=== PATIENT | male | born 1955 | race Hispanic/Latino ===

== ENCOUNTER 2017-06-06 16:49 | Emergency (ER) | payer MEDICARE, MEDICAID ==
[2017-06-06 16:50] VITALS: BMI 33.0
[2017-06-06 17:02] VITALS: BP 131/99; PULSE 78; RESP 16; TEMP 97.8; O2SAT 97
--- NOTE | 2017-06-06 17:23 | ED PDOC ---
HPI: Trauma/Fall - HPI Time Seen by Provider: 06/06/17 16:51 Chief Complaint (Nursing): Trauma Chief Complaint (Provider): fall type injury History Per: Patient History/Exam Limitations: no limitations Onset/Duration Of Symptoms: Days (x2) Additional Complaint(s): Arnoldo Serna is a 62 year old male with previous medical history of hypertension , diabetes, hypercholesterolemia and coronary artery disease, who presents to the emergency department for an evaluation of right knee pain associated with left-sided shoulder pain and neck pain status post falling and tripping last night. Denied further medical complaints. Patient stated he took 2 tablets of oxycodone today but regularly takes the pain medication daily for 7 years to treat his chronic pain. Of note, patient has a cardiac stent procedure scheduled for 06/09/17. PMD: Eber Sow MD Past Medical History Reviewed: Historical Data, Nursing Documentation, Vital Signs Vital Signs: Last Vital Signs Temp 97.8 F 06/06/17 17:00 Pulse 78 06/06/17 17:00 Resp 16 06/06/17 17:00 BP 131/99 H 06/06/17 17:00 Pulse Ox 97 06/06/17 18:37 - Medical History PMH: Benign Prostatic Hyperplasia, CAD, Depression, Diabetes, Fractures, HTN, Hypercholesterolemia Denies: Chronic Kidney Disease - Family History Family History: States: Unknown Family Hx - Home Medications Home Medications: Ambulatory Orders Medication Instructions Recorded Naproxen 1 tab PO Q8 PRN #21 tablet 02/14/16 diaZEpam [Valium] 5 mg PO Q6 PRN #6 tab 02/14/16 ALPRAZolam [Xanax] 1 mg PO Q4 06/11/16 Albuterol HFA [Ventolin HFA 90 0.09 mg IH PRN PRN 06/11/16 mcg/actuation (8 g)] Cetirizine HCl [Zyrtec] 10 mg PO DAILY 06/11/16 Cyclobenzaprine [Flexeril] 10 mg PO TID 06/11/16 Ergocalciferol (Vitamin D2) 50,000 unit PO QWK 06/11/16 [Vitamin D] Fenofibrate Nanocrystallized 160 mg PO DAILY 06/11/16 [Triglide] Fluticasone Nasal [Flonase] 0.05 mg NS PRN PRN 06/11/16 Gabapentin [Neurontin] 300 mg PO TID 06/11/16 Levothyroxine [Synthroid] 0.088 mg PO DAILY 06/11/16 Lidocaine 5% [Lidoderm] 1 patch TOP PRN PRN 06/11/16 Montelukast [Singulair] 10 mg PO DAILY 06/11/16 Omeprazole Magnesium [Prilosec Otc] 20 mg PO DAILY 06/11/16 Oxycodone HCl [Oxycontin] 30 mg PO Q8H PRN 06/11/16 PARoxetine [Paxil] 60 mg PO DAILY 06/11/16 SITagliptin [Januvia] 100 mg PO DAILY 06/11/16 Sildenafil Citrate [Revatio] 20 mg PO BID 06/11/16 amLODIPine [Norvasc] 5 mg PO BID 06/11/16 busPIRone [Buspar] 10 mg PO HS 06/11/16 busPIRone [Buspar] 15 mg PO TID 06/11/16 hydrALAZINE Hydrochloride 50 mg PO TID 06/11/16 [Apresoline] oxyCODONE [oxyCODONE Immediate 30 mg PO Q4 PRN 06/11/16 Release Tab] Methylprednisolone [Medrol Dose 4 mg PO DAILY #21 mg 06/12/16 Pack (21 tabs)] - Allergies Allergies/Adverse Reactions: Allergies Allergy/AdvReac Type Severity Reaction Status Date / Time Sulfa (Sulfonamide Allergy RASH Verified 02/14/16 09:33 Antibiotics) Review of Systems ROS Statement: Except As Marked, All Systems Reviewed And Found Negative Musculoskeletal: Positive for: Neck Pain (left-sided), Shoulder Pain (left), Leg Pain (right knee) Physical Exam - Reviewed Nursing Documentation Reviewed: Yes Vital Signs Reviewed: Yes - Physical Exam Appears: Positive for: Non-toxic, Uncomfortable Head Exam: Positive for: ATRAUMATIC, NORMAL INSPECTION, NORMOCEPHALIC Respiratory: Positive for: Normal Breath Sounds, Accessory Muscle Use. Negative for: Decreased Breath Sounds, Respiratory Distress Extremity: Positive for: Normal ROM, Tenderness (right knee; left shoulder). Negative for: Pedal Edema, Calf Tenderness, Deformity, Swelling (or ecchymosis) Neurologic/Psych: Positive for: Alert, Oriented - ECG O2 Sat by Pulse Oximetry: 97 (RA) Pulse Ox Interpretation: Normal Medical Decision Making Medical Decision Making: Initial Impression: Initial Plan: * Xray cervical spine * Xray knee (right) * Morphine 4mg IM * Xray shoulder (left) * * All Imaging studies, NAD, as read by SHANNAN * * Pt educated on all results and demonstrated full understanding * Pt reports feeling improved on re-eval, cleared for dc at this time. Pt able to ambulate with steady gait out of ED Scribe Attestation: Documented by Lucero Wadsworth, acting as a scribe for Kim Estrada. Provider Scribe Attestation: All medical record entries made by the Scribe were at my direction and personally dictated by me. I have reviewed the chart and agree that the record accurately reflects my personal performance of the history, physical exam, medical decision making, and the department course for this patient. I have also personally directed, reviewed, and agree with the discharge instructions and disposition. Disposition - Clinical Impression Clinical Impression: Contusion, Fall - Patient ED Disposition Is Patient to be Admitted: No - Disposition Disposition: Routine/Home Disposition Time: 18:53 Condition: STABLE Instructions: Contusion in Adults (ED) Forms: [employer] (Hebrew) - POA Present On Arrival: None
--- NOTE | 2017-06-07 13:42 | RAD ---
PROCEDURE: Radiographs of the Left Shoulder HISTORY: Posttraumatic left shoulder pain COMPARISON: None FINDINGS: BONES: Normal. No fracture. JOINTS: Preserved glenohumeral relationship, acromioclavicular degenerative change: Mild. SOFT TISSUES: Normal. OTHER FINDINGS: None. IMPRESSION: No acute findings related to/accounting for the clinical presentation. Please note: No preliminary report/ innterpretation of this examination provided by emergency department personnel.
--- NOTE | 2017-06-07 13:55 | RAD ---
PROCEDURE: Cervical Spine Radiographs. HISTORY: PainOpen Pain. No history of recent/ related trauma provided. COMPARISON: None. FINDINGS: BONES: Alignment maintained. No fracture. Dens Intact. DISC SPACES: Disc degenerative changes C4-5 and C5-6. Non marginal osteophytes identified anteriorly. SOFT TISSUES: Normal. No prevertebral soft tissue swelling. OTHER FINDINGS: None. IMPRESSION: No acute findings related to/accounting for the clinical presentation. Please note: No preliminary report/ innterpretation of this examination provided by emergency department personnel.
--- NOTE | 2017-06-07 13:57 | RAD ---
PROCEDURE: Right Knee Radiographs. HISTORY: fall COMPARISON: 09/13/2011 FINDINGS: BONES: Normal. No fracture. JOINTS: Normal. No osteoarthritis. JOINT EFFUSION: None. OTHER FINDINGS: None. IMPRESSION: No acute findings related to/accounting for the clinical presentation. No significant interval change compared to the prior examination(s). Please note: No preliminary report/ innterpretation of this examination provided by emergency department personnel.
== END 2017-06-06 18:15 | disposition home or self-care (01) ==
LOC: H.ER 16:49
DX: M25.561 Pain in right knee (principal); M25.512 Pain in left shoulder; M54.2 Cervicalgia; W19.XXXA Unspecified fall, initial encounter; Y92.89 Other specified places as the place of occurrence of the external cause; E11.9 Type 2 diabetes mellitus without complications; I10 Essential (primary) hypertension
CPT/HCPCS: 72050; 73030; 73562; 96372; 99284; J2270

== ENCOUNTER 2018-01-04 03:24 | Observation (INO) | payer MEDICARE, MEDICAID ==
[2018-01-04 03:25] VITALS: BMI 33.0
--- NOTE | 2018-01-04 04:04 | ED PDOC ---
HPI: Psych/Substance Abuse Chief Complaint (Provider): altered mental status History Per: Patient (62 y/o male h/o cardiac stent/CAD/psych illness brought to ED by police for evaluation. Patient called police due to concern that he was being attacked. At house, police note patient must be hallucinating as no other individuals there. Pateint was using cocaine at the time and had oxycodone in apartment. Patient staes he started to have chest en route to hospital. Describes symptoms as chest pressure.) <Todd Patel - Last Filed: 01/04/18 04:00> <Messi Cruz - Last Filed: 01/04/18 06:56> Time Seen by Provider: 01/04/18 04:00 Chief Complaint (Nursing): Psychiatric Evaluation Past Medical History Reviewed: Historical Data, Nursing Documentation, Vital Signs Vital Signs: Last Vital Signs Temp 98.2 F 01/04/18 03:32 Pulse 81 01/04/18 03:32 Resp 17 01/04/18 03:32 BP 151/105 H 01/04/18 03:32 Pulse Ox 94 L 01/04/18 03:32 - Medical History PMH: Benign Prostatic Hyperplasia, CAD, Depression, Diabetes, Fractures, HTN, Hypercholesterolemia Denies: Chronic Kidney Disease - Family History Family History: States: Unknown Family Hx <Todd Patel - Last Filed: 01/04/18 04:00> Vital Signs: Last Vital Signs Temp 98.2 F 01/04/18 06:45 Pulse 73 01/04/18 06:45 Resp 18 01/04/18 06:45 BP 131/64 01/04/18 06:45 Pulse Ox 97 01/04/18 06:45 <Messi Cruz - Last Filed: 01/04/18 06:56> - Home Medications Home Medications: Ambulatory Orders Medication Instructions Recorded Naproxen 1 tab PO Q8 PRN #21 tablet 02/14/16 diaZEpam [Valium] 5 mg PO Q6 PRN #6 tab 02/14/16 ALPRAZolam [Xanax] 1 mg PO Q4 06/11/16 Albuterol HFA [Ventolin HFA 90 0.09 mg IH PRN PRN 06/11/16 mcg/actuation (8 g)] Cetirizine HCl [Zyrtec] 10 mg PO DAILY 06/11/16 Cyclobenzaprine [Flexeril] 10 mg PO TID 06/11/16 Ergocalciferol (Vitamin D2) 50,000 unit PO QWK 06/11/16 [Vitamin D] Fenofibrate Nanocrystallized 160 mg PO DAILY 06/11/16 [Triglide] Fluticasone Nasal [Flonase] 0.05 mg NS PRN PRN 06/11/16 Gabapentin [Neurontin] 300 mg PO TID 06/11/16 Levothyroxine [Synthroid] 0.088 mg PO DAILY 06/11/16 Lidocaine 5% [Lidoderm] 1 patch TOP PRN PRN 06/11/16 Montelukast [Singulair] 10 mg PO DAILY 06/11/16 Omeprazole Magnesium [Prilosec Otc] 20 mg PO DAILY 06/11/16 Oxycodone HCl [Oxycontin] 30 mg PO Q8H PRN 06/11/16 PARoxetine [Paxil] 60 mg PO DAILY 06/11/16 SITagliptin [Januvia] 100 mg PO DAILY 06/11/16 Sildenafil Citrate [Revatio] 20 mg PO BID 06/11/16 amLODIPine [Norvasc] 5 mg PO BID 06/11/16 busPIRone [Buspar] 10 mg PO HS 06/11/16 busPIRone [Buspar] 15 mg PO TID 06/11/16 hydrALAZINE Hydrochloride 50 mg PO TID 06/11/16 [Apresoline] oxyCODONE [oxyCODONE Immediate 30 mg PO Q4 PRN 06/11/16 Release Tab] Methylprednisolone [Medrol Dose 4 mg PO DAILY #21 mg 06/12/16 Pack (21 tabs)] - Allergies Allergies/Adverse Reactions: Allergies Allergy/AdvReac Type Severity Reaction Status Date / Time Sulfa (Sulfonamide Allergy RASH Verified 02/14/16 09:33 Antibiotics) Review of Systems ROS Statement: Except As Marked, All Systems Reviewed And Found Negative <Todd Patel - Last Filed: 01/04/18 04:00> Physical Exam - Reviewed Nursing Documentation Reviewed: Yes Vital Signs Reviewed: Yes - Physical Exam Appears: Positive for: Well, Non-toxic, No Acute Distress Head Exam: Positive for: ATRAUMATIC, NORMAL INSPECTION, NORMOCEPHALIC Skin: Positive for: Normal Color, Warm, DRY Eye Exam: Positive for: EOMI, Normal appearance, PERRL ENT: Positive for: Normal ENT Inspection Neck: Positive for: Normal, Painless ROM Cardiovascular/Chest: Positive for: Regular Rate, Rhythm Respiratory: Positive for: CNT, Normal Breath Sounds Gastrointestinal/Abdominal: Positive for: Normal Exam, Soft Back: Positive for: Normal Inspection Extremity: Positive for: Normal ROM Neurologic/Psych: Positive for: Alert, Oriented <Todd Patel - Last Filed: 01/04/18 04:00> - ECG O2 Sat by Pulse Oximetry: 94 <Todd Patel - Last Filed: 01/04/18 04:00> - Laboratory Results Result Diagrams: 01/04/18 05:05 01/04/18 05:05 <Messi Cruz - Last Filed: 01/04/18 06:56> Medical Decision Making Medical Decision MakinAM BP improved, patient admits to cocaine abuse. Given signifcant risk factors will admit for continuous cardiac monitoring, serial ekgs and troponins. Ciaran Rodriguez aware, Dr. Maldonado of cardiology also aware. <Messi Cruz - Last Filed: 01/04/18 06:56> Disposition <Todd Patel - Last Filed: 01/04/18 04:00> - Disposition Disposition Time: 06:55 <Messi Cruz - Last Filed: 01/04/18 06:56> - Clinical Impression Clinical Impression: Chest pain, Cocaine abuse - Disposition Condition: FAIR Forms: [facility] (Tuvaluan)
[2018-01-04 06:02] LABS: BASO # 0.1 K/uL (0.0-0.2); BASO % 0.5 % (0.0-2.0); EOS # 0.1 K/uL (0.0-0.7); HEMOGLOBIN 13.3 g/dL (12.0-18.0); LYMPH # 1.8 K/uL (1.0-4.3); LYMPH % 14.4 % (20.0-40.0); MEAN CELL VOLUME 71.6 fl (80.0-94.0); MEAN CORPUSCULAR HEMOGLOBIN 22.4 pg (27.0-31.0); MEAN CORPUSCULAR HGB CONC 31.3 g/dL (33.0-37.0); MEAN PLATELET VOLUME 7.3 fl (7.2-11.7); MONO # 1.4 K/uL (0.0-0.8); NEUT # 9.2 K/uL (1.8-7.0); NEUT % 73.1 % (50.0-75.0); RBC 5.91 Mil/uL (4.40-5.90); RED CELL DISTRIBUTION WIDTH 18.7 % (11.5-14.5); WHITE BLOOD COUNT 12.6 K/uL (4.8-10.8)
[2018-01-04 06:11] LABS: CALCIUM 9.2 mg/dL (8.4-10.2); GFR AFRICAN-AMERICAN > 60; GFR NON-AFRICAN AMERICAN > 60
[2018-01-04 06:17] LABS: BLOOD UREA NITROGEN 24 mg/dl (9-20)
[2018-01-04] MEDS ORDERED: DICLOFENAC SODIUM 100 GM TP PRN (08:16)
[2018-01-04] MEDS ORDERED: Lidocaine 5% Patch TD PRN (08:16)
[2018-01-04] MEDS ORDERED: oxyCODONE 10 mg Immediate Release Tab PO PRN (08:16)
--- NOTE | 2018-01-04 08:27 | CP.PCM.HP ---
History of Present Illness - History of Present Illness History of Present Illness: pt admitted for cp obs after using cocaine then having pain. no f/c n/v/d. no complaints at present. nsr on monitor w/ pvc. pt has h/o stents. Present on Admission - Present on Admission Any Indicators Present on Admission: No Review of Systems - Cardiovascular Cardiovascular: As Per HPI, Chest Pain Past Patient History - Past Social History Smoking Status: Former Smoker - CARDIAC Hx Hypercholesterolemia: Yes Hx Hypertension: Yes - PULMONARY Hx Chronic Obstructive Pulmonary Disease (COPD): Yes - NEUROLOGICAL Hx Neurological Disorder: Yes Hx Seizures: Yes Other/Comment: Hx neuropathy - HEENT Hx HEENT Problems: No (WEARS RX GLASSES) - RENAL Hx Chronic Kidney Disease: No - ENDOCRINE/METABOLIC Hx Endocrine Disorders: Yes Hx Diabetes Mellitus Type 2: Yes Hx Hypothyroidism: Yes - HEMATOLOGICAL/ONCOLOGICAL Hx Blood Disorders: No - INTEGUMENTARY Hx Dermatological Problems: No - MUSCULOSKELETAL/RHEUMATOLOGICAL Hx Fractures: Yes - GASTROINTESTINAL Hx Gastrointestinal Disorders: Yes Hx Gastroesophageal Reflux: Yes - GENITOURINARY/GYNECOLOGICAL Hx Genitourinary Disorders: Yes - PSYCHIATRIC Hx Depression: Yes - SURGICAL HISTORY Hx Surgeries: Yes Hx Cardiac Catheterization: Yes (with stent placement) Hx Orthopedic Surgery: Yes (meniscus and ACL repairs) - ANESTHESIA Hx Anesthesia: Yes Hx Anesthesia Reactions: No Meds Allergies/Adverse Reactions: Allergies Allergy/AdvReac Type Severity Reaction Status Date / Time Sulfa (Sulfonamide Allergy RASH Verified 02/14/16 09:33 Antibiotics) Physical Exam - Constitutional Appears: Well, Non-toxic, No Acute Distress - Head Exam Head Exam: ATRAUMATIC, NORMAL INSPECTION, NORMOCEPHALIC - Eye Exam Eye Exam: EOMI, Normal appearance, PERRL Pupil Exam: NORMAL ACCOMODATION, PERRL - ENT Exam ENT Exam: Mucous Membranes Moist, Normal Exam - Neck Exam Neck exam: Positive for: Normal Inspection - Respiratory Exam Respiratory Exam: Clear to Auscultation Bilateral, NORMAL BREATHING PATTERN - Cardiovascular Exam Cardiovascular Exam: REGULAR RHYTHM, RRR, +S1, +S2 - GI/Abdominal Exam GI & Abdominal Exam: Normal Bowel Sounds, Soft. absent: Tenderness - Extremities Exam Extremities exam: Positive for: full ROM, normal capillary refill, normal inspection, pedal pulses present - Back Exam Back exam: NORMAL INSPECTION - Neurological Exam Neurological exam: Alert, CN II-XII Intact, Normal Gait, Oriented x3, Reflexes Normal - Psychiatric Exam Psychiatric exam: Normal Affect, Normal Mood - Skin Skin Exam: Dry, Intact, Normal Color, Warm Results - Vital Signs Recent Vital Signs: Last Vital Signs Temp 98.2 F 01/04/18 06:45 Pulse 73 01/04/18 06:45 Resp 18 01/04/18 06:45 BP 131/64 01/04/18 06:45 Pulse Ox 97 01/04/18 06:45 - Labs Result Diagrams: 01/04/18 05:05 01/04/18 05:05 Labs: Laboratory Results - last 24 hr 01/04/18 01/04/18 01/04/18 04:49 05:05 05:05 WBC 12.6 H RBC 5.91 H Hgb 13.3 Hct 42.3 MCV 71.6 L MCH 22.4 L MCHC 31.3 L RDW 18.7 H Plt Count 259 MPV 7.3 Neut % (Auto) 73.1 Lymph % (Auto) 14.4 L [place] % (Auto) 11.0 H Eos % (Auto) 1.0 Baso % (Auto) 0.5 Neut # (Auto) 9.2 H Lymph # (Auto) 1.8 [place] # (Auto) 1.4 H Eos # (Auto) 0.1 Baso # (Auto) 0.1 Sodium 138 Potassium 4.4 Chloride 100 Carbon Dioxide 22 Anion Gap 20 BUN 24 H Creatinine 1.0 Est GFR ( Amer) > 60 Est GFR (Non-Af Amer) > 60 POC Glucose (mg/dL) 87 Random Glucose 91 Calcium 9.2 Magnesium 2.1 Troponin I 0.0160 Alcohol, Quantitative < 10 Assessment & Plan (1) Chronic pain Assessment and Plan: cont meds, nj chip frier assessed Status: Acute (2) DVT prophylaxis Assessment and Plan: scd and ae hose ambulation asa Status: Acute (3) Chest pain Assessment and Plan: asa cardio trop echo Status: Acute (4) Cocaine abuse Assessment and Plan: monitor for withdrawal s/s will follow outpt Status: Acute Decision To Admit - Pt Status Changed To: Hospital Disposition Of: Observation - . Bed Request Type: Telemetry Admitting Physician: Eber Sow
[2018-01-04] MEDS ORDERED: Ergocalciferol 50,000 Intl Units Cap PO SCH (08:30)
[2018-01-04] MEDS ORDERED: Levothyroxine 88 MCG TAB PO SCH (08:30)
[2018-01-04] MEDS ORDERED: TESTOSTERONE 200 MG TD SCH (08:30)
--- NOTE | 2018-01-04 09:45 | RAD ---
HISTORY: cp COMPARISON: Chest radiograph dated 02/14/2016. FINDINGS: LUNGS: No active pulmonary disease. PLEURA: No significant pleural effusion identified, no pneumothorax apparent. CARDIOVASCULAR: Atherosclerotic aortic calcifications. Cardiomediastinal silhouette stably enlarged. OSSEOUS STRUCTURES: Unchanged. VISUALIZED UPPER ABDOMEN: Nonspecific curvilinear lucency at the right lung base. OTHER FINDINGS: None. IMPRESSION: Nonspecific curvilinear lucency at the right lung base. Repeat PA/lateral chest radiograph with optimal technique is recommended for further evaluation. No focal consolidation or pleural effusion.
--- NOTE | 2018-01-04 12:09 | CARD ---
APPROVED REPORT EKG Measurement Heart [id number] <Conclusion> Normal sinus rhythm Possible Left atrial enlargement Left axis deviation Left ventricular hypertrophy Abnormal ECG
[2018-01-04 12:52] LABS: BARBITURATES, UR NEGATIVE (NEGATIVE)
[2018-01-04 12:56] LABS: BENZODIAZEPINES, UR POSITIVE (NEGATIVE); OPIATES, UR NEGATIVE (NEGATIVE); PHENCYCLIDINE, UR NEGATIVE (NEGATIVE)
[2018-01-04 13:05] LABS: BASO # 0.1 K/uL (0.0-0.2); BASO % 0.6 % (0.0-2.0); EOS # 0.2 K/uL (0.0-0.7); EOS % 2.2 % (0.0-4.0); HEMOGLOBIN 12.8 g/dL (12.0-18.0); LYMPH # 2.1 K/uL (1.0-4.3); LYMPH % 24.7 % (20.0-40.0); MEAN CELL VOLUME 71.7 fl (80.0-94.0); MEAN CORPUSCULAR HEMOGLOBIN 22.7 pg (27.0-31.0); MEAN CORPUSCULAR HGB CONC 31.7 g/dL (33.0-37.0); MEAN PLATELET VOLUME 7.1 fl (7.2-11.7); MONO # 1.1 K/uL (0.0-0.8); MONO % 13.2 % (0.0-10.0); NEUT % 59.3 % (50.0-75.0); RBC 5.64 Mil/uL (4.40-5.90); WHITE BLOOD COUNT 8.4 K/uL (4.8-10.8)
[2018-01-04 13:45] LABS: BLOOD UREA NITROGEN 22 mg/dl (9-20); CALCIUM 8.9 mg/dL (8.4-10.2); GFR AFRICAN-AMERICAN > 60; GFR NON-AFRICAN AMERICAN > 60
[2018-01-04] MEDS ORDERED: Potassium Chloride 20 mEq ER Tab PO ONE (13:54)
[2018-01-04 16:22] VITALS: O2SAT 96
[2018-01-04 19:50] VITALS: BP 130/79; PULSE 61; RESP 17; TEMP 97.4
--- NOTE | 2018-01-05 08:21 | CP.PCM.CON ---
Past Patient History - Past Social History Smoking Status: Never Smoked - CARDIAC Hx Cardiac Disorders: Yes (HTN) - PULMONARY Hx Respiratory Disorders: Yes (ASTHMA) - NEUROLOGICAL Hx Neurological Disorder: Yes - HEENT Hx HEENT Problems: No (WEARS RX GLASSES) - RENAL Hx Chronic Kidney Disease: No - ENDOCRINE/METABOLIC Hx Endocrine Disorders: Yes - HEMATOLOGICAL/ONCOLOGICAL Hx AIDS: No Hx Human Immunodeficiency Virus (HIV): No - INTEGUMENTARY Hx Dermatological Problems: No - MUSCULOSKELETAL/RHEUMATOLOGICAL Hx Falls: No - GASTROINTESTINAL Hx Gastrointestinal Disorders: Yes Hx Gastroesophageal Reflux: Yes - GENITOURINARY/GYNECOLOGICAL Hx Genitourinary Disorders: Yes - PSYCHIATRIC Hx Substance Use: Yes - SURGICAL HISTORY Hx Surgeries: Yes Hx Cardiac Catheterization: Yes (with stent placement) Hx Orthopedic Surgery: Yes (meniscus and ACL repairs) - ANESTHESIA Hx Anesthesia: Yes Hx Anesthesia Reactions: No Meds Allergies/Adverse Reactions: Allergies Allergy/AdvReac Type Severity Reaction Status Date / Time Sulfa (Sulfonamide Allergy RASH Verified 02/14/16 09:33 Antibiotics) Results - Vital Signs Recent Vital Signs: Last Vital Signs Temp 97.4 F L 01/04/18 19:49 Pulse 61 01/04/18 20:17 Resp 17 01/04/18 19:49 BP 130/79 01/04/18 19:49 Pulse Ox 96 01/04/18 19:49 - Labs Result Diagrams: 01/04/18 12:19 01/04/18 12:19 Labs: Laboratory Results - last 24 hr 01/04/18 01/04/18 01/04/18 09:47 12:19 12:19 WBC 8.4 RBC 5.64 Hgb 12.8 Hct 40.4 MCV 71.7 L MCH 22.7 L MCHC 31.7 L RDW 18.0 H Plt Count 241 MPV 7.1 L Neut % (Auto) 59.3 Lymph % (Auto) 24.7 [place] % (Auto) 13.2 H Eos % (Auto) 2.2 Baso % (Auto) 0.6 Neut # (Auto) 5.0 Lymph # (Auto) 2.1 [place] # (Auto) 1.1 H Eos # (Auto) 0.2 Baso # (Auto) 0.1 Sodium 140 Potassium 3.4 L Chloride 98 Carbon Dioxide 30 Anion Gap 15 BUN 22 H Creatinine 1.1 Est GFR ( Amer) > 60 Est GFR (Non-Af Amer) > 60 POC Glucose (mg/dL) 102 Random Glucose 90 Calcium 8.9 Troponin I < 0.0120 TSH 3rd Generation 1.44 Urine Opiates Screen Urine Methadone Screen Ur Barbiturates Screen Ur Phencyclidine Scrn Ur Amphetamines Screen U Benzodiazepines Scrn U Oth Cocaine Metabols U Cannabinoids Screen 01/04/18 01/04/18 12:20 20:01 WBC RBC Hgb Hct MCV MCH MCHC RDW Plt Count MPV Neut % (Auto) Lymph % (Auto) [place] % (Auto) Eos % (Auto) Baso % (Auto) Neut # (Auto) Lymph # (Auto) [place] # (Auto) Eos # (Auto) Baso # (Auto) Sodium Potassium Chloride Carbon Dioxide Anion Gap BUN Creatinine Est GFR ( Amer) Est GFR (Non-Af Amer) POC Glucose (mg/dL) Random Glucose Calcium Troponin I < 0.0120 TSH 3rd Generation Urine Opiates Screen Negative Urine Methadone Screen Negative Ur Barbiturates Screen Negative Ur Phencyclidine Scrn Negative Ur Amphetamines Screen Negative U Benzodiazepines Scrn Positive U Oth Cocaine Metabols Positive H U Cannabinoids Screen Negative
[2018-01-05] MEDS ORDERED: PRASUGREL 10 MG PO SCH (09:00)
[2018-01-05] MEDS ORDERED: Enoxaparin 40 mg Syringe SC SCH (09:00)
--- NOTE | 2018-01-05 12:06 | CARD ---
APPROVED REPORT EXAM: Two-dimensional and M-mode echocardiogram with Doppler and color Doppler. Other Information Quality : AverageRhythm : NSR INDICATION Chest Pain Surgery/Intervention Status/Post Intervention: Stent 2D DIMENSIONS IVSd1.28 (0.7-1.1cm)LVDd5.38 (3.9-5.9cm) LVOT Diameter2.38 (1.8-2.4cm)PWd0.70 (0.7-1.1cm) IVSs1.44 (0.8-1.2cm)LVDs4.00 (2.5-4.0cm) FS (%) 25.7 %PWs1.26 (0.8-1.2cm) M-Mode DIMENSIONS Left Atrium (MM)5.03 (2.5-4.0cm)IVSd1.19 (0.7-1.1cm) Aortic Root3.50 (2.2-3.7cm)LVDd6.91 (4.0-5.6cm) Aortic Cusp Exc.2.22 (1.5-2.0cm)PWd1.06 (0.7-1.1cm) IVSs1.84 cmFS (%) 42 % LVDs4.00 (2.0-3.8cm)PWs1.94 cm Mitral Valve MV E Yvklrixd52.3cm/sMV DECEL [id number] A Drejkppk61.9cm/s MV LYJ20okJ/A ratio1.0MVA (PHT)2.56cm2 TDI Lateral E' Peak V6.44cm/sMedial E' Peak V6.27cm/sE/Lateral E'11.2 E/Medial E'11.5 LEFT VENTRICLE The left ventricle is normal size. There is normal left ventricular wall thickness. The left ventricular function is normal. The left ventricular ejection fraction is 50-55% There is normal LV segmental wall motion. The left ventricular diastolic function is normal. No left ventricle thrombus noted on this study. There is no ventricular septal defect visualized. There is no left ventricular aneurysm. There is no mass noted in the left ventricle. RIGHT VENTRICLE The right ventricle is normal size. There is normal right ventricular wall thickness. The right ventricular systolic function is normal. ATRIA The left atrium size is normal. The right atrium size is normal. The interatrial septum is intact with no evidence for an atrial septal defect. AORTIC VALVE The aortic valve is normal in structure. No aortic regurgitation is present. There is no aortic valvular stenosis. There is no aortic valvular vegetation. MITRAL VALVE The mitral valve is normal in structure. There is no evidence of mitral valve prolapse. There is no mitral valve stenosis. There is no mitral valve regurgitation noted. TRICUSPID VALVE The tricuspid valve is normal in structure. There is no tricuspid valve regurgitation noted. There is no tricuspid valve prolapse or vegetation. There is no tricuspid valve stenosis. PULMONIC VALVE The pulmonary valve is normal in structure. There is no pulmonic valvular regurgitation. There is no pulmonic valvular stenosis. GREAT VESSELS The aortic root is normal in size. The ascending aorta is normal in size. The IVC is normal in size and collapses >50% with inspiration. PERICARDIAL EFFUSION The pericardium appears normal. There is no pleural effusion. <Conclusion> Normal Echocardiogram
--- NOTE | 2018-01-06 08:36 | CP.PCM.DIS ---
Provider - Provider Date of Admission: 01/04/18 06:37 Attending physician: Eber Sow MD Primary care physician: Eber Sow MD Time Spent in preparation of Discharge (in minutes): 15 Diagnosis - Discharge Diagnosis (1) Chronic pain Status: Acute (2) DVT prophylaxis Status: Acute (3) Chest pain Status: Acute (4) Cocaine abuse Status: Acute Hospital Course - Lab Results Lab Results: Most Recent Lab Values WBC 8.4 K/uL (4.8-10.8) 01/04/18 12:19 RBC 5.64 Mil/uL (4.40-5.90) 01/04/18 12:19 Hgb 12.8 g/dL (12.0-18.0) 01/04/18 12:19 Hct 40.4 % (35.0-51.0) 01/04/18 12:19 MCV 71.7 fl (80.0-94.0) L 01/04/18 12:19 MCH 22.7 pg (27.0-31.0) L 01/04/18 12:19 MCHC 31.7 g/dL (33.0-37.0) L 01/04/18 12:19 RDW 18.0 % (11.5-14.5) H 01/04/18 12:19 Plt Count 241 K/uL (130-400) 01/04/18 12:19 MPV 7.1 fl (7.2-11.7) L 01/04/18 12:19 Neut % (Auto) 59.3 % (50.0-75.0) 01/04/18 12:19 Lymph % (Auto) 24.7 % (20.0-40.0) 01/04/18 12:19 [place] % (Auto) 13.2 % (0.0-10.0) H 01/04/18 12:19 Eos % (Auto) 2.2 % (0.0-4.0) 01/04/18 12:19 Baso % (Auto) 0.6 % (0.0-2.0) 01/04/18 12:19 Neut # (Auto) 5.0 K/uL (1.8-7.0) 01/04/18 12:19 Lymph # (Auto) 2.1 K/uL (1.0-4.3) 01/04/18 12:19 [place] # (Auto) 1.1 K/uL (0.0-0.8) H 01/04/18 12:19 Eos # (Auto) 0.2 K/uL (0.0-0.7) 01/04/18 12:19 Baso # (Auto) 0.1 K/uL (0.0-0.2) 01/04/18 12:19 Sodium 140 mmol/l (132-148) 01/04/18 12:19 Potassium 3.4 MMOL/L (3.6-5.0) L 01/04/18 12:19 Chloride 98 mmol/L (98-107) 01/04/18 12:19 Carbon Dioxide 30 mmol/L (22-30) 01/04/18 12:19 Anion Gap 15 (10-20) 01/04/18 12:19 BUN 22 mg/dl (9-20) H 01/04/18 12:19 Creatinine 1.1 mg/dl (0.8-1.5) 01/04/18 12:19 Est GFR ( Amer) > 60 01/04/18 12:19 Est GFR (Non-Af Amer) > 60 01/04/18 12:19 POC Glucose (mg/dL) 102 mg/dL (65-110) 01/04/18 09:47 Random Glucose 90 mg/dL (75-110) 01/04/18 12:19 Calcium 8.9 mg/dL (8.4-10.2) 01/04/18 12:19 Magnesium 2.1 MG/DL (1.6-2.3) 01/04/18 05:05 Troponin I < 0.0120 ng/mL (0.00-0.120) 01/04/18 20:01 TSH 3rd Generation 1.44 mIU/ML (0.46-4.68) 01/04/18 12:19 Urine Opiates Screen Negative (NEGATIVE) 01/04/18 12:20 Urine Methadone Screen Negative (NEGATIVE) 01/04/18 12:20 Ur Barbiturates Screen Negative (NEGATIVE) 01/04/18 12:20 Ur Phencyclidine Scrn Negative (NEGATIVE) 01/04/18 12:20 Ur Amphetamines Screen Negative (NEGATIVE) 01/04/18 12:20 U Benzodiazepines Scrn Positive (NEGATIVE) 01/04/18 12:20 U Oth Cocaine Metabols Positive (NEGATIVE) H 01/04/18 12:20 U Cannabinoids Screen Negative (NEGATIVE) 01/04/18 12:20 Alcohol, Quantitative < 10 mg/dl (0-10) 01/04/18 05:05 Discharge Exam - Head Exam Head Exam: ATRAUMATIC, NORMAL INSPECTION, NORMOCEPHALIC Discharge Plan - Follow Up Plan Condition: FAIR Disposition: HOME/ ROUTINE Additional Instructions: final dx-cp, cocaine abuse cleared by cardio f/u rmg, rted prn, meds per med rec Referrals: Eber Sow MD [Primary Care Provider] -
== END 2018-01-04 22:00 | disposition home or self-care (01) ==
LOC: H.ER 03:24 → H.ERHOLD 06:37 → H.TEL 10:34
PROVIDERS: ADMIT Family Medicine; ATTEND Family Medicine
DX: T40.5X1A Poisoning by cocaine, accidental (unintentional), initial encounter (principal); R07.9 Chest pain, unspecified; Y92.009 Unspecified place in unspecified non-institutional (private) residence as the place of occurrence of the external cause; I25.10 Atherosclerotic heart disease of native coronary artery without angina pectoris; Z95.5 Presence of coronary angioplasty implant and graft; G89.29 Other chronic pain; Z88.2 Allergy status to sulfonamides; N40.0 Benign prostatic hyperplasia without lower urinary tract symptoms; I10 Essential (primary) hypertension; E78.00 Pure hypercholesterolemia, unspecified; Z87.891 Personal history of nicotine dependence; J44.9 Chronic obstructive pulmonary disease, unspecified; E11.42 Type 2 diabetes mellitus with diabetic polyneuropathy; E03.9 Hypothyroidism, unspecified; K21.9 Gastro-esophageal reflux disease without esophagitis
CPT/HCPCS: 71045; 80048; 82948; 83735; 84443; 84484; 85025; 93005; 93306; 99283; G0378; G0480

== ENCOUNTER 2018-01-07 13:21 | Emergency (ER) | payer MEDICARE, MEDICAID ==
[2018-01-07 13:28] VITALS: BMI 33.7
[2018-01-07] MEDS ORDERED: Oxycodone/Acetaminophen 5/325 mg Tab PO STA (13:40)
--- NOTE | 2018-01-07 13:49 | ED PDOC ---
Lower Extremity Pain/Injury Time Seen by Provider: 01/07/18 13:32 Chief Complaint (Nursing): Lower Extremity Problem/Injury Chief Complaint (Provider): Lower Extremity Problem/Injury History Per: Patient History/Exam Limitations: no limitations Onset/Duration Of Symptoms: Days (x2) Current Symptoms Are (Timing): Still Present Additional History Per: EMS Additional Complaint(s): 62 year old male presents to the emergency department via EMS for right ankle pain, onset yesterday. He states that yesterday he injured his right ankle, possibly twisting it, while carrying a heavy box. The pain, he notes, has become progressively worse, reporting new redness around his ankle. Denies taking any pain medication at home today. The patient also reports that in 2006 , he sustained a fracture to his ankle which required fusion of bones by cellophaner Dr. Gan. PMD: Eber Sow Past Medical History Reviewed: Historical Data, Nursing Documentation, Vital Signs Vital Signs: Last Vital Signs Temp 99.1 F 01/07/18 13:26 Pulse 79 01/07/18 13:26 Resp 20 01/07/18 13:26 BP 138/76 01/07/18 13:26 Pulse Ox 96 01/07/18 13:26 - Medical History PMH: Anxiety, Asthma, Back Problems, Benign Prostatic Hyperplasia, CAD, COPD, Depression, Diabetes, Fractures, HTN, Hypercholesterolemia, Hypothyroidism, Seizures Denies: HIV, Chronic Kidney Disease - Surgical History Surgical History: Back Surgery (with fusion) Other surgeries: stent placement, meniscus and ACL repairs - Family History Family History: States: Unknown Family Hx - Social History Current smoker - smoking cessation education provided: No Alcohol: None Drugs: Cocaine - Home Medications Home Medications: Ambulatory Orders Medication Instructions Recorded ALPRAZolam [Xanax] 1 mg PO QID 01/04/18 Aspirin [Ecotrin] 81 mg PO DAILY 01/04/18 Diclofenac Sodium [Voltaren] 100 gm TP DAILY PRN 01/04/18 Ergocalciferol (Vitamin D2) 50,000 units PO QWK 01/04/18 [Vitamin D2] Fenofibrate [Triglide] 160 mg PO DAILY 01/04/18 Gabapentin [Neurontin] 300 mg PO BID 01/04/18 Ibuprofen [Motrin Tab] 600 mg PO BID 01/04/18 Levothyroxine [Synthroid] 88 mcg PO DAILY 01/04/18 Lidocaine 5% [Lidoderm] 1 patch TOP DAILY PRN 01/04/18 Lisinopril [Zestril] 20 mg PO DAILY 01/04/18 Metoprolol Tartrate [Lopressor] 25 mg PO BID 01/04/18 Montelukast [Singulair] 10 mg PO DAILY 01/04/18 PARoxetine [Paxil] 60 mg PO DAILY 01/04/18 Prasugrel [Effient] 10 mg PO DAILY 01/04/18 SITagliptin [Januvia] 100 mg PO DAILY 01/04/18 Testosterone 200 mg TD Q2W 01/04/18 busPIRone [Buspar] 60 mg PO DAILY 01/04/18 lamoTRIgine [Lamictal] 50 mg PO BID 01/04/18 oxyCODONE [oxyCODONE Immediate 30 mg PO QID PRN 01/04/18 Release Tab] Amoxicillin/Clavulanate [Augmentin 1 tab PO BID #20 tab 01/07/18 875 MG-125 MG] - Allergies Allergies/Adverse Reactions: Allergies Allergy/AdvReac Type Severity Reaction Status Date / Time Sulfa (Sulfonamide Allergy RASH Verified 02/14/16 09:33 Antibiotics) Review of Systems ROS Statement: Except As Marked, All Systems Reviewed And Found Negative Musculoskeletal: Positive for: Foot Pain (right ankle swelling, pain, redness) Physical Exam - Reviewed Nursing Documentation Reviewed: Yes Vital Signs Reviewed: Yes - Physical Exam Appears: Positive for: In Acute Distress (moderate painful) Pulses-Dorsalis Pedis (L): 2+ Pulses-Dorsalis Pedis (R): 2+ Extremity: Positive for: Tenderness (moderate to entire right ankle), Capillary Refill (less than 2 seconds bilaterally), Swelling (bilateral malleolar swelling to right ankle which is chronic), Other (Old surgical scar on medial malleolus with warmth and surrounding erythema). Negative for: Calf Tenderness (bilateral) Neurologic/Psych: Positive for: Alert, Oriented - Laboratory Results Result Diagrams: 01/07/18 14:00 01/07/18 14:00 - ECG O2 Sat by Pulse Oximetry: 96 (RA) Pulse Ox Interpretation: Normal Medical Decision Making Medical Decision Making: Initial Impression: ankle injury Time: 13:39 Initial Plan: --CMP --CBC with differential --Percocet 5/325 mg 2 tab PO --Blood Culture --XR Right ankle Re-evaluation 14:47 WBC is 18.6. Zosyn IV and Vancomycin IV ordered. 18:10 CT Right Ankle FINDINGS: Bones/joints: No acute fracture. No dislocation. Chronic, extensive postsurgical and/or posttraumatic deformity of the ankle, hindfoot, and midfoot. There is near-complete osseous fusion throughout the midfoot and hindfoot. There are multiple orthopedic screws and mxawell transfixing the ankle , hindfoot, and midfoot. There is lucency around the heads and proximal shafts of the two most proximal surgical screws, suggestive of hardware loosening. One of the orthopedic maxwell in the mid foot is broken, of indeterminate chronicity , but the fragments of the staple are essentially nondisplaced. No evident osseous erosion suggestive of acute osteomyelitis. Soft tissues: Mild soft tissue swelling along the medial aspect of the ankle. Aside from the surgical hardware, there is no radiopaque foreign body. No gas in the soft tissues. IMPRESSION: 1. No acute fracture or dislocation. 2. Chronic, extensive postsurgical and/or posttraumatic deformity of the ankle, hindfoot, and midfoot as described above. Lucency around two of the surgical screws is suggestive of hardware loosening. One of the orthopedic maxwell in the mid foot is broken, of indeterminate chronicity. Recommend direct comparison to prior imaging studies should they become available to assess for interval change. 3. Mild soft tissue swelling along the medial aspect of the ankle. 1820 Case d/w Dr. Art, pt.'s cellophaner, who knows pt. very well and states pt. can be dc'd with Rx for Augmentin and preformed ankle splint is sufficient. Also states pt. can f/u in his office tomorrow in his [place] office. Pt. informed of plan and agrees with care. States he is currently taking Amoxicillin for tooth infection. Advised to stop Amoxicillin and take Augmentin instead. Ankle immobilized in aircast splint by [employer]. Offered crutches but pt. refused. Scribe Attestation: Documented by Mary Beth Young, acting as a scribe for Alexys Guy PA-C Provider Scribe Attestation: All medical entries made by the Scribe were at my direction and personally dictated by me. I have reviewed the chart and agree that the record accurately reflects my personal performance of the history, physical exam, medical decision making, and the department course for this patient. I have also personally directed, reviewed, and agree with the discharge instructions and disposition. Disposition - Clinical Impression Clinical Impression: Ankle pain, Cellulitis - Patient ED Disposition Is Patient to be Admitted: No - Disposition Referrals: Gavin Wilkinson [Outside] Disposition: Routine/Home Disposition Time: 18:20 Condition: STABLE Additional Instructions: FOLLOW UP WITH DR. ART IN THE [place] [facility]ICE TOMORROW WITHOUT FAIL RETURN TO ED IMMEDIATELY IF SYMPTOMS WORSEN Prescriptions: Amoxicillin/Clavulanate [Augmentin 875 MG-125 MG] 1 tab PO BID #20 tab Instructions: Cellulitis (Skin Infection), Adult (DC), Joint Pain Forms: [employer] (Sammarinese) Print Language: [place]
[2018-01-07] MEDS ORDERED: Oxycodone/Acetaminophen 5/325 mg Tab ONE (13:57)
[2018-01-07 14:20] LABS: BASO # 0.1 K/uL (0.0-0.2); BASO % 0.4 % (0.0-2.0); HEMOGLOBIN 12.7 g/dL (12.0-18.0); LYMPH # 1.1 K/uL (1.0-4.3); LYMPH % 5.7 % (20.0-40.0); MEAN CELL VOLUME 70.1 fl (80.0-94.0); MEAN CORPUSCULAR HEMOGLOBIN 22.5 pg (27.0-31.0); MEAN CORPUSCULAR HGB CONC 32.2 g/dL (33.0-37.0); MEAN PLATELET VOLUME 7.3 fl (7.2-11.7); MONO # 2.3 K/uL (0.0-0.8); MONO % 12.1 % (0.0-10.0); NEUT # 15.2 K/uL (1.8-7.0); NEUT % 81.8 % (50.0-75.0); PLATELET COUNT 214 K/uL (130-400); RBC 5.65 Mil/uL (4.40-5.90); WHITE BLOOD COUNT 18.6 K/uL (4.8-10.8)
[2018-01-07 14:20] LABS: VENOUS BLOOD GAS PCO2 45 mmHg (40-60); VENOUS BLOOD GAS PO2 24 mm/Hg (30-55); VENOUS BLOOD PH 7.42 (7.32-7.43)
[2018-01-07] MEDS ORDERED: Piperacillin/Tazobact 3.375 GM in Sodium Chloride 0.9% 100 ML IVPB STA (14:40)
[2018-01-07 14:41] LABS: ALB/GLOB RATIO 1.2 (1.0-2.1); ALT/SGPT 42 U/L (21-72); AST/SGOT 35 U/L (17-59); BLOOD UREA NITROGEN 20 mg/dl (9-20); CALCIUM 9.4 mg/dL (8.4-10.2); GFR AFRICAN-AMERICAN > 60; GFR NON-AFRICAN AMERICAN > 60
[2018-01-07] MEDS ORDERED: Piperacillin/Tazobact 3.375 gm Inj IVPB ONE (14:46)
[2018-01-07 14:55] LABS: ANISOCYTOSIS SLIGHT; BANDS 1 % (0-2); LYMPHOCYTE 5 % (20-50); MICROCYTOSIS SLIGHT; MONOCYTE 9 % (0-10); NEUTROPHIL 85 % (42-75); PLATELET ESTIMATE NORMAL (NORMAL); TOTAL CELLS COUNTED 100
[2018-01-07 14:56] LABS: OVALOCYTES SLIGHT
[2018-01-07 16:36] VITALS: TEMP 99.8
[2018-01-07 19:14] VITALS: BP 139/67; PULSE 82; RESP 18
--- NOTE | 2018-01-07 19:23 | CT ---
PROCEDURE: HISTORY: ATTENTION RIGHT ANKLE AND RIGHT FOOT COMPARISON: Right ankle x-rays dated same day TECHNIQUE: FINDINGS: No acute fracture. No dislocation. Chronic extensive postsurgical and/or posttraumatic deformity of the ankle, hindfoot and midfoot. Complete osseous fusion throughout the midfoot and hindfoot. Multiple orthopedic screws and maxwell transfixing the ankle, hindfoot and midfoot. Lucency around the heads and proximal shafts of the 2 most proximal surgical screws suggestive of hardware loosening. One with orthopedic maxwell is in the midfoot is broken and of indeterminate chronicity. The fragments of the staple are essentially nondisplaced. No evidence of osseous erosion to suggest osteomyelitis. Mild soft tissue swelling along the medial aspect of the ankle. IMPRESSION: Please see discussion above.
--- NOTE | 2018-01-07 19:29 | RAD ---
PROCEDURE: Right Wrist Radiographs. HISTORY: trauma COMPARISON: None. FINDINGS: BONES: Postsurgical changes of the midfoot hindfoot and ankle with multiple fixation screws with surrounding lucencies suggesting myomata orthopedic hardware loosening. Total fusion of the midfoot, hindfoot and ankle. See CT scan report. JOINTS: Normal. No dislocation. SOFT TISSUES: Degenerative changes of the ankle mortise. OTHER FINDINGS: None. IMPRESSION: Postsurgical changes of the midfoot hindfoot and ankle with multiple fixation screws with surrounding lucencies suggesting myomata orthopedic hardware loosening. Total fusion of the midfoot, hindfoot and ankle. See CT scan report.
[2018-01-07 20:21] VITALS: O2SAT 96
== END 2018-01-07 19:15 | disposition home or self-care (01) ==
LOC: H.ER 13:21
DX: A41.02 Sepsis due to Methicillin resistant Staphylococcus aureus (principal); L03.115 Cellulitis of right lower limb; M00.9 Pyogenic arthritis, unspecified

== ENCOUNTER 2018-01-08 19:16 | Inpatient (IN) | payer MEDICARE, MEDICAID ==
[2018-01-08 19:17] VITALS: BMI 33.7
[2018-01-08] MEDS ORDERED: Sodium Chloride 0.9% 1,000 ML IV STA (20:58)
[2018-01-08] MEDS ORDERED: Piperacillin/Tazobact 3.375 GM in Sodium Chloride 0.9% 100 ML IVPB STA (20:58)
[2018-01-08] MEDS ORDERED: Piperacillin/Tazobact 3.375 gm Inj IVPB ONE (21:19)
--- NOTE | 2018-01-08 21:22 | ED PDOC ---
HPI: General Adult Time Seen by Provider: 01/08/18 20:52 Chief Complaint (Nursing): Abnormal Labs Chief Complaint (Provider): Abnormal Labs History Per: Patient History/Exam Limitations: no limitations Current Symptoms Are (Timing): Still Present Additional Complaint(s): 62 y/o male was seen yesterday with cellulitis on right ankle and sent home with PO antibiotics. Blood culture that was drawn yesterday revealed gram positive cocci and thus patient was called to return to the ED. Denies fever, chills or any further medical complaints. PMD: Eber Sow MD Past Medical History Reviewed: Historical Data, Nursing Documentation, Vital Signs Vital Signs: Last Vital Signs Temp 99.2 F 01/08/18 19:42 Pulse 79 01/08/18 19:42 Resp 16 01/08/18 19:42 BP 143/73 01/08/18 19:42 Pulse Ox 96 01/08/18 21:36 - Medical History PMH: Anxiety, Asthma, Back Problems, Benign Prostatic Hyperplasia, CAD, COPD, Depression, Diabetes, Fractures, HTN, Hypercholesterolemia, Hypothyroidism, Seizures Denies: HIV, Chronic Kidney Disease - Surgical History Surgical History: Back Surgery (with fusion), Coronary Stent Other surgeries: Meniscus and ACL repairs - Family History Family History: States: Unknown Family Hx - Social History Current smoker - smoking cessation education provided: No (Never smoked) Alcohol: None Drugs: Cocaine - Home Medications Home Medications: Ambulatory Orders Medication Instructions Recorded ALPRAZolam [Xanax] 1 mg PO QID 01/04/18 Aspirin [Ecotrin] 81 mg PO DAILY 01/04/18 Diclofenac Sodium [Voltaren] 100 gm TP DAILY PRN 01/04/18 Ergocalciferol (Vitamin D2) 50,000 units PO QWK 01/04/18 [Vitamin D2] Fenofibrate [Triglide] 160 mg PO DAILY 01/04/18 Gabapentin [Neurontin] 300 mg PO BID 01/04/18 Ibuprofen [Motrin Tab] 600 mg PO BID 01/04/18 Levothyroxine [Synthroid] 88 mcg PO DAILY 01/04/18 Lidocaine 5% [Lidoderm] 1 patch TOP DAILY PRN 01/04/18 Lisinopril [Zestril] 20 mg PO DAILY 01/04/18 Metoprolol Tartrate [Lopressor] 25 mg PO BID 01/04/18 Montelukast [Singulair] 10 mg PO DAILY 01/04/18 PARoxetine [Paxil] 60 mg PO DAILY 01/04/18 Prasugrel [Effient] 10 mg PO DAILY 01/04/18 SITagliptin [Januvia] 100 mg PO DAILY 01/04/18 Testosterone 200 mg TD Q2W 01/04/18 busPIRone [Buspar] 60 mg PO DAILY 01/04/18 lamoTRIgine [Lamictal] 50 mg PO BID 01/04/18 oxyCODONE [oxyCODONE Immediate 30 mg PO QID PRN 01/04/18 Release Tab] Amoxicillin/Clavulanate [Augmentin 1 tab PO BID #20 tab 01/07/18 875 MG-125 MG] - Allergies Allergies/Adverse Reactions: Allergies Allergy/AdvReac Type Severity Reaction Status Date / Time Sulfa (Sulfonamide Allergy RASH Verified 02/14/16 09:33 Antibiotics) Review of Systems ROS Statement: Except As Marked, All Systems Reviewed And Found Negative (As per HPI, otherwise negative) Constitutional: Negative for: Fever, Chills Skin: Positive for: Other (Cellulitis on right ankle) Physical Exam - Reviewed Nursing Documentation Reviewed: Yes Vital Signs Reviewed: Yes - Physical Exam Appears: Positive for: Non-toxic, No Acute Distress Head Exam: Positive for: ATRAUMATIC, NORMAL INSPECTION, NORMOCEPHALIC Skin: Positive for: Normal Color, Warm, Dry Eye Exam: Positive for: EOMI, Normal appearance, PERRL ENT: Positive for: Normal ENT Inspection Neck: Positive for: Normal, Painless ROM, Supple Cardiovascular/Chest: Positive for: Regular Rate, Rhythm. Negative for: Murmur Respiratory: Positive for: Decreased Breath Sounds. Negative for: Wheezing, Respiratory Distress Gastrointestinal/Abdominal: Positive for: Normal Exam, Soft. Negative for: Tenderness Back: Positive for: Normal Inspection Extremity: Positive for: Tenderness (Right medial malleolus tender to palpation) , Other (Right medial malleolus erythematous and swollen, hot to touch, no streaking, and no abscess palpated). Negative for: Deformity Neurologic/Psych: Positive for: Alert, Oriented (x3) - ECG O2 Sat by Pulse Oximetry: 96 (RA) Pulse Ox Interpretation: Normal Medical Decision Making Medical Decision Making: Time: 20:58 Initial Impression: Cellulitis Plan: VBG Shock Panel CMP Chest x-ray Morphine 2mg IVP Sodium chloride 1L IV Vancomycin 1gm IVPB Zosyn 3.375gm IVPB Blood culture Admit to hospital Reevaluation Scribe Attestation: Documented by Mauricio Patel acting as a scribe for Ahmet Kaur MD. Scribe Attestation: All medical record entries made by the Scribe were at my direction and personally dictated by me. I have reviewed the chart and agree that the record accurately reflects my personal performance of the history, physical exam, medical decision making, and the department course for this patient. I have also personally directed, reviewed, and agree with the discharge instructions and disposition. Disposition - Clinical Impression Clinical Impression: Cellulitis - Patient ED Disposition Is Patient to be Admitted: Yes - Disposition Disposition Time: 21:47 Condition: FAIR Forms: [employer] (Libyan) - Pt Status Changed To: Hospital Disposition Of: Inpatient - Admit Certification Admit to Inpatient:: After my assessment, the patient will require hospitalization for at least two midnights. This is because of the severity of symptoms shown, intensity of services needed, and/or the medical risk in this patient being treated as an outpatient. - POA Present On Arrival: None
[2018-01-08] MEDS ORDERED: DICLOFENAC SODIUM 100 GM TP PRN (21:34)
[2018-01-08] MEDS ORDERED: Lidocaine 5% Patch TD PRN (21:34)
[2018-01-08] MEDS ORDERED: Ergocalciferol 50,000 Intl Units Cap PO SCH (21:45)
[2018-01-08] MEDS ORDERED: TESTOSTERONE 200 MG TD SCH (21:45)
[2018-01-08 21:53] LABS: BASO % 0.1 % (0.0-2.0); HEMOGLOBIN 12.9 g/dL (12.0-18.0); LYMPH # 0.9 K/uL (1.0-4.3); LYMPH % 3.9 % (20.0-40.0); MEAN CELL VOLUME 71.3 fl (80.0-94.0); MEAN CORPUSCULAR HEMOGLOBIN 22.4 pg (27.0-31.0); MEAN CORPUSCULAR HGB CONC 31.4 g/dL (33.0-37.0); MEAN PLATELET VOLUME 7.6 fl (7.2-11.7); MONO # 1.9 K/uL (0.0-0.8); MONO % 8.6 % (0.0-10.0); NEUT # 19.4 K/uL (1.8-7.0); NEUT % 87.4 % (50.0-75.0); RBC 5.77 Mil/uL (4.40-5.90); WHITE BLOOD COUNT 22.2 K/uL (4.8-10.8)
[2018-01-08 22:01] LABS: ALB/GLOB RATIO 1.2 (1.0-2.1); ALBUMIN 3.8 g/dL (3.5-5.0); ALT/SGPT 40 U/L (21-72); AST/SGOT 33 U/L (17-59); BLOOD UREA NITROGEN 28 mg/dl (9-20); GFR AFRICAN-AMERICAN > 60; GFR NON-AFRICAN AMERICAN > 60
[2018-01-09 01:25] LABS: VENOUS BLOOD GAS BASE EXCESS 6.6 mmol/L (0.0-2.0); VENOUS BLOOD GAS PCO2 44 mmHg (40-60); VENOUS BLOOD GAS PO2 21 mm/Hg (30-55); VENOUS BLOOD PH 7.46 (7.32-7.43)
[2018-01-09] MEDS: oxyCODONE 10 mg Immediate Release Tab PO PRN ×2 (02:15→18:56)
[2018-01-09] MEDS: Piperacillin/Tazobact 3.375 GM in Sodium Chloride 0.9% 100 ML IVPB SCH ×4 (03:10→21:03)
[2018-01-09 06:46] LABS: BASO % 0.1 % (0.0-2.0); HEMOGLOBIN 12.5 g/dL (12.0-18.0); LYMPH # 0.9 K/uL (1.0-4.3); LYMPH % 4.7 % (20.0-40.0); MEAN CELL VOLUME 71.2 fl (80.0-94.0); MEAN CORPUSCULAR HEMOGLOBIN 22.6 pg (27.0-31.0); MEAN CORPUSCULAR HGB CONC 31.7 g/dL (33.0-37.0); MEAN PLATELET VOLUME 7.7 fl (7.2-11.7); MONO # 1.8 K/uL (0.0-0.8); MONO % 9.4 % (0.0-10.0); NEUT # 16.3 K/uL (1.8-7.0); NEUT % 85.8 % (50.0-75.0); RBC 5.54 Mil/uL (4.40-5.90); RED CELL DISTRIBUTION WIDTH 18.1 % (11.5-14.5)
[2018-01-09 07:00] LABS: ALB/GLOB RATIO 1.1 (1.0-2.1); ALBUMIN 3.5 g/dL (3.5-5.0); ALT/SGPT 41 U/L (21-72); AST/SGOT 32 U/L (17-59); BLOOD UREA NITROGEN 28 mg/dl (9-20); CALCIUM 8.7 mg/dL (8.4-10.2); GFR AFRICAN-AMERICAN > 60; GFR NON-AFRICAN AMERICAN > 60
--- NOTE | 2018-01-09 08:12 | CP.PCM.HP ---
History of Present Illness - History of Present Illness History of Present Illness: pt admitted for gram pos bacteria in bc after having cellulitis in r ankle. pt found to have broken hardware in that ankle from paralegal supervisor dr hamilton. pt staets cardio will not allow surgery until 02/2018 r/t new stent. pt denies ocmplaints at this time. nof/c, n/v/d. bw noted. repeat bc sent from er Present on Admission - Present on Admission Any Indicators Present on Admission: No Review of Systems - Musculoskeletal Musculoskeletal: As Per HPI, Arthralgias - Integumentary Integumentary: As Per HPI, Erythema Past Patient History - Past Social History Smoking Status: Former Smoker - CARDIAC Hx Hypercholesterolemia: Yes Hx Hypertension: Yes - PULMONARY Hx Asthma: No Hx Chronic Obstructive Pulmonary Disease (COPD): No Hx Emphysema: Yes - NEUROLOGICAL Hx Seizures: Yes - HEENT Hx HEENT Problems: No (WEARS RX GLASSES) - RENAL Hx Chronic Kidney Disease: No - ENDOCRINE/METABOLIC Hx Diabetes Mellitus Type 2: Yes Hx Hypothyroidism: Yes - HEMATOLOGICAL/ONCOLOGICAL Hx Human Immunodeficiency Virus (HIV): No - INTEGUMENTARY Hx Dermatological Problems: No - MUSCULOSKELETAL/RHEUMATOLOGICAL Hx Falls: Yes Hx Fractures: Yes - GASTROINTESTINAL Hx Gastrointestinal Disorders: Yes Hx Gastroesophageal Reflux: Yes - GENITOURINARY/GYNECOLOGICAL Hx Genitourinary Disorders: No - PSYCHIATRIC Hx Anxiety: No Hx Depression: Yes Hx Substance Use: No - SURGICAL HISTORY Hx Coronary Stent: Yes - ANESTHESIA Hx Anesthesia: Yes Hx Anesthesia Reactions: No Hx Malignant Hyperthermia: No Has any member of the family had a problem w/ anesthesia?: No Meds Allergies/Adverse Reactions: Allergies Allergy/AdvReac Type Severity Reaction Status Date / Time Sulfa (Sulfonamide Allergy RASH Verified 02/14/16 09:33 Antibiotics) Physical Exam - Constitutional Appears: Well, Non-toxic, No Acute Distress - Head Exam Head Exam: ATRAUMATIC, NORMAL INSPECTION, NORMOCEPHALIC - Eye Exam Eye Exam: EOMI, Normal appearance, PERRL Pupil Exam: NORMAL ACCOMODATION, PERRL - ENT Exam ENT Exam: Mucous Membranes Moist, Normal Exam - Neck Exam Neck exam: Positive for: Normal Inspection - Respiratory Exam Respiratory Exam: Clear to Auscultation Bilateral, NORMAL BREATHING PATTERN - Cardiovascular Exam Cardiovascular Exam: REGULAR RHYTHM, RRR, +S1, +S2 - GI/Abdominal Exam GI & Abdominal Exam: Normal Bowel Sounds, Soft. absent: Tenderness - Extremities Exam Extremities exam: Positive for: full ROM, normal capillary refill, normal inspection, pedal pulses present - Back Exam Back exam: NORMAL INSPECTION - Neurological Exam Neurological exam: Alert, CN II-XII Intact, Normal Gait, Oriented x3, Reflexes Normal - Psychiatric Exam Psychiatric exam: Normal Affect, Normal Mood - Skin Skin Exam: Dry, Intact, Normal Color, Warm Results - Vital Signs Recent Vital Signs: Last Vital Signs Temp 97.7 F 01/09/18 01:59 Pulse 76 01/09/18 01:59 Resp 19 01/09/18 01:59 BP 120/73 01/09/18 01:59 Pulse Ox 96 01/09/18 01:59 - Labs Result Diagrams: 01/09/18 06:20 01/09/18 06:20 Labs: Laboratory Results - last 24 hr 01/08/18 01/08/18 01/09/18 21:45 21:45 01:23 WBC 22.2 H RBC 5.77 Hgb 12.9 Hct 41.2 MCV 71.3 L MCH 22.4 L MCHC 31.4 L RDW 18.0 H Plt Count 208 MPV 7.6 Neut % (Auto) 87.4 H Lymph % (Auto) 3.9 L [place] % (Auto) 8.6 Eos % (Auto) 0.0 Baso % (Auto) 0.1 Neut # (Auto) 19.4 H Lymph # (Auto) 0.9 L [place] # (Auto) 1.9 H Eos # (Auto) 0.0 Baso # (Auto) 0.0 pO2 21 L VBG pH 7.46 H VBG pCO2 44 VBG HCO3 28.4 VBG Total CO2 32.7 H VBG O2 Sat (Calc) 35.2 L VBG Base Excess 6.6 H VBG Potassium 3.8 Glucose 123 H Lactate 1.5 FiO2 21.0 Sodium 133 131.0 L Potassium 3.9 Chloride 94 L 97.0 L Carbon Dioxide 26 Anion Gap 17 BUN 28 H Creatinine 0.9 Est GFR ( Amer) > 60 Est GFR (Non-Af Amer) > 60 POC Glucose (mg/dL) Random Glucose 125 H Calcium 9.0 Total Bilirubin 2.9 H AST 33 ALT 40 Alkaline Phosphatase 63 Total Protein 7.0 Albumin 3.8 Globulin 3.2 Albumin/Globulin Ratio 1.2 Venous Blood Potassium 3.8 01/09/18 01/09/18 01/09/18 06:20 06:20 06:24 WBC 19.0 H RBC 5.54 Hgb 12.5 Hct 39.5 MCV 71.2 L MCH 22.6 L MCHC 31.7 L RDW 18.1 H Plt Count 216 MPV 7.7 Neut % (Auto) 85.8 H Lymph % (Auto) 4.7 L [place] % (Auto) 9.4 Eos % (Auto) 0.0 Baso % (Auto) 0.1 Neut # (Auto) 16.3 H Lymph # (Auto) 0.9 L [place] # (Auto) 1.8 H Eos # (Auto) 0.0 Baso # (Auto) 0.0 pO2 VBG pH VBG pCO2 VBG HCO3 VBG Total CO2 VBG O2 Sat (Calc) VBG Base Excess VBG Potassium Glucose Lactate FiO2 Sodium 135 Potassium 3.7 Chloride 95 L Carbon Dioxide 26 Anion Gap 18 BUN 28 H Creatinine 0.9 Est GFR ( Amer) > 60 Est GFR (Non-Af Amer) > 60 POC Glucose (mg/dL) 121 H Random Glucose 126 H Calcium 8.7 Total Bilirubin 2.9 H AST 32 ALT 41 Alkaline Phosphatase 60 Total Protein 6.7 Albumin 3.5 Globulin 3.3 Albumin/Globulin Ratio 1.1 Venous Blood Potassium Assessment & Plan (1) Positive blood culture Assessment and Plan: vanco/zosyn ID consult Status: Acute (2) Cellulitis Assessment and Plan: vanco/zosyn ID per pt ankle less red/swollen Status: Acute (3) Chronic pain Assessment and Plan: cont home meds, 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 This is because of the severity of symptoms shown, intensity of services needed, and/or the medical risk in this patient being treated as an outpatient. - . Bed Request Type: Med/Surg Admitting Physician: Eber Sow
--- NOTE | 2018-01-09 09:13 | RAD ---
HISTORY: cough COMPARISON: Chest radiograph dated 01/04/2018 FINDINGS: LUNGS: Prominence of the pulmonary vasculature may be secondary to AP technique and/or pulmonary vascular congestion. No focal consolidation. PLEURA: No significant pleural effusion identified, no pneumothorax apparent. CARDIOVASCULAR: Atherosclerotic aortic calcifications. Cardiomediastinal silhouette stably enlarged. OSSEOUS STRUCTURES: Unchanged. VISUALIZED UPPER ABDOMEN: Normal. OTHER FINDINGS: None. IMPRESSION: Prominence of the pulmonary vasculature may be secondary to AP technique and/or pulmonary vascular congestion. No focal consolidation or pleural effusion.
[2018-01-09] MEDS: Levothyroxine 88 MCG TAB PO SCH (09:45)
--- NOTE | 2018-01-09 11:06 | CP.PCM.CON ---
History of Present Illness - History of Present Illness History of Present Illness: 62 y/o male was seen yesterday with cellulitis on right ankle and sent home with PO antibiotics. Blood culture that was drawn yesterday revealed gram positive cocci and thus patient was called to return to the ED. Denies fever, chills or any further medical complaints. Hx ORIF ankle 2012 Dr Mohinder Myles Now with broken hardware and sepsis Likely OM will need OR and intermediate IV rx - Medical History PMH: Anxiety, Asthma, Back Problems, Benign Prostatic Hyperplasia, CAD, COPD, Depression, Diabetes, Fractures, HTN, Hypercholesterolemia, Hypothyroidism, Seizures Denies: HIV, Chronic Kidney Disease Review of Systems - Review of Systems All systems: reviewed and no additional remarkable complaints except - Constitutional Constitutional: As Per HPI - EENT Eyes: absent: As Per HPI, Blind Spots, Blurred Vision, Change in Vision, Decreased Night Vision, Diplopia, Discharge, Dry Eye, Exophthalmos, Floaters, Irritation, Itchy Eyes, Loss of Peripheral Vision, Pain, Photophobia, Requires Corrective Lenses, Sees Flashes, Spots in Vision, Tunnel Vision, Other Visual Disturbances, Loss of Vision, Other Ears: absent: As Per HPI, Decreased Hearing, Ear Discharge, Ear Pain, Tinnitus, Abnormal Hearing, Disequilibrium, Dizziness, Other Nose/Mouth/Throat: absent: As Per HPI, Epistaxis, Nasal Congestion, Nasal Discharge, Nasal Obstruction, Nasal Trauma, Nose Pain, Post Nasal Drip, Sinus Pain, Sinus Pressure, Bleeding Gums, Change in Voice, Dental Pain, Dry Mouth, Dysphagia, Halitosis, Hoarsness, Lip Swelling, Mouth Lesions, Mouth Pain, Odynophagia, Sore Throat, Throat Swelling, Tongue Swelling, Facial Pain, Neck Pain, Neck Mass, Other - Cardiovascular Cardiovascular: absent: As Per HPI, Acrocyanosis, Chest Pain, Chest Pain at Rest , Chest Pain with Activity, Claudication, Diaphoresis, Dyspnea, Dyspnea on Exertion, Edema, Irregular Heart Rhythm, Pain Radiating to Arm/Neck/Jaw, Leg Edema, Leg Ulcers, Lightheadedness, Orthopnea, Palpitations, Paroxysmal Nocturnal Dyspnea, Pedal Edema, Radiating Pain, Rapid Heart Rate, Slow Heart Rate, Syncope, Other - Respiratory Respiratory: absent: As Per HPI, Cough, Dyspnea, Hemoptysis, Dyspnea on Exertion , Wheezing, Snoring, Stridor, Pain on Inspiration, Chest Congestion, Excessive Mucous Production, Change in Mucous Color, Pain with Coughing, Other - Gastrointestinal Gastrointestinal: absent: As Per HPI, Abdominal Pain, Belching, Bloating, Change in Bowel Habits, Change in Stool Character, Coffee Ground Emesis, Constipation, Cramping, Diarrhea, Dyspepsia, Dysphagia, Early Satiety, Excessive Flatus, Fecal Incontinence, Heartburn, Hematemesis, Hematochezia, Loose Stools, Melena, Nausea, Odynophagia, Temesmus, Vomiting, Other - Genitourinary Genitourinary: absent: As Per HPI, Change in Urinary Stream, Difficulty Urinating, Dysuria, Flank Pain, Hematuria, Pyuria, Nocturia, Urinary Incontinence, Urinary Frequency, Urinary Hesitance, Urinary Urgency, Voiding Freq/Small Amts, Freq UTI, Hx Renal/Bladder Calculi, Hx /Renal Surgery, Bladder Distension, Other - Musculoskeletal Musculoskeletal: As Per HPI - Integumentary Integumentary: As Per HPI - Neurological Neurological: absent: As Per HPI, Abnormal Gait, Abnormal Hearing, Abnormal Movements, Abnormal Speech, Behavioral Changes, Burning Sensations, Confusion, Convulsions, Disequilibrium, Dizziness, Numbness, Focal Weakness, Frequent Falls , Headaches, Lack of Coordination, Loss of Vision, Memory Loss, Paresthesias, Radicular Pain, Restless Legs, Sensory Deficit, Syncope, Tingling, Tremor, Vertigo, Weakness, Other Visual Disturbances, Other - Psychiatric Psychiatric: absent: As Per HPI, Abnormal Sleep Pattern, Anhedonia, Anxiety, Auditory Hallucinations, Behavioral Changes, Change in Appetite, Change in Libido, Confusion, Depression, Difficulty Concentrating, Hallucinations, Homicidal Ideation, Hopelessness, Irritability, Memory Loss, Mood Swings, Panic Attacks, Paranoia, Suicidal Ideation, Visual Hallucinations, Tactile Hallucinations, Other - Endocrine Endocrine: absent: As Per HPI, Change in Body Appearance, Change in Libido, Cold Intolorance, Deepening of Voice, Excessive Sweating, Fatigue, Flushing, Heat Intolorance, Increase in Ring/Shoe/Hat Size, Palpitations, Polydipsia, Polyphagia, Polyuria, Other - Hematologic/Lymphatic Hematologic: absent: As Per HPI, Easy Bleeding, Easy Bruising, Lymphadenopathy, Other Past Patient History - Past Social History Smoking Status: Former Smoker - CARDIAC Hx Hypercholesterolemia: Yes Hx Hypertension: Yes - PULMONARY Hx Asthma: No Hx Chronic Obstructive Pulmonary Disease (COPD): No Hx Emphysema: Yes - NEUROLOGICAL Hx Seizures: Yes - HEENT Hx HEENT Problems: No (WEARS RX GLASSES) - RENAL Hx Chronic Kidney Disease: No - ENDOCRINE/METABOLIC Hx Diabetes Mellitus Type 2: Yes Hx Hypothyroidism: Yes - HEMATOLOGICAL/ONCOLOGICAL Hx Human Immunodeficiency Virus (HIV): No - INTEGUMENTARY Hx Dermatological Problems: No - MUSCULOSKELETAL/RHEUMATOLOGICAL Hx Falls: Yes Hx Fractures: Yes - GASTROINTESTINAL Hx Gastrointestinal Disorders: Yes Hx Gastroesophageal Reflux: Yes - GENITOURINARY/GYNECOLOGICAL Hx Genitourinary Disorders: No - PSYCHIATRIC Hx Anxiety: No Hx Depression: Yes Hx Substance Use: No - SURGICAL HISTORY Hx Coronary Stent: Yes - ANESTHESIA Hx Anesthesia: Yes Hx Anesthesia Reactions: No Hx Malignant Hyperthermia: No Has any member of the family had a problem w/ anesthesia?: No Meds Allergies/Adverse Reactions: Allergies Allergy/AdvReac Type Severity Reaction Status Date / Time Sulfa (Sulfonamide Allergy RASH Verified 02/14/16 09:33 Antibiotics) - Medications Medications: Current Medications Acetaminophen (Tylenol 325mg Tab) 650 mg PO Q4 PRN PRN Reason: Fever >100.4 F Alprazolam (Xanax) 1 mg PO QID [facility] Last Admin: 01/09/18 09:53 Dose: 1 mg Aspirin (Ecotrin) 81 mg PO DAILY [facility] Last Admin: 01/09/18 09:42 Dose: 81 mg Buspirone HCl (Buspar) 60 mg PO DAILY [facility] Ergocalciferol (Drisdol 50,000 Intl Units Cap) 1 cap PO QWK [facility] Fenofibrate (Tricor) 145 mg PO DAILY [facility] Last Admin: 01/09/18 09:52 Dose: 145 mg Gabapentin (Neurontin) 300 mg PO BID [facility] Last Admin: 01/09/18 09:44 Dose: 300 mg Home Med (Diclofenac Sodium [Voltaren]) 100 gm TP DAILY PRN PRN Reason: Muscle spasm Home Med (Prasugrel [Effient]) 10 mg PO DAILY [facility] Home Med (Testosterone [Testosterone]) 200 mg TD Q2W [facility] Vancomycin HCl 1 gm/ Sodium (Chloride) 250 mls @ 166.667 mls/hr IVPB Q12 [facility] PRN Reason: Protocol Last Admin: 01/09/18 09:51 Dose: 166.667 mls/hr Piperacillin Sod/Tazobactam (Sod 3.375 gm/ Sodium Chloride) 100 mls @ 100 mls/ hr IVPB Q6 [facility] PRN Reason: Protocol Last Admin: 01/09/18 09:50 Dose: 100 mls/hr Ibuprofen (Motrin Tab) 600 mg PO BID [facility] Last Admin: 01/09/18 09:44 Dose: 600 mg Lamotrigine (Lamictal) 50 mg PO BID [facility] Last Admin: 01/09/18 09:42 Dose: 50 mg Levothyroxine Sodium (Synthroid) 88 mcg PO DAILY@0630 [facility] Last Admin: 01/09/18 09:45 Dose: 88 mcg Lidocaine (Lidoderm) 1 ea TD DAILY PRN PRN Reason: Muscle spasm Lisinopril (Zestril) 20 mg PO DAILY [facility] Last Admin: 01/09/18 09:52 Dose: 20 mg Metoprolol Tartrate (Lopressor) 25 mg PO BID [facility] Last Admin: 01/09/18 09:43 Dose: 25 mg Montelukast Sodium (Singulair) 10 mg PO DAILY [facility] Last Admin: 01/09/18 09:45 Dose: 10 mg Oxycodone HCl (Oxycodone Immediate Release Tab) 30 mg PO QID PRN PRN Reason: Pain, moderate (4-7) Last Admin: 01/09/18 02:15 Dose: 30 mg Paroxetine HCl (Paxil) 60 mg PO DAILY [facility] Last Admin: 01/09/18 09:44 Dose: 60 mg Sitagliptin Phosphate (Januvia) 100 mg PO DAILY [facility] Last Admin: 01/09/18 09:42 Dose: 100 mg Physical Exam - Constitutional Appears: Non-toxic, Chronically Ill - Head Exam Head Exam: NORMOCEPHALIC - Eye Exam Eye Exam: PERRL - ENT Exam ENT Exam: Mucous Membranes Dry, Normal External Ear Exam - Neck Exam Neck exam: Negative for: Lymphadenopathy - Respiratory Exam Respiratory Exam: Decreased Breath Sounds - Cardiovascular Exam Cardiovascular Exam: REGULAR RHYTHM, +S1, +S2. absent: Systolic Murmur - GI/Abdominal Exam GI & Abdominal Exam: Diminished Bowel Sounds. absent: Guarding - Rectal Exam Rectal Exam: Deferred - Exam Exam: NORMAL INSPECTION - Extremities Exam Extremities exam: Positive for: pedal edema, tenderness, pedal pulses present. Negative for: calf tenderness Additional comments: deformity right ankle redness swelling - Back Exam Back exam: absent: CVA tenderness (L), CVA tenderness (R), paraspinal tenderness - Neurological Exam Neurological exam: Alert, CN II-XII Intact, Oriented x3, Reflexes Normal - Psychiatric Exam Psychiatric exam: Normal Mood - Skin Skin Exam: Dry Results - Vital Signs Recent Vital Signs: Last Vital Signs Temp 98.3 F 01/09/18 08:32 Pulse 77 01/09/18 09:52 Resp 20 01/09/18 08:32 BP 148/72 01/09/18 09:52 Pulse Ox 94 L 01/09/18 08:32 - Labs Result Diagrams: 01/09/18 06:20 01/09/18 06:20 Labs: Laboratory Results - last 24 hr 01/08/18 01/08/18 01/09/18 21:45 21:45 01:23 WBC 22.2 H RBC 5.77 Hgb 12.9 Hct 41.2 MCV 71.3 L MCH 22.4 L MCHC 31.4 L RDW 18.0 H Plt Count 208 MPV 7.6 Neut % (Auto) 87.4 H Lymph % (Auto) 3.9 L [place] % (Auto) 8.6 Eos % (Auto) 0.0 Baso % (Auto) 0.1 Neut # (Auto) 19.4 H Lymph # (Auto) 0.9 L [place] # (Auto) 1.9 H Eos # (Auto) 0.0 Baso # (Auto) 0.0 pO2 21 L VBG pH 7.46 H VBG pCO2 44 VBG HCO3 28.4 VBG Total CO2 32.7 H VBG O2 Sat (Calc) 35.2 L VBG Base Excess 6.6 H VBG Potassium 3.8 Glucose 123 H Lactate 1.5 FiO2 21.0 Sodium 133 131.0 L Potassium 3.9 Chloride 94 L 97.0 L Carbon Dioxide 26 Anion Gap 17 BUN 28 H Creatinine 0.9 Est GFR ( Amer) > 60 Est GFR (Non-Af Amer) > 60 POC Glucose (mg/dL) Random Glucose 125 H Calcium 9.0 Total Bilirubin 2.9 H AST 33 ALT 40 Alkaline Phosphatase 63 Total Protein 7.0 Albumin 3.8 Globulin 3.2 Albumin/Globulin Ratio 1.2 Venous Blood Potassium 3.8 05/01/09/18 01/09/18 06:20 06:20 06:24 WBC 19.0 H RBC 5.54 Hgb 12.5 Hct 39.5 MCV 71.2 L MCH 22.6 L MCHC 31.7 L RDW 18.1 H Plt Count 216 MPV 7.7 Neut % (Auto) 85.8 H Lymph % (Auto) 4.7 L [place] % (Auto) 9.4 Eos % (Auto) 0.0 Baso % (Auto) 0.1 Neut # (Auto) 16.3 H Lymph # (Auto) 0.9 L [place] # (Auto) 1.8 H Eos # (Auto) 0.0 Baso # (Auto) 0.0 pO2 VBG pH VBG pCO2 VBG HCO3 VBG Total CO2 VBG O2 Sat (Calc) VBG Base Excess VBG Potassium Glucose Lactate FiO2 Sodium 135 Potassium 3.7 Chloride 95 L Carbon Dioxide 26 Anion Gap 18 BUN 28 H Creatinine 0.9 Est GFR ( Amer) > 60 Est GFR (Non-Af Amer) > 60 POC Glucose (mg/dL) 121 H Random Glucose 126 H Calcium 8.7 Total Bilirubin 2.9 H AST 32 ALT 41 Alkaline Phosphatase 60 Total Protein 6.7 Albumin 3.5 Globulin 3.3 Albumin/Globulin Ratio 1.1 Venous Blood Potassium Assessment & Plan (1) Cellulitis Status: Acute (2) Positive blood culture Status: Acute (3) Ankle pain Status: Acute - Assessment and Plan (Free Text) Assessment: likely OM right ankle failed hardware needs revision may need intermediate rx and off loading / antibiotic beads and IV rx after hardware removal prognosis guarded
[2018-01-09] MEDS ORDERED: Lidocaine 1% Inj (20ml) ONE (13:19)
--- NOTE | 2018-01-09 13:42 | PCM.SURG1 ---
Surgeon's Initial Post Op Note - Surgeon's Notes Surgeon: Fredrick Oscar MD Community Engagement Representative: NONE Type of Anesthesia: Local Pre-Operative Diagnosis: Infection Operative Findings: Patent right basilic vein Post-Operative Diagnosis: Infection Operation Performed: single lumen picc placed right basilic vein, 40 cm. Tip is in the SVC. Specimen/Specimens Removed: NONE Estimated Blood Loss: EBL {In ML}: 2 Blood Products Given: N/A Drains Used: No Drains Post-Op Condition: Fair Date of Surgery/Procedure: 01/09/18 Time of Surgery/Procedure: 13:40
--- NOTE | 2018-01-09 14:29 | PQF GENQUE ---
Sean Rodriguez DNP, APN 3 queries: 1. The attending physician is required to clarify conflicting documentation in the medical record. The following documentation is noted in the medical record: Diagnosis 1: Gram positive bacteria in BC Documented by: JOELLE MCPHERSON Location: H and P Diagnosis 2: Sepsis Documented by: ID Location: 01/09/18 Consult 2. If Sepsis is ruled in etiology if known: i.e. due to an infectious process or due to hardware or stent etc. 3. Sepsis ruled out OR: Other explanation of clinical finding Temp.:99.2->98.9----->96.9 Pulse:79->72->72->76-.77 WBC:22.2->19.0 left shift ABG: lactate:1.5 ER Physician Documentation: Surgical hx.: Back Surgery (with fusion), Coronary Stent Clinical Impression: Cellulitis H and P: Surgical HX.: Hx Coronary Stent: Yes pt admitted for gram pos bacteria in bc after having cellulitis in r ankle. pt found to have broken hardware in that ankle from repair mechanic dr hamilton. pt states cardio will not allow surgery until r/t new stent---repeat bc sent from er (1) Positive blood culture: vanco/zosyn ID consult Status: Acute (2) Cellulitis : vanco/zosyn ID per pt ankle less red/swollen Status: Acute (3) Chronic pain: cont home meds, [place] foreign language interpreter assessed w/in 1 wk Status: Acute ID: seen yesterday with cellulitis on right ankle and sent home with PO antibiotics;Blood culture that was drawn yesterday revealed gram positive cocci and thus patient was called to return to the ED. Hx ORIF ankle 2011 Dr Mohinder Myles Now with broken hardware and sepsis Likely OM will need OR and long term care pharmacist IV rx (1) Cellulitis Status: Acute (2) Positive blood culture Status: Acute (3) Ankle pain : Acute Assessment: likely OM right ankle failed hardware needs revision may need long term care pharmacist rx and off loading / antibiotic beads and IV rx after hardware removal IV: Vancomycin and Piperacillin ceretic whole body and echo pending, 01/09 blood culture pending This form is a permanent part of the medical record Clarification of your documentation is requested to better reflect the severity of illness and intensity of treatment of your patient. Indicators present [] Specify: [] [] Specify: [] [] Specify: [] [] Specify: [] Location in the medical record that reflects the above clinical findings: [] Treatment Provided: [] PHYSICIAN'S RESPONSE Based on your medical judgment of the clinical indicators outlined above please clarify the following: [] Practitioner response bacteremia likely sepsis from cellulitits/hardware to ankle, will add to progress note in am [] If unable to determine, please check the box, sign and date. Present On Admission (POA) Indicator: [x] Present at the time of admission [] Not present at the time of admission [] Clinically Undetermined In responding to this query, please exercise your independent professional judgment. The fact that a question is asked does not imply that any particular answer is desired or expected. Thank you for your clarification on this documentation. If you have any questions please call:[ ] * Thank you, [ ] it help desk manager JOHNNA
--- NOTE | 2018-01-09 15:18 | VASCULAR ---
PROCEDURE: Date of procedure: 01/09/2018 Procedure: 1. Placement of a right arm PICC with ultrasound and fluoroscopic guidance, CPT 21672 2. PICC tip confirmation with spot radiograph and is in the superior vena cava Medications: 1 percent lidocaine Total Fluoro time: 7.1 seconds Radiation: 1.44 MGy EBL: 2 cc HISTORY: Infection requiring long-term IV antibiotics TECHNIQUE: Following informed consent and procedure time-out, the patient was placed supine on the interventional table and the right arm prepped and draped in the usual sterile fashion. Ultrasound showed a patent and compressible right basilic vein. After the skin was anesthetized with lidocaine, the basilic vein was accessed with micro micropuncture technique using ultrasound guidance. A guidewire was then advanced under fluoroscopic guidance into the superior vena cava. An image documenting ultrasound guidance for vascular access was permanently saved. The length of the single-lumen 4 Stateless PICC was trimmed to 37 centimeters and advanced through a peel-away sheath. The PICC was position with tip of PICC confirm a spot radiograph the superior vena cava. The PICC was secured to the patient's skin. The PICC was flushed. A biopatch and sterile dressing was applied. IMPRESSION: Placement of a single-lumen 4 Stateless PICC trimmed to 37 centimeters via right basilic vein. The tip of the PICC is confirmed with spot radiograph and is in the superior vena cava.
[2018-01-09] MEDS: Oxycodone/Acetaminophen 5/325 mg Tab PO PRN (20:57)
[2018-01-10] MEDS: Piperacillin/Tazobact 3.375 GM in Sodium Chloride 0.9% 100 ML IVPB SCH ×4 (03:13→22:31)
[2018-01-10] MEDS: Oxycodone/Acetaminophen 5/325 mg Tab PO PRN ×3 (03:25→18:39)
[2018-01-10] MEDS: Levothyroxine 88 MCG TAB PO SCH (06:08)
[2018-01-10 06:52] LABS: ALT/SGPT 40 U/L (21-72); AST/SGOT 35 U/L (17-59); BLOOD UREA NITROGEN 26 mg/dl (9-20); GFR AFRICAN-AMERICAN > 60; GFR NON-AFRICAN AMERICAN > 60
[2018-01-10 06:56] LABS: BASO % 0.2 % (0.0-2.0); EOS # 0.1 K/uL (0.0-0.7); EOS % 0.4 % (0.0-4.0); LYMPH # 0.9 K/uL (1.0-4.3); LYMPH % 6.4 % (20.0-40.0); MEAN CELL VOLUME 70.4 fl (80.0-94.0); MEAN CORPUSCULAR HEMOGLOBIN 22.6 pg (27.0-31.0); MEAN CORPUSCULAR HGB CONC 32.1 g/dL (33.0-37.0); MEAN PLATELET VOLUME 8.4 fl (7.2-11.7); MONO # 1.2 K/uL (0.0-0.8); MONO % 9.1 % (0.0-10.0); NEUT # 11.5 K/uL (1.8-7.0); NEUT % 83.9 % (50.0-75.0); RBC 5.3 Mil/uL (4.40-5.90); RED CELL DISTRIBUTION WIDTH 18.3 % (11.5-14.5); WHITE BLOOD COUNT 13.7 K/uL (4.8-10.8)
--- NOTE | 2018-01-10 08:56 | CP.PCM.PN ---
Subjective - Date & Time of Evaluation Date of Evaluation: 01/10/18 Time of Evaluation: 08:55 - Subjective Subjective: doing well. no f/c, n/v/d. bw noted. picc placed all consults appriciated pending ceretec and echo Objective - Vital Signs/Intake and Output Vital Signs (last 24 hours): Temp Pulse Resp BP Pulse Ox 98.1 F 84 20 156/83 H 95 01/10/18 08:48 01/10/18 08:48 01/10/18 08:48 01/10/18 08:48 01/10/18 08:48 - Medications Medications: Current Medications Acetaminophen (Tylenol 325mg Tab) 650 mg PO Q4 PRN PRN Reason: Fever >100.4 F Alprazolam (Xanax) 1 mg PO QID [facility] Last Admin: 01/09/18 21:39 Dose: 1 mg Aspirin (Ecotrin) 81 mg PO DAILY [facility] Last Admin: 01/09/18 09:42 Dose: 81 mg Buspirone HCl (Buspar) 30 mg PO BID [facility] Last Admin: 01/09/18 16:45 Dose: 30 mg Ergocalciferol (Drisdol 50,000 Intl Units Cap) 1 cap PO QWK [facility] Fenofibrate (Tricor) 145 mg PO DAILY [facility] Last Admin: 01/09/18 09:52 Dose: 145 mg Gabapentin (Neurontin) 300 mg PO BID [facility] Last Admin: 01/09/18 16:46 Dose: 300 mg Home Med (Diclofenac Sodium [Voltaren]) 100 gm TP DAILY PRN PRN Reason: Muscle spasm Home Med (Prasugrel [Effient]) 10 mg PO DAILY [facility] Home Med (Testosterone [Testosterone]) 200 mg TD Q2W [facility] Vancomycin HCl 1 gm/ Sodium (Chloride) 250 mls @ 166.667 mls/hr IVPB Q12 [facility] PRN Reason: Protocol Last Admin: 01/09/18 22:07 Dose: 166.667 mls/hr Piperacillin Sod/Tazobactam (Sod 3.375 gm/ Sodium Chloride) 100 mls @ 100 mls/ hr IVPB Q6 [facility] PRN Reason: Protocol Last Admin: 01/10/18 03:13 Dose: 100 mls/hr Ibuprofen (Motrin Tab) 600 mg PO BID [facility] Last Admin: 01/09/18 16:46 Dose: 600 mg Lamotrigine (Lamictal) 50 mg PO BID [facility] Last Admin: 01/09/18 16:45 Dose: 50 mg Levothyroxine Sodium (Synthroid) 88 mcg PO DAILY@0630 [facility] Last Admin: 01/10/18 06:08 Dose: 88 mcg Lidocaine (Lidoderm) 1 ea TD DAILY PRN PRN Reason: Muscle spasm Lisinopril (Zestril) 20 mg PO DAILY [facility] Last Admin: 01/09/18 09:52 Dose: 20 mg Metoprolol Tartrate (Lopressor) 25 mg PO BID [facility] Last Admin: 01/09/18 16:45 Dose: 25 mg Montelukast Sodium (Singulair) 10 mg PO DAILY [facility] Last Admin: 01/09/18 09:45 Dose: 10 mg Oxycodone HCl (Oxycodone Immediate Release Tab) 30 mg PO QID PRN PRN Reason: Pain, moderate (4-7) Last Admin: 01/09/18 18:56 Dose: 30 mg Oxycodone/Acetaminophen (Percocet 5/325 Mg Tab) 1 tab PO Q6 PRN PRN Reason: Pain, moderate (4-7) Stop: 01/12/18 20:38 Last Admin: 01/10/18 03:25 Dose: 1 tab Paroxetine HCl (Paxil) 60 mg PO DAILY [facility] Last Admin: 01/09/18 09:44 Dose: 60 mg Sitagliptin Phosphate (Januvia) 100 mg PO DAILY [facility] Last Admin: 01/09/18 09:42 Dose: 100 mg - Labs Labs: 01/10/18 06:20 01/10/18 06:20 - Constitutional Appears: Well, Non-toxic, No Acute Distress - Head Exam Head Exam: ATRAUMATIC, NORMAL INSPECTION, NORMOCEPHALIC - Eye Exam Eye Exam: EOMI, Normal appearance, PERRL Pupil Exam: NORMAL ACCOMODATION, PERRL - ENT Exam ENT Exam: Mucous Membranes Moist, Normal Exam - Neck Exam Neck Exam: Full ROM, Normal Inspection. absent: Lymphadenopathy - Respiratory Exam Respiratory Exam: Clear to Ausculation Bilateral, NORMAL BREATHING PATTERN - Cardiovascular Exam Cardiovascular Exam: REGULAR RHYTHM, RRR, +S1, +S2. absent: Murmur - GI/Abdominal Exam GI & Abdominal Exam: Soft, Normal Bowel Sounds. absent: Tenderness - Extremities Exam Extremities Exam: Full ROM, Normal Capillary Refill, Normal Inspection. absent : Joint Swelling, Pedal Edema Additional comments: minimal swelling/erythema noted to r ankle - Back Exam Back Exam: NORMAL INSPECTION - Neurological Exam Neurological Exam: Alert, Awake, CN II-XII Intact, Normal Gait, Oriented x3 - Psychiatric Exam Psychiatric exam: Normal Affect, Normal Mood - Skin Skin Exam: Dry, Intact, Normal Color, Warm Assessment and Plan (1) Positive blood culture Status: Acute (2) Cellulitis Status: Acute (3) Chronic pain Status: Acute (4) DVT prophylaxis Status: Acute - Assessment and Plan (Free Text) Assessment: (1) Positive blood culture/sepsis Assessment and Plan: vanco/zosyn ID consult pending ceretec/echo Status: Acute (2) Cellulitis Assessment and Plan: vanco/zosyn ID per pt ankle less red/swollen wbc improving Status: Acute (3) Chronic pain Assessment and Plan: cont home meds, [place] professional healthcare representative assessed w/in 1 wk Status: Acute (4) DVT prophylaxis Assessment and Plan: scd and ae hose ambulation monitor Status: Acute
--- NOTE | 2018-01-10 15:35 | NM ---
PROCEDURE: Ceretec white blood cell study HISTORY: R ankle cellulitiis, broken hardware, r/o OM COMPARISON: 01/07/2018 CT right ankle 01/07/2018 plain film radiographs right ankle TECHNIQUE: 22.8 mCi technetium 99 M Ceretec labeled white blood cells administered intravenously. FINDINGS: Accumulation of radionuclide at the operative site identified. The findings are nonspecific but likely related to postoperative change. No focal accumulation/uptake of radionuclide assigned to a specific osseous structures identified. IMPRESSION: Diffuse accumulation of radionuclide at the operative site without focal osseous abnormality
--- NOTE | 2018-01-10 17:50 | CARD ---
APPROVED REPORT EKG Measurement Heart [id number] CO [id number] <Conclusion> Normal sinus rhythm Possible Left atrial enlargement Left axis deviation Abnormal ECG
--- NOTE | 2018-01-10 19:50 | CP.PCM.PCO ---
Physician Communication Note - Physician Communication Note Physician Communication Note: once blood c/s neg consider switch of PICC to contralateral side
[2018-01-11] MEDS: Oxycodone/Acetaminophen 5/325 mg Tab PO PRN ×2 (02:17→14:43)
[2018-01-11] MEDS: Piperacillin/Tazobact 3.375 GM in Sodium Chloride 0.9% 100 ML IVPB SCH ×4 (03:27→21:51)
[2018-01-11] MEDS: Levothyroxine 88 MCG TAB PO SCH (06:34)
[2018-01-11] MEDS: oxyCODONE 10 mg Immediate Release Tab PO PRN (06:36)
[2018-01-11 07:41] LABS: HEMOGLOBIN 11.3 g/dL (12.0-18.0); MEAN CELL VOLUME 70.3 fl (80.0-94.0); MEAN CORPUSCULAR HEMOGLOBIN 22.4 pg (27.0-31.0); MEAN CORPUSCULAR HGB CONC 31.8 g/dL (33.0-37.0); RBC 5.03 Mil/uL (4.40-5.90); RED CELL DISTRIBUTION WIDTH 18.5 % (11.5-14.5); WHITE BLOOD COUNT 15.3 K/uL (4.8-10.8)
--- NOTE | 2018-01-11 08:07 | CP.PCM.PN ---
Subjective - Date & Time of Evaluation Date of Evaluation: 01/11/18 Time of Evaluation: 08:06 - Subjective Subjective: pt doing well. c/o body aches. no f/c, n/v/d. per pt has been depressed. pt not verbalizing depression s/s. bw noted. peripheral iv est and picc dc yedsterday. will replace picc to left arm when bc negative Objective - Vital Signs/Intake and Output Vital Signs (last 24 hours): Temp Pulse Resp BP Pulse Ox 98.5 F 83 19 135/78 95 01/11/18 08:00 01/11/18 08:00 01/11/18 08:00 01/11/18 08:00 01/11/18 08:00 - Medications Medications: Current Medications Acetaminophen (Tylenol 325mg Tab) 650 mg PO Q4 PRN PRN Reason: Fever >100.4 F Alprazolam (Xanax) 1 mg PO QID [facility] Last Admin: 01/10/18 22:31 Dose: 1 mg Aspirin (Ecotrin) 81 mg PO DAILY [facility] Last Admin: 01/10/18 08:55 Dose: 81 mg Buspirone HCl (Buspar) 30 mg PO BID [facility] Last Admin: 01/10/18 18:40 Dose: 30 mg Ergocalciferol (Drisdol 50,000 Intl Units Cap) 1 cap PO QWK [facility] Fenofibrate (Tricor) 145 mg PO DAILY [facility] Last Admin: 01/10/18 08:59 Dose: 145 mg Gabapentin (Neurontin) 300 mg PO BID [facility] Last Admin: 01/10/18 18:41 Dose: 300 mg Home Med (Diclofenac Sodium [Voltaren]) 100 gm TP DAILY PRN PRN Reason: Muscle spasm Home Med (Prasugrel [Effient]) 10 mg PO DAILY [facility] Home Med (Testosterone [Testosterone]) 200 mg TD Q2W [facility] Vancomycin HCl 1 gm/ Sodium (Chloride) 250 mls @ 166.667 mls/hr IVPB Q12 [facility] PRN Reason: Protocol Last Admin: 01/10/18 20:23 Dose: 166.667 mls/hr Piperacillin Sod/Tazobactam (Sod 3.375 gm/ Sodium Chloride) 100 mls @ 100 mls/ hr IVPB Q6 [facility] PRN Reason: Protocol Last Admin: 01/11/18 03:27 Dose: 100 mls/hr Ibuprofen (Motrin Tab) 600 mg PO BID [facility] Last Admin: 01/10/18 18:41 Dose: 600 mg Lamotrigine (Lamictal) 50 mg PO BID [facility] Last Admin: 01/10/18 18:40 Dose: 50 mg Levothyroxine Sodium (Synthroid) 88 mcg PO DAILY@0630 [facility] Last Admin: 01/11/18 06:34 Dose: 88 mcg Lidocaine (Lidoderm) 1 ea TD DAILY PRN PRN Reason: Muscle spasm Lisinopril (Zestril) 20 mg PO DAILY [facility] Last Admin: 01/10/18 09:11 Dose: 20 mg Metoprolol Tartrate (Lopressor) 25 mg PO BID [facility] Last Admin: 01/10/18 18:40 Dose: 25 mg Montelukast Sodium (Singulair) 10 mg PO DAILY [facility] Last Admin: 01/10/18 08:59 Dose: 10 mg Oxycodone HCl (Oxycodone Immediate Release Tab) 30 mg PO QID PRN PRN Reason: Pain, moderate (4-7) Last Admin: 01/11/18 06:36 Dose: 30 mg Oxycodone/Acetaminophen (Percocet 5/325 Mg Tab) 1 tab PO Q6 PRN PRN Reason: Pain, moderate (4-7) Stop: 01/12/18 20:38 Last Admin: 01/11/18 02:17 Dose: 1 tab Paroxetine HCl (Paxil) 60 mg PO DAILY [facility] Last Admin: 01/10/18 08:51 Dose: 60 mg Sitagliptin Phosphate (Januvia) 100 mg PO DAILY [facility] Last Admin: 01/10/18 08:54 Dose: 100 mg - Labs Labs: 01/11/18 07:25 01/10/18 06:20 - Constitutional Appears: Well, Non-toxic, No Acute Distress - Head Exam Head Exam: ATRAUMATIC, NORMAL INSPECTION, NORMOCEPHALIC - Eye Exam Eye Exam: EOMI, Normal appearance, PERRL Pupil Exam: NORMAL ACCOMODATION, PERRL - ENT Exam ENT Exam: Mucous Membranes Moist, Normal Exam - Neck Exam Neck Exam: Full ROM, Normal Inspection. absent: Lymphadenopathy - Respiratory Exam Respiratory Exam: Clear to Ausculation Bilateral, NORMAL BREATHING PATTERN - Cardiovascular Exam Cardiovascular Exam: REGULAR RHYTHM, RRR, +S1, +S2. absent: Murmur - GI/Abdominal Exam GI & Abdominal Exam: Soft, Normal Bowel Sounds. absent: Tenderness - Extremities Exam Extremities Exam: Full ROM, Normal Capillary Refill, Normal Inspection. absent : Joint Swelling, Pedal Edema - Back Exam Back Exam: NORMAL INSPECTION - Neurological Exam Neurological Exam: Alert, Awake, CN II-XII Intact, Normal Gait, Oriented x3 - Psychiatric Exam Psychiatric exam: Normal Affect, Normal Mood - Skin Skin Exam: Dry, Intact, Normal Color, Warm Additional comments: cont to improve swelling/erythema Assessment and Plan (1) Positive blood culture Status: Acute (2) Cellulitis Status: Acute (3) Chronic pain Status: Acute (4) DVT prophylaxis Status: Acute - Assessment and Plan (Free Text) Assessment: (1) Positive blood culture/sepsis Assessment and Plan: vanco/zosyn ID consult pending ceretec/echo Status: Acute (2) Cellulitis Assessment and Plan: vanco/zosyn ID per pt ankle less red/swollen wbc improving Status: Acute (3) Chronic pain Assessment and Plan: cont home meds, 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
[2018-01-11 08:13] LABS: ALB/GLOB RATIO 1.1 (1.0-2.1); ALBUMIN 2.9 g/dL (3.5-5.0); ALT/SGPT 34 U/L (21-72); AST/SGOT 20 U/L (17-59); BLOOD UREA NITROGEN 18 mg/dl (9-20); CALCIUM 8.2 mg/dL (8.4-10.2); GFR AFRICAN-AMERICAN > 60; GFR NON-AFRICAN AMERICAN > 60
[2018-01-11] MEDS ORDERED: LIDOCAINE 2% 10ML 20 MG/ML VIAL IJ ONE (14:37)
--- NOTE | 2018-01-11 14:46 | PQF GENQUE ---
Sean Rodriguez DATA COMMUNICATIONS ANALYST, Patient has sepsis: Please document suspected or confirmed causative organism: if known after work up is completed: i.e. MRSA Sepsis etc. OR Clinically unable to determine OR Unknown 01/08:blood culture X one: organism: MRSA 01/10: blood culture: preliminary: no growth after 24 hrs. H and P: Surgical HX.: Hx Coronary Stent: Yes pt admitted for gram pos bacteria in bc after having cellulitis in r ankle. pt found to have broken hardware in that ankle from admeasurer dr hamilton. 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 Hx ORIF ankle 2011 Dr Mohinder Myles Now with broken hardware and sepsis Likely OM will need OR and longterm IV rx 01/09 Query form: DATA COMMUNICATIONS ANALYST response: bacteremia likely sepsis from cellulitits/ hardware to ankle 01/11 DATA COMMUNICATIONS ANALYST progress note: dxs. include: Assessment: (1) Positive blood culture/ sepsis Assessment and Plan: vanco/zosyn ID consult pending ceretec/echo Status: Acute This form is a permanent part of the medical record Clarification of your documentation is requested to better reflect the severity of illness and intensity of treatment of your patient. Indicators present [] Specify: [] [] Specify: [] [] Specify: [] [] Specify: [] Location in the medical record that reflects the above clinical findings: [] Treatment Provided: [] PHYSICIAN'S RESPONSE Based on your medical judgment of the clinical indicators outlined above please clarify the following: [] Practitioner response MRSA bacteremia likely r/t r ankle cellulitis vs unkn etiology, echo pending, ceretec scan negative. ID and podiatry follow [] If unable to determine, please check the box, sign and date. Present On Admission (POA) Indicator: [x] Present at the time of admission [] Not present at the time of admission [] Clinically Undetermined In responding to this query, please exercise your independent professional judgment. The fact that a question is asked does not imply that any particular answer is desired or expected. Thank you for your clarification on this documentation. If you have any questions please call. * Thank you, Xiomara Cortés RN ext. #[phone] MTDD
--- NOTE | 2018-01-11 15:51 | CP.PCM.CON ---
History of Present Illness - History of Present Illness History of Present Illness: Podiatry Consult Note - Dr. Guy 62 year old male patient seen and evaluated at bedside regarding right lower extremity cellulitis. Patient resting comfortably NAD. Patient states the pain and swelling in his right ankle started on Monday, unknown how it began. Denies any trauma or previous wounds to area. Of note, patient was seen in ED on Monday01/07/18 for right ankle pain due to possible trauma while carrying a heavy box; ED spoke with patient's spanner operator Dr. Vines for ok to DC home on PO abx and ankle splint. Blood culture was drawn which revealed growth of gram positive cocci so patient was called to return to ED for further evaluation. At present, patient states pain and redness to right ankle has worsened since admission. Patient admits to feeling chills and general malaise. Patient admits to increased sensitivity to touch and pain with right ankle movement. Offers no other complaints. Whale Fisherman: Dr. Vines PMD: Dr. Sow Review of Systems - Review of Systems All systems: reviewed and no additional remarkable complaints except (as per HPI ) Past Patient History - Past Social History Smoking Status: Former Smoker - CARDIAC Hx Hypercholesterolemia: Yes Hx Hypertension: Yes - PULMONARY Hx Asthma: No Hx Chronic Obstructive Pulmonary Disease (COPD): No Hx Emphysema: Yes - NEUROLOGICAL Hx Seizures: Yes - HEENT Hx HEENT Problems: No (WEARS RX GLASSES) - RENAL Hx Chronic Kidney Disease: No - ENDOCRINE/METABOLIC Hx Diabetes Mellitus Type 2: Yes Hx Hypothyroidism: Yes - HEMATOLOGICAL/ONCOLOGICAL Hx Human Immunodeficiency Virus (HIV): No - INTEGUMENTARY Hx Dermatological Problems: No - MUSCULOSKELETAL/RHEUMATOLOGICAL Hx Falls: Yes Hx Fractures: Yes - GASTROINTESTINAL Hx Gastrointestinal Disorders: Yes Hx Gastroesophageal Reflux: Yes - GENITOURINARY/GYNECOLOGICAL Hx Genitourinary Disorders: No - PSYCHIATRIC Hx Anxiety: No Hx Depression: Yes Hx Substance Use: No - SURGICAL HISTORY Hx Coronary Stent: Yes - ANESTHESIA Hx Anesthesia: Yes Hx Anesthesia Reactions: No Hx Malignant Hyperthermia: No Has any member of the family had a problem w/ anesthesia?: No Meds Allergies/Adverse Reactions: Allergies Allergy/AdvReac Type Severity Reaction Status Date / Time Sulfa (Sulfonamide Allergy RASH Verified 02/14/16 09:33 Antibiotics) - Medications Medications: Current Medications Acetaminophen (Tylenol 325mg Tab) 650 mg PO Q4 PRN PRN Reason: Fever >100.4 F Alprazolam (Xanax) 1 mg PO QID [facility] Last Admin: 01/11/18 13:16 Dose: 1 mg Aspirin (Ecotrin) 81 mg PO DAILY [facility] Last Admin: 01/11/18 09:27 Dose: 81 mg Buspirone HCl (Buspar) 30 mg PO BID [facility] Last Admin: 01/11/18 09:25 Dose: 30 mg Clopidogrel Bisulfate (Plavix) 75 mg PO DAILY [facility] Last Admin: 01/11/18 13:16 Dose: 75 mg Ergocalciferol (Drisdol 50,000 Intl Units Cap) 1 cap PO QWK [facility] Fenofibrate (Tricor) 145 mg PO DAILY [facility] Last Admin: 01/11/18 09:28 Dose: 145 mg Gabapentin (Neurontin) 300 mg PO BID [facility] Last Admin: 01/11/18 09:27 Dose: 300 mg Vancomycin HCl 1 gm/ Sodium (Chloride) 250 mls @ 166.667 mls/hr IVPB Q12 [facility] PRN Reason: Protocol Last Admin: 01/11/18 09:43 Dose: 166.667 mls/hr Piperacillin Sod/Tazobactam (Sod 3.375 gm/ Sodium Chloride) 100 mls @ 100 mls/ hr IVPB Q6 [facility] PRN Reason: Protocol Last Admin: 01/11/18 09:43 Dose: 100 mls/hr Ibuprofen (Motrin Tab) 600 mg PO BID [facility] Last Admin: 01/11/18 09:29 Dose: 600 mg Lamotrigine (Lamictal) 50 mg PO BID [facility] Last Admin: 01/11/18 09:27 Dose: 50 mg Levothyroxine Sodium (Synthroid) 88 mcg PO DAILY@0630 [facility] Last Admin: 01/11/18 06:34 Dose: 88 mcg Lidocaine (Lidoderm) 1 ea TD DAILY PRN PRN Reason: Muscle spasm Lisinopril (Zestril) 20 mg PO DAILY [facility] Last Admin: 01/11/18 09:28 Dose: 20 mg Metoprolol Tartrate (Lopressor) 25 mg PO BID [facility] Last Admin: 01/11/18 09:28 Dose: 25 mg Montelukast Sodium (Singulair) 10 mg PO DAILY [facility] Last Admin: 01/11/18 09:27 Dose: 10 mg Oxycodone HCl (Oxycodone Immediate Release Tab) 30 mg PO QID PRN PRN Reason: Pain, moderate (4-7) Last Admin: 01/11/18 06:36 Dose: 30 mg Oxycodone/Acetaminophen (Percocet 5/325 Mg Tab) 1 tab PO Q6 PRN PRN Reason: Pain, moderate (4-7) Stop: 01/12/18 20:38 Last Admin: 01/11/18 14:43 Dose: 1 tab Paroxetine HCl (Paxil) 60 mg PO DAILY [facility] Last Admin: 01/11/18 09:29 Dose: 60 mg Sitagliptin Phosphate (Januvia) 100 mg PO DAILY [facility] Last Admin: 01/11/18 13:16 Dose: 100 mg Physical Exam - Constitutional Appears: Well, Non-toxic, No Acute Distress - Extremities Exam Additional comments: RLE focused physical exam: VASC: DP/PT pulses nonpalpable secondary to edema. Temperature warm to hot, with increase in warmth noted to areas of erythema/fluctuance. Nonpitting edema noted to right ankle extending distally into digits. NEURO: Gross sensation diminished. DERM: Erythema noted to medial ankle joint extending into forefoot, with deepened red discoloration noted along medial malleolus surrounding blister. Fluctuance present at areas of deep rubor. Well-healed cicatrices noted around ankle joint. ORTHO: Pain on palpation noted to right medial ankle joint extending distally into forefoot, at areas of erythema. Ankle joint ROM limited due to guarding. Muscle strength 5/5 for all pedal muscle groups. - Neurological Exam Neurological exam: Alert, Oriented x3 - Psychiatric Exam Psychiatric exam: Normal Affect, Normal Mood Results - Vital Signs Recent Vital Signs: Last Vital Signs Temp 98.5 F 01/11/18 08:00 Pulse 83 01/11/18 09:28 Resp 19 01/11/18 08:00 BP 135/78 01/11/18 09:28 Pulse Ox 95 01/11/18 08:00 - Labs Result Diagrams: 01/11/18 07:25 01/11/18 07:25 Labs: Laboratory Results - last 24 hr 01/10/18 01/10/18 01/11/18 16:12 21:26 05:50 WBC RBC Hgb Hct MCV MCH MCHC RDW Plt Count Sodium Potassium Chloride Carbon Dioxide Anion Gap BUN Creatinine Est GFR ( Amer) Est GFR (Non-Af Amer) POC Glucose (mg/dL) 141 H 112 H 108 Random Glucose Calcium Total Bilirubin AST ALT Alkaline Phosphatase Total Protein Albumin Globulin Albumin/Globulin Ratio Vancomycin Trough 01/11/18 01/11/18 01/11/18 07:25 07:25 07:25 WBC 15.3 H RBC 5.03 Hgb 11.3 L Hct 35.4 MCV 70.3 L MCH 22.4 L MCHC 31.8 L RDW 18.5 H Plt Count 241 Sodium 134 Potassium 3.7 Chloride 100 Carbon Dioxide 26 Anion Gap 12 BUN 18 Creatinine 0.7 L Est GFR ( Amer) > 60 Est GFR (Non-Af Amer) > 60 POC Glucose (mg/dL) Random Glucose 100 Calcium 8.2 L Total Bilirubin 1.9 H AST 20 ALT 34 Alkaline Phosphatase 64 Total Protein 5.6 L Albumin 2.9 L Globulin 2.7 Albumin/Globulin Ratio 1.1 Vancomycin Trough < 5.0 L 01/11/18 11:07 WBC RBC Hgb Hct MCV MCH MCHC RDW Plt Count Sodium Potassium Chloride Carbon Dioxide Anion Gap BUN Creatinine Est GFR ( Amer) Est GFR (Non-Af Amer) POC Glucose (mg/dL) 129 H Random Glucose Calcium Total Bilirubin AST ALT Alkaline Phosphatase Total Protein Albumin Globulin Albumin/Globulin Ratio Vancomycin Trough Assessment & Plan - Assessment and Plan (Free Text) Assessment: 62M with right lower extremity abscess + cellulitis Plan: Patient seen and evaluated Discussed with attending, Dr. Guy Afebrile, increased WBC @ 15.3 (22.2 on admission), ESR 19 R ankle XR (01/11): Postsurg changes of midfoot/hindfoot/ankle with multiple fixation screws with surrounding lucencies suggesting orthopedic hw loosening RLE CT (01/07): Broken staple of indeterminate chronicity, nondisplaced. Negative for OM LE bone scan (01/09): Findings nonspecific, likely related to postop change Discussed with patient fluctuance in right ankle is area of abscess formation - bedside I&D is warranted to relieve area of purulence; patient signed consent after careful explanation of risks, benefits, alternatives, and complications to procedure; nurse present as witness Local block of 20cc of 2% lidocaine plain administered in a proximal V-type fashion to right ankle; stab incision made in area of bullae, approximately 40cc of purulence able to be expressed from right ankle -Right wound culture taken, f/u -Right ankle dressed with DSD Discussed with patient highly likely purulence remains in right ankle, will need surgical washout -Informed patient of procedure and post-operative course -To OR tomorrow after 2PM for right ankle I&D under IV sedation -Ok to proceed per medicine -Anesthesia consult ordered for pre-op, f/u -NPO @ mn, aspirin held Podiatry will continue to follow
--- NOTE | 2018-01-11 17:34 | CP.PCM.PN ---
Subjective - Date & Time of Evaluation Date of Evaluation: 01/11/18 Time of Evaluation: 08:00 - Subjective Subjective: despite IV antibiotics leukocytosis ersists repeat blood c/s neg thus far had arthrocentesis of infected right ankle c/o pain but no fever for PICC exchange if culures negative needs removal of hardware with joint washout Objective - Vital Signs/Intake and Output Vital Signs (last 24 hours): Temp Pulse Resp BP Pulse Ox 98.8 F 68 20 107/66 98 01/11/18 16:08 01/11/18 16:23 01/11/18 16:08 01/11/18 16:23 01/11/18 16:08 - Medications Medications: Current Medications Acetaminophen (Tylenol 325mg Tab) 650 mg PO Q4 PRN PRN Reason: Fever >100.4 F Alprazolam (Xanax) 1 mg PO QID [facility] Last Admin: 01/11/18 16:28 Dose: 1 mg Aspirin (Ecotrin) 81 mg PO DAILY [facility] Last Admin: 01/11/18 09:27 Dose: 81 mg Buspirone HCl (Buspar) 30 mg PO BID [facility] Last Admin: 01/11/18 16:23 Dose: 30 mg Clopidogrel Bisulfate (Plavix) 75 mg PO DAILY [facility] Last Admin: 01/11/18 13:16 Dose: 75 mg Ergocalciferol (Drisdol 50,000 Intl Units Cap) 1 cap PO QWK [facility] Fenofibrate (Tricor) 145 mg PO DAILY [facility] Last Admin: 01/11/18 09:28 Dose: 145 mg Gabapentin (Neurontin) 300 mg PO BID [facility] Last Admin: 01/11/18 16:25 Dose: 300 mg Vancomycin HCl 1 gm/ Sodium (Chloride) 250 mls @ 166.667 mls/hr IVPB Q12 [facility] PRN Reason: Protocol Last Admin: 01/11/18 09:43 Dose: 166.667 mls/hr Piperacillin Sod/Tazobactam (Sod 3.375 gm/ Sodium Chloride) 100 mls @ 100 mls/ hr IVPB Q6 [facility] PRN Reason: Protocol Last Admin: 01/11/18 16:19 Dose: 100 mls/hr Ibuprofen (Motrin Tab) 600 mg PO BID [facility] Last Admin: 01/11/18 16:24 Dose: 600 mg Lamotrigine (Lamictal) 50 mg PO BID [facility] Last Admin: 01/11/18 16:23 Dose: 50 mg Levothyroxine Sodium (Synthroid) 88 mcg PO DAILY@0630 [facility] Last Admin: 01/11/18 06:34 Dose: 88 mcg Lidocaine (Lidoderm) 1 ea TD DAILY PRN PRN Reason: Muscle spasm Lisinopril (Zestril) 20 mg PO DAILY [facility] Last Admin: 01/11/18 09:28 Dose: 20 mg Metoprolol Tartrate (Lopressor) 25 mg PO BID [facility] Last Admin: 01/11/18 16:23 Dose: 25 mg Montelukast Sodium (Singulair) 10 mg PO DAILY [facility] Last Admin: 01/11/18 09:27 Dose: 10 mg Oxycodone HCl (Oxycodone Immediate Release Tab) 30 mg PO QID PRN PRN Reason: Pain, moderate (4-7) Last Admin: 01/11/18 06:36 Dose: 30 mg Oxycodone/Acetaminophen (Percocet 5/325 Mg Tab) 1 tab PO Q6 PRN PRN Reason: Pain, moderate (4-7) Stop: 01/12/18 20:38 Last Admin: 01/11/18 14:43 Dose: 1 tab Paroxetine HCl (Paxil) 60 mg PO DAILY [facility] Last Admin: 01/11/18 09:29 Dose: 60 mg Sitagliptin Phosphate (Januvia) 100 mg PO DAILY [facility] Last Admin: 01/11/18 13:16 Dose: 100 mg - Labs Labs: 01/11/18 07:25 01/11/18 07:25 - Constitutional Appears: Chronically Ill - Head Exam Head Exam: NORMOCEPHALIC - Eye Exam Eye Exam: PERRL - ENT Exam ENT Exam: Mucous Membranes Dry - Neck Exam Neck Exam: absent: Lymphadenopathy - Respiratory Exam Respiratory Exam: Decreased Breath Sounds, Clear to Ausculation Bilateral - Cardiovascular Exam Cardiovascular Exam: REGULAR RHYTHM - GI/Abdominal Exam GI & Abdominal Exam: Distended, Soft - Rectal Exam Rectal Exam: Deferred - Exam Exam: NORMAL INSPECTION - Extremities Exam Extremities Exam: Pedal Edema, Tenderness - Back Exam Back Exam: absent: CVA tenderness (L), CVA tenderness (R) - Neurological Exam Neurological Exam: Alert, Awake, Oriented x3 - Psychiatric Exam Psychiatric exam: Normal Mood - Skin Skin Exam: Dry Assessment and Plan (1) Cellulitis Status: Acute (2) Positive blood culture Status: Acute (3) Ankle pain Status: Acute (4) Septic arthritis Status: Acute (5) Septic arthritis Status: Acute (6) MRSA bacteremia Status: Acute (7) MRSA bacteremia Status: Acute (8) Bacteremia due to methicillin resistant Staphylococcus aureus Status: Acute - Assessment and Plan (Free Text) Assessment: cont iv rx for MRSA will need washout and hardware removal change PICC if blood c/s neg at 72 h
[2018-01-12] MEDS: Sodium Chloride 0.9% 1,000 ML IV SCH ×3 (00:13→21:00)
[2018-01-12] MEDS: Piperacillin/Tazobact 3.375 GM in Sodium Chloride 0.9% 100 ML IVPB SCH ×4 (04:26→21:12)
[2018-01-12] MEDS: Levothyroxine 88 MCG TAB PO SCH (05:56)
[2018-01-12] MEDS: Oxycodone/Acetaminophen 5/325 mg Tab PO PRN (06:56)
[2018-01-12 07:21] LABS: BASO % 0.2 % (0.0-2.0); EOS # 0.1 K/uL (0.0-0.7); EOS % 0.9 % (0.0-4.0); HEMOGLOBIN 11.5 g/dL (12.0-18.0); LYMPH # 1.1 K/uL (1.0-4.3); LYMPH % 6.9 % (20.0-40.0); MEAN CELL VOLUME 71.3 fl (80.0-94.0); MEAN CORPUSCULAR HEMOGLOBIN 22.5 pg (27.0-31.0); MEAN CORPUSCULAR HGB CONC 31.6 g/dL (33.0-37.0); MEAN PLATELET VOLUME 7.7 fl (7.2-11.7); MONO # 1.1 K/uL (0.0-0.8); NEUT # 13.2 K/uL (1.8-7.0); PLATELET COUNT 242 K/uL (130-400); RBC 5.13 Mil/uL (4.40-5.90); RED CELL DISTRIBUTION WIDTH 18.4 % (11.5-14.5); WHITE BLOOD COUNT 15.6 K/uL (4.8-10.8)
[2018-01-12 07:23] LABS: INR 1.8 (0.9-1.2); PARTIAL THROMBOPLASTIN TIME 27.8 Seconds (25.6-37.1); PROTHROMBIN TIME 20.6 Seconds (9.8-13.1)
[2018-01-12 07:25] LABS: ALB/GLOB RATIO 0.9 (1.0-2.1); ALBUMIN 2.8 g/dL (3.5-5.0); ALT/SGPT 40 U/L (21-72); AST/SGOT 19 U/L (17-59); BLOOD UREA NITROGEN 18 mg/dl (9-20); CALCIUM 8.3 mg/dL (8.4-10.2); GFR AFRICAN-AMERICAN > 60; GFR NON-AFRICAN AMERICAN > 60
--- NOTE | 2018-01-12 07:31 | CP.PCM.PN ---
Subjective - Date & Time of Evaluation Date of Evaluation: 01/12/18 Time of Evaluation: 07:31 - Subjective Subjective: Podiatry Progress Note - Dr. Guy 62 year old male patient seen and evaluated at bedside regarding right lower extremity abscess + cellulitis. Patient complaining of severe pain to left ankle. Dressing to right ankle in place though saturated. Patient is aware he is scheduled for right ankle I&D this afternoon, NPO confirmed. Objective - Vital Signs/Intake and Output Vital Signs (last 24 hours): Temp Pulse Resp BP Pulse Ox 98.8 F 68 20 107/66 98 01/11/18 16:08 01/11/18 16:23 01/11/18 16:08 01/11/18 16:23 01/11/18 16:08 - Medications Medications: Current Medications Acetaminophen (Tylenol 325mg Tab) 650 mg PO Q4 PRN PRN Reason: Fever >100.4 F Alprazolam (Xanax) 1 mg PO QID [facility] Last Admin: 01/11/18 21:51 Dose: 1 mg Aspirin (Ecotrin) 81 mg PO DAILY [facility] Last Admin: 01/11/18 09:27 Dose: 81 mg Buspirone HCl (Buspar) 30 mg PO BID [facility] Last Admin: 01/11/18 16:23 Dose: 30 mg Clopidogrel Bisulfate (Plavix) 75 mg PO DAILY [facility] Last Admin: 01/11/18 13:16 Dose: 75 mg Ergocalciferol (Drisdol 50,000 Intl Units Cap) 1 cap PO QWK [facility] Fenofibrate (Tricor) 145 mg PO DAILY [facility] Last Admin: 01/11/18 09:28 Dose: 145 mg Gabapentin (Neurontin) 300 mg PO BID [facility] Last Admin: 01/11/18 16:25 Dose: 300 mg Piperacillin Sod/Tazobactam (Sod 3.375 gm/ Sodium Chloride) 100 mls @ 100 mls/ hr IVPB Q6 [facility] PRN Reason: Protocol Last Admin: 01/12/18 04:26 Dose: 100 mls/hr Vancomycin HCl 1,000 mg/ (Sodium Chloride) 250 mls @ 166.667 mls/hr IVPB Q8H [facility] PRN Reason: Protocol Last Admin: 01/12/18 00:59 Dose: 166.667 mls/hr Sodium Chloride (Sodium Chloride 0.9%) 1,000 mls @ 100 mls/hr IV .Q10H [facility] Stop: 01/12/18 20:03 Last Admin: 01/12/18 00:13 Dose: 100 mls/hr Ibuprofen (Motrin Tab) 600 mg PO BID [facility] Last Admin: 01/11/18 16:24 Dose: 600 mg Lamotrigine (Lamictal) 50 mg PO BID [facility] Last Admin: 01/11/18 16:23 Dose: 50 mg Levothyroxine Sodium (Synthroid) 88 mcg PO DAILY@0630 [facility] Last Admin: 01/12/18 05:56 Dose: 88 mcg Lidocaine (Lidoderm) 1 ea TD DAILY PRN PRN Reason: Muscle spasm Lisinopril (Zestril) 20 mg PO DAILY [facility] Last Admin: 01/11/18 09:28 Dose: 20 mg Metoprolol Tartrate (Lopressor) 25 mg PO BID [facility] Last Admin: 01/11/18 16:23 Dose: 25 mg Montelukast Sodium (Singulair) 10 mg PO DAILY [facility] Last Admin: 01/11/18 09:27 Dose: 10 mg Oxycodone HCl (Oxycodone Immediate Release Tab) 30 mg PO QID PRN PRN Reason: Pain, moderate (4-7) Last Admin: 01/11/18 06:36 Dose: 30 mg Oxycodone/Acetaminophen (Percocet 5/325 Mg Tab) 1 tab PO Q6 PRN PRN Reason: Pain, moderate (4-7) Stop: 01/12/18 20:38 Last Admin: 01/12/18 06:56 Dose: 1 tab Paroxetine HCl (Paxil) 60 mg PO DAILY [facility] Last Admin: 01/11/18 09:29 Dose: 60 mg Sitagliptin Phosphate (Januvia) 100 mg PO DAILY [facility] Last Admin: 01/11/18 13:16 Dose: 100 mg - Labs Labs: 01/11/18 07:25 01/12/18 06:50 PT 20.6 Seconds (9.8-13.1) H 01/12/18 06:50 INR 1.8 (0.9-1.2) H 01/12/18 06:50 APTT 27.8 Seconds (25.6-37.1) 01/12/18 06:50 - Constitutional Appears: Well, Non-toxic, No Acute Distress - Extremities Exam Additional comments: Dressing to right ankle intact but saturated - Neurological Exam Neurological Exam: Alert, Awake, Oriented x3 - Psychiatric Exam Psychiatric exam: Anxious Assessment and Plan - Assessment and Plan (Free Text) Assessment: 62M with right lower extremity abscess + cellulitis Plan: Patient seen and evaluated Discussed with attending, Dr. Guy Afebrile, increased WBC @ 15.6, ESR 19 R ankle XR (01/11): Postsurgical changes of midfoot/hindfoot/ankle with multiple fixation screws with surrounding lucencies suggesting orthopedic hw loosening RLE CT (01/07): Broken staple of indeterminate chronicity, nondisplaced. Negative for OM LE bone scan (01/09): Findings nonspecific, likely related to postop change R ankle wound culture pending Right ankle dressing reinforced with DSD Pt has exhausted all conservative treatment at this time and is opting for surgical intervention Pt was explained procedure and post-operative course All pt's questions were answered to satisfaction No guarantees were made Pt understands all risks, benefits and complications of procedure -To OR 2PM for right ankle I&D under IV sedation -Ok to proceed per medicine -All pre-op testing and clearance in chart -Anesthesia consult ordered for pre-op, f/u -NPO confirmed, aspirin held Podiatry will continue to follow
--- NOTE | 2018-01-12 07:57 | CP.PCM.PN ---
Subjective - Date & Time of Evaluation Date of Evaluation: 01/12/18 Time of Evaluation: 07:57 - Subjective Subjective: pt doing well. large amt of drainage on dsg. otherwise intact. i/d at bedside yesterday for surgcial washing tonight. no f/,c n/v/s. labs noted. pts primary card dr landon williamson w/ rmg cleared for or washing w/ iv sedation Objective - Vital Signs/Intake and Output Vital Signs (last 24 hours): Temp Pulse Resp BP Pulse Ox 98.8 F 68 20 107/66 98 01/11/18 16:08 01/11/18 16:23 01/11/18 16:08 01/11/18 16:23 01/11/18 16:08 - Medications Medications: Current Medications Acetaminophen (Tylenol 325mg Tab) 650 mg PO Q4 PRN PRN Reason: Fever >100.4 F Alprazolam (Xanax) 1 mg PO QID [facility] Last Admin: 01/11/18 21:51 Dose: 1 mg Aspirin (Ecotrin) 81 mg PO DAILY [facility] Last Admin: 01/11/18 09:27 Dose: 81 mg Buspirone HCl (Buspar) 30 mg PO BID [facility] Last Admin: 01/11/18 16:23 Dose: 30 mg Clopidogrel Bisulfate (Plavix) 75 mg PO DAILY [facility] Last Admin: 01/11/18 13:16 Dose: 75 mg Ergocalciferol (Drisdol 50,000 Intl Units Cap) 1 cap PO QWK [facility] Fenofibrate (Tricor) 145 mg PO DAILY [facility] Last Admin: 01/11/18 09:28 Dose: 145 mg Gabapentin (Neurontin) 300 mg PO BID [facility] Last Admin: 01/11/18 16:25 Dose: 300 mg Piperacillin Sod/Tazobactam (Sod 3.375 gm/ Sodium Chloride) 100 mls @ 100 mls/ hr IVPB Q6 [facility] PRN Reason: Protocol Last Admin: 01/12/18 04:26 Dose: 100 mls/hr Vancomycin HCl 1,000 mg/ (Sodium Chloride) 250 mls @ 166.667 mls/hr IVPB Q8H [facility] PRN Reason: Protocol Last Admin: 01/12/18 00:59 Dose: 166.667 mls/hr Sodium Chloride (Sodium Chloride 0.9%) 1,000 mls @ 100 mls/hr IV .Q10H [facility] Stop: 01/12/18 20:03 Last Admin: 01/12/18 00:13 Dose: 100 mls/hr Ibuprofen (Motrin Tab) 600 mg PO BID [facility] Last Admin: 01/11/18 16:24 Dose: 600 mg Lamotrigine (Lamictal) 50 mg PO BID [facility] Last Admin: 01/11/18 16:23 Dose: 50 mg Levothyroxine Sodium (Synthroid) 88 mcg PO DAILY@0630 [facility] Last Admin: 01/12/18 05:56 Dose: 88 mcg Lidocaine (Lidoderm) 1 ea TD DAILY PRN PRN Reason: Muscle spasm Lisinopril (Zestril) 20 mg PO DAILY [facility] Last Admin: 01/11/18 09:28 Dose: 20 mg Metoprolol Tartrate (Lopressor) 25 mg PO BID [facility] Last Admin: 01/11/18 16:23 Dose: 25 mg Montelukast Sodium (Singulair) 10 mg PO DAILY [facility] Last Admin: 01/11/18 09:27 Dose: 10 mg Morphine Sulfate (Morphine) 1 mg IVP Q6 PRN PRN Reason: Pain, severe (8-10) Oxycodone HCl (Oxycodone Immediate Release Tab) 30 mg PO QID PRN PRN Reason: Pain, moderate (4-7) Last Admin: 01/11/18 06:36 Dose: 30 mg Oxycodone/Acetaminophen (Percocet 5/325 Mg Tab) 1 tab PO Q6 PRN PRN Reason: Pain, moderate (4-7) Stop: 01/12/18 20:38 Last Admin: 01/12/18 06:56 Dose: 1 tab Paroxetine HCl (Paxil) 60 mg PO DAILY [facility] Last Admin: 01/11/18 09:29 Dose: 60 mg Sitagliptin Phosphate (Januvia) 100 mg PO DAILY [facility] Last Admin: 01/11/18 13:16 Dose: 100 mg - Labs Labs: 01/12/18 06:50 01/12/18 06:50 PT 20.6 Seconds (9.8-13.1) H 01/12/18 06:50 INR 1.8 (0.9-1.2) H 01/12/18 06:50 APTT 27.8 Seconds (25.6-37.1) 01/12/18 06:50 - Constitutional Appears: Well, Non-toxic, No Acute Distress - Head Exam Head Exam: ATRAUMATIC, NORMAL INSPECTION, NORMOCEPHALIC - Eye Exam Eye Exam: EOMI, Normal appearance, PERRL Pupil Exam: NORMAL ACCOMODATION, PERRL - ENT Exam ENT Exam: Mucous Membranes Moist, Normal Exam - Neck Exam Neck Exam: Full ROM, Normal Inspection. absent: Lymphadenopathy - Respiratory Exam Respiratory Exam: Clear to Ausculation Bilateral, NORMAL BREATHING PATTERN - Cardiovascular Exam Cardiovascular Exam: REGULAR RHYTHM, RRR, +S1, +S2. absent: Murmur - GI/Abdominal Exam GI & Abdominal Exam: Soft, Normal Bowel Sounds. absent: Tenderness - Extremities Exam Extremities Exam: Full ROM, Normal Capillary Refill, Normal Inspection. absent : Joint Swelling, Pedal Edema - Back Exam Back Exam: NORMAL INSPECTION - Neurological Exam Neurological Exam: Alert, Awake, CN II-XII Intact, Normal Gait, Oriented x3 - Psychiatric Exam Psychiatric exam: Normal Affect, Normal Mood - Skin Skin Exam: Dry, Intact, Normal Color, Warm Assessment and Plan (1) Positive blood culture Assessment & Plan: bacteremia/sepsis r/t mrsa wound infection anbx, pod, id, picc when cleared Status: Acute (2) Cellulitis Assessment & Plan: mrsa-podiatry and id had bedside id for washing today cont anbx c/s noted Status: Acute (3) Chronic pain Assessment & Plan: cont home meds Status: Acute (4) DVT prophylaxis Assessment & Plan: scd and aehose hold anticoag as pt going to or asa/plavix Status: Acute
[2018-01-12 10:02] LABS: LYMPHOCYTE 8 % (20-50); MONOCYTE 6 % (0-10); NEUTROPHIL 86 % (42-75); PLATELET ESTIMATE NORMAL (NORMAL); TOTAL CELLS COUNTED 100
[2018-01-12 10:03] LABS: ANISOCYTOSIS SLIGHT; HYPOCHROMIC SLIGHT; LARGE PLATELETS PRESENT; MICROCYTOSIS SLIGHT; OVALOCYTES SLIGHT
--- NOTE | 2018-01-12 10:33 | PQF GENQUE ---
C Jennifer OFFICE TECHNOLOGY INSTRUCTOR, MRSA Bacteremia likely r/t r ankle cellulitis vs unkn etiology versus MRSA Sepsis likely r/t r ankle cellulitis vs unkn etiology? ( Bacteremia is defined as the presence of bacteria in the blood [[employer]] and denotes only an abnormal laboratory finding.) The attending physician is required to clarify conflicting documentation in the medical record. The following documentation is noted in the medical record : Diagnosis 1: first query: bacteremia likely sepsis from cellulitits/hardware to ankle Documented by: OFFICE TECHNOLOGY INSTRUCTOR Location: first query form Diagnosis 2 second query: MRSA bacteremia likely r/t r ankle cellulitis vs unkn etiology, echo pending, ceretec scan negative. Documented by: OFFICE TECHNOLOGY INSTRUCTOR Location : second query form This form is a permanent part of the medical record Clarification of your documentation is requested to better reflect the severity of illness and intensity of treatment of your patient. Indicators present [] Specify: [] [] Specify: [] [] Specify: [] [] Specify: [] Location in the medical record that reflects the above clinical findings: [] Treatment Provided: [] PHYSICIAN'S RESPONSE Based on your medical judgment of the clinical indicators outlined above please clarify the following: [] Practitioner response MRSA sepsis r/t cellulitis ankle [] If unable to determine, please check the box, sign and date. Present On Admission (POA) Indicator: []x Present at the time of admission [] Not present at the time of admission [] Clinically Undetermined In responding to this query, please exercise your independent professional judgment. The fact that a question is asked does not imply that any particular answer is desired or expected. Thank you for your clarification on this documentation. If you have any questions please call. * Thank you, Xiomara Cortés RN ext. #[phone] [facility]
--- NOTE | 2018-01-12 11:24 | CARD ---
APPROVED REPORT EXAM: Two-dimensional and M-mode echocardiogram with Doppler and color Doppler. Other Information Quality : GoodRhythm : NSR INDICATION Infection:Subacute bacterial endocarditis 2D DIMENSIONS IVSd0.87 (0.7-1.1cm)LVDd6.33 (3.9-5.9cm) LVOT Diameter2.20 (1.8-2.4cm)PWd1.32 (0.7-1.1cm) IVSs1.09 (0.8-1.2cm)LVDs5.00 (2.5-4.0cm) FS (%) 21.0 %PWs1.28 (0.8-1.2cm) M-Mode DIMENSIONS Left Atrium (MM)6.35 (2.5-4.0cm)IVSd0.93 (0.7-1.1cm) Aortic Root3.04 (2.2-3.7cm)LVDd7.31 (4.0-5.6cm) Aortic Cusp Exc.2.05 (1.5-2.0cm)PWd0.93 (0.7-1.1cm) IVSs1.32 cmFS (%) 30 % LVDs5.10 (2.0-3.8cm)PWs1.32 cm Mitral Valve MV E Scejxdtj06.4cm/sMV DECEL [id number] A Noqnzcwc22.2cm/s MV PUX42kkI/A ratio1.8MVA (PHT)4.02cm2 TDI Lateral E' Peak V12.55cm/sMedial E' Peak V6.19cm/sE/Lateral E'7.8 E/Medial E'15.9 Tricuspid Valve TR Peak Xpuxjaph006yb/sRAP HDCUOSFQ72llWnUF Peak Gr.31mmHg [id number] LEFT VENTRICLE The Left Ventricle is moderately dilated. There is normal left ventricular wall thickness. The left ventricular function is normal. The left ventricular ejection fraction is within the normal range. The Ejection Fraction is 45-50%. There is normal LV segmental wall motion. The left ventricular diastolic function is normal. RIGHT VENTRICLE The right ventricle is normal size. The right ventricular systolic function is normal. ATRIA The left atrium is moderately dilated. The right atrium size is normal. AORTIC VALVE The aortic valve is normal in structure. No aortic regurgitation is present. There is no aortic valvular stenosis. MITRAL VALVE The mitral valve is normal in structure. There is no mitral valve stenosis. Mitral regurgitation is moderate to severe. TRICUSPID VALVE The tricuspid valve is normal in structure. There is trace to mild tricuspid regurgitation. Right ventricular systolic pressure is estimated at 41 mmHg. There is mild pulmonary hypertension. PULMONIC VALVE The pulmonary valve is normal in structure. There is no pulmonic valvular regurgitation. GREAT VESSELS The aortic root is normal in size. The IVC is normal in size and collapses >50% with inspiration. PERICARDIAL EFFUSION The pericardium appears normal. <Conclusion> The Left Ventricle is moderately dilated. The left ventricular function is normal. The left ventricular ejection fraction is within the normal range. The Ejection Fraction is 45-50%. The left atrium is moderately dilated. The left atrium is moderately dilated. Mitral regurgitation is moderate to severe. There is trace to mild tricuspid regurgitation. Right ventricular systolic pressure is estimated at 41 mmHg. There is mild pulmonary hypertension.
[2018-01-12] MEDS ORDERED: Lidocaine 1% Inj (20ml) IJ ONE (12:51)
[2018-01-12] MEDS ORDERED: Bupivacaine 0.5% Inj(30mL) IJ ONE (12:51)
[2018-01-12] MEDS ORDERED: Dextrose 5%/0.9% NS 1,000 ML IV SCH (13:00)
[2018-01-12] MEDS ORDERED: Midazolam 2 MG/2 ML VIAL ONE (13:09)
[2018-01-12] MEDS ORDERED: Propofol 10 mg/ml Inj (20 ML) ONE (13:09)
[2018-01-12] MEDS ORDERED: Bupivacaine HCl 0.5% PF (30 ml) Inj ONE (13:12)
[2018-01-12] MEDS ORDERED: Lidocaine 2% Inj (20ml) ONE (13:13)
[2018-01-12] MEDS ORDERED: Sodium Chloride 0.9% 300 ML IV ONE (13:25)
[2018-01-12] MEDS ORDERED: Sodium Chloride 0.9% 250 ML IV ONE (13:25)
[2018-01-12] MEDS ORDERED: HYDROmorphone 0.5 mg/0.5 ml ISec IVP PRN (14:28)
--- NOTE | 2018-01-12 14:29 | PCM.SURG1 ---
Surgeon's Initial Post Op Note - Surgeon's Notes Surgeon: Dr. Guy Press Officer: Dr. Valencia Walker PGY-1 Type of Anesthesia: General LMA, Local Anesthesia Administered By: Dr. Mata Pre-Operative Diagnosis: right ankle abscess with cellulitis Operative Findings: see operative report. I: 17cc 1:1 mix 2% Lidocaine plain and 0.5% Marcaine plain. M: 2-0 Prolene, 1/2" iodoform packing Post-Operative Diagnosis: same Operation Performed: right ankle abscess incision and drainage Specimen/Specimens Removed: right ankle soft tissue Estimated Blood Loss: EBL {In ML}: 25 Blood Products Given: N/A Drains Used: No Drains Post-Op Condition: Good Date of Surgery/Procedure: 01/12/18 Time of Surgery/Procedure: 14:29
[2018-01-12] MEDS ORDERED: Sodium Chloride 0.9% 500 ML IV ONE (15:20)
[2018-01-13] MEDS: Sodium Chloride 0.9% 1,000 ML IV SCH ×2 (00:49→20:30)
[2018-01-13] MEDS: oxyCODONE 10 mg Immediate Release Tab PO PRN ×4 (01:23→21:39)
[2018-01-13] MEDS: Piperacillin/Tazobact 3.375 GM in Sodium Chloride 0.9% 100 ML IVPB SCH ×5 (05:00→21:42)
[2018-01-13] MEDS: Levothyroxine 88 MCG TAB PO SCH (06:41)
[2018-01-13 09:06] LABS: BASO # 0.1 K/uL (0.0-0.2); BASO % 0.5 % (0.0-2.0); EOS # 0.2 K/uL (0.0-0.7); EOS % 1.7 % (0.0-4.0); HEMOGLOBIN 11.2 g/dL (12.0-18.0); LYMPH # 1.4 K/uL (1.0-4.3); LYMPH % 10.7 % (20.0-40.0); MEAN CELL VOLUME 70.4 fl (80.0-94.0); MEAN CORPUSCULAR HEMOGLOBIN 22.6 pg (27.0-31.0); MEAN CORPUSCULAR HGB CONC 32.1 g/dL (33.0-37.0); MEAN PLATELET VOLUME 7.5 fl (7.2-11.7); MONO # 1.1 K/uL (0.0-0.8); MONO % 8.2 % (0.0-10.0); NEUT # 10.3 K/uL (1.8-7.0); NEUT % 78.9 % (50.0-75.0); NRBC % 0.1 % (0.0-0.0); RBC 4.95 Mil/uL (4.40-5.90); RED CELL DISTRIBUTION WIDTH 18.1 % (11.5-14.5)
[2018-01-13 09:18] LABS: ALB/GLOB RATIO 0.9 (1.0-2.1); ALBUMIN 2.8 g/dL (3.5-5.0); ALT/SGPT 37 U/L (21-72); AST/SGOT 23 U/L (17-59); BLOOD UREA NITROGEN 17 mg/dl (9-20); CALCIUM 8.1 mg/dL (8.4-10.2); GFR AFRICAN-AMERICAN > 60; GFR NON-AFRICAN AMERICAN > 60
--- NOTE | 2018-01-13 09:41 | CP.PCM.PN ---
Subjective - Date & Time of Evaluation Date of Evaluation: 01/13/18 Time of Evaluation: 09:39 - Subjective Subjective: Podiatry Progress Note - Dr. Guy 62 year old male patient seen and evaluated at bedside 1 day s/p I&D of the right ankle abscess. Patient is AAOx3. Reports of moderate pain to right ankle. Reports that the pain gets worst when he tries moving the ankle. Dressing to right ankle in place though saturated with sero-sanguineous fluid. Denies of overnight F/N/V/C/SOB/CP/headache. No new pedal complains. Objective - Vital Signs/Intake and Output Vital Signs (last 24 hours): Temp Pulse Resp BP Pulse Ox 98.3 F 71 18 117/74 96 01/13/18 00:00 01/13/18 00:00 01/13/18 00:00 01/13/18 00:00 01/13/18 00:00 - Medications Medications: Current Medications Acetaminophen (Tylenol 325mg Tab) 650 mg PO Q4 PRN PRN Reason: Fever >100.4 F Alprazolam (Xanax) 1 mg PO QID [facility] Last Admin: 01/12/18 22:18 Dose: 1 mg Aspirin (Ecotrin) 81 mg PO DAILY [facility] Last Admin: 01/11/18 09:27 Dose: 81 mg Buspirone HCl (Buspar) 30 mg PO BID [facility] Last Admin: 01/12/18 17:15 Dose: 30 mg Clopidogrel Bisulfate (Plavix) 75 mg PO DAILY [facility] Last Admin: 01/11/18 13:16 Dose: 75 mg Ergocalciferol (Drisdol 50,000 Intl Units Cap) 1 cap PO QWK [facility] Fenofibrate (Tricor) 145 mg PO DAILY [facility] Last Admin: 01/12/18 08:16 Dose: 145 mg Gabapentin (Neurontin) 300 mg PO BID [facility] Last Admin: 01/12/18 17:15 Dose: 300 mg Piperacillin Sod/Tazobactam (Sod 3.375 gm/ Sodium Chloride) 100 mls @ 100 mls/ hr IVPB Q6 [facility] PRN Reason: Protocol Last Admin: 01/13/18 05:00 Dose: 100 mls/hr Vancomycin HCl 1,000 mg/ (Sodium Chloride) 250 mls @ 166.667 mls/hr IVPB Q8H [facility] PRN Reason: Protocol Last Admin: 01/13/18 00:45 Dose: 166.667 mls/hr Dextrose/Sodium Chloride (Dextrose 5%/0.9% Ns 1000 Ml) 1,000 mls @ 0 mls/hr IV .Q0M [facility] PRN Reason: Per Protocol Stop: 01/13/18 12:51 Sodium Chloride (Sodium Chloride 0.9%) 1,000 mls @ 100 mls/hr IV .Q10H [facility] Last Admin: 01/13/18 00:49 Dose: 100 mls/hr Ibuprofen (Motrin Tab) 600 mg PO BID [facility] Last Admin: 01/12/18 17:16 Dose: 600 mg Lamotrigine (Lamictal) 50 mg PO BID [facility] Last Admin: 01/12/18 17:15 Dose: 50 mg Levothyroxine Sodium (Synthroid) 88 mcg PO DAILY@0630 [facility] Last Admin: 01/13/18 06:41 Dose: 88 mcg Lidocaine (Lidoderm) 1 ea TD DAILY PRN PRN Reason: Muscle spasm Lisinopril (Zestril) 20 mg PO DAILY [facility] Last Admin: 01/12/18 08:15 Dose: 20 mg Metoprolol Tartrate (Lopressor) 25 mg PO BID [facility] Last Admin: 01/12/18 17:16 Dose: 25 mg Montelukast Sodium (Singulair) 10 mg PO DAILY [facility] Last Admin: 01/12/18 08:19 Dose: 10 mg Morphine Sulfate (Morphine) 1 mg IVP Q6 PRN PRN Reason: Pain, severe (8-10) Last Admin: 01/13/18 05:13 Dose: 1 mg Morphine Sulfate (Morphine) 2 mg IVP STAT STA Stop: 01/13/18 09:38 Oxycodone HCl (Oxycodone Immediate Release Tab) 30 mg PO QID PRN PRN Reason: Pain, moderate (4-7) Last Admin: 01/13/18 06:44 Dose: 30 mg Paroxetine HCl (Paxil) 60 mg PO DAILY [facility] Last Admin: 01/12/18 08:16 Dose: 60 mg Sitagliptin Phosphate (Januvia) 100 mg PO DAILY [facility] Last Admin: 01/12/18 09:31 Dose: Not Given - Labs Labs: 01/13/18 04:00 01/13/18 06:30 PT 20.6 Seconds (9.8-13.1) H 01/12/18 06:50 INR 1.8 (0.9-1.2) H 01/12/18 06:50 APTT 27.8 Seconds (25.6-37.1) 01/12/18 06:50 - Constitutional Appears: Well, Non-toxic, No Acute Distress - Extremities Exam Additional comments: RLE focused physical exam: VASC: DP/PT pulses nonpalpable secondary to edema. Temperature warm to warm from proximal to distal, Nonpitting edema noted to right ankle extending distally. DERM: Surgical sutures intact with open site which probes directly to the preeti -medial tibia at the level of the ankle joint, periwound erythema with non- pitting edema, surgical wound probes to bone with no putulence, sero-synovial fluid noted from the surgical site up on palpation surrounding the wound bed, no malodor, no active discharge, no bleeding NEURO: Gross sensation diminished. ORTHO: Pain on palpation noted to right medial ankle joint extending distally into forefoot, at areas of erythema. - Neurological Exam Neurological Exam: Alert, Awake, Oriented x3 - Psychiatric Exam Psychiatric exam: Normal Affect, Normal Mood Assessment and Plan - Assessment and Plan (Free Text) Assessment: 62 year old male patient evaluated at bedside 1). 1 day s/p I&D of the right ankle abscess 2). Cellulitis Plan: Patient seen and evaluated Discussed with attending, Dr. Guy Afebrile, increased WBC @ 13.0 trending down; ESR 19 R ankle XR (01/11): Postsurgical changes of midfoot/hindfoot/ankle with multiple fixation screws with surrounding lucencies suggesting orthopedic hw loosening RLE CT (01/07): Broken staple of indeterminate chronicity, nondisplaced. Negative for OM LE bone scan (01/09): Findings nonspecific, likely related to postop change R ankle wound culture: Staph. aureus R ankle intra-op cultures: Pending Dressing changes: saline flush, 1/2 inch iodoform packing, 4x4, ABD, DSD Continue IV abx as per ID - vanco, zosyn Pain management as per primary - stat dose of 2mg morphine given after dressing change Podiatry will continue to monitor patient closely
--- NOTE | 2018-01-13 13:38 | CP.PCM.PN ---
Subjective - Date & Time of Evaluation Date of Evaluation: 01/13/18 Time of Evaluation: 13:38 - Subjective Subjective: pt doign well. pain controlled w/ meds. no f/c, n/v/d. podiatry note appriciated and pt neal procedure well. bw noted Objective - Vital Signs/Intake and Output Vital Signs (last 24 hours): Temp Pulse Resp BP Pulse Ox 98.3 F 71 18 117/74 96 01/13/18 00:00 01/13/18 10:24 01/13/18 00:00 01/13/18 10:24 01/13/18 00:00 - Medications Medications: Current Medications Acetaminophen (Tylenol 325mg Tab) 650 mg PO Q4 PRN PRN Reason: Fever >100.4 F Alprazolam (Xanax) 1 mg PO QID [facility] Last Admin: 01/13/18 12:19 Dose: 1 mg Aspirin (Ecotrin) 81 mg PO DAILY [facility] Last Admin: 01/13/18 10:14 Dose: 81 mg Buspirone HCl (Buspar) 30 mg PO BID [facility] Last Admin: 01/13/18 10:13 Dose: 30 mg Clopidogrel Bisulfate (Plavix) 75 mg PO DAILY [facility] Last Admin: 01/13/18 10:18 Dose: 75 mg Ergocalciferol (Drisdol 50,000 Intl Units Cap) 1 cap PO QWK [facility] Fenofibrate (Tricor) 145 mg PO DAILY [facility] Last Admin: 01/13/18 10:19 Dose: 145 mg Gabapentin (Neurontin) 300 mg PO BID [facility] Last Admin: 01/13/18 10:16 Dose: 300 mg Piperacillin Sod/Tazobactam (Sod 3.375 gm/ Sodium Chloride) 100 mls @ 100 mls/ hr IVPB Q6 [facility] PRN Reason: Protocol Last Admin: 01/13/18 10:38 Dose: 100 mls/hr Sodium Chloride (Sodium Chloride 0.9%) 1,000 mls @ 100 mls/hr IV .Q10H [facility] Last Admin: 01/13/18 00:49 Dose: 100 mls/hr Vancomycin HCl 1 gm/ Sodium (Chloride) 250 mls @ 166.667 mls/hr IVPB Q8H [facility] PRN Reason: Protocol Last Admin: 01/13/18 10:28 Dose: 166.667 mls/hr Ibuprofen (Motrin Tab) 600 mg PO BID [facility] Last Admin: 01/13/18 10:33 Dose: 600 mg Lamotrigine (Lamictal) 50 mg PO BID [facility] Last Admin: 01/13/18 10:14 Dose: 50 mg Levothyroxine Sodium (Synthroid) 88 mcg PO DAILY@0630 [facility] Last Admin: 01/13/18 06:41 Dose: 88 mcg Lidocaine (Lidoderm) 1 ea TD DAILY PRN PRN Reason: Muscle spasm Lisinopril (Zestril) 20 mg PO DAILY [facility] Last Admin: 01/13/18 10:24 Dose: 20 mg Metoprolol Tartrate (Lopressor) 25 mg PO BID [facility] Last Admin: 01/13/18 10:14 Dose: 25 mg Montelukast Sodium (Singulair) 10 mg PO DAILY [facility] Last Admin: 01/13/18 10:10 Dose: 10 mg Morphine Sulfate (Morphine) 1 mg IVP Q6 PRN PRN Reason: Pain, severe (8-10) Last Admin: 01/13/18 05:13 Dose: 1 mg Oxycodone HCl (Oxycodone Immediate Release Tab) 30 mg PO QID PRN PRN Reason: Pain, moderate (4-7) Last Admin: 01/13/18 12:20 Dose: 30 mg Paroxetine HCl (Paxil) 60 mg PO DAILY [facility] Last Admin: 01/13/18 10:11 Dose: 60 mg Sitagliptin Phosphate (Januvia) 100 mg PO DAILY [facility] Last Admin: 01/13/18 10:10 Dose: 100 mg - Labs Labs: 01/13/18 04:00 01/13/18 06:30 PT 20.6 Seconds (9.8-13.1) H 01/12/18 06:50 INR 1.8 (0.9-1.2) H 01/12/18 06:50 APTT 27.8 Seconds (25.6-37.1) 01/12/18 06:50 - Constitutional Appears: Well, Non-toxic, No Acute Distress - Head Exam Head Exam: ATRAUMATIC, NORMAL INSPECTION, NORMOCEPHALIC - Eye Exam Eye Exam: EOMI, Normal appearance, PERRL Pupil Exam: NORMAL ACCOMODATION, PERRL - ENT Exam ENT Exam: Mucous Membranes Moist, Normal Exam - Neck Exam Neck Exam: Full ROM, Normal Inspection. absent: Lymphadenopathy - Respiratory Exam Respiratory Exam: Clear to Ausculation Bilateral, NORMAL BREATHING PATTERN - Cardiovascular Exam Cardiovascular Exam: REGULAR RHYTHM, RRR, +S1, +S2. absent: Murmur - GI/Abdominal Exam GI & Abdominal Exam: Soft, Normal Bowel Sounds. absent: Tenderness - Extremities Exam Extremities Exam: Full ROM, Normal Capillary Refill, Normal Inspection. absent : Joint Swelling, Pedal Edema - Back Exam Back Exam: NORMAL INSPECTION - Neurological Exam Neurological Exam: Alert, Awake, CN II-XII Intact, Normal Gait, Oriented x3 - Psychiatric Exam Psychiatric exam: Normal Affect, Normal Mood - Skin Skin Exam: Dry, Intact, Normal Color, Warm - Additional Findings Additional findings: r ankle dsg w/ mod discharge Assessment and Plan (1) Positive blood culture Status: Acute (2) Cellulitis Status: Acute (3) Chronic pain Status: Acute (4) DVT prophylaxis Status: Acute - Assessment and Plan (Free Text) Assessment: (1) Positive blood culture Assessment & Plan: bacteremia/sepsis r/t mrsa wound infection anbx, pod, id, picc when cleared pod 1 surgical washing bc thus far negative cont all anbx Status: Acute (2) Cellulitis Assessment & Plan: mrsa-podiatry and id cont anbx c/s noted pod 1 p surgical washing picc monday Status: Acute (3) Chronic pain Assessment & Plan: cont home meds Status: Acute (4) DVT prophylaxis Assessment & Plan: scd and aehose ambulation w/ assistance asa/plavix Status: Acute
[2018-01-14] MEDS: Piperacillin/Tazobact 3.375 GM in Sodium Chloride 0.9% 100 ML IVPB SCH ×4 (04:18→21:42)
[2018-01-14] MEDS: oxyCODONE 10 mg Immediate Release Tab PO PRN (05:34)
[2018-01-14] MEDS: Levothyroxine 88 MCG TAB PO SCH (05:36)
[2018-01-14] MEDS: Albuterol-Ipratrop 3 mg / 0.5 (3 ml) UD INH PRN ×2 (06:21→10:46)
[2018-01-14 07:34] LABS: BASO # 0.1 K/uL (0.0-0.2); BASO % 0.8 % (0.0-2.0); EOS # 0.2 K/uL (0.0-0.7); EOS % 2.4 % (0.0-4.0); HEMOGLOBIN 11.4 g/dL (12.0-18.0); LYMPH # 1.6 K/uL (1.0-4.3); LYMPH % 18.3 % (20.0-40.0); MEAN CELL VOLUME 70.6 fl (80.0-94.0); MEAN CORPUSCULAR HEMOGLOBIN 22.6 pg (27.0-31.0); MEAN PLATELET VOLUME 7.4 fl (7.2-11.7); MONO % 10.9 % (0.0-10.0); NEUT % 67.6 % (50.0-75.0); NRBC % 0.1 % (0.0-0.0); RBC 5.06 Mil/uL (4.40-5.90); RED CELL DISTRIBUTION WIDTH 18.5 % (11.5-14.5); WHITE BLOOD COUNT 8.8 K/uL (4.8-10.8)
[2018-01-14 08:02] LABS: ALBUMIN 2.8 g/dL (3.5-5.0); ALT/SGPT 34 U/L (21-72); AST/SGOT 27 U/L (17-59); BLOOD UREA NITROGEN 13 mg/dl (9-20); CALCIUM 8.2 mg/dL (8.4-10.2); GFR AFRICAN-AMERICAN > 60; GFR NON-AFRICAN AMERICAN > 60
--- NOTE | 2018-01-14 10:21 | CP.PCM.PN ---
Subjective - Date & Time of Evaluation Date of Evaluation: 01/14/18 Time of Evaluation: 10:20 - Subjective Subjective: pt doing well. had sob resolved w/ resp tx. feeling anxious-given xanax as he is on at home. still requiring meds for breakthrough pain. no f/c, n/v/d 3 day repeat bc negative, wound c/s w/ MRSA Objective - Vital Signs/Intake and Output Vital Signs (last 24 hours): Temp Pulse Resp BP Pulse Ox 97.8 F 74 20 123/78 97 01/14/18 08:23 01/14/18 08:58 01/14/18 08:23 01/14/18 08:58 01/14/18 08:23 - Medications Medications: Current Medications Acetaminophen (Tylenol 325mg Tab) 650 mg PO Q4 PRN PRN Reason: Fever >100.4 F Albuterol/Ipratropium (Duoneb 3 Mg/0.5 Mg (3 Ml) Ud) 3 ml INH RQ4 PRN PRN Reason: Shortness of Breath Last Admin: 01/14/18 06:21 Dose: 3 ml Alprazolam (Xanax) 1 mg PO QID [facility] Last Admin: 01/14/18 09:04 Dose: 1 mg Aspirin (Ecotrin) 81 mg PO DAILY [facility] Last Admin: 01/14/18 08:53 Dose: 81 mg Buspirone HCl (Buspar) 30 mg PO BID [facility] Last Admin: 01/14/18 08:54 Dose: 30 mg Clopidogrel Bisulfate (Plavix) 75 mg PO DAILY [facility] Last Admin: 01/14/18 08:53 Dose: 75 mg Ergocalciferol (Drisdol 50,000 Intl Units Cap) 1 cap PO QWK [facility] Fenofibrate (Tricor) 145 mg PO DAILY [facility] Last Admin: 01/14/18 08:53 Dose: 145 mg Gabapentin (Neurontin) 300 mg PO BID [facility] Last Admin: 01/14/18 08:53 Dose: 300 mg Piperacillin Sod/Tazobactam (Sod 3.375 gm/ Sodium Chloride) 100 mls @ 100 mls/ hr IVPB Q6 [facility] PRN Reason: Protocol Last Admin: 01/14/18 09:15 Dose: 100 mls/hr Sodium Chloride (Sodium Chloride 0.9%) 1,000 mls @ 100 mls/hr IV .Q10H [facility] Last Admin: 01/13/18 20:30 Dose: Not Given Vancomycin HCl 1 gm/ Sodium (Chloride) 250 mls @ 166.667 mls/hr IVPB Q8H [facility] PRN Reason: Protocol Last Admin: 01/14/18 03:22 Dose: 166.667 mls/hr Ibuprofen (Motrin Tab) 600 mg PO BID [facility] Last Admin: 01/14/18 09:05 Dose: 600 mg Lamotrigine (Lamictal) 50 mg PO BID [facility] Last Admin: 01/14/18 08:59 Dose: 50 mg Levothyroxine Sodium (Synthroid) 88 mcg PO DAILY@0630 [facility] Last Admin: 01/14/18 05:36 Dose: 88 mcg Lidocaine (Lidoderm) 1 ea TD DAILY PRN PRN Reason: Muscle spasm Lisinopril (Zestril) 20 mg PO DAILY [facility] Last Admin: 01/14/18 08:58 Dose: 20 mg Metoprolol Tartrate (Lopressor) 25 mg PO BID [facility] Last Admin: 01/14/18 08:57 Dose: 25 mg Montelukast Sodium (Singulair) 10 mg PO DAILY [facility] Last Admin: 01/14/18 08:54 Dose: 10 mg Morphine Sulfate (Morphine) 1 mg IVP Q6 PRN PRN Reason: Pain, severe (8-10) Last Admin: 01/13/18 05:13 Dose: 1 mg Oxycodone HCl (Oxycodone Immediate Release Tab) 30 mg PO QID PRN PRN Reason: Pain, moderate (4-7) Last Admin: 01/14/18 05:34 Dose: 30 mg Paroxetine HCl (Paxil) 60 mg PO DAILY [facility] Last Admin: 01/14/18 08:58 Dose: 60 mg Sitagliptin Phosphate (Januvia) 100 mg PO DAILY [facility] Last Admin: 01/14/18 08:53 Dose: 100 mg - Labs Labs: 01/14/18 06:00 01/14/18 06:00 PT 20.6 Seconds (9.8-13.1) H 01/12/18 06:50 INR 1.8 (0.9-1.2) H 01/12/18 06:50 APTT 27.8 Seconds (25.6-37.1) 05/18/18 06:50 - Constitutional Appears: Well, Non-toxic, No Acute Distress - Head Exam Head Exam: ATRAUMATIC, NORMAL INSPECTION, NORMOCEPHALIC - Eye Exam Eye Exam: EOMI, Normal appearance, PERRL Pupil Exam: NORMAL ACCOMODATION, PERRL - ENT Exam ENT Exam: Mucous Membranes Moist, Normal Exam - Neck Exam Neck Exam: Full ROM, Normal Inspection. absent: Lymphadenopathy - Respiratory Exam Respiratory Exam: Clear to Ausculation Bilateral, NORMAL BREATHING PATTERN - Cardiovascular Exam Cardiovascular Exam: REGULAR RHYTHM, RRR, +S1, +S2. absent: Murmur - GI/Abdominal Exam GI & Abdominal Exam: Soft, Normal Bowel Sounds. absent: Tenderness - Extremities Exam Extremities Exam: Full ROM, Normal Capillary Refill, Normal Inspection. absent : Joint Swelling, Pedal Edema - Back Exam Back Exam: NORMAL INSPECTION - Neurological Exam Neurological Exam: Abnormal Gait, Alert, Awake, CN II-XII Intact, Oriented x3 - Psychiatric Exam Psychiatric exam: Normal Affect, Normal Mood - Skin Skin Exam: Dry, Intact, Normal Color, Warm Assessment and Plan (1) Positive blood culture Status: Acute (2) Cellulitis Status: Acute (3) Chronic pain Status: Acute (4) DVT prophylaxis Status: Acute - Assessment and Plan (Free Text) Assessment: (1) Positive blood culture Assessment & Plan: bacteremia/sepsis r/t mrsa wound infection anbx, pod, id, picc when cleared pod 1 surgical washing bc thus far negative cont all anbx Status: Acute (2) Cellulitis Assessment & Plan: mrsa-podiatry and id cont anbx c/s noted pod 1 p surgical washing picc monday Status: Acute (3) Chronic pain Assessment & Plan: cont home meds Status: Acute (4) DVT prophylaxis Assessment & Plan: scd and aehose ambulation w/ assistance asa/plavix Status: Acute anxiety/breakthrough pain-cont meds as ordered, psych/pain consult prn likely picc tomorrow if cleared by ID
--- NOTE | 2018-01-14 12:30 | CP.PCM.PN ---
Subjective - Date & Time of Evaluation Date of Evaluation: 01/14/18 Time of Evaluation: 08:00 - Subjective Subjective: c/o pain + drainage right ankle for PICC in am will need removal hardware Objective - Vital Signs/Intake and Output Vital Signs (last 24 hours): Temp Pulse Resp BP Pulse Ox 97.8 F 74 20 123/78 97 01/14/18 08:23 01/14/18 08:58 01/14/18 08:23 01/14/18 08:58 01/14/18 08:23 - Medications Medications: Current Medications Acetaminophen (Tylenol 325mg Tab) 650 mg PO Q4 PRN PRN Reason: Fever >100.4 F Albuterol/Ipratropium (Duoneb 3 Mg/0.5 Mg (3 Ml) Ud) 3 ml INH RQ4 PRN PRN Reason: Shortness of Breath Last Admin: 01/14/18 10:46 Dose: 3 ml Alprazolam (Xanax) 1 mg PO QID [facility] Last Admin: 01/14/18 09:04 Dose: 1 mg Aspirin (Ecotrin) 81 mg PO DAILY [facility] Last Admin: 01/14/18 08:53 Dose: 81 mg Buspirone HCl (Buspar) 30 mg PO BID [facility] Last Admin: 01/14/18 08:54 Dose: 30 mg Clopidogrel Bisulfate (Plavix) 75 mg PO DAILY [facility] Last Admin: 01/14/18 08:53 Dose: 75 mg Ergocalciferol (Drisdol 50,000 Intl Units Cap) 1 cap PO QWK [facility] Fenofibrate (Tricor) 145 mg PO DAILY [facility] Last Admin: 01/14/18 08:53 Dose: 145 mg Gabapentin (Neurontin) 300 mg PO BID [facility] Last Admin: 01/14/18 08:53 Dose: 300 mg Piperacillin Sod/Tazobactam (Sod 3.375 gm/ Sodium Chloride) 100 mls @ 100 mls/ hr IVPB Q6 [facility] PRN Reason: Protocol Last Admin: 01/14/18 09:15 Dose: 100 mls/hr Sodium Chloride (Sodium Chloride 0.9%) 1,000 mls @ 100 mls/hr IV .Q10H [facility] Last Admin: 01/13/18 20:30 Dose: Not Given Vancomycin HCl 1 gm/ Sodium (Chloride) 250 mls @ 166.667 mls/hr IVPB Q8H [facility] PRN Reason: Protocol Last Admin: 01/14/18 11:26 Dose: 166.667 mls/hr Ibuprofen (Motrin Tab) 600 mg PO BID [facility] Last Admin: 01/14/18 09:05 Dose: 600 mg Lamotrigine (Lamictal) 50 mg PO BID [facility] Last Admin: 01/14/18 08:59 Dose: 50 mg Levothyroxine Sodium (Synthroid) 88 mcg PO DAILY@0630 [facility] Last Admin: 01/14/18 05:36 Dose: 88 mcg Lidocaine (Lidoderm) 1 ea TD DAILY PRN PRN Reason: Muscle spasm Lisinopril (Zestril) 20 mg PO DAILY [facility] Last Admin: 01/14/18 08:58 Dose: 20 mg Metoprolol Tartrate (Lopressor) 25 mg PO BID [facility] Last Admin: 01/14/18 08:57 Dose: 25 mg Montelukast Sodium (Singulair) 10 mg PO DAILY [facility] Last Admin: 01/14/18 08:54 Dose: 10 mg Morphine Sulfate (Morphine) 1 mg IVP Q6 PRN PRN Reason: Pain, severe (8-10) Last Admin: 01/13/18 05:13 Dose: 1 mg Oxycodone HCl (Oxycodone Immediate Release Tab) 30 mg PO QID PRN PRN Reason: Pain, moderate (4-7) Last Admin: 01/14/18 05:34 Dose: 30 mg Paroxetine HCl (Paxil) 60 mg PO DAILY [facility] Last Admin: 01/14/18 08:58 Dose: 60 mg Sitagliptin Phosphate (Januvia) 100 mg PO DAILY [facility] Last Admin: 01/14/18 08:53 Dose: 100 mg - Labs Labs: 01/14/18 06:00 01/14/18 06:00 PT 20.6 Seconds (9.8-13.1) H 01/12/18 06:50 INR 1.8 (0.9-1.2) H 01/12/18 06:50 APTT 27.8 Seconds (25.6-37.1) 01/12/18 06:50 - Constitutional Appears: Non-toxic, Chronically Ill - Head Exam Head Exam: NORMOCEPHALIC - Eye Exam Eye Exam: PERRL - ENT Exam ENT Exam: Mucous Membranes Dry - Neck Exam Neck Exam: absent: Lymphadenopathy - Respiratory Exam Respiratory Exam: Decreased Breath Sounds - Cardiovascular Exam Cardiovascular Exam: REGULAR RHYTHM - GI/Abdominal Exam GI & Abdominal Exam: Distended, Soft - Rectal Exam Rectal Exam: Deferred - Extremities Exam Extremities Exam: Pedal Edema Additional comments: RLE focused physical exam: VASC: DP/PT pulses nonpalpable secondary to edema. DERM: Surgical sutures intact with open site which probes directly to the preeti -medial tibia at the level of the ankle joint, periwound erythema with non- pitting edema, surgical wound probes to bone with no putulence, sero-synovial fluid noted from the surgical site up on palpation surrounding the wound bed, no malodor, no active discharge, no bleeding NEURO: Gross sensation diminished. ORTHO: Pain on palpation noted to right medial ankle joint extending distally into forefoot, at areas of erythema. - Back Exam Back Exam: absent: CVA tenderness (L), CVA tenderness (R) - Neurological Exam Neurological Exam: Alert, Awake, Oriented x3 - Psychiatric Exam Psychiatric exam: Normal Mood - Skin Skin Exam: Dry Assessment and Plan (1) Cellulitis Status: Acute (2) Positive blood culture Status: Acute (3) Ankle pain Status: Acute (4) Septic arthritis Status: Acute (5) Septic arthritis Status: Acute (6) MRSA bacteremia Status: Acute (7) MRSA bacteremia Status: Acute (8) Bacteremia due to methicillin resistant Staphylococcus aureus Status: Acute - Assessment and Plan (Free Text) Assessment: resolving sepsis infected right ankle s/p ORIF several years ago/ wound probes to bone / blood c /s + MRSA Had I and D repeat cultures neg thus far for PICC insertion in am cont IV Rx as out pt with ID follow up at [place] prognosis for limb salvage guarded
--- NOTE | 2018-01-14 12:33 | CP.PCM.PCO ---
Physician Communication Note - Physician Communication Note Physician Communication Note: podiatry note appreciated prognosis for limb salvage guarded
--- NOTE | 2018-01-14 14:38 | CP.PCM.PN ---
Subjective - Date & Time of Evaluation Date of Evaluation: 01/14/18 Time of Evaluation: 14:36 - Subjective Subjective: Podiatry Progress Note - Dr. Guy 62 year old male patient seen and evaluated at bedside 2 day s/p I&D of the right ankle abscess. Patient is AAOx3. Reports of moderate pain to right ankle. Reports that the pain gets worst when he tries moving the ankle. Dressing to right ankle in place though saturated with sero-sanguineous fluid. Denies of overnight F/N/V/C/SOB/CP/headache. No new pedal complains. Objective - Vital Signs/Intake and Output Vital Signs (last 24 hours): Temp Pulse Resp BP Pulse Ox 97.8 F 74 20 123/78 97 01/14/18 08:23 01/14/18 08:58 01/14/18 08:23 01/14/18 08:58 01/14/18 08:23 - Medications Medications: Current Medications Acetaminophen (Tylenol 325mg Tab) 650 mg PO Q4 PRN PRN Reason: Fever >100.4 F Albuterol/Ipratropium (Duoneb 3 Mg/0.5 Mg (3 Ml) Ud) 3 ml INH RQ4 PRN PRN Reason: Shortness of Breath Last Admin: 01/14/18 10:46 Dose: 3 ml Alprazolam (Xanax) 1 mg PO QID [facility] Last Admin: 01/14/18 12:43 Dose: 1 mg Aspirin (Ecotrin) 81 mg PO DAILY [facility] Last Admin: 01/14/18 08:53 Dose: 81 mg Buspirone HCl (Buspar) 30 mg PO BID [facility] Last Admin: 01/14/18 08:54 Dose: 30 mg Clopidogrel Bisulfate (Plavix) 75 mg PO DAILY [facility] Last Admin: 01/14/18 08:53 Dose: 75 mg Ergocalciferol (Drisdol 50,000 Intl Units Cap) 1 cap PO QWK [facility] Fenofibrate (Tricor) 145 mg PO DAILY [facility] Last Admin: 01/14/18 08:53 Dose: 145 mg Gabapentin (Neurontin) 300 mg PO BID [facility] Last Admin: 01/14/18 08:53 Dose: 300 mg Piperacillin Sod/Tazobactam (Sod 3.375 gm/ Sodium Chloride) 100 mls @ 100 mls/ hr IVPB Q6 [facility] PRN Reason: Protocol Last Admin: 01/14/18 09:15 Dose: 100 mls/hr Sodium Chloride (Sodium Chloride 0.9%) 1,000 mls @ 100 mls/hr IV .Q10H [facility] Last Admin: 01/13/18 20:30 Dose: Not Given Vancomycin HCl 1 gm/ Sodium (Chloride) 250 mls @ 166.667 mls/hr IVPB Q8H [facility] PRN Reason: Protocol Last Admin: 01/14/18 11:26 Dose: 166.667 mls/hr Ibuprofen (Motrin Tab) 600 mg PO BID [facility] Last Admin: 01/14/18 09:05 Dose: 600 mg Lamotrigine (Lamictal) 50 mg PO BID [facility] Last Admin: 01/14/18 08:59 Dose: 50 mg Levothyroxine Sodium (Synthroid) 88 mcg PO DAILY@0630 [facility] Last Admin: 01/14/18 05:36 Dose: 88 mcg Lidocaine (Lidoderm) 1 ea TD DAILY PRN PRN Reason: Muscle spasm Lisinopril (Zestril) 20 mg PO DAILY [facility] Last Admin: 01/14/18 08:58 Dose: 20 mg Metoprolol Tartrate (Lopressor) 25 mg PO BID [facility] Last Admin: 01/14/18 08:57 Dose: 25 mg Montelukast Sodium (Singulair) 10 mg PO DAILY [facility] Last Admin: 01/14/18 08:54 Dose: 10 mg Morphine Sulfate (Morphine) 1 mg IVP Q6 PRN PRN Reason: Pain, severe (8-10) Last Admin: 01/13/18 05:13 Dose: 1 mg Oxycodone HCl (Oxycodone Immediate Release Tab) 30 mg PO QID PRN PRN Reason: Pain, moderate (4-7) Last Admin: 01/14/18 05:34 Dose: 30 mg Paroxetine HCl (Paxil) 60 mg PO DAILY [facility] Last Admin: 01/14/18 08:58 Dose: 60 mg Sitagliptin Phosphate (Januvia) 100 mg PO DAILY [facility] Last Admin: 01/14/18 08:53 Dose: 100 mg - Labs Labs: 01/14/18 06:00 01/14/18 06:00 PT 20.6 Seconds (9.8-13.1) H 01/12/18 06:50 INR 1.8 (0.9-1.2) H 01/12/18 06:50 APTT 27.8 Seconds (25.6-37.1) 01/12/18 06:50 - Constitutional Appears: Well, Non-toxic, No Acute Distress - Extremities Exam Additional comments: RLE focused physical exam: VASC: DP/PT pulses nonpalpable secondary to edema. Temperature warm to warm from proximal to distal, Nonpitting edema noted to right ankle extending distally. DERM: Surgical sutures intact with open site which probes directly to the preeti -medial tibia at the level of the ankle joint, periwound erythema with non- pitting edema, surgical wound probes to bone with no purulence, sero-synovial fluid noted from the surgical site up on palpation surrounding the wound bed, no malodor, no active discharge, no bleeding NEURO: Gross sensation diminished. ORTHO: Pain on palpation noted to right medial ankle joint extending distally into forefoot, at areas of erythema. - Neurological Exam Neurological Exam: Alert, Awake, Oriented x3 - Psychiatric Exam Psychiatric exam: Normal Affect, Normal Mood Assessment and Plan - Assessment and Plan (Free Text) Assessment: 62 year old male patient evaluated at bedside 1). 2 days s/p I&D of the right ankle abscess 2). Cellulitis Plan: Patient seen and evaluated Discussed with attending, Dr. Guy Afebrile, increased WBC @ 8.8 trending down; ESR 19 R ankle XR (01/11): Postsurgical changes of midfoot/hindfoot/ankle with multiple fixation screws with surrounding lucencies suggesting orthopedic hw loosening RLE CT (01/07): Broken staple of indeterminate chronicity, nondisplaced. Negative for OM LE bone scan (01/09): Findings nonspecific, likely related to postop change R ankle wound culture: Staph. aureus R ankle intra-op cultures: MRSA Dressing changes: saline flush, 1/2 inch iodoform packing, 4x4, ABD, DSD Continue IV abx as per ynes Brown Pain management as per primary Podiatry will continue to monitor patient closely
--- NOTE | 2018-01-14 15:53 | RAD ---
PROCEDURE: Bilateral ankles HISTORY: hx ORIF right ankle s/p I and D OM MRSA COMPARISON: 01/07/2018 TECHNIQUE: Three views each of right and left ankle FINDINGS: Right ankle: Extensive arthrodesis right mid and hindfoot and ankle. Lucency about the more medial distal tibial screw suggestive of loosening. There is fracture of 1 of the 2 medial midfoot maxwell. There is no acute fracture. Extensive irregularity of the tibiotalar articular surfaces, nonspecific. There is subcutaneous lucency noted adjacent to the medial distal tibia, consistent with recent I and D. Overlying bandage material noted. Left ankle: No fracture/dislocation. Joint spaces and articular surfaces are preserved. No soft tissue swelling. IMPRESSION: Status post I and D medial right ankle. Possible hardware loosening status post extensive arthrodesis. Fracture noted through the 2 medial midfoot maxwell. Unremarkable left ankle.
[2018-01-15] MEDS: oxyCODONE 10 mg Immediate Release Tab PO PRN ×3 (01:38→13:41)
[2018-01-15] MEDS: Albuterol-Ipratrop 3 mg / 0.5 (3 ml) UD INH PRN (01:59)
--- NOTE | 2018-01-15 02:43 | OP ---
PROCEDURE DATE: 01/12/2018 PREOPERATIVE DIAGNOSIS: Right ankle abscess with cellulitis. POSTOPERATIVE DIAGNOSIS: Right ankle abscess with cellulitis. NAME OF PROCEDURE: Right ankle abscess, incision and drainage. SURGEON: Debbie Guy DPM GEOLOGICAL SAMPLE TESTER: Valencia Walker DPM, PGY1. TYPE OF ANESTHESIA: General LMA with local common peroneal and saphenous nerve block. ANESTHESIA ADMINISTERED BY: Kenyon Mata DO INDICATIONS: The patient is a 52-year-old male with the above diagnosis. The patient has exhausted all conservative treatment at this time and now requires surgical intervention. The patient has signed a consent after careful explanation of all risks, benefits, complications, and alternatives for surgical procedure. No guarantees were given nor implied. N.p.o. status was confirmed prior to taking the patient to the operating room. PREPARATION: The patient was brought into the operating room and placed on the operating room table in a supine position. A time-out was performed for identification of the correct patient and procedure. After induction of general LMA anesthesia, the patient received a total of 17 mL of a 1:1 mixture of 2% lidocaine plain and 0.5% Marcaine plain in a common peroneal and saphenous block fashion to the right lower extremity. At this time prior to performing sterile preparation of the surgical site, a deep wound culture was taken from the operative site. The right lower extremity was then prepped and draped in normal sterile manner. No tourniquet was utilized during the procedure. DESCRIPTION OF PROCEDURE: Attention was then directed to the anteromedial aspect of the right ankle where a circular open wound measuring approximately 2 cm in diameter was noted with periwound cellulitis and blistering skin. Significant fluctuance was noted to this area confirming that there was an abscess in this location. At this time using a sterile #15 blade, a linear incision was made along the anteromedial aspect of the right ankle measuring approximately 9 cm in length. The incision was deepened to subcutaneous tissue using a hemostat. At this time approximately 25 mL of purulent drainage extravagated from the incision site. It was also noted that little soft tissue was present at the abscess site and the anterior aspect of the distal tibia was exposed within the surgical incision site. With application of pressure and additional 50 mL of purulent drainage were able to be expressed from both the proximal ankle as well as the dorsal right rearfoot and midfoot. Necrotic and devitalized tissue was excisionally debrided with a sterile 15 blade and sterile forceps. Next, bacitracin infused pulse lavage was used to copiously irrigate the abscess site. A second wound culture was obtained from the deep aspect of the abscess and sent for pathology. Once again, the site was copiously irrigated. The proximal and distal aspect of the incision sites were able to be reapproximated without tension using 2-0 Prolene sutures. A central 4 cm of the incisions were left open at this time. The abscess site was packed with 1/2-inch iodoform packing and dressed with dry sterile dressing, several abdominal pads, and a Kerlix. POSTOPERATIVE CONDITION: The patient tolerated the anesthesia and procedure well and was escorted to the recovery room with vital signs stable and neurovascular status intact to the right lower extremity. This patient will remain in the hospital and Podiatry will continue to follow. Upon discharge, the patient will follow up with Dr. Guy within one week. Valencia Walker DPM Debbie Guy DPM
[2018-01-15] MEDS: Sodium Chloride 0.9% 1,000 ML IV SCH ×2 (02:48→13:55)
[2018-01-15] MEDS: Piperacillin/Tazobact 3.375 GM in Sodium Chloride 0.9% 100 ML IVPB SCH ×3 (03:30→17:47)
[2018-01-15] MEDS: Levothyroxine 88 MCG TAB PO SCH (06:10)
--- NOTE | 2018-01-15 06:44 | CP.PCM.PN ---
Subjective - Date & Time of Evaluation Date of Evaluation: 01/15/18 Time of Evaluation: 06:44 - Subjective Subjective: Podiatry Progress Note - Dr. Guy 62 year old male patient seen and evaluated at bedside 3 day s/p I&D of the right ankle abscess. NAD. No acute events overnight. Reports continued, moderate pain to right ankle. States he has only been OOB to chair. Dressing to right ankle in place though saturated with serosanguinous fluid. Denies F/N/V/C/ SOB/CP/headache. No new pedal complains. Objective - Vital Signs/Intake and Output Vital Signs (last 24 hours): Temp Pulse Resp BP Pulse Ox 97.7 F 65 20 162/98 H 98 01/14/18 23:40 01/14/18 23:40 01/14/18 23:40 01/14/18 23:40 01/14/18 23:40 - Medications Medications: Current Medications Acetaminophen (Tylenol 325mg Tab) 650 mg PO Q4 PRN PRN Reason: Fever >100.4 F Albuterol/Ipratropium (Duoneb 3 Mg/0.5 Mg (3 Ml) Ud) 3 ml INH RQ4 PRN PRN Reason: Shortness of Breath Last Admin: 01/15/18 01:59 Dose: 3 ml Alprazolam (Xanax) 1 mg PO QID [facility] Last Admin: 01/14/18 21:41 Dose: 1 mg Aspirin (Ecotrin) 81 mg PO DAILY [facility] Last Admin: 01/14/18 08:53 Dose: 81 mg Buspirone HCl (Buspar) 30 mg PO BID [facility] Last Admin: 01/14/18 16:27 Dose: 30 mg Clopidogrel Bisulfate (Plavix) 75 mg PO DAILY [facility] Last Admin: 01/14/18 08:53 Dose: 75 mg Ergocalciferol (Drisdol 50,000 Intl Units Cap) 1 cap PO QWK [facility] Fenofibrate (Tricor) 145 mg PO DAILY [facility] Last Admin: 01/14/18 08:53 Dose: 145 mg Gabapentin (Neurontin) 300 mg PO BID [facility] Last Admin: 01/14/18 16:26 Dose: 300 mg Piperacillin Sod/Tazobactam (Sod 3.375 gm/ Sodium Chloride) 100 mls @ 100 mls/ hr IVPB Q6 [facility] PRN Reason: Protocol Last Admin: 01/15/18 03:30 Dose: 100 mls/hr Sodium Chloride (Sodium Chloride 0.9%) 1,000 mls @ 100 mls/hr IV .Q10H [facility] Last Admin: 01/15/18 02:48 Dose: Not Given Vancomycin HCl 1 gm/ Sodium (Chloride) 250 mls @ 166.667 mls/hr IVPB Q8H [facility] PRN Reason: Protocol Last Admin: 01/15/18 01:39 Dose: 166.667 mls/hr Ibuprofen (Motrin Tab) 600 mg PO BID [facility] Last Admin: 01/14/18 17:38 Dose: 600 mg Lamotrigine (Lamictal) 50 mg PO BID [facility] Last Admin: 01/14/18 16:26 Dose: 50 mg Levothyroxine Sodium (Synthroid) 88 mcg PO DAILY@0630 [facility] Last Admin: 01/15/18 06:10 Dose: 88 mcg Lidocaine (Lidoderm) 1 ea TD DAILY PRN PRN Reason: Muscle spasm Last Admin: 01/15/18 01:02 Dose: 1 ea Lisinopril (Zestril) 20 mg PO DAILY [facility] Last Admin: 01/14/18 08:58 Dose: 20 mg Metoprolol Tartrate (Lopressor) 25 mg PO BID [facility] Last Admin: 01/14/18 17:37 Dose: 25 mg Montelukast Sodium (Singulair) 10 mg PO DAILY [facility] Last Admin: 01/14/18 08:54 Dose: 10 mg Morphine Sulfate (Morphine) 1 mg IVP Q6 PRN PRN Reason: Pain, severe (8-10) Last Admin: 01/15/18 00:48 Dose: 1 mg Oxycodone HCl (Oxycodone Immediate Release Tab) 30 mg PO QID PRN PRN Reason: Pain, moderate (4-7) Last Admin: 01/15/18 04:53 Dose: 30 mg Paroxetine HCl (Paxil) 60 mg PO DAILY [facility] Last Admin: 01/14/18 08:58 Dose: 60 mg Sitagliptin Phosphate (Januvia) 100 mg PO DAILY [facility] Last Admin: 01/14/18 08:53 Dose: 100 mg - Labs Labs: 01/14/18 06:00 01/14/18 06:00 PT 20.6 Seconds (9.8-13.1) H 01/12/18 06:50 INR 1.8 (0.9-1.2) H 01/12/18 06:50 APTT 27.8 Seconds (25.6-37.1) 01/12/18 06:50 - Constitutional Appears: Well, Non-toxic, No Acute Distress - Extremities Exam Additional comments: RLE focused physical exam: VASC: DP/PT pulses nonpalpable secondary to edema. Temperature warm to warm from proximal to distal, Nonpitting edema noted to right ankle extending distally. DERM: Surgical sutures intact with open site which probes directly to the preeti -medial tibia at the level of the ankle joint, periwound erythema with non- pitting edema, surgical wound probes to bone with no purulence, serosanguinous drainage/synovial fluid noted from the surgical site up on palpation surrounding the wound bed, no malodor, no active discharge, no bleeding NEURO: Gross sensation diminished. ORTHO: Pain on palpation noted to right medial ankle joint extending distally into forefoot, at areas of erythema. - Neurological Exam Neurological Exam: Alert, Awake, Oriented x3 - Psychiatric Exam Psychiatric exam: Normal Affect, Normal Mood Assessment and Plan - Assessment and Plan (Free Text) Assessment: 62 year old male patient evaluated at bedside 1) 3 days s/p I&D of the right ankle abscess 2) Cellulitis Plan: Patient seen and evaluated alongside attending, Dr. Brooks Griffin, WBC 8.2 WNL R ankle XR (01/11): Postsurgical changes of midfoot/hindfoot/ankle with multiple fixation screws with surrounding lucencies suggesting orthopedic hw loosening RLE CT (01/07): Broken staple of indeterminate chronicity, nondisplaced. Negative for OM LE bone scan (01/09): Findings nonspecific, likely related to postop change R ankle wound culture: MRSA R ankle intra-op cultures: MRSA Dressing changes: saline flush, betadine DSD Limb prognosis guarded Continue IV abx as per ynes Brown Pain management per primary Podiatry will continue to follow
[2018-01-15 06:53] LABS: BASO % 0.5 % (0.0-2.0); EOS # 0.2 K/uL (0.0-0.7); HEMOGLOBIN 10.7 g/dL (12.0-18.0); LYMPH # 1.5 K/uL (1.0-4.3); LYMPH % 18.2 % (20.0-40.0); MEAN CELL VOLUME 71.2 fl (80.0-94.0); MEAN CORPUSCULAR HEMOGLOBIN 22.5 pg (27.0-31.0); MEAN CORPUSCULAR HGB CONC 31.5 g/dL (33.0-37.0); MEAN PLATELET VOLUME 7.5 fl (7.2-11.7); MONO # 0.9 K/uL (0.0-0.8); MONO % 10.5 % (0.0-10.0); NEUT # 5.7 K/uL (1.8-7.0); NEUT % 68.8 % (50.0-75.0); NRBC % 0.1 % (0.0-0.0); RBC 4.78 Mil/uL (4.40-5.90); RED CELL DISTRIBUTION WIDTH 18.7 % (11.5-14.5); WHITE BLOOD COUNT 8.2 K/uL (4.8-10.8)
[2018-01-15 08:14] LABS: ALB/GLOB RATIO 0.9 (1.0-2.1); ALBUMIN 2.9 g/dL (3.5-5.0); ALT/SGPT 35 U/L (21-72); AST/SGOT 24 U/L (17-59); BLOOD UREA NITROGEN 11 mg/dl (9-20); CALCIUM 8.4 mg/dL (8.4-10.2); GFR AFRICAN-AMERICAN > 60; GFR NON-AFRICAN AMERICAN > 60
--- NOTE | 2018-01-15 08:29 | CP.PCM.PN ---
Subjective - Date & Time of Evaluation Date of Evaluation: 01/15/18 Time of Evaluation: 08:28 - Subjective Subjective: pt doing well. no f/c, n/v/d. bw noted. spoke w/ ID who cleared for picc. will need 6 wks of iv vanco and close f/u w/ podiatry/primary. pt agreeable to plan. no new complaints still w/ anxiety/chornic pain-controlled w/ meds Objective - Vital Signs/Intake and Output Vital Signs (last 24 hours): Temp Pulse Resp BP Pulse Ox 98.0 F 74 20 158/94 H 98 01/15/18 07:47 01/15/18 07:47 01/15/18 07:47 01/15/18 07:47 01/15/18 07:47 - Medications Medications: Current Medications Acetaminophen (Tylenol 325mg Tab) 650 mg PO Q4 PRN PRN Reason: Fever >100.4 F Albuterol/Ipratropium (Duoneb 3 Mg/0.5 Mg (3 Ml) Ud) 3 ml INH RQ4 PRN PRN Reason: Shortness of Breath Last Admin: 01/15/18 01:59 Dose: 3 ml Alprazolam (Xanax) 1 mg PO QID [facility] Last Admin: 01/14/18 21:41 Dose: 1 mg Aspirin (Ecotrin) 81 mg PO DAILY [facility] Last Admin: 01/14/18 08:53 Dose: 81 mg Buspirone HCl (Buspar) 30 mg PO BID [facility] Last Admin: 01/14/18 16:27 Dose: 30 mg Clopidogrel Bisulfate (Plavix) 75 mg PO DAILY [facility] Last Admin: 01/14/18 08:53 Dose: 75 mg Ergocalciferol (Drisdol 50,000 Intl Units Cap) 1 cap PO QWK [facility] Fenofibrate (Tricor) 145 mg PO DAILY [facility] Last Admin: 01/14/18 08:53 Dose: 145 mg Gabapentin (Neurontin) 300 mg PO BID [facility] Last Admin: 01/14/18 16:26 Dose: 300 mg Piperacillin Sod/Tazobactam (Sod 3.375 gm/ Sodium Chloride) 100 mls @ 100 mls/ hr IVPB Q6 [facility] PRN Reason: Protocol Last Admin: 01/15/18 03:30 Dose: 100 mls/hr Sodium Chloride (Sodium Chloride 0.9%) 1,000 mls @ 100 mls/hr IV .Q10H [facility] Last Admin: 01/15/18 02:48 Dose: Not Given Vancomycin HCl 1 gm/ Sodium (Chloride) 250 mls @ 166.667 mls/hr IVPB Q8H [facility] PRN Reason: Protocol Last Admin: 01/15/18 01:39 Dose: 166.667 mls/hr Ibuprofen (Motrin Tab) 600 mg PO BID [facility] Last Admin: 01/14/18 17:38 Dose: 600 mg Lamotrigine (Lamictal) 50 mg PO BID [facility] Last Admin: 01/14/18 16:26 Dose: 50 mg Levothyroxine Sodium (Synthroid) 88 mcg PO DAILY@0630 [facility] Last Admin: 01/15/18 06:10 Dose: 88 mcg Lidocaine (Lidoderm) 1 ea TD DAILY PRN PRN Reason: Muscle spasm Last Admin: 01/15/18 01:02 Dose: 1 ea Lisinopril (Zestril) 20 mg PO DAILY [facility] Last Admin: 01/14/18 08:58 Dose: 20 mg Metoprolol Tartrate (Lopressor) 25 mg PO BID [facility] Last Admin: 01/14/18 17:37 Dose: 25 mg Montelukast Sodium (Singulair) 10 mg PO DAILY [facility] Last Admin: 01/14/18 08:54 Dose: 10 mg Morphine Sulfate (Morphine) 1 mg IVP Q6 PRN PRN Reason: Pain, severe (8-10) Last Admin: 01/15/18 00:48 Dose: 1 mg Oxycodone HCl (Oxycodone Immediate Release Tab) 30 mg PO QID PRN PRN Reason: Pain, moderate (4-7) Last Admin: 01/15/18 04:53 Dose: 30 mg Paroxetine HCl (Paxil) 60 mg PO DAILY [facility] Last Admin: 01/14/18 08:58 Dose: 60 mg Sitagliptin Phosphate (Januvia) 100 mg PO DAILY [facility] Last Admin: 01/14/18 08:53 Dose: 100 mg - Labs Labs: 01/15/18 06:20 01/15/18 06:20 PT 20.6 Seconds (9.8-13.1) H 01/12/18 06:50 INR 1.8 (0.9-1.2) H 01/12/18 06:50 APTT 27.8 Seconds (25.6-37.1) 01/12/18 06:50 - Constitutional Appears: Well, Non-toxic, No Acute Distress - Head Exam Head Exam: ATRAUMATIC, NORMAL INSPECTION, NORMOCEPHALIC - Eye Exam Eye Exam: EOMI, Normal appearance, PERRL Pupil Exam: NORMAL ACCOMODATION, PERRL - ENT Exam ENT Exam: Mucous Membranes Moist, Normal Exam - Neck Exam Neck Exam: Full ROM, Normal Inspection. absent: Lymphadenopathy - Respiratory Exam Respiratory Exam: Clear to Ausculation Bilateral, NORMAL BREATHING PATTERN - Cardiovascular Exam Cardiovascular Exam: REGULAR RHYTHM, RRR, +S1, +S2. absent: Murmur - GI/Abdominal Exam GI & Abdominal Exam: Soft, Normal Bowel Sounds. absent: Tenderness - Extremities Exam Extremities Exam: Full ROM, Normal Capillary Refill, Normal Inspection. absent : Joint Swelling, Pedal Edema Additional comments: dsg w/ dc noted. - Back Exam Back Exam: NORMAL INSPECTION - Neurological Exam Neurological Exam: Alert, Awake, CN II-XII Intact, Normal Gait, Oriented x3 - Psychiatric Exam Psychiatric exam: Normal Affect, Normal Mood - Skin Skin Exam: Dry, Intact, Normal Color, Warm Assessment and Plan (1) Positive blood culture Status: Acute (2) Cellulitis Status: Acute (3) Chronic pain Status: Acute (4) DVT prophylaxis Status: Acute - Assessment and Plan (Free Text) Assessment: (1) Positive blood culture Assessment & Plan: bacteremia/sepsis r/t mrsa wound infection anbx, pod, id, picc when cleared pod 1 surgical washing bc thus far negative cont all anbx Status: Acute (2) Cellulitis Assessment & Plan: mrsa-podiatry and id cont anbx c/s noted pod 1 p surgical washing picc monday Status: Acute (3) Chronic pain Assessment & Plan: cont home meds Status: Acute (4) DVT prophylaxis Assessment & Plan: scd and aehose ambulation w/ assistance asa/plavix Status: Acute anxiety/breakthrough pain-cont meds as ordered, psych/pain consult prn picc today anxiety/pain controlled at present dc to [facility]/home w/ services
--- NOTE | 2018-01-15 11:22 | CP.PCM.PN ---
Subjective - Date & Time of Evaluation Date of Evaluation: 01/15/18 Time of Evaluation: 07:00 - Subjective Subjective: c/o pain awake alert drainage less has OM hardware loosening- will need removal Objective - Vital Signs/Intake and Output Vital Signs (last 24 hours): Temp Pulse Resp BP Pulse Ox 98.0 F 74 20 158/94 H 98 01/15/18 07:47 01/15/18 08:34 01/15/18 07:47 01/15/18 08:34 01/15/18 07:47 - Medications Medications: Current Medications Acetaminophen (Tylenol 325mg Tab) 650 mg PO Q4 PRN PRN Reason: Fever >100.4 F Albuterol/Ipratropium (Duoneb 3 Mg/0.5 Mg (3 Ml) Ud) 3 ml INH RQ4 PRN PRN Reason: Shortness of Breath Last Admin: 01/15/18 01:59 Dose: 3 ml Alprazolam (Xanax) 1 mg PO QID [facility] Last Admin: 01/15/18 08:51 Dose: 1 mg Aspirin (Ecotrin) 81 mg PO DAILY [facility] Last Admin: 01/15/18 08:28 Dose: 81 mg Buspirone HCl (Buspar) 30 mg PO BID [facility] Last Admin: 01/15/18 08:27 Dose: 30 mg Clopidogrel Bisulfate (Plavix) 75 mg PO DAILY [facility] Last Admin: 01/15/18 08:33 Dose: 75 mg Ergocalciferol (Drisdol 50,000 Intl Units Cap) 1 cap PO QWK [facility] Fenofibrate (Tricor) 145 mg PO DAILY [facility] Last Admin: 01/15/18 08:33 Dose: 145 mg Gabapentin (Neurontin) 300 mg PO BID [facility] Last Admin: 01/15/18 08:31 Dose: 300 mg Piperacillin Sod/Tazobactam (Sod 3.375 gm/ Sodium Chloride) 100 mls @ 100 mls/ hr IVPB Q6 [facility] PRN Reason: Protocol Last Admin: 01/15/18 09:00 Dose: 100 mls/hr Sodium Chloride (Sodium Chloride 0.9%) 1,000 mls @ 100 mls/hr IV .Q10H [facility] Last Admin: 01/15/18 02:48 Dose: Not Given Vancomycin HCl 1 gm/ Sodium (Chloride) 250 mls @ 166.667 mls/hr IVPB Q8H [facility] PRN Reason: Protocol Last Admin: 01/15/18 01:39 Dose: 166.667 mls/hr Ibuprofen (Motrin Tab) 600 mg PO BID [facility] Last Admin: 01/15/18 08:51 Dose: 600 mg Lamotrigine (Lamictal) 50 mg PO BID [facility] Last Admin: 01/15/18 08:29 Dose: 50 mg Levothyroxine Sodium (Synthroid) 88 mcg PO DAILY@0630 [facility] Last Admin: 01/15/18 06:10 Dose: 88 mcg Lidocaine (Lidoderm) 1 ea TD DAILY PRN PRN Reason: Muscle spasm Last Admin: 01/15/18 01:02 Dose: 1 ea Lisinopril (Zestril) 20 mg PO DAILY [facility] Last Admin: 01/15/18 08:34 Dose: 20 mg Metoprolol Tartrate (Lopressor) 25 mg PO BID [facility] Last Admin: 01/15/18 08:29 Dose: 25 mg Montelukast Sodium (Singulair) 10 mg PO DAILY [facility] Last Admin: 01/15/18 08:33 Dose: 10 mg Morphine Sulfate (Morphine) 1 mg IVP Q6 PRN PRN Reason: Pain, severe (8-10) Last Admin: 01/15/18 10:22 Dose: 1 mg Oxycodone HCl (Oxycodone Immediate Release Tab) 30 mg PO QID PRN PRN Reason: Pain, moderate (4-7) Last Admin: 01/15/18 04:53 Dose: 30 mg Paroxetine HCl (Paxil) 60 mg PO DAILY [facility] Last Admin: 01/15/18 08:32 Dose: 60 mg Sitagliptin Phosphate (Januvia) 100 mg PO DAILY [facility] Last Admin: 01/15/18 08:28 Dose: 100 mg - Labs Labs: 01/15/18 06:20 01/15/18 06:20 PT 20.6 Seconds (9.8-13.1) H 01/12/18 06:50 INR 1.8 (0.9-1.2) H 01/12/18 06:50 APTT 27.8 Seconds (25.6-37.1) 01/12/18 06:50 - Constitutional Appears: Non-toxic, Chronically Ill - Head Exam Head Exam: NORMOCEPHALIC - Eye Exam Eye Exam: PERRL - ENT Exam ENT Exam: Mucous Membranes Dry - Neck Exam Neck Exam: absent: Lymphadenopathy - Respiratory Exam Respiratory Exam: Decreased Breath Sounds - Cardiovascular Exam Cardiovascular Exam: REGULAR RHYTHM - GI/Abdominal Exam GI & Abdominal Exam: Distended - Rectal Exam Rectal Exam: Deferred - Exam Exam: NORMAL INSPECTION - Extremities Exam Extremities Exam: Pedal Edema, Tenderness - Back Exam Back Exam: absent: CVA tenderness (L), CVA tenderness (R) - Neurological Exam Neurological Exam: Alert, Awake, CN II-XII Intact, Oriented x3 Neuro motor strength exam: Left Upper Extremity: 3, Right Upper Extremity: 3, Left Lower Extremity: 3, Right Lower Extremity: 3 - Psychiatric Exam Psychiatric exam: Depressed Assessment and Plan (1) Cellulitis Status: Acute (2) Positive blood culture Status: Acute (3) Ankle pain Status: Acute (4) Septic arthritis Status: Acute (5) Septic arthritis Status: Acute (6) MRSA bacteremia Status: Acute (7) MRSA bacteremia Status: Acute (8) Bacteremia due to methicillin resistant Staphylococcus aureus Status: Acute (9) Osteomyelitis of ankle Status: Acute - Assessment and Plan (Free Text) Assessment: cont iv rx for 6-8 weeks will need hardware removal/ antivbiotic beads/ serial crp prognosis guarded
[2018-01-15 11:36] LABS: INR 1.9 (0.9-1.2); PROTHROMBIN TIME 21.5 Seconds (9.8-13.1)
[2018-01-15] MEDS ORDERED: Lidocaine 1% Inj (20ml) ONE (11:38)
--- NOTE | 2018-01-15 12:03 | PCM.SURG1 ---
Surgeon's Initial Post Op Note - Surgeon's Notes Surgeon: Fredrick Oscar MD Information Systems Director: NONE Pre-Operative Diagnosis: Foot infection Operative Findings: Patent left basilic vein Post-Operative Diagnosis: Foot infection Operation Performed: Single lumen picc placement left basilic vein Specimen/Specimens Removed: NONE Estimated Blood Loss: EBL {In ML}: 2 Blood Products Given: N/A Drains Used: No Drains Post-Op Condition: Fair Date of Surgery/Procedure: 01/15/18 Time of Surgery/Procedure: 12:00
[2018-01-15 15:45] VITALS: RESP 20; TEMP 97.9; O2SAT 93
[2018-01-15 17:21] VITALS: BP 155/78; PULSE 78
--- NOTE | 2018-01-15 18:02 | CP.PCM.DIS ---
Provider - Provider Date of Admission: 01/08/18 21:06 Attending physician: Eber Sow MD Time Spent in preparation of Discharge (in minutes): 30 Diagnosis - Discharge Diagnosis (1) Positive blood culture Status: Acute (2) Cellulitis Status: Acute (3) Chronic pain Status: Acute (4) DVT prophylaxis Status: Acute Hospital Course - Lab Results Lab Results: Micro Results 01/10/18 11:07 Blood Blood Culture - Final NO GROWTH AFTER 5 DAYS 01/12/18 14:09 Ankle - Right Gram Stain - Final 01/12/18 14:09 Ankle - Right Wound Culture - Final Methicillin Resistant S Aureus 01/12/18 14:08 Ankle - Right Gram Stain - Final 01/12/18 14:08 Ankle - Right Wound Culture - Final Methicillin Resistant S Aureus 01/11/18 18:30 Ankle - Right Gram Stain - Final 01/11/18 18:30 Ankle - Right Wound Culture - Final Methicillin Resistant S Aureus 01/08/18 21:25 Blood S.aureus & Coag-Neg Staph PNA FISH - Final 01/08/18 21:25 Blood Blood Culture - Final Methicillin Resistant S Aureus 01/08/18 21:25 Blood Gram Stain - Final Most Recent Lab Values WBC 8.2 K/uL (4.8-10.8) 01/15/18 06:20 RBC 4.78 Mil/uL (4.40-5.90) 01/15/18 06:20 Hgb 10.7 g/dL (12.0-18.0) L 01/15/18 06:20 Hct 34.0 % (35.0-51.0) L 01/15/18 06:20 MCV 71.2 fl (80.0-94.0) L 01/15/18 06:20 MCH 22.5 pg (27.0-31.0) L 01/15/18 06:20 MCHC 31.5 g/dL (33.0-37.0) L 01/15/18 06:20 RDW 18.7 % (11.5-14.5) H 01/15/18 06:20 Plt Count 278 K/uL (130-400) 01/15/18 06:20 MPV 7.5 fl (7.2-11.7) 01/15/18 06:20 Neut % (Auto) 68.8 % (50.0-75.0) 01/15/18 06:20 Lymph % (Auto) 18.2 % (20.0-40.0) L 01/15/18 06:20 [place] % (Auto) 10.5 % (0.0-10.0) H 01/15/18 06:20 Eos % (Auto) 2.0 % (0.0-4.0) 01/15/18 06:20 Baso % (Auto) 0.5 % (0.0-2.0) 01/15/18 06:20 Neut # (Auto) 5.7 K/uL (1.8-7.0) 01/15/18 06:20 Lymph # (Auto) 1.5 K/uL (1.0-4.3) 01/15/18 06:20 [place] # (Auto) 0.9 K/uL (0.0-0.8) H 01/15/18 06:20 Eos # (Auto) 0.2 K/uL (0.0-0.7) 01/15/18 06:20 Baso # (Auto) 0.0 K/uL (0.0-0.2) 01/15/18 06:20 Neutrophils % (Manual) 86 % (42-75) H 01/12/18 06:50 Lymphocytes % (Manual) 8 % (20-50) L 01/12/18 06:50 Monocytes % (Manual) 6 % (0-10) 01/12/18 06:50 Platelet Estimate Normal (NORMAL) 01/12/18 06:50 Large Platelets Present 01/12/18 06:50 Hypochromasia (manual) Slight 01/12/18 06:50 Anisocytosis (manual) Slight 01/12/18 06:50 Microcytosis (manual) Slight 01/12/18 06:50 Ovalocytes Slight 01/12/18 06:50 ESR 19 mm/hr (0-20) 01/10/18 06:20 PT 21.5 Seconds (9.8-13.1) H 01/15/18 10:30 INR 1.9 (0.9-1.2) H 01/15/18 10:30 APTT 27.8 Seconds (25.6-37.1) 01/12/18 06:50 pO2 21 mm/Hg (30-55) L 01/09/18 01:23 VBG pH 7.46 (7.32-7.43) H 01/09/18 01:23 VBG pCO2 44 mmHg (40-60) 01/09/18 01:23 VBG HCO3 28.4 mmol/L 01/09/18 01:23 VBG Total CO2 32.7 mmol/L (22-28) H 01/09/18 01:23 VBG O2 Sat (Calc) 35.2 % (40-65) L 01/09/18 01:23 VBG Base Excess 6.6 mmol/L (0.0-2.0) H 01/09/18 01:23 VBG Potassium 3.8 mmol/L (3.6-5.2) 01/09/18 01:23 Sodium 131.0 mmol/L (132-148) L 01/09/18 01:23 Chloride 97.0 mmol/L (98-107) L 01/09/18 01:23 Glucose 123 mg/dL (75-110) H 01/09/18 01:23 Lactate 1.5 mmol/L (0.7-2.1) 01/09/18 01:23 FiO2 21.0 % 01/09/18 01:23 Sodium 138 mmol/l (132-148) 01/15/18 06:20 Potassium 3.6 MMOL/L (3.6-5.0) 01/15/18 06:20 Chloride 100 mmol/L (98-107) 01/15/18 06:20 Carbon Dioxide 28 mmol/L (22-30) 01/15/18 06:20 Anion Gap 14 (10-20) 01/15/18 06:20 BUN 11 mg/dl (9-20) 01/15/18 06:20 Creatinine 0.8 mg/dl (0.8-1.5) 01/15/18 06:20 Est GFR ( Amer) > 60 01/15/18 06:20 Est GFR (Non-Af Amer) > 60 01/15/18 06:20 POC Glucose (mg/dL) 95 mg/dL (65-110) 01/15/18 15:33 Random Glucose 106 mg/dL (75-110) 01/15/18 06:20 Hemoglobin A1c 5.8 % (4.2-6.5) 01/12/18 06:50 Lactic Acid 1.1 MMOL/L (0.7-2.1) 01/12/18 06:45 Calcium 8.4 mg/dL (8.4-10.2) 01/15/18 06:20 Total Bilirubin 1.4 mg/dl (0.2-1.3) H 01/15/18 06:20 AST 24 U/L (17-59) 01/15/18 06:20 ALT 35 U/L (21-72) 01/15/18 06:20 Alkaline Phosphatase 66 U/L (38-126) 01/15/18 06:20 Troponin I 0.0160 ng/mL (0.00-0.120) 01/10/18 09:14 C-React Prot High Sens > 15.00 mg/L (1.00-3.00) H 01/10/18 06:20 Total Protein 6.3 G/DL (6.3-8.2) 01/15/18 06:20 Albumin 2.9 g/dL (3.5-5.0) L 01/15/18 06:20 Globulin 3.4 gm/dL (2.2-3.9) 01/15/18 06:20 Albumin/Globulin Ratio 0.9 (1.0-2.1) L 01/15/18 06:20 Procalcitonin 0.23 NG/ML (0.19-0.49) 01/12/18 06:50 Venous Blood Potassium 3.8 mmol/L (3.6-5.2) 01/09/18 01:23 Vancomycin Trough 7.8 ug/mL (5.0-10.0) 01/15/18 10:30 - Hospital Course Hospital Course: id, podiatry consult i/d at bedside and surgical washing picc, wound care Discharge Exam - Head Exam Head Exam: NORMOCEPHALIC Discharge Plan - Discharge Medications Prescriptions: Vancomycin/0.9 % Sod Chloride [Vanco 1 Gram/150 ml-0.9% NaCl] 1 gm IV Q12 #42 plast..bag - Follow Up Plan Condition: FAIR Disposition: REHAB FACILITY/REHAB UNIT Instructions: Sepsis in Adults, Cellulitis (Skin Infection), Adult (DC) Additional Instructions: fianl dx-hardware fx r ankle w/ mrsa cellulitis, abscess, bacteremia f/u in [facility] w/ [facility] podiatry, iv anbx x 6-8 wks per id will ?? need anbx seed as well as hardware removal/replacement rte dprn, meds per med rec Referrals: Eber Sow MD [Family Provider] - Adelfo Mcgee MD [Staff Provider] -
--- NOTE | 2018-01-16 12:07 | VASCULAR ---
PROCEDURE: Date of procedure: 01/15/2018 Procedure: 1. Placement of a left arm PICC with ultrasound and fluoroscopic guidance, CPT 68725 2. PICC tip confirmation with spot radiograph and is in the superior vena cava Medications: 3cc 1 percent lidocaine Total Fluoro time: 8.8 seconds Radiation: 1.94 MGy EBL: 3 cc HISTORY: Infection requiring long-term IV antibiotics TECHNIQUE: Following informed consent and procedure time-out, the patient placed supine on the interventional table and the left arm prepped and draped in the usual sterile fashion. Ultrasound showed a patent and compressible left basilic vein. After the skin was anesthetized with lidocaine, the basilic vein was accessed with micro micropuncture technique using ultrasound guidance. A guidewire was then advanced under fluoroscopic guidance into the superior vena cava. An image documenting ultrasound guidance for vascular access was permanently saved. The length of a single-lumen 4 Japanese PICC was trimmed to 45 cm and advanced through a peel-away sheath. The PICC was position with tip of PICC confirm a spot radiograph the superior vena cava. The PICC was secured to the patient's skin. The PICC was flushed. A biopatch and sterile dressing was applied. IMPRESSION: Placement of a single-lumen 4 Japanese PICC left basilic vein trimmed to 45 cm. The tip of the PICC is confirmed with spot radiograph and is in the superior vena cava.
== END 2018-01-15 18:17 | DRG 854 ==
LOC: H.ER 19:16 → H.ERHOLD 21:06 → H.MEDSURG1 01-09 01:43
PROVIDERS: ADMIT Family Medicine; ATTEND Family Medicine
PROC: 02HV33Z Insertion of Infusion Device into Superior Vena Cava, Percutaneous Approach (ICD-10-PCS; principal; 2018-01-09)
PROC: 0H9MXZZ Drainage of Right Foot Skin, External Approach (ICD-10-PCS; 2018-01-11)
PROC: 0J9Q0ZZ Drainage of Right Foot Subcutaneous Tissue and Fascia, Open Approach (ICD-10-PCS; 2018-01-12)
PROC: 02HV33Z Insertion of Infusion Device into Superior Vena Cava, Percutaneous Approach (ICD-10-PCS; 2018-01-15)
DX: A41.02 Sepsis due to Methicillin resistant Staphylococcus aureus (principal); L03.115 Cellulitis of right lower limb; M00.9 Pyogenic arthritis, unspecified; M86.9 Osteomyelitis, unspecified; T84.116A Breakdown (mechanical) of internal fixation device of bone of right lower leg, initial encounter; E03.9 Hypothyroidism, unspecified; G89.29 Other chronic pain; Z88.2 Allergy status to sulfonamides; I25.10 Atherosclerotic heart disease of native coronary artery without angina pectoris; Z95.5 Presence of coronary angioplasty implant and graft; Z87.891 Personal history of nicotine dependence; N40.0 Benign prostatic hyperplasia without lower urinary tract symptoms; I10 Essential (primary) hypertension; E78.00 Pure hypercholesterolemia, unspecified; F32.9 Major depressive disorder, single episode, unspecified; B95.62 Methicillin resistant Staphylococcus aureus infection as the cause of diseases classified elsewhere; E11.69 Type 2 diabetes mellitus with other specified complication; Y79.2 Prosthetic and other implants, materials and accessory orthopedic devices associated with adverse incidents

== ENCOUNTER 2018-01-23 20:57 | Inpatient (IN) | payer MEDICARE, MEDICAID ==
[2018-01-23 20:58] VITALS: BMI 33.7
[2018-01-23 22:30] LABS: BASO # 0.1 K/uL (0.0-0.2); BASO % 0.8 % (0.0-2.0); EOS # 0.1 K/uL (0.0-0.7); EOS % 0.8 % (0.0-4.0); HEMOGLOBIN 11.6 g/dL (12.0-18.0); LYMPH # 1.2 K/uL (1.0-4.3); LYMPH % 9.1 % (20.0-40.0); MEAN CELL VOLUME 72.9 fl (80.0-94.0); MEAN CORPUSCULAR HEMOGLOBIN 22.9 pg (27.0-31.0); MEAN CORPUSCULAR HGB CONC 31.4 g/dL (33.0-37.0); MONO # 1.2 K/uL (0.0-0.8); MONO % 9.7 % (0.0-10.0); NEUT # 10.3 K/uL (1.8-7.0); NEUT % 79.6 % (50.0-75.0); PLATELET COUNT 352 K/uL (130-400); RBC 5.06 Mil/uL (4.40-5.90); WHITE BLOOD COUNT 12.9 K/uL (4.8-10.8)
[2018-01-23 22:51] LABS: ANISOCYTOSIS MODERATE; EOSINOPHIL 1 % (0-7); HYPOCHROMIC SLIGHT; LYMPHOCYTE 11 % (20-50); MONOCYTE 4 % (0-10); NEUTROPHIL 79 % (42-75); POIKILOCYTOSIS MODERATE; REACTIVE LYMPHOCYTES 5 % (0-0); TOTAL CELLS COUNTED 100
[2018-01-23 22:52] LABS: TROPONIN I 0.077 ng/mL (0.00-0.120)
[2018-01-23 22:53] LABS: MICROCYTOSIS SLIGHT; OVALOCYTES SLIGHT
[2018-01-23 22:54] LABS: PLATELET ESTIMATE NORMAL (NORMAL)
[2018-01-23] MEDS ORDERED: Sodium Chloride 0.9% 1,000 ML IV STA (23:21)
[2018-01-23 23:37] LABS: ALB/GLOB RATIO 0.9 (1.0-2.1); ALBUMIN 3.1 g/dL (3.5-5.0); CALCIUM 8.8 mg/dL (8.4-10.2)
[2018-01-23] MEDS ORDERED: Insulin Regular 100 units/ml IV STA (23:50)
[2018-01-23] MEDS ORDERED: Sod Polystyrene Sulf 15 gm/60 ml Susp PO ONE (23:50)
[2018-01-23] MEDS ORDERED: Dextrose 50% SYRINGE Inj (50 ml) IVP ONE (23:50)
[2018-01-24] MEDS ORDERED: Insulin Regular 100 units/ml ONE (00:19)
[2018-01-24] MEDS ORDERED: Dextrose 50% SYRINGE Inj (50 ml) ONE (00:20)
[2018-01-24] MEDS ORDERED: Sod Polystyrene Sulf 15 gm/60 ml Susp ONE (00:20)
[2018-01-24 00:22] LABS: SQUAMOUS EPITHIAL < 1 /hpf (0-5); URINE BACTERIA RARE (<OCC); URINE BILIRUBIN NEGATIVE (NEGATIVE); URINE BLOOD MODERATE (NEGATIVE); URINE CLARITY CLOUDY (Clear); URINE COLOR YELLOW (YELLOW); URINE GLUCOSE (UA) 50 mg/dL (Normal); URINE LEUKOCYTE ESTERASE LARGE Leu/uL (Negative); URINE PROTEIN 100 mg/dL (NEGATIVE); URINE UROBILINOGEN 0.2-1.0 mg/dL (0.2-1.0)
--- NOTE | 2018-01-24 00:25 | ED PDOC ---
HPI: General Adult Time Seen by Provider: 01/23/18 21:23 Chief Complaint (Nursing): Altered Mental Status Chief Complaint (Provider): abnormal labs History Per: EMS, Other (NH) Additional Complaint(s): 62 y/o male sent from [facility] for evaluation of abnormal renal function and vancomycin trough test. Patient more altered than usual as per NH. Patient sleeping; upon awakening oriented to self. HPI slightly limited due to patient's current state. Past Medical History Reviewed: Historical Data, Nursing Documentation, Vital Signs Vital Signs: Last Vital Signs Temp 97.5 F L 01/31/18 00:54 Pulse 60 01/31/18 00:54 Resp 20 01/31/18 00:54 BP 158/84 H 01/31/18 00:54 Pulse Ox 95 01/31/18 00:54 - Medical History PMH: Back Problems, Benign Prostatic Hyperplasia, CAD, Depression, Diabetes, Emphysema, Fractures, HTN, Hypercholesterolemia, Hypothyroidism, Seizures Denies: Anxiety, Asthma, COPD, HIV, Chronic Kidney Disease - Surgical History Surgical History: Back Surgery (with fusion), Coronary Stent - Family History Family History: States: Unknown Family Hx - Home Medications Home Medications: Ambulatory Orders Medication Instructions Recorded ALPRAZolam [Xanax] 1 mg PO QID 01/04/18 Aspirin [Ecotrin] 81 mg PO DAILY 01/04/18 Ergocalciferol (Vitamin D2) 50,000 units PO QWK 01/04/18 [Vitamin D2] Fenofibrate [Triglide] 160 mg PO DAILY 01/04/18 Gabapentin [Neurontin] 600 mg PO BID 01/04/18 Levothyroxine [Synthroid] 88 mcg PO DAILY 01/04/18 Lisinopril [Zestril] 20 mg PO DAILY 01/04/18 Metoprolol Tartrate [Lopressor] 25 mg PO BID 01/04/18 Montelukast [Singulair] 10 mg PO DAILY 01/04/18 PARoxetine [Paxil] 60 mg PO DAILY 01/04/18 SITagliptin [Januvia] 100 mg PO DAILY 01/04/18 busPIRone [Buspar] 60 mg PO TID 01/04/18 lamoTRIgine [Lamictal] 50 mg PO BID 01/04/18 oxyCODONE [oxyCODONE Immediate 30 mg PO 5XD PRN 01/04/18 Release Tab] Acetaminophen [Tylenol 325mg tab] 650 mg PO Q4 PRN tab 01/15/18 Albuterol/Ipratropium [Duoneb 3 3 ml INH RQ4 PRN neb 01/15/18 mg/0.5 mg (3 ml) UD] Clopidogrel [Plavix] 75 mg PO DAILY tab 01/15/18 Ibuprofen [Motrin Tab] 600 mg PO BID tab 01/15/18 Vancomycin/0.9 % Sod Chloride 1 gm IV Q12 #42 plast..bag 01/15/18 [Vanco 1 Gram/150 ml-0.9% NaCl] Aluminum Hydroxide/Magnesium 30 ml PO Q4H 01/24/18 [Maalox Plus 30 ml] Magnesium Hydroxide [Milk of 30 ml PO DAILY 01/24/18 Magnesia] Oxycodone HCl [Oxycontin] 30 mg PO Q8H 01/24/18 Sennosides [Senokot] 17.6 mg PO HS 01/24/18 - Allergies Allergies/Adverse Reactions: Allergies Allergy/AdvReac Type Severity Reaction Status Date / Time Sulfa (Sulfonamide Allergy RASH Verified 02/14/16 09:33 Antibiotics) Review of Systems ROS Statement: Except As Marked, All Systems Reviewed And Found Negative Neurological: Positive for: Altered Mental Status Physical Exam - Reviewed Nursing Documentation Reviewed: Yes Vital Signs Reviewed: Yes - Physical Exam Appears: Positive for: Well, Non-toxic, No Acute Distress Head Exam: Positive for: ATRAUMATIC, NORMAL INSPECTION, NORMOCEPHALIC Skin: Positive for: Normal Color Eye Exam: Positive for: Normal appearance ENT: Positive for: Normal ENT Inspection Cardiovascular/Chest: Positive for: Regular Rate, Rhythm Respiratory: Positive for: Normal Breath Sounds Gastrointestinal/Abdominal: Positive for: Normal Exam Back: Positive for: Normal Inspection Extremity: Positive for: Normal ROM, Other (right foot in dressing; no drainage , odor noted) Neurologic/Psych: Positive for: Alert, Oriented (x1) - Laboratory Results Result Diagrams: 01/30/18 05:15 01/30/18 05:15 - ECG ECG: Positive for: Viewed By Me (reviewed by ED attending) ECG Rhythm: Positive for: Sinus Bradycardia (57bpm) O2 Sat by Pulse Oximetry: 99 - Radiology X-Ray: Viewed By Me X-Ray Interpretation: Cardiomegaly - Progress ED Course And Treament: labs, ekg, cxr, mendez cath Case discussed with ED attending Dr. Garza, will order IV fluids, IV insulin, D50, kayaxelate PO Case discussed with Ciaran Rodriguez SHOVE UP for admission IV rocephin dose ordered in ED for UTI noted on u/a Disposition - Clinical Impression Clinical Impression: Acute renal failure, Hyperkalemia, UTI (urinary tract infection) - Patient ED Disposition Is Patient to be Admitted: Yes - Disposition Disposition Time: 23:30 Condition: FAIR - Pt Status Changed To: Hospital Disposition Of: Inpatient - Admit Certification Admit to Inpatient:: After my assessment, the patient will require hospitalization for at least two midnights. This is because of the severity of symptoms shown, intensity of services needed, and/or the medical risk in this patient being treated as an outpatient. - POA Present On Arrival: None
[2018-01-24] MEDS ORDERED: cefTRIAXone (Rocephin) 1 gm Inj ONE (00:35)
[2018-01-24] MEDS ORDERED: OXYCODONE 30 MG PO PRN (06:14)
[2018-01-24] MEDS ORDERED: OXYCODONE HCL 30 MG PO SCH (06:15)
[2018-01-24] MEDS ORDERED: oxyCODONE 10 mg Immediate Release Tab PO PRN (06:33)
[2018-01-24] MEDS: Levothyroxine 88 MCG TAB PO SCH (07:09)
--- NOTE | 2018-01-24 08:27 | CP.PCM.HP ---
History of Present Illness - History of Present Illness History of Present Illness: pt sent from [facility] for ams, elev bun and lft. r foot appears slightly more swollen than previous. all labs noted. consults ordered. pt was given rocephin for cloudy urine/uti. ua w/ rare bacteria, pending cs Present on Admission - Present on Admission Any Indicators Present on Admission: Yes History of Uncontrolled Diabetes: Yes Review of Systems - Integumentary Integumentary: As Per HPI, Erythema, Swelling - Neurological Neurological: As Per HPI, Confusion Past Patient History - Past Medical History & Family History Past Medical History?: Yes - Past Social History Smoking Status: Never Smoked - CARDIAC Hx Cardiac Disorders: Yes Hx Hypercholesterolemia: Yes Hx Hypertension: Yes - PULMONARY Hx Respiratory Disorders: Yes Hx Asthma: No Hx Chronic Obstructive Pulmonary Disease (COPD): No Hx Emphysema: Yes - NEUROLOGICAL Hx Neurological Disorder: Yes Hx Seizures: Yes - HEENT Hx HEENT Problems: Yes - RENAL Hx Chronic Kidney Disease: Yes Hx Renal Failure: Yes - ENDOCRINE/METABOLIC Hx Endocrine Disorders: Yes Hx Diabetes Mellitus Type 2: Yes Hx Hypothyroidism: Yes - HEMATOLOGICAL/ONCOLOGICAL Hx Blood Disorders: No Hx AIDS: No Hx Human Immunodeficiency Virus (HIV): No - INTEGUMENTARY Hx Dermatological Problems: No - MUSCULOSKELETAL/RHEUMATOLOGICAL Hx Musculoskeletal Disorders: Yes Hx Back Pain: Yes Hx Falls: Yes Hx Fractures: Yes - GASTROINTESTINAL Hx Gastrointestinal Disorders: Yes Hx Gastroesophageal Reflux: Yes - GENITOURINARY/GYNECOLOGICAL Hx Genitourinary Disorders: Yes Hx Prostate Problems: Yes (bph) - PSYCHIATRIC Hx Psychophysiologic Disorder: No Hx Substance Use: No - SURGICAL HISTORY Hx Surgeries: Yes Hx Coronary Stent: Yes Hx Musculoskeletal Surgery: Yes (Back with fusion) - ANESTHESIA Hx Anesthesia: Yes Hx Anesthesia Reactions: No Hx Malignant Hyperthermia: No Meds Allergies/Adverse Reactions: Allergies Allergy/AdvReac Type Severity Reaction Status Date / Time Sulfa (Sulfonamide Allergy RASH Verified 02/14/16 09:33 Antibiotics) Physical Exam - Constitutional Appears: Well, Non-toxic, No Acute Distress - Head Exam Head Exam: ATRAUMATIC, NORMAL INSPECTION, NORMOCEPHALIC - Eye Exam Eye Exam: EOMI, Normal appearance, PERRL Pupil Exam: NORMAL ACCOMODATION, PERRL - ENT Exam ENT Exam: Mucous Membranes Moist, Normal Exam - Neck Exam Neck exam: Positive for: Normal Inspection - Respiratory Exam Respiratory Exam: Clear to Auscultation Bilateral, NORMAL BREATHING PATTERN - Cardiovascular Exam Cardiovascular Exam: REGULAR RHYTHM, RRR, +S1, +S2 - GI/Abdominal Exam GI & Abdominal Exam: Normal Bowel Sounds, Soft. absent: Tenderness - Extremities Exam Extremities exam: Positive for: full ROM, normal capillary refill, normal inspection, pedal pulses present - Back Exam Back exam: NORMAL INSPECTION - Neurological Exam Neurological exam: Alert, CN II-XII Intact, Normal Gait, Oriented x3, Reflexes Normal - Psychiatric Exam Psychiatric exam: Normal Affect, Normal Mood - Skin Skin Exam: Dry, Intact, Normal Color, Warm Results - Vital Signs Recent Vital Signs: Last Vital Signs Temp 97.3 F L 01/24/18 08:00 Pulse 60 01/24/18 08:00 Resp 20 01/24/18 08:00 BP 138/89 01/24/18 08:00 Pulse Ox 95 01/24/18 08:00 - Labs Result Diagrams: 01/23/18 20:14 01/23/18 20:14 Labs: Laboratory Results - last 24 hr 01/23/18 01/23/18 01/23/18 20:14 20:14 23:58 WBC 12.9 H D RBC 5.06 Hgb 11.6 L Hct 36.9 MCV 72.9 L MCH 22.9 L MCHC 31.4 L RDW 20.0 H Plt Count 352 MPV 7.0 L Neut % (Auto) 79.6 H Lymph % (Auto) 9.1 L [place] % (Auto) 9.7 Eos % (Auto) 0.8 Baso % (Auto) 0.8 Neut # (Auto) 10.3 H Lymph # (Auto) 1.2 [place] # (Auto) 1.2 H Eos # (Auto) 0.1 Baso # (Auto) 0.1 Neutrophils % (Manual) 79 H Lymphocytes % (Manual) 11 L Reactive Lymphs % 5 H Monocytes % (Manual) 4 Eosinophils % (Manual) 1 Platelet Estimate Normal Hypochromasia (manual) Slight Poikilocytosis (manual Moderate Anisocytosis (manual) Moderate Microcytosis (manual) Slight Ovalocytes Slight Sodium 133 Potassium 5.6 H Chloride 95 L Carbon Dioxide 23 Anion Gap 21 H BUN 90 H Creatinine 4.9 H Est GFR ( Amer) 15 Est GFR (Non-Af Amer) 12 POC Glucose (mg/dL) Random Glucose 101 Calcium 8.8 Total Bilirubin 0.7 AST 124 H D ALT 224 H D Alkaline Phosphatase 80 Troponin I 0.0770 Total Protein 6.6 Albumin 3.1 L Globulin 3.6 Albumin/Globulin Ratio 0.9 L Urine Color Yellow Urine Clarity Cloudy Urine pH 5.0 Ur Specific [place] 1.015 Urine Protein 100 Urine Glucose (UA) 50 Urine Ketones Negative Urine Blood Moderate Urine Nitrate Negative Urine Bilirubin Negative Urine Urobilinogen 0.2-1.0 Ur Leukocyte Esterase Large Urine RBC (Auto) 12 H Urine Microscopic WBC 48 H Ur Squamous Epith Cells < 1 Urine Bacteria Rare Hyaline Casts 3-5 H Random Vancomycin 01/24/18 01/24/18 00:45 05:14 WBC RBC Hgb Hct MCV MCH MCHC RDW Plt Count MPV Neut % (Auto) Lymph % (Auto) [place] % (Auto) Eos % (Auto) Baso % (Auto) Neut # (Auto) Lymph # (Auto) [place] # (Auto) Eos # (Auto) Baso # (Auto) Neutrophils % (Manual) Lymphocytes % (Manual) Reactive Lymphs % Monocytes % (Manual) Eosinophils % (Manual) Platelet Estimate Hypochromasia (manual) Poikilocytosis (manual Anisocytosis (manual) Microcytosis (manual) Ovalocytes Sodium Potassium Chloride Carbon Dioxide Anion Gap BUN Creatinine Est GFR ( Amer) Est GFR (Non-Af Amer) POC Glucose (mg/dL) 88 Random Glucose Calcium Total Bilirubin AST ALT Alkaline Phosphatase Troponin I Total Protein Albumin Globulin Albumin/Globulin Ratio Urine Color Urine Clarity Urine pH Ur Specific [place] Urine Protein Urine Glucose (UA) Urine Ketones Urine Blood Urine Nitrate Urine Bilirubin Urine Urobilinogen Ur Leukocyte Esterase Urine RBC (Auto) Urine Microscopic WBC Ur Squamous Epith Cells Urine Bacteria Hyaline Casts Random Vancomycin 32.8 Assessment & Plan (1) Acute renal failure Assessment and Plan: nephro ivf monitor bun/cr Status: Acute (2) Elevated LFTs Assessment and Plan: gi ivf monitor lft Status: Acute (3) Bacteremia due to methicillin resistant Staphylococcus aureus Assessment and Plan: cont vanco podiatry consult as original source r foot/ankle Status: Acute (4) Chronic pain Assessment and Plan: cont home meds Status: Acute (5) DVT prophylaxis Assessment and Plan: scd and ae hose asa/plavix Status: Acute - Assessment and Plan (Free Text) Assessment: r ankle swelling/erythema-h/o cellulitis, cont vanco, podiatry consult, ID as indicated, procalcitonin sent off to est sepsis or r/o Decision To Admit - Pt Status Changed To: Hospital Disposition Of: Inpatient - Admit Certification Admit to Inpatient:: After my assessment, the patient will require hospitalization for at least two midnights. This is because of the severity of symptoms shown, intensity of services needed, and/or the medical risk in this patient being treated as an outpatient. - . Bed Request Type: Telemetry Admitting Physician: Eber Sow
[2018-01-24] MEDS ORDERED: PAROXETINE PO SCH (09:00)
[2018-01-24] MEDS ORDERED: Patient's Own Med (Vancomycin/0.9 % Sod Chloride [Vanco 1 Gram/150 Ml-0.9% Nacl] 1 GM) IV SCH (09:00)
[2018-01-24] MEDS ORDERED: Patient's Own Med (Fenofibrate [Triglide] 160 MG) PO SCH (09:00)
[2018-01-24] MEDS ORDERED: oxyCODONE 10 mg ER Tab (oxyCONTIN) PO SCH (09:00)
--- NOTE | 2018-01-24 09:22 | RAD ---
HISTORY: admit COMPARISON: Frontal chest radiograph 01/08/2018. FINDINGS: LUNGS: No active pulmonary disease. PLEURA: No significant pleural effusion identified, no pneumothorax apparent. CARDIOVASCULAR: Cardiomegaly is reiterated with stable mild prominence of the hilar vascular markings. An element of pulmonary vascular congestion remains questioned. OSSEOUS STRUCTURES: No significant abnormalities. VISUALIZED UPPER ABDOMEN: Normal. OTHER FINDINGS: None. IMPRESSION: No acute pulmonary disease appreciable. Cardiomegaly and pulmonary vascular congestion remains in question. CHF not excluded. Clinically correlate further.
[2018-01-24] MEDS: Alum-Mag Hydrox-Simethicone Susp (30 mL) PO SCH ×4 (10:11→21:27)
[2018-01-24] MEDS: Magnesium Hydroxide Susp 30 ml UD PO SCH (10:13)
--- NOTE | 2018-01-24 11:36 | CP.PCM.CON ---
History of Present Illness - History of Present Illness History of Present Illness: This patient whole is 62 years of age male who was admitted from subacute unit. For disorientation and changing in his mental status and he was found to have high B UN and creatinine for which I was called to see this patient. Patient is disoriented I cannot get any history from him. The history was taken from the medical record. And indicated that she is gentleman was discharged from this hospital January 15 and at that time serum creatinine was normal and he was receiving antibiotics including vancomycin for right foot infection. Also the rest of the medication noted including multiple pain medication and narcotics including lisinopril and ibuprofen as well. Past medical history as noted with the right foot infection. History of hypertension and history of previous admissions Review of Systems - Constitutional Constitutional: Anorexia. absent: Chills - EENT Eyes: Blurred Vision Nose/Mouth/Throat: absent: Epistaxis, Nasal Congestion - Cardiovascular Cardiovascular: Leg Edema. absent: Chest Pain, Dyspnea, Syncope - Respiratory Respiratory: absent: Cough, Hemoptysis - Gastrointestinal Gastrointestinal: absent: Abdominal Pain, Coffee Ground Emesis, Vomiting - Genitourinary Genitourinary: Nocturia - Musculoskeletal Musculoskeletal: Abnormal Gait - Integumentary Integumentary: absent: Hirsutism - Neurological Neurological: Confusion. absent: Abnormal Gait, Focal Weakness - Psychiatric Psychiatric: Anxiety - Endocrine Endocrine: Fatigue - Hematologic/Lymphatic Hematologic: absent: Easy Bleeding Past Patient History - Past Medical History & Family History Past Medical History?: Yes - Past Social History Smoking Status: Never Smoked - CARDIAC Hx Cardiac Disorders: Yes Hx Hypercholesterolemia: Yes Hx Hypertension: Yes - PULMONARY Hx Respiratory Disorders: Yes Hx Asthma: No Hx Chronic Obstructive Pulmonary Disease (COPD): No Hx Emphysema: Yes - NEUROLOGICAL Hx Neurological Disorder: Yes Hx Seizures: Yes - HEENT Hx HEENT Problems: Yes - RENAL Hx Chronic Kidney Disease: Yes Hx Renal Failure: Yes - ENDOCRINE/METABOLIC Hx Endocrine Disorders: Yes Hx Diabetes Mellitus Type 2: Yes Hx Hypothyroidism: Yes - HEMATOLOGICAL/ONCOLOGICAL Hx Blood Disorders: No Hx AIDS: No Hx Human Immunodeficiency Virus (HIV): No - INTEGUMENTARY Hx Dermatological Problems: No - MUSCULOSKELETAL/RHEUMATOLOGICAL Hx Musculoskeletal Disorders: Yes Hx Back Pain: Yes Hx Falls: Yes Hx Fractures: Yes - GASTROINTESTINAL Hx Gastrointestinal Disorders: Yes Hx Gastroesophageal Reflux: Yes - GENITOURINARY/GYNECOLOGICAL Hx Genitourinary Disorders: Yes Hx Prostate Problems: Yes (bph) - PSYCHIATRIC Hx Psychophysiologic Disorder: No Hx Substance Use: No - SURGICAL HISTORY Hx Surgeries: Yes Hx Coronary Stent: Yes Hx Musculoskeletal Surgery: Yes (Back with fusion) - ANESTHESIA Hx Anesthesia: Yes Hx Anesthesia Reactions: No Hx Malignant Hyperthermia: No Meds Allergies/Adverse Reactions: Allergies Allergy/AdvReac Type Severity Reaction Status Date / Time Sulfa (Sulfonamide Allergy RASH Verified 02/14/16 09:33 Antibiotics) - Medications Medications: Current Medications Acetaminophen (Tylenol 325mg Tab) 650 mg PO Q4 PRN PRN Reason: Fever >100.4 F Al Hydrox/Mg Hydrox/Simethicone (Maalox Plus 30 Ml) 30 ml PO Q4H [facility] Last Admin: 01/24/18 10:11 Dose: 30 ml Albuterol/Ipratropium (Duoneb 3 Mg/0.5 Mg (3 Ml) Ud) 3 ml INH RQ4 PRN PRN Reason: Shortness of Breath Alprazolam (Xanax) 1 mg PO QID [facility] Last Admin: 01/24/18 10:13 Dose: Not Given Aspirin (Ecotrin) 81 mg PO DAILY [facility] Last Admin: 01/24/18 10:11 Dose: 81 mg Buspirone HCl (Buspar) 30 mg PO BID [facility] Clopidogrel Bisulfate (Plavix) 75 mg PO DAILY [facility] Last Admin: 01/24/18 10:11 Dose: 75 mg Ergocalciferol (Drisdol 50,000 Intl Units Cap) 1 cap PO QWK [facility] Fenofibrate (Tricor) 145 mg PO DAILY [facility] Last Admin: 01/24/18 10:07 Dose: 145 mg Gabapentin (Neurontin) 600 mg PO BID [facility] Last Admin: 01/24/18 10:08 Dose: 600 mg Ceftriaxone Sodium 1 gm/ (Sodium Chloride) 100 mls @ 100 mls/hr IVPB DAILY [facility] PRN Reason: Protocol Last Admin: 01/24/18 10:04 Dose: 100 mls/hr Vancomycin HCl 1 gm/ Sodium (Chloride) 250 mls @ 166.667 mls/hr IVPB DAILY [facility] Lamotrigine (Lamictal) 50 mg PO BID [facility] Last Admin: 01/24/18 10:06 Dose: 50 mg Levothyroxine Sodium (Synthroid) 88 mcg PO DAILY@0630 [facility] Last Admin: 01/24/18 07:09 Dose: 88 mcg Magnesium Hydroxide (Milk Of Magnesia) 30 ml PO DAILY [facility] Last Admin: 01/24/18 10:13 Dose: Not Given Metoprolol Tartrate (Lopressor) 25 mg PO BID [facility] Last Admin: 01/24/18 10:13 Dose: 25 mg Montelukast Sodium (Singulair) 10 mg PO DAILY [facility] Last Admin: 01/24/18 10:09 Dose: 10 mg Oxycodone HCl (Oxycontin Extended Release Tab) 30 mg PO Q8 [facility] Stop: 01/27/18 09:01 Last Admin: 01/24/18 10:05 Dose: 30 mg Oxycodone HCl (Oxycodone Immediate Release Tab) 30 mg PO 5XD PRN PRN Reason: Pain, moderate (4-7) Paroxetine HCl (Paxil) 60 mg PO DAILY [facility] Last Admin: 01/24/18 10:07 Dose: 60 mg Sennosides (Senokot Tab) 17.6 mg PO [facility] Sitagliptin Phosphate (Januvia) 100 mg PO DAILY [facility] Last Admin: 01/24/18 10:07 Dose: 100 mg Physical Exam - Constitutional Appears: No Acute Distress - Eye Exam Eye Exam: Conjunctival injection - ENT Exam ENT Exam: Mucous Membranes Moist - Neck Exam Neck exam: Negative for: Lymphadenopathy - Respiratory Exam Respiratory Exam: NORMAL BREATHING PATTERN. absent: Chest Wall Tenderness, Rales - Cardiovascular Exam Cardiovascular Exam: absent: JVD, Rubs - GI/Abdominal Exam GI & Abdominal Exam: Normal Bowel Sounds - Extremities Exam Extremities exam: Negative for: calf tenderness - Back Exam Back exam: absent: CVA tenderness (L), CVA tenderness (R) - Neurological Exam Neurological exam: Alert - Psychiatric Exam Psychiatric exam: Anxious - Skin Skin Exam: Cyanosis Results - Vital Signs Recent Vital Signs: Last Vital Signs Temp 97.3 F L 01/24/18 08:00 Pulse 65 01/24/18 10:13 Resp 20 01/24/18 08:00 BP 138/89 01/24/18 10:13 Pulse Ox 95 01/24/18 08:00 - Labs Result Diagrams: 01/23/18 20:14 01/23/18 20:14 Labs: Laboratory Results - last 24 hr 01/23/18 01/23/18 01/23/18 20:14 20:14 23:58 WBC 12.9 H D RBC 5.06 Hgb 11.6 L Hct 36.9 MCV 72.9 L MCH 22.9 L MCHC 31.4 L RDW 20.0 H Plt Count 352 MPV 7.0 L Neut % (Auto) 79.6 H Lymph % (Auto) 9.1 L [place] % (Auto) 9.7 Eos % (Auto) 0.8 Baso % (Auto) 0.8 Neut # (Auto) 10.3 H Lymph # (Auto) 1.2 [place] # (Auto) 1.2 H Eos # (Auto) 0.1 Baso # (Auto) 0.1 Neutrophils % (Manual) 79 H Lymphocytes % (Manual) 11 L Reactive Lymphs % 5 H Monocytes % (Manual) 4 Eosinophils % (Manual) 1 Platelet Estimate Normal Hypochromasia (manual) Slight Poikilocytosis (manual Moderate Anisocytosis (manual) Moderate Microcytosis (manual) Slight Ovalocytes Slight Sodium 133 Potassium 5.6 H Chloride 95 L Carbon Dioxide 23 Anion Gap 21 H BUN 90 H Creatinine 4.9 H Est GFR ( Amer) 15 Est GFR (Non-Af Amer) 12 POC Glucose (mg/dL) Random Glucose 101 Calcium 8.8 Total Bilirubin 0.7 AST 124 H D ALT 224 H D Alkaline Phosphatase 80 Troponin I 0.0770 Total Protein 6.6 Albumin 3.1 L Globulin 3.6 Albumin/Globulin Ratio 0.9 L Urine Color Yellow Urine Clarity Cloudy Urine pH 5.0 Ur Specific [place] 1.015 Urine Protein 100 Urine Glucose (UA) 50 Urine Ketones Negative Urine Blood Moderate Urine Nitrate Negative Urine Bilirubin Negative Urine Urobilinogen 0.2-1.0 Ur Leukocyte Esterase Large Urine RBC (Auto) 12 H Urine Microscopic WBC 48 H Ur Squamous Epith Cells < 1 Urine Bacteria Rare Hyaline Casts 3-5 H Random Vancomycin 01/24/18 01/24/18 00:45 05:14 WBC RBC Hgb Hct MCV MCH MCHC RDW Plt Count MPV Neut % (Auto) Lymph % (Auto) [place] % (Auto) Eos % (Auto) Baso % (Auto) Neut # (Auto) Lymph # (Auto) [place] # (Auto) Eos # (Auto) Baso # (Auto) Neutrophils % (Manual) Lymphocytes % (Manual) Reactive Lymphs % Monocytes % (Manual) Eosinophils % (Manual) Platelet Estimate Hypochromasia (manual) Poikilocytosis (manual Anisocytosis (manual) Microcytosis (manual) Ovalocytes Sodium Potassium Chloride Carbon Dioxide Anion Gap BUN Creatinine Est GFR ( Amer) Est GFR (Non-Af Amer) POC Glucose (mg/dL) 88 Random Glucose Calcium Total Bilirubin AST ALT Alkaline Phosphatase Troponin I Total Protein Albumin Globulin Albumin/Globulin Ratio Urine Color Urine Clarity Urine pH Ur Specific [place] Urine Protein Urine Glucose (UA) Urine Ketones Urine Blood Urine Nitrate Urine Bilirubin Urine Urobilinogen Ur Leukocyte Esterase Urine RBC (Auto) Urine Microscopic WBC Ur Squamous Epith Cells Urine Bacteria Hyaline Casts Random Vancomycin 32.8 Assessment & Plan (1) Acute renal failure Assessment and Plan: Patient appears to have acute kidney injury his serum creatinine was normal on January 15 when he left the hospital. This is consistent with acute kidney failure/ acute kidney injury probably related to antibiotics most likely? My recommendation Discontinue lisinopril Discontinue ibuprofen Hold vancomycin until you get serum level is stat I order it. Serum phosphorus Serum PTH Urinalysis stat for eosinophils I discussed with the nurse at the bedside. Status: Acute (2) Elevated LFTs Status: Acute (3) Cellulitis Status: Acute
[2018-01-24 11:40] LABS: BASO # 0.1 K/uL (0.0-0.2); BASO % 0.6 % (0.0-2.0); EOS # 0.1 K/uL (0.0-0.7); EOS % 0.7 % (0.0-4.0); HEMOGLOBIN 11.7 g/dL (12.0-18.0); LYMPH # 1.2 K/uL (1.0-4.3); LYMPH % 8.9 % (20.0-40.0); MEAN CORPUSCULAR HEMOGLOBIN 22.9 pg (27.0-31.0); MEAN CORPUSCULAR HGB CONC 31.3 g/dL (33.0-37.0); MEAN PLATELET VOLUME 7.2 fl (7.2-11.7); MONO # 1.5 K/uL (0.0-0.8); MONO % 10.6 % (0.0-10.0); NEUT % 79.2 % (50.0-75.0); RBC 5.14 Mil/uL (4.40-5.90); RED CELL DISTRIBUTION WIDTH 20.6 % (11.5-14.5); WHITE BLOOD COUNT 13.9 K/uL (4.8-10.8)
[2018-01-24 12:03] LABS: ALB/GLOB RATIO 0.9 (1.0-2.1); ALBUMIN 3.1 g/dL (3.5-5.0); CALCIUM 8.9 mg/dL (8.4-10.2)
--- NOTE | 2018-01-24 12:15 | CP.PCM.CON ---
History of Present Illness - History of Present Illness History of Present Illness: 62 y/o male sent from [facility] for evaluation of abnormal renal function and vancomycin trough test. Patient more altered than usual as per NH. Patient sleeping; upon awakening oriented to self. patient states he just got off a plane Has been in [facility] for rx of right ankle OM MRSA+ On Vanco - Medical History PMH: Back Problems, Benign Prostatic Hyperplasia, CAD, Depression, Diabetes, Emphysema, Fractures, HTN, Hypercholesterolemia, Hypothyroidism, Seizures Denies: Anxiety, Asthma, COPD, HIV, Chronic Kidney Disease Review of Systems - Review of Systems All systems: reviewed and no additional remarkable complaints except Past Patient History - Past Medical History & Family History Past Medical History?: Yes - Past Social History Smoking Status: Never Smoked - CARDIAC Hx Cardiac Disorders: Yes Hx Hypercholesterolemia: Yes Hx Hypertension: Yes - PULMONARY Hx Respiratory Disorders: Yes Hx Asthma: No Hx Chronic Obstructive Pulmonary Disease (COPD): No Hx Emphysema: Yes - NEUROLOGICAL Hx Neurological Disorder: Yes Hx Seizures: Yes - HEENT Hx HEENT Problems: Yes - RENAL Hx Chronic Kidney Disease: Yes Hx Renal Failure: Yes - ENDOCRINE/METABOLIC Hx Endocrine Disorders: Yes Hx Diabetes Mellitus Type 2: Yes Hx Hypothyroidism: Yes - HEMATOLOGICAL/ONCOLOGICAL Hx Blood Disorders: No Hx AIDS: No Hx Human Immunodeficiency Virus (HIV): No - INTEGUMENTARY Hx Dermatological Problems: No - MUSCULOSKELETAL/RHEUMATOLOGICAL Hx Musculoskeletal Disorders: Yes Hx Back Pain: Yes Hx Falls: Yes Hx Fractures: Yes - GASTROINTESTINAL Hx Gastrointestinal Disorders: Yes Hx Gastroesophageal Reflux: Yes - GENITOURINARY/GYNECOLOGICAL Hx Genitourinary Disorders: Yes Hx Prostate Problems: Yes (bph) - PSYCHIATRIC Hx Psychophysiologic Disorder: No Hx Substance Use: No - SURGICAL HISTORY Hx Surgeries: Yes Hx Coronary Stent: Yes Hx Musculoskeletal Surgery: Yes (Back with fusion) - ANESTHESIA Hx Anesthesia: Yes Hx Anesthesia Reactions: No Hx Malignant Hyperthermia: No Meds Allergies/Adverse Reactions: Allergies Allergy/AdvReac Type Severity Reaction Status Date / Time Sulfa (Sulfonamide Allergy RASH Verified 02/14/16 09:33 Antibiotics) - Medications Medications: Current Medications Acetaminophen (Tylenol 325mg Tab) 650 mg PO Q4 PRN PRN Reason: Fever >100.4 F Al Hydrox/Mg Hydrox/Simethicone (Maalox Plus 30 Ml) 30 ml PO Q4H [facility] Last Admin: 05/30/18 10:11 Dose: 30 ml Albuterol/Ipratropium (Duoneb 3 Mg/0.5 Mg (3 Ml) Ud) 3 ml INH RQ4 PRN PRN Reason: Shortness of Breath Alprazolam (Xanax) 1 mg PO QID [facility] Last Admin: 01/24/18 10:13 Dose: Not Given Aspirin (Ecotrin) 81 mg PO DAILY [facility] Last Admin: 01/24/18 10:11 Dose: 81 mg Buspirone HCl (Buspar) 30 mg PO BID [facility] Clopidogrel Bisulfate (Plavix) 75 mg PO DAILY [facility] Last Admin: 01/24/18 10:11 Dose: 75 mg Ergocalciferol (Drisdol 50,000 Intl Units Cap) 1 cap PO QWK [facility] Fenofibrate (Tricor) 145 mg PO DAILY [facility] Last Admin: 01/24/18 10:07 Dose: 145 mg Gabapentin (Neurontin) 600 mg PO BID [facility] Last Admin: 01/24/18 10:08 Dose: 600 mg Ceftriaxone Sodium 1 gm/ (Sodium Chloride) 100 mls @ 100 mls/hr IVPB DAILY [facility] PRN Reason: Protocol Last Admin: 01/24/18 10:04 Dose: 100 mls/hr Vancomycin HCl 1 gm/ Sodium (Chloride) 250 mls @ 166.667 mls/hr IVPB DAILY [facility] Lamotrigine (Lamictal) 50 mg PO BID [facility] Last Admin: 01/24/18 10:06 Dose: 50 mg Levothyroxine Sodium (Synthroid) 88 mcg PO DAILY@0630 [facility] Last Admin: 01/24/18 07:09 Dose: 88 mcg Magnesium Hydroxide (Milk Of Magnesia) 30 ml PO DAILY [facility] Last Admin: 01/24/18 10:13 Dose: Not Given Metoprolol Tartrate (Lopressor) 25 mg PO BID [facility] Last Admin: 01/24/18 10:13 Dose: 25 mg Montelukast Sodium (Singulair) 10 mg PO DAILY [facility] Last Admin: 01/24/18 10:09 Dose: 10 mg Oxycodone HCl (Oxycontin Extended Release Tab) 30 mg PO Q8 [facility] Stop: 01/27/18 09:01 Last Admin: 01/24/18 10:05 Dose: 30 mg Oxycodone HCl (Oxycodone Immediate Release Tab) 30 mg PO 5XD PRN PRN Reason: Pain, moderate (4-7) Paroxetine HCl (Paxil) 60 mg PO DAILY [facility] Last Admin: 01/24/18 10:07 Dose: 60 mg Sennosides (Senokot Tab) 17.6 mg PO HS [facility] Sitagliptin Phosphate (Januvia) 100 mg PO DAILY [facility] Last Admin: 01/24/18 10:07 Dose: 100 mg Physical Exam - Constitutional Appears: No Acute Distress, Chronically Ill - Head Exam Head Exam: ATRAUMATIC - Eye Exam Eye Exam: absent: Scleral icterus - ENT Exam ENT Exam: Mucous Membranes Dry - Neck Exam Neck exam: Negative for: Lymphadenopathy - Respiratory Exam Respiratory Exam: Decreased Breath Sounds, Clear to Auscultation Bilateral - Cardiovascular Exam Cardiovascular Exam: REGULAR RHYTHM - GI/Abdominal Exam GI & Abdominal Exam: Diminished Bowel Sounds, Soft - Rectal Exam Rectal Exam: Deferred - Exam Exam: NORMAL INSPECTION - Extremities Exam Extremities exam: Positive for: pedal edema, tenderness, pedal pulses present. Negative for: calf tenderness - Back Exam Back exam: absent: CVA tenderness (L), CVA tenderness (R) - Neurological Exam Neurological exam: Alert, Altered, CN II-XII Intact - Psychiatric Exam Psychiatric exam: Depressed - Skin Skin Exam: Dry Results - Vital Signs Recent Vital Signs: Last Vital Signs Temp 98.2 F 01/24/18 12:00 Pulse 63 01/24/18 12:00 Resp 20 01/24/18 12:00 BP 168/91 H 01/24/18 12:00 Pulse Ox 96 01/24/18 12:00 - Labs Result Diagrams: 01/24/18 11:29 01/24/18 11:29 Labs: Laboratory Results - last 24 hr 01/23/18 01/23/18 01/23/18 20:14 20:14 23:58 WBC 12.9 H D RBC 5.06 Hgb 11.6 L Hct 36.9 MCV 72.9 L MCH 22.9 L MCHC 31.4 L RDW 20.0 H Plt Count 352 MPV 7.0 L Neut % (Auto) 79.6 H Lymph % (Auto) 9.1 L [place] % (Auto) 9.7 Eos % (Auto) 0.8 Baso % (Auto) 0.8 Neut # (Auto) 10.3 H Lymph # (Auto) 1.2 [place] # (Auto) 1.2 H Eos # (Auto) 0.1 Baso # (Auto) 0.1 Neutrophils % (Manual) 79 H Lymphocytes % (Manual) 11 L Reactive Lymphs % 5 H Monocytes % (Manual) 4 Eosinophils % (Manual) 1 Platelet Estimate Normal Hypochromasia (manual) Slight Poikilocytosis (manual Moderate Anisocytosis (manual) Moderate Microcytosis (manual) Slight Ovalocytes Slight Sodium 133 Potassium 5.6 H Chloride 95 L Carbon Dioxide 23 Anion Gap 21 H BUN 90 H Creatinine 4.9 H Est GFR ( Amer) 15 Est GFR (Non-Af Amer) 12 POC Glucose (mg/dL) Random Glucose 101 Calcium 8.8 Total Bilirubin 0.7 AST 124 H D ALT 224 H D Alkaline Phosphatase 80 Troponin I 0.0770 Total Protein 6.6 Albumin 3.1 L Globulin 3.6 Albumin/Globulin Ratio 0.9 L Urine Color Yellow Urine Clarity Cloudy Urine pH 5.0 Ur Specific [place] 1.015 Urine Protein 100 Urine Glucose (UA) 50 Urine Ketones Negative Urine Blood Moderate Urine Nitrate Negative Urine Bilirubin Negative Urine Urobilinogen 0.2-1.0 Ur Leukocyte Esterase Large Urine RBC (Auto) 12 H Urine Microscopic WBC 48 H Ur Squamous Epith Cells < 1 Urine Bacteria Rare Hyaline Casts 3-5 H Random Vancomycin 01/24/18 01/24/18 01/24/18 00:45 05:14 11:29 WBC 13.9 H RBC 5.14 Hgb 11.7 L Hct 37.5 MCV 73.0 L MCH 22.9 L MCHC 31.3 L RDW 20.6 H Plt Count 315 MPV 7.2 Neut % (Auto) 79.2 H Lymph % (Auto) 8.9 L [place] % (Auto) 10.6 H Eos % (Auto) 0.7 Baso % (Auto) 0.6 Neut # (Auto) 11.0 H Lymph # (Auto) 1.2 [place] # (Auto) 1.5 H Eos # (Auto) 0.1 Baso # (Auto) 0.1 Neutrophils % (Manual) Lymphocytes % (Manual) Reactive Lymphs % Monocytes % (Manual) Eosinophils % (Manual) Platelet Estimate Hypochromasia (manual) Poikilocytosis (manual Anisocytosis (manual) Microcytosis (manual) Ovalocytes Sodium Potassium Chloride Carbon Dioxide Anion Gap BUN Creatinine Est GFR ( Amer) Est GFR (Non-Af Amer) POC Glucose (mg/dL) 88 Random Glucose Calcium Total Bilirubin AST ALT Alkaline Phosphatase Troponin I Total Protein Albumin Globulin Albumin/Globulin Ratio Urine Color Urine Clarity Urine pH Ur Specific [place] Urine Protein Urine Glucose (UA) Urine Ketones Urine Blood Urine Nitrate Urine Bilirubin Urine Urobilinogen Ur Leukocyte Esterase Urine RBC (Auto) Urine Microscopic WBC Ur Squamous Epith Cells Urine Bacteria Hyaline Casts Random Vancomycin 32.8 01/24/18 01/24/18 11:29 11:50 WBC RBC Hgb Hct MCV MCH MCHC RDW Plt Count MPV Neut % (Auto) Lymph % (Auto) [place] % (Auto) Eos % (Auto) Baso % (Auto) Neut # (Auto) Lymph # (Auto) [place] # (Auto) Eos # (Auto) Baso # (Auto) Neutrophils % (Manual) Lymphocytes % (Manual) Reactive Lymphs % Monocytes % (Manual) Eosinophils % (Manual) Platelet Estimate Hypochromasia (manual) Poikilocytosis (manual Anisocytosis (manual) Microcytosis (manual) Ovalocytes Sodium 138 Potassium 5.3 H Chloride 100 Carbon Dioxide 25 Anion Gap 18 BUN 88 H Creatinine 4.7 H Est GFR ( Amer) 15 Est GFR (Non-Af Amer) 13 POC Glucose (mg/dL) Random Glucose 97 Calcium 8.9 Total Bilirubin 0.7 AST 100 H ALT 193 H Alkaline Phosphatase 82 Troponin I Total Protein 6.7 Albumin 3.1 L Globulin 3.6 Albumin/Globulin Ratio 0.9 L Urine Color Urine Clarity Urine pH Ur Specific [place] Urine Protein Urine Glucose (UA) Urine Ketones Urine Blood Urine Nitrate Urine Bilirubin Urine Urobilinogen Ur Leukocyte Esterase Urine RBC (Auto) Urine Microscopic WBC Ur Squamous Epith Cells Urine Bacteria Hyaline Casts Random Vancomycin 27.9 Assessment & Plan (1) Osteomyelitis of ankle Status: Acute (2) Acute renal failure Status: Acute (3) Elevated LFTs Status: Acute (4) Bacteremia due to methicillin resistant Staphylococcus aureus Status: Acute - Assessment and Plan (Free Text) Assessment: d/c vanco start cubicin poor prognosis
[2018-01-24] MEDS ORDERED: Sod Polystyrene Sulf 15 gm/60 ml Susp PO ONE ×2 (12:32→13:16)
--- NOTE | 2018-01-24 17:17 | CARD ---
APPROVED REPORT EKG Measurement Heart [id number] <Conclusion> Sinus bradycardia Otherwise normal ECG
--- NOTE | 2018-01-24 18:08 | CP.PCM.CON ---
History of Present Illness - History of Present Illness History of Present Illness: Podiatry - Dr. Brooks Encinas seen and evaluated at bedside for right ankle wound. Patient states he has not followed up with his mass spec Dr. Vines after discharge, and has kept the same dressing on his R ankle since his hospital admission. Patient reports moderate pain at his wound. Further HPI unable to be obtained due to patient's disorientation and change in mental status. Review of Systems - Review of Systems All systems: reviewed and no additional remarkable complaints except (as per HPI ) Past Patient History - Past Medical History & Family History Past Medical History?: Yes - Past Social History Smoking Status: Never Smoked - CARDIAC Hx Cardiac Disorders: Yes Hx Hypercholesterolemia: Yes Hx Hypertension: Yes - PULMONARY Hx Respiratory Disorders: Yes Hx Asthma: No Hx Chronic Obstructive Pulmonary Disease (COPD): No Hx Emphysema: Yes - NEUROLOGICAL Hx Neurological Disorder: Yes Hx Seizures: Yes - HEENT Hx HEENT Problems: Yes - RENAL Hx Chronic Kidney Disease: Yes Hx Renal Failure: Yes - ENDOCRINE/METABOLIC Hx Endocrine Disorders: Yes Hx Diabetes Mellitus Type 2: Yes Hx Hypothyroidism: Yes - HEMATOLOGICAL/ONCOLOGICAL Hx Blood Disorders: No Hx AIDS: No Hx Human Immunodeficiency Virus (HIV): No - INTEGUMENTARY Hx Dermatological Problems: No - MUSCULOSKELETAL/RHEUMATOLOGICAL Hx Musculoskeletal Disorders: Yes Hx Back Pain: Yes Hx Falls: Yes Hx Fractures: Yes - GASTROINTESTINAL Hx Gastrointestinal Disorders: Yes Hx Gastroesophageal Reflux: Yes - GENITOURINARY/GYNECOLOGICAL Hx Genitourinary Disorders: Yes Hx Prostate Problems: Yes (bph) - PSYCHIATRIC Hx Psychophysiologic Disorder: No Hx Substance Use: No - SURGICAL HISTORY Hx Surgeries: Yes Hx Coronary Stent: Yes Hx Musculoskeletal Surgery: Yes (Back with fusion) - ANESTHESIA Hx Anesthesia: Yes Hx Anesthesia Reactions: No Hx Malignant Hyperthermia: No Meds Allergies/Adverse Reactions: Allergies Allergy/AdvReac Type Severity Reaction Status Date / Time Sulfa (Sulfonamide Allergy RASH Verified 02/14/16 09:33 Antibiotics) - Medications Medications: Current Medications Acetaminophen (Tylenol 325mg Tab) 650 mg PO Q4 PRN PRN Reason: Fever >100.4 F Al Hydrox/Mg Hydrox/Simethicone (Maalox Plus 30 Ml) 30 ml PO Q4H [facility] Last Admin: 01/24/18 14:09 Dose: Not Given Albuterol/Ipratropium (Duoneb 3 Mg/0.5 Mg (3 Ml) Ud) 3 ml INH RQ4 PRN PRN Reason: Shortness of Breath Alprazolam (Xanax) 1 mg PO Q8 PRN PRN Reason: Anxiety Aspirin (Ecotrin) 81 mg PO DAILY [facility] Last Admin: 01/24/18 10:11 Dose: 81 mg Buspirone HCl (Buspar) 30 mg PO BID [facility] Last Admin: 01/24/18 17:12 Dose: 30 mg Clopidogrel Bisulfate (Plavix) 75 mg PO DAILY [facility] Last Admin: 01/24/18 10:11 Dose: 75 mg Ergocalciferol (Drisdol 50,000 Intl Units Cap) 1 cap PO QWK [facility] Fenofibrate (Tricor) 145 mg PO DAILY [facility] Last Admin: 01/24/18 10:07 Dose: 145 mg Gabapentin (Neurontin) 600 mg PO BID [facility] Last Admin: 01/24/18 17:12 Dose: 600 mg Ceftriaxone Sodium 1 gm/ (Sodium Chloride) 100 mls @ 100 mls/hr IVPB DAILY [facility] PRN Reason: Protocol Last Admin: 01/24/18 10:04 Dose: 100 mls/hr Daptomycin 650 mg/ Sodium (Chloride) 100 mls @ 100 mls/hr IV Q48H [facility] PRN Reason: Protocol Stop: 01/29/18 12:31 Last Admin: 01/24/18 15:08 Dose: 100 mls/hr Lamotrigine (Lamictal) 50 mg PO BID [facility] Last Admin: 01/24/18 17:13 Dose: 50 mg Levothyroxine Sodium (Synthroid) 88 mcg PO DAILY@0630 [facility] Last Admin: 01/24/18 07:09 Dose: 88 mcg Magnesium Hydroxide (Milk Of Magnesia) 30 ml PO DAILY [facility] Last Admin: 01/24/18 10:13 Dose: Not Given Metoprolol Tartrate (Lopressor) 25 mg PO BID [facility] Last Admin: 01/24/18 17:14 Dose: 25 mg Montelukast Sodium (Singulair) 10 mg PO DAILY [facility] Last Admin: 01/24/18 10:09 Dose: 10 mg Oxycodone HCl (Oxycontin Extended Release Tab) 30 mg PO Q12 [facility] Stop: 01/27/18 21:01 Paroxetine HCl (Paxil) 60 mg PO DAILY [facility] Last Admin: 01/24/18 10:07 Dose: 60 mg Sennosides (Senokot Tab) 17.6 mg PO HS [facility] Sitagliptin Phosphate (Januvia) 100 mg PO DAILY [facility] Last Admin: 01/24/18 10:07 Dose: 100 mg Physical Exam - Constitutional Appears: Confused - Extremities Exam Additional comments: RLE focused physical exam: VASC: DP/PT pulses non-palpable secondary to edema. Temperature warm to warm from proximal to distal. Non-pitting edema noted to right ankle extending distally. DERM: Linear surgical incision noted to anteromedial ankle joint with sutures intact and midpoint left open with exposed tibia at 3 o'clock, remainder of open site noted to have a mixed fibrogranular base, minimal erythema periwound, serosanguinous drainage/synovial fluid able to be expressed; no malodor; no active bleeding. NEURO: Gross sensation diminished. ORTHO: Pain on palpation noted to right medial ankle joint extending distally into forefoot. Digital ROM present. Results - Vital Signs Recent Vital Signs: Last Vital Signs Temp 97.3 F L 01/24/18 15:35 Pulse 64 01/24/18 17:14 Resp 20 01/24/18 15:35 BP 144/51 L 01/24/18 17:14 Pulse Ox 95 01/24/18 15:35 - Labs Result Diagrams: 01/25/18 06:05 01/25/18 06:05 Labs: Laboratory Results - last 24 hr 01/23/18 01/23/18 01/23/18 20:14 20:14 23:58 WBC 12.9 H D RBC 5.06 Hgb 11.6 L Hct 36.9 MCV 72.9 L MCH 22.9 L MCHC 31.4 L RDW 20.0 H Plt Count 352 MPV 7.0 L Neut % (Auto) 79.6 H Lymph % (Auto) 9.1 L [place] % (Auto) 9.7 Eos % (Auto) 0.8 Baso % (Auto) 0.8 Neut # (Auto) 10.3 H Lymph # (Auto) 1.2 [place] # (Auto) 1.2 H Eos # (Auto) 0.1 Baso # (Auto) 0.1 Neutrophils % (Manual) 79 H Lymphocytes % (Manual) 11 L Reactive Lymphs % 5 H Monocytes % (Manual) 4 Eosinophils % (Manual) 1 Platelet Estimate Normal Hypochromasia (manual) Slight Poikilocytosis (manual Moderate Anisocytosis (manual) Moderate Microcytosis (manual) Slight Ovalocytes Slight Sodium 133 Potassium 5.6 H Chloride 95 L Carbon Dioxide 23 Anion Gap 21 H BUN 90 H Creatinine 4.9 H Est GFR ( Amer) 15 Est GFR (Non-Af Amer) 12 POC Glucose (mg/dL) Random Glucose 101 Calcium 8.8 Phosphorus Total Bilirubin 0.7 AST 124 H D ALT 224 H D Alkaline Phosphatase 80 Troponin I 0.0770 Total Protein 6.6 Albumin 3.1 L Globulin 3.6 Albumin/Globulin Ratio 0.9 L Urine Color Yellow Urine Clarity Cloudy Urine pH 5.0 Ur Specific Asher 1.015 Urine Protein 100 Urine Glucose (UA) 50 Urine Ketones Negative Urine Blood Moderate Urine Nitrate Negative Urine Bilirubin Negative Urine Urobilinogen 0.2-1.0 Ur Leukocyte Esterase Large Urine RBC (Auto) 12 H Urine Microscopic WBC 48 H Ur Squamous Epith Cells < 1 Urine Bacteria Rare Hyaline Casts 3-5 H Random Vancomycin 01/24/18 01/24/18 01/24/18 00:45 05:14 11:29 WBC 13.9 H RBC 5.14 Hgb 11.7 L Hct 37.5 MCV 73.0 L MCH 22.9 L MCHC 31.3 L RDW 20.6 H Plt Count 315 MPV 7.2 Neut % (Auto) 79.2 H Lymph % (Auto) 8.9 L [place] % (Auto) 10.6 H Eos % (Auto) 0.7 Baso % (Auto) 0.6 Neut # (Auto) 11.0 H Lymph # (Auto) 1.2 [place] # (Auto) 1.5 H Eos # (Auto) 0.1 Baso # (Auto) 0.1 Neutrophils % (Manual) Lymphocytes % (Manual) Reactive Lymphs % Monocytes % (Manual) Eosinophils % (Manual) Platelet Estimate Hypochromasia (manual) Poikilocytosis (manual Anisocytosis (manual) Microcytosis (manual) Ovalocytes Sodium Potassium Chloride Carbon Dioxide Anion Gap BUN Creatinine Est GFR ( Amer) Est GFR (Non-Af Amer) POC Glucose (mg/dL) 88 Random Glucose Calcium Phosphorus Total Bilirubin AST ALT Alkaline Phosphatase Troponin I Total Protein Albumin Globulin Albumin/Globulin Ratio Urine Color Urine Clarity Urine pH Ur Specific Asher Urine Protein Urine Glucose (UA) Urine Ketones Urine Blood Urine Nitrate Urine Bilirubin Urine Urobilinogen Ur Leukocyte Esterase Urine RBC (Auto) Urine Microscopic WBC Ur Squamous Epith Cells Urine Bacteria Hyaline Casts Random Vancomycin 32.8 01/24/18 01/24/18 01/24/18 11:29 11:50 11:50 WBC RBC Hgb Hct MCV MCH MCHC RDW Plt Count MPV Neut % (Auto) Lymph % (Auto) [place] % (Auto) Eos % (Auto) Baso % (Auto) Neut # (Auto) Lymph # (Auto) [place] # (Auto) Eos # (Auto) Baso # (Auto) Neutrophils % (Manual) Lymphocytes % (Manual) Reactive Lymphs % Monocytes % (Manual) Eosinophils % (Manual) Platelet Estimate Hypochromasia (manual) Poikilocytosis (manual Anisocytosis (manual) Microcytosis (manual) Ovalocytes Sodium 138 Potassium 5.3 H Chloride 100 Carbon Dioxide 25 Anion Gap 18 BUN 88 H Creatinine 4.7 H Est GFR ( Amer) 15 Est GFR (Non-Af Amer) 13 POC Glucose (mg/dL) Random Glucose 97 Calcium 8.9 Phosphorus 8.4 H Total Bilirubin 0.7 AST 100 H ALT 193 H Alkaline Phosphatase 82 Troponin I Total Protein 6.7 Albumin 3.1 L Globulin 3.6 Albumin/Globulin Ratio 0.9 L Urine Color Urine Clarity Urine pH Ur Specific Asher Urine Protein Urine Glucose (UA) Urine Ketones Urine Blood Urine Nitrate Urine Bilirubin Urine Urobilinogen Ur Leukocyte Esterase Urine RBC (Auto) Urine Microscopic WBC Ur Squamous Epith Cells Urine Bacteria Hyaline Casts Random Vancomycin 27.9 01/24/18 15:57 WBC RBC Hgb Hct MCV MCH MCHC RDW Plt Count MPV Neut % (Auto) Lymph % (Auto) [place] % (Auto) Eos % (Auto) Baso % (Auto) Neut # (Auto) Lymph # (Auto) [place] # (Auto) Eos # (Auto) Baso # (Auto) Neutrophils % (Manual) Lymphocytes % (Manual) Reactive Lymphs % Monocytes % (Manual) Eosinophils % (Manual) Platelet Estimate Hypochromasia (manual) Poikilocytosis (manual Anisocytosis (manual) Microcytosis (manual) Ovalocytes Sodium Potassium Chloride Carbon Dioxide Anion Gap BUN Creatinine Est GFR ( Amer) Est GFR (Non-Af Amer) POC Glucose (mg/dL) 115 H Random Glucose Calcium Phosphorus Total Bilirubin AST ALT Alkaline Phosphatase Troponin I Total Protein Albumin Globulin Albumin/Globulin Ratio Urine Color Urine Clarity Urine pH Ur Specific Asher Urine Protein Urine Glucose (UA) Urine Ketones Urine Blood Urine Nitrate Urine Bilirubin Urine Urobilinogen Ur Leukocyte Esterase Urine RBC (Auto) Urine Microscopic WBC Ur Squamous Epith Cells Urine Bacteria Hyaline Casts Random Vancomycin Assessment & Plan - Assessment and Plan (Free Text) Assessment: 62M with surgical wound right ankle 13 days s/p right ankle I&D Plan: Patient seen and evaluated Discussed with attending, Dr. Guy Afebrile, WBC 13.9 R ankle wound culture obtained Continue abx per ID - d/c vancomycin; continue Ceftriaxone, Daptomycin Wound cleansed with sterile saline and dressed with saline soaked gauze + DSD Pain control per medicine Recommend surgical wound debridement with woundVAC application once medically stabilized Podiatry will continue to follow
[2018-01-24 19:35] LABS: CREATININE, RANDOM URINE 127.1 mg/dL
[2018-01-24] MEDS: oxyCODONE 10 mg ER Tab (oxyCONTIN) PO SCH (21:27)
[2018-01-25] MEDS: Alum-Mag Hydrox-Simethicone Susp (30 mL) PO SCH ×5 (03:15→21:31)
[2018-01-25] MEDS: Levothyroxine 88 MCG TAB PO SCH (05:37)
[2018-01-25 06:40] LABS: BASO # 0.1 K/uL (0.0-0.2); BASO % 0.7 % (0.0-2.0); EOS # 0.1 K/uL (0.0-0.7); EOS % 0.8 % (0.0-4.0); HEMOGLOBIN 10.5 g/dL (12.0-18.0); LYMPH # 1.3 K/uL (1.0-4.3); LYMPH % 13.2 % (20.0-40.0); MEAN CELL VOLUME 73.7 fl (80.0-94.0); MEAN CORPUSCULAR HEMOGLOBIN 23.4 pg (27.0-31.0); MEAN CORPUSCULAR HGB CONC 31.8 g/dL (33.0-37.0); MONO % 10.4 % (0.0-10.0); NEUT # 7.4 K/uL (1.8-7.0); NEUT % 74.9 % (50.0-75.0); RBC 4.49 Mil/uL (4.40-5.90); RED CELL DISTRIBUTION WIDTH 20.3 % (11.5-14.5); WHITE BLOOD COUNT 9.8 K/uL (4.8-10.8)
[2018-01-25 06:49] LABS: ALB/GLOB RATIO 0.8 (1.0-2.1); ALBUMIN 2.7 g/dL (3.5-5.0); CALCIUM 8.4 mg/dL (8.4-10.2)
--- NOTE | 2018-01-25 07:15 | CP.PCM.PN ---
Subjective - Date & Time of Evaluation Date of Evaluation: 01/25/18 Time of Evaluation: 07:15 - Subjective Subjective: pt doing well, had periods of sob last night[place] [id number]. cardio consult ordered. at present no f/c, n/v/d. no cp, dyspnea. lungs clear. Objective - Vital Signs/Intake and Output Vital Signs (last 24 hours): Temp Pulse Resp BP Pulse Ox 97 F L 54 L 20 128/77 98 01/25/18 05:23 01/25/18 05:23 01/25/18 05:23 01/25/18 05:23 01/25/18 05:23 Intake and Output: 01/25/18 01/25/18 06:59 18:59 Intake Total 300 Output Total 750 Balance -450 - Medications Medications: Current Medications Acetaminophen (Tylenol 325mg Tab) 650 mg PO Q4 PRN PRN Reason: Fever >100.4 F Last Admin: 01/24/18 19:03 Dose: 650 mg Al Hydrox/Mg Hydrox/Simethicone (Maalox Plus 30 Ml) 30 ml PO Q4H [facility] Last Admin: 01/25/18 03:15 Dose: Not Given Albuterol/Ipratropium (Duoneb 3 Mg/0.5 Mg (3 Ml) Ud) 3 ml INH RQ4 PRN PRN Reason: Shortness of Breath Alprazolam (Xanax) 1 mg PO Q8 PRN PRN Reason: Anxiety Last Admin: 01/24/18 22:51 Dose: 1 mg Aspirin (Ecotrin) 81 mg PO DAILY [facility] Last Admin: 01/24/18 10:11 Dose: 81 mg Buspirone HCl (Buspar) 30 mg PO BID [facility] Last Admin: 01/24/18 17:12 Dose: 30 mg Clopidogrel Bisulfate (Plavix) 75 mg PO DAILY [facility] Last Admin: 01/24/18 10:11 Dose: 75 mg Ergocalciferol (Drisdol 50,000 Intl Units Cap) 1 cap PO QWK [facility] Fenofibrate (Tricor) 145 mg PO DAILY [facility] Last Admin: 01/24/18 10:07 Dose: 145 mg Gabapentin (Neurontin) 600 mg PO BID [facility] Last Admin: 01/24/18 17:12 Dose: 600 mg Ceftriaxone Sodium 1 gm/ (Sodium Chloride) 100 mls @ 100 mls/hr IVPB DAILY [facility] PRN Reason: Protocol Last Admin: 01/24/18 10:04 Dose: 100 mls/hr Daptomycin 650 mg/ Sodium (Chloride) 100 mls @ 100 mls/hr IV Q48H [facility] PRN Reason: Protocol Stop: 01/29/18 12:31 Last Admin: 01/24/18 15:08 Dose: 100 mls/hr Lamotrigine (Lamictal) 50 mg PO BID [facility] Last Admin: 01/24/18 17:13 Dose: 50 mg Levothyroxine Sodium (Synthroid) 88 mcg PO DAILY@0630 [facility] Last Admin: 01/25/18 05:37 Dose: 88 mcg Magnesium Hydroxide (Milk Of Magnesia) 30 ml PO DAILY [facility] Last Admin: 01/24/18 10:13 Dose: Not Given Metoprolol Tartrate (Lopressor) 25 mg PO BID [facility] Last Admin: 01/24/18 17:14 Dose: 25 mg Montelukast Sodium (Singulair) 10 mg PO DAILY [facility] Last Admin: 01/24/18 10:09 Dose: 10 mg Oxycodone HCl (Oxycontin Extended Release Tab) 30 mg PO Q12 [facility] Stop: 01/27/18 21:01 Last Admin: 01/24/18 21:27 Dose: 30 mg Paroxetine HCl (Paxil) 60 mg PO DAILY [facility] Last Admin: 01/24/18 10:07 Dose: 60 mg Sennosides (Senokot Tab) 17.6 mg PO HS [facility] Last Admin: 01/24/18 21:29 Dose: 17.6 mg Sitagliptin Phosphate (Januvia) 100 mg PO DAILY [facility] Last Admin: 01/24/18 10:07 Dose: 100 mg - Labs Labs: 01/25/18 06:05 01/25/18 06:05 - Constitutional Appears: Well, Non-toxic, No Acute Distress - Head Exam Head Exam: ATRAUMATIC, NORMAL INSPECTION, NORMOCEPHALIC - Eye Exam Eye Exam: EOMI, Normal appearance, PERRL Pupil Exam: NORMAL ACCOMODATION, PERRL - ENT Exam ENT Exam: Mucous Membranes Moist, Normal Exam - Neck Exam Neck Exam: Full ROM, Normal Inspection. absent: Lymphadenopathy - Respiratory Exam Respiratory Exam: Clear to Ausculation Bilateral, NORMAL BREATHING PATTERN - Cardiovascular Exam Cardiovascular Exam: REGULAR RHYTHM, RRR, +S1, +S2. absent: Murmur - GI/Abdominal Exam GI & Abdominal Exam: Soft, Normal Bowel Sounds. absent: Tenderness - Extremities Exam Extremities Exam: Full ROM, Normal Capillary Refill, Normal Inspection. absent : Joint Swelling, Pedal Edema - Back Exam Back Exam: NORMAL INSPECTION - Neurological Exam Neurological Exam: Alert, Awake, CN II-XII Intact, Normal Gait, Oriented x3 - Psychiatric Exam Psychiatric exam: Normal Affect, Normal Mood - Skin Skin Exam: Dry, Intact, Normal Color, Warm Assessment and Plan (1) Acute renal failure Status: Acute (2) Elevated LFTs Status: Acute (3) Bacteremia due to methicillin resistant Staphylococcus aureus Status: Acute (4) Chronic pain Status: Acute (5) DVT prophylaxis Status: Acute - Assessment and Plan (Free Text) Assessment: (1) Acute renal failure Assessment and Plan: nephro ivf monitor bun/cr-stable urine protein noted Status: Acute (2) Elevated LFTs Assessment and Plan: gi ivf monitor lft trending down Status: Acute (3) Bacteremia due to methicillin resistant Staphylococcus aureus Assessment and Plan: vanco dc, started cubin as per ID yesterday podiatry consult as original source r foot/ankle Status: Acute (4) Chronic pain Assessment and Plan: cont home meds Status: Acute (5) DVT prophylaxis Assessment and Plan: scd and ae hose asa/plavix Status: Acute 6-chf w/ h/o cad-cont meds, cardio consult, echo,dc ivf, cont nasal o2, HOB 30 degrees
--- NOTE | 2018-01-25 07:33 | CP.PCM.PN ---
Subjective - Date & Time of Evaluation Date of Evaluation: 01/25/18 Time of Evaluation: 07:33 - Subjective Subjective: Podiatry - Dr. Guy 62M seen and evaluated for right ankle wound. Patient is more awake and alert today; states he was not able to sleep well last night due to brief periods of SOB and abdominal pain. At present, patient reports decreased pain in his right ankle. Dressing remains clean/dry/intact with no strikethrough noted. denies N/V /F/D/C. Objective - Vital Signs/Intake and Output Vital Signs (last 24 hours): Temp Pulse Resp BP Pulse Ox 97 F L 54 L 20 128/77 98 01/25/18 05:23 01/25/18 05:23 01/25/18 05:23 01/25/18 05:23 01/25/18 05:23 Intake and Output: 01/25/18 01/25/18 06:59 18:59 Intake Total 300 Output Total 750 Balance -450 - Medications Medications: Current Medications Acetaminophen (Tylenol 325mg Tab) 650 mg PO Q4 PRN PRN Reason: Fever >100.4 F Last Admin: 01/24/18 19:03 Dose: 650 mg Al Hydrox/Mg Hydrox/Simethicone (Maalox Plus 30 Ml) 30 ml PO Q4H [facility] Last Admin: 01/25/18 03:15 Dose: Not Given Albuterol/Ipratropium (Duoneb 3 Mg/0.5 Mg (3 Ml) Ud) 3 ml INH RQ4 PRN PRN Reason: Shortness of Breath Alprazolam (Xanax) 1 mg PO Q8 PRN PRN Reason: Anxiety Last Admin: 01/24/18 22:51 Dose: 1 mg Aspirin (Ecotrin) 81 mg PO DAILY [facility] Last Admin: 01/24/18 10:11 Dose: 81 mg Buspirone HCl (Buspar) 30 mg PO BID [facility] Last Admin: 01/24/18 17:12 Dose: 30 mg Clopidogrel Bisulfate (Plavix) 75 mg PO DAILY [facility] Last Admin: 01/24/18 10:11 Dose: 75 mg Ergocalciferol (Drisdol 50,000 Intl Units Cap) 1 cap PO QWK [facility] Fenofibrate (Tricor) 145 mg PO DAILY [facility] Last Admin: 01/24/18 10:07 Dose: 145 mg Gabapentin (Neurontin) 600 mg PO BID [facility] Last Admin: 01/24/18 17:12 Dose: 600 mg Ceftriaxone Sodium 1 gm/ (Sodium Chloride) 100 mls @ 100 mls/hr IVPB DAILY [facility] PRN Reason: Protocol Last Admin: 01/24/18 10:04 Dose: 100 mls/hr Daptomycin 650 mg/ Sodium (Chloride) 100 mls @ 100 mls/hr IV Q48H [facility] PRN Reason: Protocol Stop: 01/29/18 12:31 Last Admin: 01/24/18 15:08 Dose: 100 mls/hr Lamotrigine (Lamictal) 50 mg PO BID [facility] Last Admin: 01/24/18 17:13 Dose: 50 mg Levothyroxine Sodium (Synthroid) 88 mcg PO DAILY@0630 [facility] Last Admin: 01/25/18 05:37 Dose: 88 mcg Magnesium Hydroxide (Milk Of Magnesia) 30 ml PO DAILY [facility] Last Admin: 01/24/18 10:13 Dose: Not Given Metoprolol Tartrate (Lopressor) 25 mg PO BID [facility] Last Admin: 01/24/18 17:14 Dose: 25 mg Montelukast Sodium (Singulair) 10 mg PO DAILY [facility] Last Admin: 01/24/18 10:09 Dose: 10 mg Oxycodone HCl (Oxycontin Extended Release Tab) 30 mg PO Q12 [facility] Stop: 01/27/18 21:01 Last Admin: 01/24/18 21:27 Dose: 30 mg Paroxetine HCl (Paxil) 60 mg PO DAILY [facility] Last Admin: 01/24/18 10:07 Dose: 60 mg Sennosides (Senokot Tab) 17.6 mg PO HS [facility] Last Admin: 01/24/18 21:29 Dose: 17.6 mg Sitagliptin Phosphate (Januvia) 100 mg PO DAILY [facility] Last Admin: 01/24/18 10:07 Dose: 100 mg - Labs Labs: 01/25/18 06:05 01/25/18 06:05 - Constitutional Appears: Well, Non-toxic, No Acute Distress, Agitated - Extremities Exam Additional comments: RLE focused physical exam: VASC: DP/PT pulses non-palpable secondary to edema. Temperature warm to warm from proximal to distal. Non-pitting edema noted to right ankle extending distally. DERM: Linear surgical incision noted to anteromedial ankle joint with sutures intact and midpoint left open with exposed tibia at 3 o'clock, remainder of open site noted to have a 80% fibrous and 20% granular base, minimal erythema periwound, serosanguinous drainage/synovial fluid able to be expressed; no malodor; no active bleeding. NEURO: Gross sensation diminished. ORTHO: Pain on palpation noted to right medial ankle joint extending distally into forefoot. Digital ROM present. - Neurological Exam Neurological Exam: Alert, Awake, Oriented x3 - Psychiatric Exam Psychiatric exam: Agitated Assessment and Plan - Assessment and Plan (Free Text) Assessment: 62M with surgical wound right ankle 13 days s/p right ankle I&D (DOS 01/12/18) Plan: Patient seen and evaluated Discussed with attending, Dr. Guy Afebrile, WBC 9.8 R ankle wound culture pending Continue abx per ID - Ceftriaxone, Daptomycin Wound cleansed with sterile saline and dressed with saline soaked gauze + DSD -Santyl ordered for QD dressing changes Multipodus boot to be worn RLE at all times while in bed Pain control per medicine Recommend surgical wound debridement with woundVAC application once medically stabilized Podiatry will continue to follow
[2018-01-25] MEDS: oxyCODONE 10 mg ER Tab (oxyCONTIN) PO SCH ×2 (08:38→21:35)
[2018-01-25] MEDS: Magnesium Hydroxide Susp 30 ml UD PO SCH (08:43)
--- NOTE | 2018-01-25 10:42 | CP.PCM.PN ---
Subjective - Date & Time of Evaluation Date of Evaluation: 01/25/18 Time of Evaluation: 10:37 - Subjective Subjective: Patient M bed history left. He is confused. Patient M bed no nausea or vomiting Urine output not reported Objective - Vital Signs/Intake and Output Vital Signs (last 24 hours): Temp Pulse Resp BP Pulse Ox 97.5 F L 65 18 159/85 H 97 01/25/18 07:47 01/25/18 08:41 01/25/18 07:47 01/25/18 08:41 01/25/18 07:47 Intake and Output: 01/25/18 01/25/18 06:59 18:59 Intake Total 300 Output Total 750 Balance -450 - Medications Medications: Current Medications Acetaminophen (Tylenol 325mg Tab) 650 mg PO Q4 PRN PRN Reason: Fever >100.4 F Last Admin: 01/24/18 19:03 Dose: 650 mg Al Hydrox/Mg Hydrox/Simethicone (Maalox Plus 30 Ml) [address] [facility] Last Admin: 01/25/18 10:17 Dose: 30 ml Albuterol/Ipratropium (Duoneb 3 Mg/0.5 Mg (3 Ml) Ud) 3 ml INH RQ4 PRN PRN Reason: Shortness of Breath Alprazolam (Xanax) 1 mg PO Q8 PRN PRN Reason: Anxiety Last Admin: 01/24/18 22:51 Dose: 1 mg Aspirin (Ecotrin) [address] [facility] Last Admin: 01/25/18 08:41 Dose: 81 mg Buspirone HCl (Buspar) [address] [facility] Last Admin: 01/25/18 08:42 Dose: 30 mg Clopidogrel Bisulfate (Plavix) [address] [facility] Last Admin: 01/25/18 08:41 Dose: 75 mg Collagenase (Santyl) [address] [facility] Ergocalciferol (Drisdol 50,000 Intl Units Cap) [address] [facility] Fenofibrate (Tricor) [address] [facility] Last Admin: 01/25/18 08:41 Dose: 145 mg Gabapentin (Neurontin) [address] [facility] Last Admin: 01/25/18 08:41 Dose: 600 mg Ceftriaxone Sodium 1 gm/ (Sodium Chloride) 100 mls @ 100 mls/hr IVPB DAILY [facility] PRN Reason: Protocol Last Admin: 01/25/18 08:42 Dose: 100 mls/hr Daptomycin 650 mg/ Sodium (Chloride) 100 mls @ 100 mls/hr IV Q48H [facility] PRN Reason: Protocol Stop: 01/29/18 12:31 Last Admin: 01/24/18 15:08 Dose: 100 mls/hr Lamotrigine (Lamictal) [address] [facility] Last Admin: 01/25/18 08:39 Dose: 50 mg Levothyroxine Sodium (Synthroid) 88 mcg PO DAILY@0630 [facility] Last Admin: 01/25/18 05:37 Dose: 88 mcg Magnesium Hydroxide (Milk Of Magnesia) [address] [facility] Last Admin: 01/25/18 08:43 Dose: Not Given Metoprolol Tartrate (Lopressor) [address] [facility] Last Admin: 01/25/18 08:41 Dose: 25 mg Montelukast Sodium (Singulair) [address] [facility] Last Admin: 01/25/18 08:41 Dose: 10 mg Oxycodone HCl (Oxycontin Extended Release Tab) [address] [facility] Stop: 01/27/18 21:01 Last Admin: 01/25/18 08:38 Dose: 30 mg Paroxetine HCl (Paxil) [address] [facility] Last Admin: 01/25/18 08:40 Dose: 60 mg Sennosides (Senokot Tab) 17.[address] [facility] Last Admin: 01/24/18 21:29 Dose: 17.6 mg Sitagliptin Phosphate (Januvia) [address] [facility] Last Admin: 01/25/18 08:41 Dose: 100 mg - Labs Labs: 01/25/18 06:05 01/25/18 06:05 - Constitutional Appears: No Acute Distress - ENT Exam ENT Exam: Mucous Membranes Moist - Neck Exam Neck Exam: absent: Lymphadenopathy - Respiratory Exam Respiratory Exam: Rales, NORMAL BREATHING PATTERN - Cardiovascular Exam Cardiovascular Exam: absent: Gallop, Rubs - GI/Abdominal Exam GI & Abdominal Exam: Soft, Normal Bowel Sounds - Extremities Exam Extremities Exam: absent: Calf Tenderness - Back Exam Back Exam: absent: CVA tenderness (L), CVA tenderness (R) - Neurological Exam Neurological Exam: Altered - Psychiatric Exam Psychiatric exam: Flat Affect - Skin Skin Exam: absent: Cyanosis Assessment and Plan (1) Acute renal failure Assessment & Plan: Assessment and Plan: Patient appears to have acute kidney injury his serum creatinine was normal on January 15 when he left the hospital. This is consistent with acute kidney failure/ acute kidney injury probably related to antibiotics most likely? vancomycin level 31+. Vancomycin discontinued kidney function improving serum creatinine came down 4.0 Lisinopril and ibuprofen discontinued right ankle infection hyperkalemia corrected Abnormal liver function test hyperphosphatemia serum phosphorus 8 add binders Status: Acute (2) Elevated LFTs Status: Acute (3) Cellulitis Status: Acute
--- NOTE | 2018-01-25 12:45 | CP.PCM.CON ---
History of Present Illness - History of Present Illness History of Present Illness: I was asked to evaluate patient by Dr Rodriguez and Dr Swo for volume overload. Patient is a 82 year old male with PMH HTN, CAD, s/p PCI, hypercholesterolemia who presents for [facility] with dyspnea. The patient had a previous ankle fracture and required surgery. He wa in rehab and was noted to become more dyspneic. He had received IV fluids. He was also found to be in acute renal failure. Por BNP was elevated. Consultation was requested. Review of Systems - Constitutional Constitutional: absent: As Per HPI, Anorexia, Chills, Daytime Sleepiness, Excessive Sweating, Fatigue, Fever, Frequent Falls, Headache, Increased Appetite , Lethargy, Malaise, Night Sweats, Snoring, Sleep Apnea, Weight Gain, Weight Loss, Weakness, Other - EENT Eyes: absent: As Per HPI, Blind Spots, Blurred Vision, Change in Vision, Decreased Night Vision, Diplopia, Discharge, Dry Eye, Exophthalmos, Floaters, Irritation, Itchy Eyes, Loss of Peripheral Vision, Pain, Photophobia, Requires Corrective Lenses, Sees Flashes, Spots in Vision, Tunnel Vision, Other Visual Disturbances, Loss of Vision, Other Ears: absent: As Per HPI, Decreased Hearing, Ear Discharge, Ear Pain, Tinnitus, Abnormal Hearing, Disequilibrium, Dizziness, Other Nose/Mouth/Throat: absent: As Per HPI, Epistaxis, Nasal Congestion, Nasal Discharge, Nasal Obstruction, Nasal Trauma, Nose Pain, Post Nasal Drip, Sinus Pain, Sinus Pressure, Bleeding Gums, Change in Voice, Dental Pain, Dry Mouth, Dysphagia, Halitosis, Hoarsness, Lip Swelling, Mouth Lesions, Mouth Pain, Odynophagia, Sore Throat, Throat Swelling, Tongue Swelling, Facial Pain, Neck Pain, Neck Mass, Other - Cardiovascular Cardiovascular: Dyspnea - Respiratory Respiratory: Dyspnea - Gastrointestinal Gastrointestinal: absent: As Per HPI, Abdominal Pain, Belching, Bloating, Change in Bowel Habits, Change in Stool Character, Coffee Ground Emesis, Constipation, Cramping, Diarrhea, Dyspepsia, Dysphagia, Early Satiety, Excessive Flatus, Fecal Incontinence, Heartburn, Hematemesis, Hematochezia, Loose Stools, Melena, Nausea, Odynophagia, Temesmus, Vomiting, Other - Genitourinary Genitourinary: absent: As Per HPI, Change in Urinary Stream, Difficulty Urinating, Dysuria, Flank Pain, Hematuria, Pyuria, Nocturia, Urinary Incontinence, Urinary Frequency, Urinary Hesitance, Urinary Urgency, Voiding Freq/Small Amts, Freq UTI, Hx Renal/Bladder Calculi, Hx /Renal Surgery, Bladder Distension, Other - Musculoskeletal Musculoskeletal: absent: As Per HPI, Abnormal Gait, Arthralgias, Atrophy, Back Pain, Deformity, Joint Swelling, Limited Range of Motion, Loss of Height, Muscle Cramps, Muscle Weakness, Myalgias, Neck Pain, Numbness, Radiating Pain into Limb, Stiffness, Tingling, Other - Integumentary Integumentary: absent: As Per HPI, Acne, Alopecia, Bleeding Lesions, Change in Hair, Change in Nails, Change in Pigmentation, Changing Lesions, Dry Skin, Erythema, Furuncle, Hirsutism, Lesions, New Lesions, Non-Healing Lesions, Photosensitivity, Pruritus, Rash, Skin Pain, Skin Ulcer, Sores, Striae, Swelling , Unusual Bruising, Wounds, Jaundice, Other - Neurological Neurological: absent: As Per HPI, Abnormal Gait, Abnormal Hearing, Abnormal Movements, Abnormal Speech, Behavioral Changes, Burning Sensations, Confusion, Convulsions, Disequilibrium, Dizziness, Numbness, Focal Weakness, Frequent Falls , Headaches, Lack of Coordination, Loss of Vision, Memory Loss, Paresthesias, Radicular Pain, Restless Legs, Sensory Deficit, Syncope, Tingling, Tremor, Vertigo, Weakness, Other Visual Disturbances, Other - Psychiatric Psychiatric: absent: As Per HPI, Abnormal Sleep Pattern, Anhedonia, Anxiety, Auditory Hallucinations, Behavioral Changes, Change in Appetite, Change in Libido, Confusion, Depression, Difficulty Concentrating, Hallucinations, Homicidal Ideation, Hopelessness, Irritability, Memory Loss, Mood Swings, Panic Attacks, Paranoia, Suicidal Ideation, Visual Hallucinations, Tactile Hallucinations, Other - Endocrine Endocrine: absent: As Per HPI, Change in Body Appearance, Change in Libido, Cold Intolorance, Deepening of Voice, Excessive Sweating, Fatigue, Flushing, Heat Intolorance, Increase in Ring/Shoe/Hat Size, Palpitations, Polydipsia, Polyphagia, Polyuria, Other - Hematologic/Lymphatic Hematologic: absent: As Per HPI, Easy Bleeding, Easy Bruising, Lymphadenopathy, Other Past Patient History - Past Medical History & Family History Past Medical History?: Yes - Past Social History Smoking Status: Never Smoked - CARDIAC Hx Cardiac Disorders: Yes Hx Hypercholesterolemia: Yes Hx Hypertension: Yes - PULMONARY Hx Respiratory Disorders: Yes Hx Asthma: No Hx Chronic Obstructive Pulmonary Disease (COPD): No Hx Emphysema: Yes - NEUROLOGICAL Hx Neurological Disorder: Yes Hx Seizures: Yes - HEENT Hx HEENT Problems: Yes - RENAL Hx Chronic Kidney Disease: Yes Hx Renal Failure: Yes - ENDOCRINE/METABOLIC Hx Endocrine Disorders: Yes Hx Diabetes Mellitus Type 2: Yes Hx Hypothyroidism: Yes - HEMATOLOGICAL/ONCOLOGICAL Hx Blood Disorders: No Hx AIDS: No Hx Human Immunodeficiency Virus (HIV): No - INTEGUMENTARY Hx Dermatological Problems: No - MUSCULOSKELETAL/RHEUMATOLOGICAL Hx Musculoskeletal Disorders: Yes Hx Back Pain: Yes Hx Falls: Yes Hx Fractures: Yes - GASTROINTESTINAL Hx Gastrointestinal Disorders: Yes Hx Gastroesophageal Reflux: Yes - GENITOURINARY/GYNECOLOGICAL Hx Genitourinary Disorders: Yes Hx Prostate Problems: Yes (bph) - PSYCHIATRIC Hx Psychophysiologic Disorder: No Hx Substance Use: No - SURGICAL HISTORY Hx Surgeries: Yes Hx Coronary Stent: Yes Hx Musculoskeletal Surgery: Yes (Back with fusion) - ANESTHESIA Hx Anesthesia: Yes Hx Anesthesia Reactions: No Hx Malignant Hyperthermia: No Meds Allergies/Adverse Reactions: Allergies Allergy/AdvReac Type Severity Reaction Status Date / Time Sulfa (Sulfonamide Allergy RASH Verified 02/14/16 09:33 Antibiotics) - Medications Medications: Current Medications Acetaminophen (Tylenol 325mg Tab) 650 mg PO Q4 PRN PRN Reason: Fever >100.4 F Last Admin: 01/24/18 19:03 Dose: 650 mg Al Hydrox/Mg Hydrox/Simethicone (Maalox Plus 30 Ml) 30 ml PO Q4H [facility] Last Admin: 01/25/18 10:17 Dose: 30 ml Albuterol/Ipratropium (Duoneb 3 Mg/0.5 Mg (3 Ml) Ud) 3 ml INH RQ4 PRN PRN Reason: Shortness of Breath Alprazolam (Xanax) 1 mg PO Q8 PRN PRN Reason: Anxiety Last Admin: 01/24/18 22:51 Dose: 1 mg Aspirin (Ecotrin) 81 mg PO DAILY [facility] Last Admin: 01/25/18 08:41 Dose: 81 mg Buspirone HCl (Buspar) 30 mg PO BID [facility] Last Admin: 01/25/18 08:42 Dose: 30 mg Calcium Acetate (Phoslo) 1,334 mg PO TID [facility] Clopidogrel Bisulfate (Plavix) 75 mg PO DAILY [facility] Last Admin: 01/25/18 08:41 Dose: 75 mg Collagenase (Santyl) 1 applic TOP DAILY [facility] Ergocalciferol (Drisdol 50,000 Intl Units Cap) 1 cap PO QWK [facility] Fenofibrate (Tricor) 145 mg PO DAILY [facility] Last Admin: 01/25/18 08:41 Dose: 145 mg Gabapentin (Neurontin) 600 mg PO BID [facility] Last Admin: 01/25/18 08:41 Dose: 600 mg Ceftriaxone Sodium 1 gm/ (Sodium Chloride) 100 mls @ 100 mls/hr IVPB DAILY [facility] PRN Reason: Protocol Last Admin: 01/25/18 08:42 Dose: 100 mls/hr Daptomycin 650 mg/ Sodium (Chloride) 100 mls @ 100 mls/hr IV Q48H [facility] PRN Reason: Protocol Stop: 01/29/18 12:31 Last Admin: 01/24/18 15:08 Dose: 100 mls/hr Lamotrigine (Lamictal) 50 mg PO BID [facility] Last Admin: 01/25/18 08:39 Dose: 50 mg Levothyroxine Sodium (Synthroid) 88 mcg PO DAILY@0630 [facility] Last Admin: 01/25/18 05:37 Dose: 88 mcg Magnesium Hydroxide (Milk Of Magnesia) 30 ml PO DAILY [facility] Last Admin: 01/25/18 08:43 Dose: Not Given Metoprolol Tartrate (Lopressor) 25 mg PO BID [facility] Last Admin: 01/25/18 08:41 Dose: 25 mg Montelukast Sodium (Singulair) 10 mg PO DAILY [facility] Last Admin: 01/25/18 08:41 Dose: 10 mg Oxycodone HCl (Oxycontin Extended Release Tab) 30 mg PO Q12 [facility] Stop: 01/27/18 21:01 Last Admin: 01/25/18 08:38 Dose: 30 mg Paroxetine HCl (Paxil) 60 mg PO DAILY [facility] Last Admin: 01/25/18 08:40 Dose: 60 mg Sennosides (Senokot Tab) 17.6 mg PO HS [facility] Last Admin: 01/24/18 21:29 Dose: 17.6 mg Sitagliptin Phosphate (Januvia) 100 mg PO DAILY [facility] Last Admin: 01/25/18 08:41 Dose: 100 mg Physical Exam - Constitutional Appears: Non-toxic - Head Exam Head Exam: NORMAL INSPECTION - Eye Exam Eye Exam: Normal appearance - ENT Exam ENT Exam: Mucous Membranes Moist - Neck Exam Neck exam: Positive for: Full Rom - Respiratory Exam Respiratory Exam: NORMAL BREATHING PATTERN - Cardiovascular Exam Cardiovascular Exam: REGULAR RHYTHM - GI/Abdominal Exam GI & Abdominal Exam: Normal Bowel Sounds - Rectal Exam Rectal Exam: Deferred - Extremities Exam Extremities exam: Positive for: pedal edema - Back Exam Back exam: NORMAL INSPECTION - Neurological Exam Neurological exam: Alert, Oriented x3 - Psychiatric Exam Psychiatric exam: Normal Affect - Skin Skin Exam: Normal Color Results - Vital Signs Recent Vital Signs: Last Vital Signs Temp 98.0 F 01/25/18 11:48 Pulse 66 01/25/18 11:48 Resp 20 01/25/18 11:48 BP 156/77 H 01/25/18 11:48 Pulse Ox 95 01/25/18 11:48 - Labs Result Diagrams: 01/25/18 06:05 01/25/18 06:05 Labs: Laboratory Results - last 24 hr 01/24/18 01/24/18 01/24/18 10:47 11:29 11:50 WBC RBC Hgb Hct MCV MCH MCHC RDW Plt Count MPV Neut % (Auto) Lymph % (Auto) Zavala % (Auto) Eos % (Auto) Baso % (Auto) Neut # (Auto) Lymph # (Auto) Zavala # (Auto) Eos # (Auto) Baso # (Auto) Sodium Potassium Chloride Carbon Dioxide Anion Gap BUN Creatinine Est GFR ( Amer) Est GFR (Non-Af Amer) POC Glucose (mg/dL) 86 Random Glucose Calcium Total Bilirubin AST ALT Alkaline Phosphatase NT-Pro-B Natriuret Pep Total Protein Albumin Globulin Albumin/Globulin Ratio Procalcitonin 0.23 PTH Intact Whole Molec 20 Ur Random Creatinine U Random Total Protein 01/24/18 01/24/18 01/24/18 15:57 18:56 20:56 WBC RBC Hgb Hct MCV MCH MCHC RDW Plt Count MPV Neut % (Auto) Lymph % (Auto) Zavala % (Auto) Eos % (Auto) Baso % (Auto) Neut # (Auto) Lymph # (Auto) Zavala # (Auto) Eos # (Auto) Baso # (Auto) Sodium Potassium Chloride Carbon Dioxide Anion Gap BUN Creatinine Est GFR ( Amer) Est GFR (Non-Af Amer) POC Glucose (mg/dL) 115 H 124 H Random Glucose Calcium Total Bilirubin AST ALT Alkaline Phosphatase NT-Pro-B Natriuret Pep Total Protein Albumin Globulin Albumin/Globulin Ratio Procalcitonin PTH Intact Whole Molec Ur Random Creatinine 127.1 U Random Total Protein 259.0 H 01/24/18 01/25/18 01/25/18 22:15 05:48 06:05 WBC 9.8 RBC 4.49 Hgb 10.5 L Hct 33.1 L MCV 73.7 L MCH 23.4 L MCHC 31.8 L RDW 20.3 H Plt Count 259 MPV 7.0 L Neut % (Auto) 74.9 Lymph % (Auto) 13.2 L Zavala % (Auto) 10.4 H Eos % (Auto) 0.8 Baso % (Auto) 0.7 Neut # (Auto) 7.4 H Lymph # (Auto) 1.3 Zavala # (Auto) 1.0 H Eos # (Auto) 0.1 Baso # (Auto) 0.1 Sodium Potassium Chloride Carbon Dioxide Anion Gap BUN Creatinine Est GFR ( Amer) Est GFR (Non-Af Amer) POC Glucose (mg/dL) 95 Random Glucose Calcium Total Bilirubin AST ALT Alkaline Phosphatase NT-Pro-B Natriuret Pep 71867 H Total Protein Albumin Globulin Albumin/Globulin Ratio Procalcitonin PTH Intact Whole Molec Ur Random Creatinine U Random Total Protein 01/25/18 01/25/18 06:05 10:38 WBC RBC Hgb Hct MCV MCH MCHC RDW Plt Count MPV Neut % (Auto) Lymph % (Auto) Zavala % (Auto) Eos % (Auto) Baso % (Auto) Neut # (Auto) Lymph # (Auto) Zavala # (Auto) Eos # (Auto) Baso # (Auto) Sodium 135 Potassium 4.5 Chloride 100 Carbon Dioxide 26 Anion Gap 14 BUN 82 H Creatinine 4.0 H Est GFR ( Amer) 18 Est GFR (Non-Af Amer) 15 POC Glucose (mg/dL) 145 H Random Glucose 92 Calcium 8.4 Total Bilirubin 0.6 AST 61 H D ALT 141 H D Alkaline Phosphatase 70 NT-Pro-B Natriuret Pep Total Protein 5.9 L Albumin 2.7 L Globulin 3.2 Albumin/Globulin Ratio 0.8 L Procalcitonin PTH Intact Whole Molec Ur Random Creatinine U Random Total Protein - EKG Data EKG Interpreted by: Myself EKG shows normal: Sinus rhythm Assessment & Plan (1) CHF (congestive heart failure) Assessment and Plan: patient has evidence of vilume overload on examination. recommend evlauation of ventricular function. will schedule echocardiogram Status: Acute (2) HTN (hypertension) Assessment and Plan: blood pressure control. avoid ARB/OBI inhibitor Status: Acute (3) CAD (coronary artery disease) Assessment and Plan: stent in May. antiplatelet therapy Status: Acute
--- NOTE | 2018-01-25 14:01 | CON ---
DATE: 01/25/2018 REFERRING DOCTOR: Dr. Rodriguez. REASON FOR CONSULTATION: Elevated LFTs. HISTORY OF PRESENT ILLNESS: The patient is a pleasant 62-year-old male who comes in to the detention for basically right foot swelling and a UTI. Since elevation of LFTs. The patient is lying comfortable. Denies any GI complaints. Denies smoking or any recent drinking. No recent travel or sick contacts. No GI complaints or abdominal pain. PAST MEDICAL HISTORY: As above. PAST SURGICAL HISTORY: As above. MEDICATIONS: Reviewed. REVIEW OF SYSTEMS: All other systems have been reviewed and negative apart from the HPI. PHYSICAL EXAMINATION: VITAL SIGNS: Here in the hospital, grossly unremarkable. GENERAL: This is a pleasant elderly appearing male, lying in bed comfortably, in no apparent distress. HEENT: Head is normocephalic and atraumatic. Eyes, pupils are equally reactive to light bilaterally. No conjunctival pallor or icterus. NECK: Supple. Normal range of motion. No lymphadenopathy appreciated. LUNGS: Coarse breath sounds bilaterally. HEART: S1 and S2. Regular rate and rhythm. No murmurs appreciated. ABDOMEN: Soft and nontender. Bowel sounds present. No rebound. No guarding. RECTAL: Deferred. EXTREMITIES: Pulses present on the left leg. NEUROLOGIC: A and O x3. LABORATORY DATA: Labs have been reviewed and radiology. WBC is 9.8, hemoglobin is 10.5, and hematocrit is 33.1. AST and ALT are trending down to 61 and 141. Bilirubin is low at 0.6. ProBNP is over 10,000. ASSESSMENT AND PLAN: This is a 62-year-old male with elevated LFTs, this is more likely be either medication related versus infectious related versus congestive hepatopathy. From GI standpoint, I had ordered hepatitis A, B and C panel as well as right upper quadrant ultrasound. Thank you for the consult. Tacho Bird MD/ PhD cc: Dr. Rodriguez
--- NOTE | 2018-01-25 15:03 | CP.PCM.PN ---
Subjective - Date & Time of Evaluation Date of Evaluation: 01/25/18 Time of Evaluation: 09:00 - Subjective Subjective: events noted CHF AND ELLIE DR GOVEA ON BOARD Objective - Vital Signs/Intake and Output Vital Signs (last 24 hours): Temp Pulse Resp BP Pulse Ox 98.0 F 66 20 156/77 H 95 01/25/18 11:48 01/25/18 11:48 01/25/18 11:48 01/25/18 11:48 01/25/18 11:48 Intake and Output: 01/25/18 01/25/18 06:59 18:59 Intake Total 300 Output Total 750 Balance -450 - Medications Medications: Current Medications Acetaminophen (Tylenol 325mg Tab) 650 mg PO Q4 PRN PRN Reason: Fever >100.4 F Last Admin: 01/24/18 19:03 Dose: 650 mg Al Hydrox/Mg Hydrox/Simethicone (Maalox Plus 30 Ml) 30 ml PO Q4H [facility] Last Admin: 01/25/18 14:54 Dose: 30 ml Albuterol/Ipratropium (Duoneb 3 Mg/0.5 Mg (3 Ml) Ud) 3 ml INH RQ4 PRN PRN Reason: Shortness of Breath Alprazolam (Xanax) 1 mg PO Q8 PRN PRN Reason: Anxiety Last Admin: 01/25/18 13:25 Dose: 1 mg Aspirin (Ecotrin) 81 mg PO DAILY [facility] Last Admin: 01/25/18 08:41 Dose: 81 mg Buspirone HCl (Buspar) 30 mg PO BID [facility] Last Admin: 01/25/18 08:42 Dose: 30 mg Calcium Acetate (Phoslo) 1,334 mg PO TID [facility] Last Admin: 01/25/18 13:26 Dose: 1,334 mg Clopidogrel Bisulfate (Plavix) 75 mg PO DAILY [facility] Last Admin: 01/25/18 08:41 Dose: 75 mg Collagenase (Santyl) 1 applic TOP DAILY [facility] Ergocalciferol (Drisdol 50,000 Intl Units Cap) 1 cap PO QWK [facility] Fenofibrate (Tricor) 145 mg PO DAILY [facility] Last Admin: 01/25/18 08:41 Dose: 145 mg Gabapentin (Neurontin) 600 mg PO BID [facility] Last Admin: 01/25/18 08:41 Dose: 600 mg Ceftriaxone Sodium 1 gm/ (Sodium Chloride) 100 mls @ 100 mls/hr IVPB DAILY [facility] PRN Reason: Protocol Last Admin: 01/25/18 08:42 Dose: 100 mls/hr Daptomycin 650 mg/ Sodium (Chloride) 100 mls @ 100 mls/hr IV Q48H [facility] PRN Reason: Protocol Stop: 01/29/18 12:31 Last Admin: 01/24/18 15:08 Dose: 100 mls/hr Lamotrigine (Lamictal) 50 mg PO BID [facility] Last Admin: 01/25/18 08:39 Dose: 50 mg Levothyroxine Sodium (Synthroid) 88 mcg PO DAILY@0630 [facility] Last Admin: 01/25/18 05:37 Dose: 88 mcg Magnesium Hydroxide (Milk Of Magnesia) 30 ml PO DAILY [facility] Last Admin: 01/25/18 08:43 Dose: Not Given Metoprolol Tartrate (Lopressor) 25 mg PO BID [facility] Last Admin: 01/25/18 08:41 Dose: 25 mg Montelukast Sodium (Singulair) 10 mg PO DAILY [facility] Last Admin: 01/25/18 08:41 Dose: 10 mg Nystatin (Nystop Topical Powder) 1 applic TOP TID [facility] Oxycodone HCl (Oxycontin Extended Release Tab) 30 mg PO Q12 [facility] Stop: 01/27/18 21:01 Last Admin: 01/25/18 08:38 Dose: 30 mg Paroxetine HCl (Paxil) 60 mg PO DAILY [facility] Last Admin: 01/25/18 08:40 Dose: 60 mg Sennosides (Senokot Tab) 17.6 mg PO HS [facility] Last Admin: 01/24/18 21:29 Dose: 17.6 mg Sitagliptin Phosphate (Januvia) 100 mg PO DAILY [facility] Last Admin: 01/25/18 08:41 Dose: 100 mg - Labs Labs: 01/25/18 06:05 01/25/18 06:05 Assessment and Plan (1) Osteomyelitis of ankle Status: Acute (2) Acute renal failure Status: Acute (3) Elevated LFTs Status: Acute (4) Bacteremia due to methicillin resistant Staphylococcus aureus Status: Acute
[2018-01-25 16:39] LABS: HEPATITIS B SURFACE AG Negative (NEGATIVE)
[2018-01-25 16:45] LABS: HEPATITIS A IGM NEGATIVE (NEGATIVE); HEPATITIS B CORE AB NEGATIVE (NEGATIVE)
[2018-01-25 16:56] LABS: HEPATITIS C ANTIBODY NEGATIVE (NEGATIVE)
[2018-01-25] MEDS: Albuterol-Ipratrop 3 mg / 0.5 (3 ml) UD INH PRN (20:52)
[2018-01-26] MEDS: Alum-Mag Hydrox-Simethicone Susp (30 mL) PO SCH ×6 (02:30→21:33)
[2018-01-26 05:42] LABS: BASO # 0.1 K/uL (0.0-0.2); EOS # 0.1 K/uL (0.0-0.7); EOS % 0.6 % (0.0-4.0); HEMOGLOBIN 11.7 g/dL (12.0-18.0); LYMPH # 1.7 K/uL (1.0-4.3); MEAN CELL VOLUME 73.1 fl (80.0-94.0); MEAN CORPUSCULAR HEMOGLOBIN 23.1 pg (27.0-31.0); MEAN CORPUSCULAR HGB CONC 31.6 g/dL (33.0-37.0); MEAN PLATELET VOLUME 7.1 fl (7.2-11.7); MONO # 1.2 K/uL (0.0-0.8); MONO % 11.4 % (0.0-10.0); NEUT # 7.5 K/uL (1.8-7.0); NRBC % 0.1 % (0.0-0.0); RBC 5.09 Mil/uL (4.40-5.90); RED CELL DISTRIBUTION WIDTH 21.5 % (11.5-14.5); WHITE BLOOD COUNT 10.6 K/uL (4.8-10.8)
[2018-01-26 05:52] LABS: ALB/GLOB RATIO 0.9 (1.0-2.1); CALCIUM 8.6 mg/dL (8.4-10.2)
--- NOTE | 2018-01-26 06:53 | CP.PCM.PN ---
Subjective - Date & Time of Evaluation Date of Evaluation: 01/26/18 Time of Evaluation: 06:30 - Subjective Subjective: Podiatry Progress Note- Dr. Guy 62 y.o male seen and evaluated for surgical wound right ankle 14 days s/p right ankle I&D. Patient is seen at bedside comfortably,awake and more alert. Patient reports the moderate pain to the right ankle. Dressing remains clean/dry/intact with minimal strikethrough. Patient reports able to sleep last night. Denies nausea, fever, shortness of breath, chest pains, chills or vomiting. No new pedal complaints. Objective - Vital Signs/Intake and Output Vital Signs (last 24 hours): Temp Pulse Resp BP Pulse Ox 97 F L 61 20 143/99 H 99 01/26/18 05:00 01/26/18 05:00 01/26/18 05:00 01/26/18 05:00 01/26/18 05:00 Intake and Output: 01/25/18 01/26/18 18:59 06:59 Intake Total 500 Output Total 1025 Balance -525 - Medications Medications: Current Medications Acetaminophen (Tylenol 325mg Tab) 650 mg PO Q4 PRN PRN Reason: Fever >100.4 F Last Admin: 01/24/18 19:03 Dose: 650 mg Al Hydrox/Mg Hydrox/Simethicone (Maalox Plus 30 Ml) 30 ml PO Q4H [facility] Last Admin: 01/26/18 02:30 Dose: Not Given Albuterol/Ipratropium (Duoneb 3 Mg/0.5 Mg (3 Ml) Ud) 3 ml INH RQ4 PRN PRN Reason: Shortness of Breath Last Admin: 01/25/18 20:52 Dose: 3 ml Alprazolam (Xanax) 1 mg PO Q8 PRN PRN Reason: Anxiety Last Admin: 01/25/18 21:34 Dose: 1 mg Aspirin (Ecotrin) 81 mg PO DAILY [facility] Last Admin: 01/25/18 08:41 Dose: 81 mg Buspirone HCl (Buspar) 30 mg PO BID [facility] Last Admin: 01/25/18 17:28 Dose: 30 mg Calcium Acetate (Phoslo) 1,334 mg PO TID [facility] Last Admin: 01/25/18 17:28 Dose: 1,334 mg Clopidogrel Bisulfate (Plavix) 75 mg PO DAILY [facility] Last Admin: 01/25/18 08:41 Dose: 75 mg Collagenase (Santyl) 1 applic TOP DAILY [facility] Ergocalciferol (Drisdol 50,000 Intl Units Cap) 1 cap PO QWK [facility] Fenofibrate (Tricor) 145 mg PO DAILY [facility] Last Admin: 01/25/18 08:41 Dose: 145 mg Gabapentin (Neurontin) 600 mg PO BID [facility] Last Admin: 01/25/18 17:27 Dose: 600 mg Ceftriaxone Sodium 1 gm/ (Sodium Chloride) 100 mls @ 100 mls/hr IVPB DAILY [facility] PRN Reason: Protocol Last Admin: 01/25/18 08:42 Dose: 100 mls/hr Daptomycin 650 mg/ Sodium (Chloride) 100 mls @ 100 mls/hr IV Q48H [facility] PRN Reason: Protocol Stop: 01/29/18 12:31 Last Admin: 01/24/18 15:08 Dose: 100 mls/hr Lamotrigine (Lamictal) 50 mg PO BID [facility] Last Admin: 01/25/18 17:26 Dose: 50 mg Levothyroxine Sodium (Synthroid) 88 mcg PO DAILY@0630 [facility] Last Admin: 01/25/18 05:37 Dose: 88 mcg Magnesium Hydroxide (Milk Of Magnesia) 30 ml PO DAILY [facility] Last Admin: 01/25/18 08:43 Dose: Not Given Metoprolol Tartrate (Lopressor) 25 mg PO BID [facility] Last Admin: 01/25/18 17:27 Dose: Not Given Montelukast Sodium (Singulair) 10 mg PO DAILY [facility] Last Admin: 01/25/18 08:41 Dose: 10 mg Nystatin (Nystop Topical Powder) 1 applic TOP TID [facility] Last Admin: 01/25/18 17:26 Dose: 1 applic Oxycodone HCl (Oxycontin Extended Release Tab) 30 mg PO Q12 [facility] Stop: 01/27/18 21:01 Last Admin: 01/25/18 21:35 Dose: 30 mg Paroxetine HCl (Paxil) 60 mg PO DAILY [facility] Last Admin: 01/25/18 08:40 Dose: 60 mg Sennosides (Senokot Tab) 17.6 mg PO HS [facility] Last Admin: 01/25/18 22:46 Dose: 17.6 mg Sitagliptin Phosphate (Januvia) 100 mg PO DAILY [facility] Last Admin: 01/25/18 08:41 Dose: 100 mg - Labs Labs: 01/26/18 05:32 01/26/18 05:32 - Constitutional Appears: Well, Non-toxic, No Acute Distress - Extremities Exam Extremities Exam: absent: Calf Tenderness Additional comments: RLE focused physical exam: VASC: DP/PT pulses non-palpable secondary to edema. Temperature warm to warm from proximal to distal. Non-pitting edema noted to right ankle extending distally. DERM: Linear surgical incision noted to anteromedial ankle joint with sutures intact and midpoint left open with exposed tibia at 3 o'clock, remainder of open site noted to have a 80% fibrous and 20% granular base, minimal erythema periwound, serosanguinous drainage/synovial fluid able to be expressed; no malodor; no active bleeding. NEURO: Gross sensation diminished. ORTHO: Pain on palpation noted to right medial ankle joint extending distally into forefoot. Digital ROM present. - Neurological Exam Neurological Exam: Alert, Awake - Psychiatric Exam Psychiatric exam: Normal Affect, Normal Mood Assessment and Plan - Assessment and Plan (Free Text) Assessment: 62M with surgical wound right ankle 14 days s/p right ankle I&D (DOS 01/12/18) Plan: Patient seen and evaluated Discussed plain with attending, Dr. Guy Afebrile, WBC 10.6 R ankle wound culture - pending Continue abx per ID - Ceftriaxone, Daptomycin Wound cleansed with sterile saline and dressed with saline soaked gauze + DSD -Will apply Santyl to surgical site tomorrow Multipodus boot to be worn RLE at all times while in bed Pain control per medicine Recommend surgical wound debridement with woundVAC application once medically stabilized Podiatry will continue to follow
--- NOTE | 2018-01-26 07:25 | CP.PCM.PN ---
Subjective - Date & Time of Evaluation Date of Evaluation: 01/26/18 Time of Evaluation: 07:25 - Subjective Subjective: patient system bed confused but able to have a full conversation right foot noted to be swollen 3 to 4+ with a slightly mottled appearance all bloodwork and consult notes appreciated psych, neuro consults ordered for confusion Objective - Vital Signs/Intake and Output Vital Signs (last 24 hours): Temp Pulse Resp BP Pulse Ox 97 F L 61 20 143/99 H 99 01/26/18 05:00 01/26/18 05:00 01/26/18 05:00 01/26/18 05:00 01/26/18 05:00 - Medications Medications: Current Medications Acetaminophen (Tylenol 325mg Tab) 650 mg PO Q4 PRN PRN Reason: Fever >100.4 F Last Admin: 01/24/18 19:03 Dose: 650 mg Al Hydrox/Mg Hydrox/Simethicone (Maalox Plus 30 Ml) 30 ml PO Q4H [facility] Last Admin: 01/26/18 02:30 Dose: Not Given Albuterol/Ipratropium (Duoneb 3 Mg/0.5 Mg (3 Ml) Ud) 3 ml INH RQ4 PRN PRN Reason: Shortness of Breath Last Admin: 01/25/18 20:52 Dose: 3 ml Alprazolam (Xanax) 1 mg PO Q8 PRN PRN Reason: Anxiety Last Admin: 01/25/18 21:34 Dose: 1 mg Aspirin (Ecotrin) 81 mg PO DAILY [facility] Last Admin: 01/25/18 08:41 Dose: 81 mg Buspirone HCl (Buspar) 30 mg PO BID [facility] Last Admin: 01/25/18 17:28 Dose: 30 mg Calcium Acetate (Phoslo) 1,334 mg PO TID [facility] Last Admin: 01/25/18 17:28 Dose: 1,334 mg Clopidogrel Bisulfate (Plavix) 75 mg PO DAILY [facility] Last Admin: 01/25/18 08:41 Dose: 75 mg Collagenase (Santyl) 1 applic TOP DAILY [facility] Ergocalciferol (Drisdol 50,000 Intl Units Cap) 1 cap PO QWK [facility] Fenofibrate (Tricor) 145 mg PO DAILY [facility] Last Admin: 01/25/18 08:41 Dose: 145 mg Gabapentin (Neurontin) 600 mg PO BID [facility] Last Admin: 01/25/18 17:27 Dose: 600 mg Ceftriaxone Sodium 1 gm/ (Sodium Chloride) 100 mls @ 100 mls/hr IVPB DAILY [facility] PRN Reason: Protocol Last Admin: 01/25/18 08:42 Dose: 100 mls/hr Daptomycin 650 mg/ Sodium (Chloride) 100 mls @ 100 mls/hr IV Q48H [facility] PRN Reason: Protocol Stop: 01/29/18 12:31 Last Admin: 01/24/18 15:08 Dose: 100 mls/hr Lamotrigine (Lamictal) 50 mg PO BID [facility] Last Admin: 01/25/18 17:26 Dose: 50 mg Levothyroxine Sodium (Synthroid) 88 mcg PO DAILY@0630 [facility] Last Admin: 01/25/18 05:37 Dose: 88 mcg Magnesium Hydroxide (Milk Of Magnesia) 30 ml PO DAILY [facility] Last Admin: 01/25/18 08:43 Dose: Not Given Metoprolol Tartrate (Lopressor) 25 mg PO BID [facility] Last Admin: 01/25/18 17:27 Dose: Not Given Montelukast Sodium (Singulair) 10 mg PO DAILY [facility] Last Admin: 01/25/18 08:41 Dose: 10 mg Nystatin (Nystop Topical Powder) 1 applic TOP TID [facility] Last Admin: 01/25/18 17:26 Dose: 1 applic Oxycodone HCl (Oxycontin Extended Release Tab) 30 mg PO Q12 [facility] Stop: 01/27/18 21:01 Last Admin: 01/25/18 21:35 Dose: 30 mg Paroxetine HCl (Paxil) 60 mg PO DAILY [facility] Last Admin: 01/25/18 08:40 Dose: 60 mg Sennosides (Senokot Tab) 17.6 mg PO HS [facility] Last Admin: 01/25/18 22:46 Dose: 17.6 mg Sitagliptin Phosphate (Januvia) 100 mg PO DAILY [facility] Last Admin: 01/25/18 08:41 Dose: 100 mg - Labs Labs: 01/26/18 05:32 01/26/18 05:32 - Constitutional Appears: Non-toxic, No Acute Distress, Chronically Ill - Head Exam Head Exam: ATRAUMATIC, NORMAL INSPECTION, NORMOCEPHALIC - Eye Exam Eye Exam: EOMI, Normal appearance, PERRL Pupil Exam: NORMAL ACCOMODATION, PERRL - ENT Exam ENT Exam: Mucous Membranes Moist, Normal Exam - Neck Exam Neck Exam: Full ROM, Normal Inspection. absent: Lymphadenopathy - Respiratory Exam Respiratory Exam: Clear to Ausculation Bilateral, NORMAL BREATHING PATTERN - Cardiovascular Exam Cardiovascular Exam: REGULAR RHYTHM, RRR, +S1, +S2. absent: Murmur - GI/Abdominal Exam GI & Abdominal Exam: Soft, Normal Bowel Sounds. absent: Tenderness - Extremities Exam Extremities Exam: Full ROM, Normal Capillary Refill, Normal Inspection. absent : Joint Swelling, Pedal Edema Additional comments: r foot swelling, distal pms intact - Back Exam Back Exam: NORMAL INSPECTION - Neurological Exam Neurological Exam: Alert, Awake, CN II-XII Intact, Normal Gait Additional comments: oriented to person/place. gets confused easily - Psychiatric Exam Psychiatric exam: Normal Affect, Normal Mood - Skin Skin Exam: Dry, Intact, Normal Color, Warm Assessment and Plan (1) Acute renal failure Status: Acute (2) Elevated LFTs Status: Acute (3) Bacteremia due to methicillin resistant Staphylococcus aureus Status: Acute (4) Chronic pain Status: Acute (5) DVT prophylaxis Status: Acute - Assessment and Plan (Free Text) Assessment: (1) Acute renal failure Assessment and Plan: nephro ivf monitor bun/cr-stable urine protein noted Status: Acute (2) Elevated LFTs Assessment and Plan: gi ivf monitor lft trending down Status: Acute (3) Bacteremia due to methicillin resistant Staphylococcus aureus Assessment and Plan: vanco dc, started cubin as per ID yesterday podiatry consult as original source r foot/ankle Status: Acute (4) Chronic pain Assessment and Plan: cont home meds Status: Acute (5) DVT prophylaxis Assessment and Plan: scd and ae hose asa/plavix Status: Acute 6-chf w/ h/o cad-cont meds, cardio consult, echo,dc ivf, cont nasal o2, HOB 30 degrees [id number], neuro. ct head completed in er
--- NOTE | 2018-01-26 09:07 | PQF GENQUE ---
This form is a permanent part of the medical record 01/26/18 Ciaran Rodriguez DPN, FITTING ROOM OPERATOR, AFTER WORKUP please specify the type and acuity of heart failure in your progress notes Admitted with AMS and elevated BUN and creatinine. Diagnoses include: Acute renal failure. 01/25 progress note: Had periods of SOB last night. IVF d/c and ProBNP elevated. Documentation of CHF. 01/25 Cardiology consult: CHF, patient has evidence of volume overload on examination, recommend ECHO. An Echo had been done on 01/09/18: EF 45-50%, LV diastolic function normal, moderate to severe MR, trace TR, mild pulmonary HTN Clarification of your documentation is requested to better reflect the severity of illness and intensity of treatment of your patient. Indicators present PHYSICIAN'S RESPONSE Based on your medical judgment of the clinical indicators outlined above please clarify the following: [] Practitioner response acute on chronic heart failure [] If unable to determine, please check the box, sign and date. Present On Admission (POA) Indicator: [x] Present at the time of admission [] Not present at the time of admission [] Clinically Undetermined In responding to this query, please exercise your independent professional judgment. The fact that a question is asked does not imply that any particular answer is desired or expected. Thank you for your clarification on this documentation. If you have any questions please call:ext [phone] * Thank you, Eileen Cuellar RN CDMP [facility]
--- NOTE | 2018-01-26 09:16 | PQF GENQUE ---
This form is a permanent part of the medical record 01/26/18 Ciaran Rodriguez DNP, GROVE WORK[employer], Please clarify if the UTI is ruled in or ruled out. H&P states patient was given Rocephin for cloudy urine/UTI. UA w/ rare bacteria , pending CS. Urine CS < 1,000 CFU/ML Clarification of your documentation is requested to better reflect the severity of illness and intensity of treatment of your patient. Indicators present PHYSICIAN'S RESPONSE Based on your medical judgment of the clinical indicators outlined above please clarify the following: [] Practitioner response uti r/o, will dc rocephin [] If unable to determine, please check the box, sign and date. Present On Admission (POA) Indicator: [] Present at the time of admission [] Not present at the time of admission [] Clinically Undetermined In responding to this query, please exercise your independent professional judgment. The fact that a question is asked does not imply that any particular answer is desired or expected. Thank you for your clarification on this documentation. If you have any questions please call:ext [phone] * Thank you, Eileen Cuellar RN CD[facility]
[2018-01-26] MEDS: Santyl Collagenase OINTMENT TOP SCH (09:48)
[2018-01-26] MEDS: Ergocalciferol 50,000 Intl Units Cap PO SCH (09:49)
[2018-01-26] MEDS: Levothyroxine 88 MCG TAB PO SCH (09:50)
[2018-01-26] MEDS: oxyCODONE 10 mg ER Tab (oxyCONTIN) PO SCH ×2 (09:52→20:07)
[2018-01-26] MEDS: Magnesium Hydroxide Susp 30 ml UD PO SCH (09:56)
--- NOTE | 2018-01-26 10:12 | US ---
HISTORY: elevated lft COMPARISON: CT scan of the abdomen pelvis dated 05/24/2012. TECHNIQUE: Sonographic evaluation of the abdomen. FINDINGS: LIVER: Enlarged, measuring 18 cm. Normal echogenicity of the liver parenchyma. No mass. No intrahepatic bile duct dilatation. GALLBLADDER: Cholelithiasis without gallbladder wall thickening/ edema or pericholecystic fluid. Sonographic Faith's sign was not elicited. COMMON BILE DUCT: Measures 5 mm. No stones. No dilatation. PANCREAS: Unremarkable as visualized. No mass. No ductal dilatation. RIGHT KIDNEY: Measures 14.5 x 8.4 x 6.6cm. Normal echogenicity. No calculus, mass, or hydronephrosis. Stable appearance of dilated renal pelvis. LEFT KIDNEY: Measures 14.7 x 7.7 x 6.5cm. Normal echogenicity. No calculus, mass, or hydronephrosis. SPLEEN: Normal in size and contour. No mass. AORTA: No aneurysmal dilatation. IVC: Unremarkable. OTHER FINDINGS: None. IMPRESSION: No acute findings. Stable cholelithiasis without sonographic evidence of acute cholecystitis. Stable appearance of dilated right renal pelvis.
[2018-01-26] MEDS: Albuterol-Ipratrop 3 mg / 0.5 (3 ml) UD INH PRN (11:33)
--- NOTE | 2018-01-26 11:35 | CP.PCM.PN ---
Subjective - Date & Time of Evaluation Date of Evaluation: 01/26/18 Time of Evaluation: 11:35 - Subjective Subjective: c/o pain Objective - Vital Signs/Intake and Output Vital Signs (last 24 hours): Temp Pulse Resp BP Pulse Ox 97.3 F L 83 18 158/96 H 95 01/26/18 08:00 01/26/18 09:45 01/26/18 08:00 01/26/18 09:45 01/26/18 08:00 - Medications Medications: Current Medications Acetaminophen (Tylenol 325mg Tab) 650 mg PO Q4 PRN PRN Reason: Fever >100.4 F Last Admin: 01/24/18 19:03 Dose: 650 mg Al Hydrox/Mg Hydrox/Simethicone (Maalox Plus 30 Ml) 30 ml PO Q4H [facility] Last Admin: 01/26/18 09:46 Dose: 30 ml Albuterol/Ipratropium (Duoneb 3 Mg/0.5 Mg (3 Ml) Ud) 3 ml INH RQ4 PRN PRN Reason: Shortness of Breath Last Admin: 01/26/18 11:33 Dose: 3 ml Alprazolam (Xanax) 1 mg PO Q8 PRN PRN Reason: Anxiety Last Admin: 01/26/18 10:11 Dose: 1 mg Aspirin (Ecotrin) 81 mg PO DAILY [facility] Last Admin: 01/26/18 09:46 Dose: 81 mg Buspirone HCl (Buspar) 30 mg PO BID [facility] Last Admin: 01/26/18 09:47 Dose: 30 mg Calcium Acetate (Phoslo) 1,334 mg PO TID [facility] Last Admin: 01/26/18 09:47 Dose: 1,334 mg Clopidogrel Bisulfate (Plavix) 75 mg PO DAILY [facility] Last Admin: 01/26/18 09:46 Dose: 75 mg Collagenase (Santyl) 1 applic TOP DAILY [facility] Last Admin: 01/26/18 09:48 Dose: 1 applic Ergocalciferol (Drisdol 50,000 Intl Units Cap) 1 cap PO QWK [facility] Last Admin: 01/26/18 09:49 Dose: 1 cap Fenofibrate (Tricor) 145 mg PO DAILY [facility] Last Admin: 01/26/18 09:49 Dose: 145 mg Gabapentin (Neurontin) 600 mg PO BID [facility] Last Admin: 01/26/18 09:47 Dose: 600 mg Ceftriaxone Sodium 1 gm/ (Sodium Chloride) 100 mls @ 100 mls/hr IVPB DAILY [facility] PRN Reason: Protocol Last Admin: 01/26/18 09:45 Dose: 100 mls/hr Daptomycin 650 mg/ Sodium (Chloride) 100 mls @ 100 mls/hr IV Q48H [facility] PRN Reason: Protocol Stop: 01/29/18 12:31 Last Admin: 01/24/18 15:08 Dose: 100 mls/hr Lamotrigine (Lamictal) 50 mg PO BID [facility] Last Admin: 01/26/18 09:46 Dose: 50 mg Levothyroxine Sodium (Synthroid) 88 mcg PO DAILY@0630 [facility] Last Admin: 01/26/18 09:50 Dose: Not Given Magnesium Hydroxide (Milk Of Magnesia) 30 ml PO DAILY [facility] Last Admin: 01/26/18 09:56 Dose: 30 ml Metoprolol Tartrate (Lopressor) 25 mg PO BID [facility] Last Admin: 01/26/18 09:45 Dose: 25 mg Montelukast Sodium (Singulair) 10 mg PO DAILY [facility] Last Admin: 01/26/18 09:49 Dose: 10 mg Nystatin (Nystop Topical Powder) 1 applic TOP TID [facility] Last Admin: 01/26/18 09:45 Dose: 1 applic Oxycodone HCl (Oxycontin Extended Release Tab) 30 mg PO Q12 [facility] Stop: 01/27/18 21:01 Last Admin: 01/26/18 09:52 Dose: 30 mg Paroxetine HCl (Paxil) 60 mg PO DAILY [facility] Last Admin: 01/26/18 09:48 Dose: 60 mg Sennosides (Senokot Tab) 17.2 mg PO [facility] Sitagliptin Phosphate (Januvia) 100 mg PO DAILY [facility] Last Admin: 01/26/18 09:49 Dose: 100 mg - Labs Labs: 01/26/18 05:32 01/26/18 05:32 - Head Exam Head Exam: NORMOCEPHALIC - Neck Exam Neck Exam: Normal Inspection - Respiratory Exam Respiratory Exam: Clear to Ausculation Bilateral, NORMAL BREATHING PATTERN - Cardiovascular Exam Cardiovascular Exam: REGULAR RHYTHM - GI/Abdominal Exam GI & Abdominal Exam: Soft, Tenderness, Normal Bowel Sounds Assessment and Plan - Assessment and Plan (Free Text) Assessment: 62 yo male with elevated lft lft improving sonogram noted hep panel pending
[2018-01-26] MEDS ORDERED: Oxycodone/Acetaminophen 5/325 mg Tab PO ONE (11:50)
--- NOTE | 2018-01-26 12:21 | CP.PCM.CON ---
History of Present Illness - History of Present Illness History of Present Illness: Psychiatry consult note for evaluation of agitation CC: "They can't tell me what to do." HPI: 62 yo male w/ h/o DM, HTN, HLD, Hypothyroidism, Seizures, BPH, chronic back pain, depression/anxiety, admitted w/ AMS and found to have acute renal failure, elevated LFTs, Bacteremia due to MRSA. Patient was agreeable to speaking with freelance writer, but was labile during interview and insistent that he wants to transfer hospital to receives better treatment. He was able to state that he is being treated for MRSA, but could not elaborate on his treatment nor the risks/benefits of staying in the hospital vs leaving. He states that he will call his police friends if he decides he has to leave the hospital. He denies acutely feeling anxious or depressed but does report that he has been treated for depression and anxiety in the past w/ Paxil and Buspar. Denies AH/ VH/SI/HI. PPHx: H/o outpatient psychiatric treatment for depression and anxiety, on Paxil and Buspar PMHx: DM, HTN, HLD, Hypothyroidism, Seizures, BPH, chronic back pain ALL: Sulfa MSE: A + O x self, "2020" and "[address] [place] calm w/ freelance writer but easily agitated, poor eye contact, speech labored, mood "upset", affect- labile , thought process- coherent, but loose and non-linear at times; thought content - no overt delusions but patient is mistrustful of staff, denies AH/VH/SI/HI, poor I/J, poor impulse control Impression: 62 yo male w/ h/o DM, HTN, HLD, Hypothyroidism, Seizures, BPH, chronic back pain, depression/anxiety, admitted w/ AMS and found to have acute renal failure, elevated LFTs, Bacteremia due to MRSA. Patient has AMS and periods of agitation due to acute medical issues. He does not have capacity to make medical decisions at this time or leave AMA. Recommendations: -Taper Paxil to 40 mg PO Daily and taper Buspar to 10 mg PO BID, in case either medication is causing worsening agitation and excitement -If patient acutely agitated, can give Risperdal M-tab 0.5 mg PO Q8hr PRN agitation or for extreme agitation can give Haldol IVP or IM PRN -Would recommend to avoid treatment with benzodiazepines as it can increase confusion and agitation Past Patient History - Past Medical History & Family History Past Medical History?: Yes - Past Social History Smoking Status: Never Smoked - CARDIAC Hx Cardiac Disorders: Yes Hx Hypercholesterolemia: Yes Hx Hypertension: Yes - PULMONARY Hx Respiratory Disorders: Yes Hx Asthma: No Hx Chronic Obstructive Pulmonary Disease (COPD): No Hx Emphysema: Yes - NEUROLOGICAL Hx Neurological Disorder: Yes Hx Seizures: Yes - HEENT Hx HEENT Problems: Yes - RENAL Hx Chronic Kidney Disease: Yes Hx Renal Failure: Yes - ENDOCRINE/METABOLIC Hx Endocrine Disorders: Yes Hx Diabetes Mellitus Type 2: Yes Hx Hypothyroidism: Yes - HEMATOLOGICAL/ONCOLOGICAL Hx Blood Disorders: No Hx AIDS: No Hx Human Immunodeficiency Virus (HIV): No - INTEGUMENTARY Hx Dermatological Problems: No - MUSCULOSKELETAL/RHEUMATOLOGICAL Hx Musculoskeletal Disorders: Yes Hx Back Pain: Yes Hx Falls: Yes Hx Fractures: Yes - GASTROINTESTINAL Hx Gastrointestinal Disorders: Yes Hx Gastroesophageal Reflux: Yes - GENITOURINARY/GYNECOLOGICAL Hx Genitourinary Disorders: Yes Hx Prostate Problems: Yes (bph) - PSYCHIATRIC Hx Psychophysiologic Disorder: No Hx Substance Use: No - SURGICAL HISTORY Hx Surgeries: Yes Hx Coronary Stent: Yes Hx Musculoskeletal Surgery: Yes (Back with fusion) - ANESTHESIA Hx Anesthesia: Yes Hx Anesthesia Reactions: No Hx Malignant Hyperthermia: No Meds Allergies/Adverse Reactions: Allergies Allergy/AdvReac Type Severity Reaction Status Date / Time Sulfa (Sulfonamide Allergy RASH Verified 02/14/16 09:33 Antibiotics) - Medications Medications: Current Medications Acetaminophen (Tylenol 325mg Tab) 650 mg PO Q4 PRN PRN Reason: Fever >100.4 F Last Admin: 01/24/18 19:03 Dose: 650 mg Al Hydrox/Mg Hydrox/Simethicone (Maalox Plus 30 Ml) 30 ml PO Q4H [facility] Last Admin: 01/26/18 09:46 Dose: 30 ml Albuterol/Ipratropium (Duoneb 3 Mg/0.5 Mg (3 Ml) Ud) 3 ml INH RQ4 PRN PRN Reason: Shortness of Breath Last Admin: 01/26/18 11:33 Dose: 3 ml Alprazolam (Xanax) 1 mg PO Q8 PRN PRN Reason: Anxiety Last Admin: 01/26/18 10:11 Dose: 1 mg Aspirin (Ecotrin) 81 mg PO DAILY [facility] Last Admin: 01/26/18 09:46 Dose: 81 mg Buspirone HCl (Buspar) 30 mg PO BID [facility] Last Admin: 01/26/18 09:47 Dose: 30 mg Calcium Acetate (Phoslo) 1,334 mg PO TID [facility] Last Admin: 01/26/18 12:02 Dose: 1,334 mg Clopidogrel Bisulfate (Plavix) 75 mg PO DAILY [facility] Last Admin: 01/26/18 09:46 Dose: 75 mg Collagenase (Santyl) 1 applic TOP DAILY [facility] Last Admin: 01/26/18 09:48 Dose: 1 applic Ergocalciferol (Drisdol 50,000 Intl Units Cap) 1 cap PO QWK [facility] Last Admin: 01/26/18 09:49 Dose: 1 cap Fenofibrate (Tricor) 145 mg PO DAILY [facility] Last Admin: 01/26/18 09:49 Dose: 145 mg Gabapentin (Neurontin) 600 mg PO BID [facility] Last Admin: 01/26/18 09:47 Dose: 600 mg Ceftriaxone Sodium 1 gm/ (Sodium Chloride) 100 mls @ 100 mls/hr IVPB DAILY [facility] PRN Reason: Protocol Last Admin: 01/26/18 09:45 Dose: 100 mls/hr Daptomycin 650 mg/ Sodium (Chloride) 100 mls @ 100 mls/hr IV Q48H [facility] PRN Reason: Protocol Stop: 01/29/18 12:31 Last Admin: 01/24/18 15:08 Dose: 100 mls/hr Lamotrigine (Lamictal) 50 mg PO BID [facility] Last Admin: 01/26/18 09:46 Dose: 50 mg Levothyroxine Sodium (Synthroid) 88 mcg PO DAILY@0630 [facility] Last Admin: 01/26/18 09:50 Dose: Not Given Magnesium Hydroxide (Milk Of Magnesia) 30 ml PO DAILY [facility] Last Admin: 01/26/18 09:56 Dose: 30 ml Metoprolol Tartrate (Lopressor) 25 mg PO BID [facility] Last Admin: 01/26/18 09:45 Dose: 25 mg Montelukast Sodium (Singulair) 10 mg PO DAILY [facility] Last Admin: 01/26/18 09:49 Dose: 10 mg Nystatin (Nystop Topical Powder) 1 applic TOP TID [facility] Last Admin: 06/01/18 12:03 Dose: 1 applic Oxycodone HCl (Oxycontin Extended Release Tab) 30 mg PO Q12 [facility] Stop: 01/27/18 21:01 Last Admin: 01/26/18 09:52 Dose: 30 mg Paroxetine HCl (Paxil) 60 mg PO DAILY [facility] Last Admin: 01/26/18 09:48 Dose: 60 mg Sennosides (Senokot Tab) 17.2 mg PO HS [facility] Sitagliptin Phosphate (Januvia) 100 mg PO DAILY [facility] Last Admin: 01/26/18 09:49 Dose: 100 mg Results - Vital Signs Recent Vital Signs: Last Vital Signs Temp 97.4 F L 01/26/18 12:00 Pulse 71 01/26/18 12:00 Resp 18 01/26/18 12:00 BP 159/87 H 01/26/18 12:00 Pulse Ox 96 01/26/18 12:00 - Labs Result Diagrams: 01/26/18 05:32 01/26/18 05:32 Labs: Laboratory Results - last 24 hr 01/25/18 01/25/18 01/25/18 09:45 15:49 22:01 WBC RBC Hgb Hct MCV MCH MCHC RDW Plt Count MPV Neut % (Auto) Lymph % (Auto) [place] % (Auto) Eos % (Auto) Baso % (Auto) Neut # (Auto) Lymph # (Auto) [place] # (Auto) Eos # (Auto) Baso # (Auto) Sodium Potassium Chloride Carbon Dioxide Anion Gap BUN Creatinine Est GFR ( Amer) Est GFR (Non-Af Amer) POC Glucose (mg/dL) 136 H 118 H Random Glucose Calcium Total Bilirubin AST ALT Alkaline Phosphatase NT-Pro-B Natriuret Pep Total Protein Albumin Globulin Albumin/Globulin Ratio Hepatitis A IgM Ab Negative Hep Bs Antigen Negative Hep B Core IgM Ab Negative Hepatitis C Antibody Negative 01/26/18 01/26/18 01/26/18 05:15 05:32 05:32 WBC 10.6 RBC 5.09 Hgb 11.7 L Hct 37.2 MCV 73.1 L MCH 23.1 L MCHC 31.6 L RDW 21.5 H Plt Count 296 MPV 7.1 L Neut % (Auto) 71.0 Lymph % (Auto) 16.0 L [place] % (Auto) 11.4 H Eos % (Auto) 0.6 Baso % (Auto) 1.0 Neut # (Auto) 7.5 H Lymph # (Auto) 1.7 [place] # (Auto) 1.2 H Eos # (Auto) 0.1 Baso # (Auto) 0.1 Sodium 134 Potassium 4.6 Chloride 98 Carbon Dioxide 28 Anion Gap 13 BUN 79 H Creatinine 3.5 H Est GFR ( Amer) 21 Est GFR (Non-Af Amer) 18 POC Glucose (mg/dL) 138 H Random Glucose 95 Calcium 8.6 Total Bilirubin 0.6 AST 58 ALT 119 H Alkaline Phosphatase 67 NT-Pro-B Natriuret Pep 38585 H Total Protein 6.3 Albumin 3.0 L Globulin 3.4 Albumin/Globulin Ratio 0.9 L Hepatitis A IgM Ab Hep Bs Antigen Hep B Core IgM Ab Hepatitis C Antibody 01/26/18 11:06 WBC RBC Hgb Hct MCV MCH MCHC RDW Plt Count MPV Neut % (Auto) Lymph % (Auto) [place] % (Auto) Eos % (Auto) Baso % (Auto) Neut # (Auto) Lymph # (Auto) [place] # (Auto) Eos # (Auto) Baso # (Auto) Sodium Potassium Chloride Carbon Dioxide Anion Gap BUN Creatinine Est GFR ( Amer) Est GFR (Non-Af Amer) POC Glucose (mg/dL) 139 H Random Glucose Calcium Total Bilirubin AST ALT Alkaline Phosphatase NT-Pro-B Natriuret Pep Total Protein Albumin Globulin Albumin/Globulin Ratio Hepatitis A IgM Ab Hep Bs Antigen Hep B Core IgM Ab Hepatitis C Antibody
--- NOTE | 2018-01-26 12:51 | CP.PCM.PN ---
Subjective - Date & Time of Evaluation Date of Evaluation: 01/26/18 Time of Evaluation: 09:00 - Subjective Subjective: afebrile on IV antibiotics Objective - Vital Signs/Intake and Output Vital Signs (last 24 hours): Temp Pulse Resp BP Pulse Ox 97.4 F L 71 18 159/87 H 96 01/26/18 12:00 01/26/18 12:00 01/26/18 12:00 01/26/18 12:00 01/26/18 12:00 - Medications Medications: Current Medications Acetaminophen (Tylenol 325mg Tab) 650 mg PO Q4 PRN PRN Reason: Fever >100.4 F Last Admin: 01/24/18 19:03 Dose: 650 mg Al Hydrox/Mg Hydrox/Simethicone (Maalox Plus 30 Ml) 30 ml PO Q4H [facility] Last Admin: 01/26/18 09:46 Dose: 30 ml Albuterol/Ipratropium (Duoneb 3 Mg/0.5 Mg (3 Ml) Ud) 3 ml INH RQ4 PRN PRN Reason: Shortness of Breath Last Admin: 01/26/18 11:33 Dose: 3 ml Aspirin (Ecotrin) 81 mg PO DAILY [facility] Last Admin: 01/26/18 09:46 Dose: 81 mg Buspirone HCl (Buspar) 30 mg PO BID [facility] Last Admin: 01/26/18 09:47 Dose: 30 mg Calcium Acetate (Phoslo) 1,334 mg PO TID [facility] Last Admin: 01/26/18 12:02 Dose: 1,334 mg Clopidogrel Bisulfate (Plavix) 75 mg PO DAILY [facility] Last Admin: 01/26/18 09:46 Dose: 75 mg Collagenase (Santyl) 1 applic TOP DAILY [facility] Last Admin: 01/26/18 09:48 Dose: 1 applic Ergocalciferol (Drisdol 50,000 Intl Units Cap) 1 cap PO QWK [facility] Last Admin: 01/26/18 09:49 Dose: 1 cap Fenofibrate (Tricor) 145 mg PO DAILY [facility] Last Admin: 01/26/18 09:49 Dose: 145 mg Gabapentin (Neurontin) 600 mg PO BID [facility] Last Admin: 01/26/18 09:47 Dose: 600 mg Haloperidol Lactate (Haldol) 2 mg IVP Q8 PRN PRN Reason: Agitation Ceftriaxone Sodium 1 gm/ (Sodium Chloride) 100 mls @ 100 mls/hr IVPB DAILY [facility] PRN Reason: Protocol Last Admin: 01/26/18 09:45 Dose: 100 mls/hr Daptomycin 650 mg/ Sodium (Chloride) 100 mls @ 100 mls/hr IV Q48H [facility] PRN Reason: Protocol Stop: 01/29/18 12:31 Last Admin: 01/24/18 15:08 Dose: 100 mls/hr Lamotrigine (Lamictal) 50 mg PO BID [facility] Last Admin: 01/26/18 09:46 Dose: 50 mg Levothyroxine Sodium (Synthroid) 88 mcg PO DAILY@0630 [facility] Last Admin: 01/26/18 09:50 Dose: Not Given Magnesium Hydroxide (Milk Of Magnesia) 30 ml PO DAILY [facility] Last Admin: 01/26/18 09:56 Dose: 30 ml Metoprolol Tartrate (Lopressor) 25 mg PO BID [facility] Last Admin: 01/26/18 09:45 Dose: 25 mg Montelukast Sodium (Singulair) 10 mg PO DAILY [facility] Last Admin: 01/26/18 09:49 Dose: 10 mg Nystatin (Nystop Topical Powder) 1 applic TOP TID [facility] Last Admin: 01/26/18 12:03 Dose: 1 applic Oxycodone HCl (Oxycontin Extended Release Tab) 30 mg PO Q12 [facility] Stop: 01/27/18 21:01 Last Admin: 01/26/18 09:52 Dose: 30 mg Paroxetine HCl (Paxil) 40 mg PO DAILY [facility] Sennosides (Senokot Tab) 17.2 mg PO HS [facility] Sitagliptin Phosphate (Januvia) 100 mg PO DAILY [facility] Last Admin: 01/26/18 09:49 Dose: 100 mg - Labs Labs: 01/26/18 05:32 01/26/18 05:32 - Constitutional Appears: Confused, Chronically Ill - Head Exam Head Exam: NORMOCEPHALIC - Eye Exam Eye Exam: absent: Scleral icterus - ENT Exam ENT Exam: Mucous Membranes Dry - Neck Exam Neck Exam: absent: Lymphadenopathy - Respiratory Exam Respiratory Exam: Decreased Breath Sounds - Cardiovascular Exam Cardiovascular Exam: REGULAR RHYTHM - GI/Abdominal Exam GI & Abdominal Exam: Soft - Rectal Exam Rectal Exam: Deferred - Exam Exam: NORMAL INSPECTION - Extremities Exam Extremities Exam: Joint Swelling, Pedal Edema - Back Exam Back Exam: absent: CVA tenderness (L), paraspinal tenderness - Neurological Exam Neurological Exam: Alert, Awake Assessment and Plan (1) Osteomyelitis of ankle Status: Acute (2) Acute renal failure Status: Acute (3) Elevated LFTs Status: Acute (4) Bacteremia due to methicillin resistant Staphylococcus aureus Status: Acute - Assessment and Plan (Free Text) Assessment: cont iv cubicin for 6 weeks
[2018-01-26 13:51] LABS: ABG ALLEN TEST YES; ARTERIAL BLOOD GAS HCO3 25.4 mmol/L (21-28); ARTERIAL BLOOD GAS O2 CAPACITY 16.2 mL/dL (16-24); ARTERIAL BLOOD GAS O2 CONTENT 15.4 ML/dL (15-23); ARTERIAL BLOOD GAS O2 SAT 94.9 % (95-98); ARTERIAL BLOOD GAS PCO2 43 mm/Hg (35-45); ARTERIAL BLOOD GAS PH 7.39 (7.35-7.45); ARTERIAL BLOOD GAS PO2 69 mm/Hg (80-100); ARTERIAL BLOOD GAS TCO2 27.3 mmol/L (22-28)
--- NOTE | 2018-01-26 14:08 | CP.PCM.PN ---
Subjective - Date & Time of Evaluation Date of Evaluation: 01/26/18 Time of Evaluation: 14:06 - Subjective Subjective: Patient M bed much more awake much more conscious. Less restlessness Objective - Vital Signs/Intake and Output Vital Signs (last 24 hours): Temp Pulse Resp BP Pulse Ox 97.4 F L 71 18 159/87 H 96 01/26/18 12:00 01/26/18 12:00 01/26/18 12:00 01/26/18 12:00 01/26/18 12:00 - Medications Medications: Current Medications Acetaminophen (Tylenol 325mg Tab) 650 mg PO Q4 PRN PRN Reason: Fever >100.4 F Last Admin: 01/24/18 19:03 Dose: 650 mg Al Hydrox/Mg Hydrox/Simethicone (Maalox Plus 30 Ml) 30 ml PO Q4H [facility] Last Admin: 01/26/18 09:46 Dose: 30 ml Albuterol/Ipratropium (Duoneb 3 Mg/0.5 Mg (3 Ml) Ud) 3 ml INH RQ4 [facility] Aspirin (Ecotrin) 81 mg PO DAILY [facility] Last Admin: 01/26/18 09:46 Dose: 81 mg Buspirone HCl (Buspar) 30 mg PO BID [facility] Last Admin: 01/26/18 09:47 Dose: 30 mg Calcium Acetate (Phoslo) 1,334 mg PO TID [facility] Last Admin: 01/26/18 12:02 Dose: 1,334 mg Clopidogrel Bisulfate (Plavix) 75 mg PO DAILY [facility] Last Admin: 01/26/18 09:46 Dose: 75 mg Collagenase (Santyl) 1 applic TOP DAILY [facility] Last Admin: 01/26/18 09:48 Dose: 1 applic Ergocalciferol (Drisdol 50,000 Intl Units Cap) 1 cap PO QWK [facility] Last Admin: 01/26/18 09:49 Dose: 1 cap Fenofibrate (Tricor) 145 mg PO DAILY [facility] Last Admin: 01/26/18 09:49 Dose: 145 mg Gabapentin (Neurontin) 600 mg PO BID [facility] Last Admin: 01/26/18 09:47 Dose: 600 mg Haloperidol Lactate (Haldol) 2 mg IVP Q8 PRN PRN Reason: Agitation Ceftriaxone Sodium 1 gm/ (Sodium Chloride) 100 mls @ 100 mls/hr IVPB DAILY [facility] PRN Reason: Protocol Last Admin: 01/26/18 09:45 Dose: 100 mls/hr Daptomycin 650 mg/ Sodium (Chloride) 100 mls @ 100 mls/hr IV Q48H [facility] PRN Reason: Protocol Stop: 01/29/18 12:31 Last Admin: 01/24/18 15:08 Dose: 100 mls/hr Lamotrigine (Lamictal) 50 mg PO BID [facility] Last Admin: 01/26/18 09:46 Dose: 50 mg Levothyroxine Sodium (Synthroid) 88 mcg PO DAILY@0630 [facility] Last Admin: 01/26/18 09:50 Dose: Not Given Magnesium Hydroxide (Milk Of Magnesia) 30 ml PO DAILY [facility] Last Admin: 01/26/18 09:56 Dose: 30 ml Metoprolol Tartrate (Lopressor) 25 mg PO BID [facility] Last Admin: 01/26/18 09:45 Dose: 25 mg Montelukast Sodium (Singulair) 10 mg PO DAILY [facility] Last Admin: 01/26/18 09:49 Dose: 10 mg Nystatin (Nystop Topical Powder) 1 applic TOP TID [facility] Last Admin: 01/26/18 12:03 Dose: 1 applic Oxycodone HCl (Oxycontin Extended Release Tab) 30 mg PO Q12 [facility] Stop: 01/27/18 21:01 Last Admin: 01/26/18 09:52 Dose: 30 mg Paroxetine HCl (Paxil) 40 mg PO DAILY [facility] Sennosides (Senokot Tab) 17.2 mg PO HS [facility] Sitagliptin Phosphate (Januvia) 100 mg PO DAILY [facility] Last Admin: 01/26/18 09:49 Dose: 100 mg - Labs Labs: 01/26/18 05:32 01/26/18 05:32 - Constitutional Appears: No Acute Distress - ENT Exam ENT Exam: Mucous Membranes Moist - Neck Exam Neck Exam: absent: Lymphadenopathy - Respiratory Exam Respiratory Exam: NORMAL BREATHING PATTERN. absent: Chest Wall Tenderness, Rales - Cardiovascular Exam Cardiovascular Exam: REGULAR RHYTHM. absent: Gallop, JVD, Rubs - GI/Abdominal Exam GI & Abdominal Exam: Soft, Normal Bowel Sounds - Extremities Exam Extremities Exam: absent: Calf Tenderness - Back Exam Back Exam: absent: CVA tenderness (L), CVA tenderness (R) - Neurological Exam Neurological Exam: Alert - Skin Skin Exam: absent: Cyanosis Assessment and Plan (1) Acute renal failure Assessment & Plan: Acute kidney injury/acute renal failure Improving kidney function serum creatinine coming down. Serum potassium corrected Serum sodium coming down to 135 developing hyponatremia dilutional suggest to cut down IV fluid. vancomycin level 31+. Vancomycin discontinued kidney function improving serum creatinine came down 4.0 Lisinopril and ibuprofen discontinued right ankle infection hyperkalemia corrected Abnormal liver function test hyperphosphatemia serum phosphorus 8 add binders Status: Acute (2) Elevated LFTs Status: Acute (3) Cellulitis Status: Acute
[2018-01-26] MEDS: Albuterol-Ipratrop 3 mg / 0.5 (3 ml) UD INH SCH ×3 (17:03→23:47)
--- NOTE | 2018-01-26 18:25 | CP.PCM.PN ---
Subjective - Date & Time of Evaluation Date of Evaluation: 01/26/18 Time of Evaluation: 18:20 - Subjective Subjective: bar is lying flat in bed. no chest pain Objective - Vital Signs/Intake and Output Vital Signs (last 24 hours): Temp Pulse Resp BP Pulse Ox 96.0 F L 73 20 167/87 H 96 01/26/18 16:02 01/26/18 16:58 01/26/18 16:02 01/26/18 16:58 01/26/18 16:02 - Medications Medications: Current Medications Acetaminophen (Tylenol 325mg Tab) 650 mg PO Q4 PRN PRN Reason: Fever >100.4 F Last Admin: 01/24/18 19:03 Dose: 650 mg Al Hydrox/Mg Hydrox/Simethicone (Maalox Plus 30 Ml) 30 ml PO Q4H [facility] Last Admin: 01/26/18 17:15 Dose: 30 ml Albuterol/Ipratropium (Duoneb 3 Mg/0.5 Mg (3 Ml) Ud) 3 ml INH RQ4 [facility] Last Admin: 01/26/18 17:03 Dose: 3 ml Aspirin (Ecotrin) 81 mg PO DAILY [facility] Last Admin: 01/26/18 09:46 Dose: 81 mg Buspirone HCl (Buspar) 10 mg PO BID [facility] Last Admin: 01/26/18 16:59 Dose: 10 mg Calcium Acetate (Phoslo) 1,334 mg PO TID [facility] Last Admin: 01/26/18 16:57 Dose: 1,334 mg Clopidogrel Bisulfate (Plavix) 75 mg PO DAILY [facility] Last Admin: 01/26/18 09:46 Dose: 75 mg Collagenase (Santyl) 1 applic TOP DAILY [facility] Last Admin: 01/26/18 09:48 Dose: 1 applic Ergocalciferol (Drisdol 50,000 Intl Units Cap) 1 cap PO QWK [facility] Last Admin: 01/26/18 09:49 Dose: 1 cap Fenofibrate (Tricor) 145 mg PO DAILY [facility] Last Admin: 01/26/18 09:49 Dose: 145 mg Gabapentin (Neurontin) 600 mg PO BID [facility] Last Admin: 01/26/18 16:58 Dose: 600 mg Haloperidol Lactate (Haldol) 1 mg IVP Q4 PRN PRN Reason: Agitation Ceftriaxone Sodium 1 gm/ (Sodium Chloride) 100 mls @ 100 mls/hr IVPB DAILY [facility] PRN Reason: Protocol Last Admin: 01/26/18 09:45 Dose: 100 mls/hr Daptomycin 650 mg/ Sodium (Chloride) 100 mls @ 100 mls/hr IV Q48H [facility] PRN Reason: Protocol Stop: 01/29/18 12:31 Last Admin: 01/26/18 15:40 Dose: 100 mls/hr Lamotrigine (Lamictal) 50 mg PO BID [facility] Last Admin: 01/26/18 16:58 Dose: 50 mg Levothyroxine Sodium (Synthroid) 88 mcg PO DAILY@0630 [facility] Last Admin: 01/26/18 09:50 Dose: Not Given Magnesium Hydroxide (Milk Of Magnesia) 30 ml PO DAILY [facility] Last Admin: 01/26/18 09:56 Dose: 30 ml Metoprolol Tartrate (Lopressor) 25 mg PO BID [facility] Last Admin: 01/26/18 16:58 Dose: 25 mg Montelukast Sodium (Singulair) 10 mg PO DAILY [facility] Last Admin: 01/26/18 09:49 Dose: 10 mg Nystatin (Nystop Topical Powder) 1 applic TOP TID [facility] Last Admin: 01/26/18 16:57 Dose: 1 applic Oxycodone HCl (Oxycontin Extended Release Tab) 30 mg PO Q12 [facility] Stop: 01/27/18 21:01 Last Admin: 01/26/18 09:52 Dose: 30 mg Paroxetine HCl (Paxil) 40 mg PO DAILY [facility] Risperidone (Risperdal M-Tab) 0.5 mg PO Q8 PRN PRN Reason: Agitation Sennosides (Senokot Tab) 17.2 mg PO HS [facility] Sitagliptin Phosphate (Januvia) 100 mg PO DAILY [facility] Last Admin: 01/26/18 09:49 Dose: 100 mg - Labs Labs: 01/26/18 05:32 01/26/18 05:32 - Constitutional Appears: Non-toxic - Head Exam Head Exam: NORMAL INSPECTION - Eye Exam Eye Exam: Normal appearance - ENT Exam ENT Exam: Mucous Membranes Moist - Neck Exam Neck Exam: Full ROM - Respiratory Exam Respiratory Exam: NORMAL BREATHING PATTERN - Cardiovascular Exam Cardiovascular Exam: REGULAR RHYTHM - GI/Abdominal Exam GI & Abdominal Exam: Normal Bowel Sounds - Rectal Exam Rectal Exam: Deferred - Extremities Exam Extremities Exam: absent: Pedal Edema - Back Exam Back Exam: NORMAL INSPECTION - Neurological Exam Neurological Exam: Alert - Psychiatric Exam Psychiatric exam: Normal Affect - Skin Skin Exam: Normal Color Assessment and Plan (1) CHF (congestive heart failure) Assessment & Plan: likely diastolic dysfunction. recommend medical therapy and blood pressure control Status: Acute (2) HTN (hypertension) Assessment & Plan: will have to adjust therapy Status: Acute (3) CAD (coronary artery disease) Assessment & Plan: s/p stent last year. medical therapy and antiplatelet therapy Status: Acute
[2018-01-26] MEDS: Nasal Spray(Ocean spray) NAS PRN (23:24)
[2018-01-27] MEDS: Alum-Mag Hydrox-Simethicone Susp (30 mL) PO SCH ×8 (02:00→21:52)
[2018-01-27] MEDS: Albuterol-Ipratrop 3 mg / 0.5 (3 ml) UD INH SCH ×6 (05:03→23:19)
[2018-01-27 05:32] LABS: HEMOGLOBIN 12.3 g/dL (12.0-18.0); MEAN CELL VOLUME 73.8 fl (80.0-94.0); MEAN CORPUSCULAR HGB CONC 31.2 g/dL (33.0-37.0); RBC 5.32 Mil/uL (4.40-5.90); RED CELL DISTRIBUTION WIDTH 22.2 % (11.5-14.5); WHITE BLOOD COUNT 12.3 K/uL (4.8-10.8)
[2018-01-27 05:47] LABS: CALCIUM 8.9 mg/dL (8.4-10.2)
[2018-01-27] MEDS ORDERED: Sod Polystyrene Sulf 15 gm/60 ml Susp PO ONE (06:22)
[2018-01-27] MEDS: Levothyroxine 88 MCG TAB PO SCH (06:33)
[2018-01-27] MEDS: oxyCODONE 10 mg ER Tab (oxyCONTIN) PO SCH ×2 (08:08→21:40)
[2018-01-27] MEDS: Nasal Spray(Ocean spray) NAS PRN (08:09)
[2018-01-27] MEDS: Ergocalciferol 50,000 Intl Units Cap PO SCH (08:16)
[2018-01-27] MEDS: Risperidone M tab 0.5MG PO PRN (08:17)
[2018-01-27] MEDS: Santyl Collagenase OINTMENT TOP SCH (08:21)
[2018-01-27] MEDS: Magnesium Hydroxide Susp 30 ml UD PO SCH (08:27)
--- NOTE | 2018-01-27 11:02 | CP.PCM.PN ---
Subjective - Date & Time of Evaluation Date of Evaluation: 01/27/18 Time of Evaluation: 11:00 - Subjective Subjective: pt doing well, less confused. r foot still edematous. no f/c, n/v/d. bw noted. k 5.3 cr trending down. all consult notes appriciated. Objective - Vital Signs/Intake and Output Vital Signs (last 24 hours): Temp Pulse Resp BP Pulse Ox 97.7 F 62 18 138/69 95 01/27/18 08:19 01/27/18 08:19 01/27/18 08:19 01/27/18 08:19 01/27/18 08:19 Intake and Output: 01/27/18 01/27/18 06:59 18:59 Intake Total 260 Output Total 600 Balance -340 - Medications Medications: Current Medications Acetaminophen (Tylenol 325mg Tab) 650 mg PO Q4 PRN PRN Reason: Fever >100.4 F Last Admin: 01/24/18 19:03 Dose: 650 mg Al Hydrox/Mg Hydrox/Simethicone (Maalox Plus 30 Ml) 30 ml PO Q4H [facility] Last Admin: 01/27/18 10:18 Dose: 30 ml Albuterol/Ipratropium (Duoneb 3 Mg/0.5 Mg (3 Ml) Ud) 3 ml INH RQ4 [facility] Last Admin: 01/27/18 07:22 Dose: 3 ml Alprazolam (Xanax) 0.5 mg PO Q6 [facility] Last Admin: 01/27/18 10:19 Dose: 0.5 mg Aspirin (Ecotrin) 81 mg PO DAILY [facility] [place] Last Admin: 01/27/18 08:17 Dose: 81 mg Buspirone HCl (Buspar) 10 mg PO BID [facility] [place] Last Admin: 01/27/18 08:18 Dose: 10 mg Calcium Acetate (Phoslo) 1,334 mg PO TID [facility] [place] Last Admin: 01/27/18 08:16 Dose: 1,334 mg Clopidogrel Bisulfate (Plavix) 75 mg PO DAILY [facility] Last Admin: 01/27/18 08:17 Dose: 75 mg Collagenase (Santyl) 1 applic TOP DAILY [facility] [place] Last Admin: 01/27/18 08:21 Dose: 1 applic Ergocalciferol (Drisdol 50,000 Intl Units Cap) 1 cap PO QWK [facility] [place] Last Admin: 01/27/18 08:16 Dose: 1 cap Fenofibrate (Tricor) 145 mg PO DAILY [facility] [place] Last Admin: 01/27/18 08:21 Dose: 145 mg Gabapentin (Neurontin) 600 mg PO BID [facility] [place] Last Admin: 01/27/18 08:18 Dose: 600 mg Haloperidol Lactate (Haldol) 1 mg IVP Q4 PRN PRN Reason: Agitation Last Admin: 01/26/18 21:53 Dose: 1 mg Daptomycin 650 mg/ Sodium (Chloride) 100 mls @ 100 mls/hr IV Q48H [facility] PRN Reason: Protocol Stop: 01/29/18 12:31 Last Admin: 01/26/18 15:40 Dose: 100 mls/hr Lamotrigine (Lamictal) 50 mg PO BID [facility] [place] Last Admin: 01/27/18 08:19 Dose: 50 mg Levothyroxine Sodium (Synthroid) 88 mcg PO DAILY@0630 [facility] [place] Last Admin: 01/27/18 06:33 Dose: 88 mcg Magnesium Hydroxide (Milk Of Magnesia) 30 ml PO DAILY [facility] Last Admin: 01/27/18 08:27 Dose: 30 ml Metoprolol Tartrate (Lopressor) 50 mg PO BID [facility] Last Admin: 01/27/18 08:10 Dose: 50 mg Montelukast Sodium (Singulair) 10 mg PO DAILY [facility] Last Admin: 01/27/18 08:18 Dose: 10 mg Nystatin (Nystop Topical Powder) 1 applic TOP TID [facility] Last Admin: 01/27/18 08:19 Dose: 1 applic Oxycodone HCl (Oxycontin Extended Release Tab) 30 mg PO Q12 [facility] [place] Stop: 01/27/18 21:01 Last Admin: 01/27/18 08:08 Dose: 30 mg Paroxetine HCl (Paxil) 40 mg PO DAILY [facility] Last Admin: 01/27/18 08:20 Dose: 40 mg Risperidone (Risperdal M-Tab) 0.5 mg PO Q8 PRN PRN Reason: Agitation Last Admin: 01/27/18 08:17 Dose: 0.5 mg Sennosides (Senokot Tab) 17.2 mg PO HS [facility] [place] Last Admin: 01/26/18 21:13 Dose: 17.2 mg Sitagliptin Phosphate (Januvia) 100 mg PO DAILY [facility] [place] Last Admin: 01/27/18 08:18 Dose: 100 mg Sodium Chloride ([place] Nasal [place]) 2 sprays HI Q4 PRN PRN Reason: Nasal congestion Last Admin: 01/27/18 08:09 Dose: 2 spr - Labs Labs: 01/27/18 04:37 01/27/18 04:37 - Constitutional Appears: Well, Non-toxic, No Acute Distress, Chronically Ill - Head Exam Head Exam: ATRAUMATIC, NORMAL INSPECTION, NORMOCEPHALIC - Eye Exam Eye Exam: EOMI, Normal appearance, PERRL Pupil Exam: NORMAL ACCOMODATION, PERRL - ENT Exam ENT Exam: Mucous Membranes Moist, Normal Exam - Neck Exam Neck Exam: Full ROM, Normal Inspection. absent: Lymphadenopathy - Respiratory Exam Respiratory Exam: Clear to Ausculation Bilateral, NORMAL BREATHING PATTERN - Cardiovascular Exam Cardiovascular Exam: REGULAR RHYTHM, RRR, +S1, +S2. absent: Murmur - GI/Abdominal Exam GI & Abdominal Exam: Soft, Normal Bowel Sounds. absent: Tenderness - Exam Bimanual exam: NORMAL BIMANUAL EXAM - Extremities Exam Extremities Exam: Full ROM, Normal Capillary Refill, Normal Inspection. absent : Joint Swelling, Pedal Edema - Back Exam Back Exam: NORMAL INSPECTION - Neurological Exam Neurological Exam: Abnormal Gait, Alert, Awake, CN II-XII Intact, Oriented x3 - Psychiatric Exam Psychiatric exam: Normal Affect, Normal Mood - Skin Skin Exam: Dry, Intact, Normal Color, Warm Assessment and Plan (1) Acute renal failure Status: Acute (2) Elevated LFTs Status: Acute (3) Bacteremia due to methicillin resistant Staphylococcus aureus Status: Acute (4) Chronic pain Status: Acute (5) DVT prophylaxis Status: Acute - Assessment and Plan (Free Text) Assessment: (1) Acute renal failure Assessment and Plan: nephro ivf monitor bun/cr-trending down urine protein noted Status: Acute (2) Elevated LFTs Assessment and Plan: gi ivf monitor lft trending down Status: Acute (3) Bacteremia due to methicillin resistant Staphylococcus aureus Assessment and Plan: albinoo roselia, started cubin as per ID yesterday podiatry consult as original source r foot/ankle Status: Acute (4) Chronic pain Assessment and Plan: cont home meds Status: Acute (5) DVT prophylaxis Assessment and Plan: scd and ae hose asa/plavix Status: Acute 6-chf w/ h/o cad-cont meds, cardio consult, echo,dc ivf, cont nasal o2, HOB 30 degrees [id number], neuro. ct head. all notes appriciated. less so today, ?? r /t arf/medications [id number], recheck labs, nephro
--- NOTE | 2018-01-27 13:04 | CP.PCM.PN ---
Subjective - Date & Time of Evaluation Date of Evaluation: 01/27/18 Time of Evaluation: 13:04 - Subjective Subjective: Podiatry Progress Note- Dr. Brooks HainesM seen and evaluated for right ankle surgical wound 15 days s/p I&D. Patient sleeping at time of visit, unable to be aroused. No acute events overnight per nursing. Objective - Vital Signs/Intake and Output Vital Signs (last 24 hours): Temp Pulse Resp BP Pulse Ox 97.5 F L 59 L 18 133/79 96 01/27/18 12:33 01/27/18 12:33 01/27/18 12:33 01/27/18 12:33 01/27/18 12:33 Intake and Output: 01/27/18 01/27/18 06:59 18:59 Intake Total 260 Output Total 600 Balance -340 - Medications Medications: Current Medications Acetaminophen (Tylenol 325mg Tab) 650 mg PO Q4 PRN PRN Reason: Fever >100.4 F Last Admin: 01/24/18 19:03 Dose: 650 mg Al Hydrox/Mg Hydrox/Simethicone (Maalox Plus 30 Ml) 30 ml PO Q4H [facility] Last Admin: 01/27/18 10:18 Dose: 30 ml Albuterol/Ipratropium (Duoneb 3 Mg/0.5 Mg (3 Ml) Ud) 3 ml INH RQ4 [facility] Last Admin: 01/27/18 11:30 Dose: Not Given Alprazolam (Xanax) 0.5 mg PO Q6 [facility] Last Admin: 01/27/18 10:19 Dose: 0.5 mg Aspirin (Ecotrin) 81 mg PO DAILY [facility] Last Admin: 01/27/18 08:17 Dose: 81 mg Buspirone HCl (Buspar) 10 mg PO BID [facility] Last Admin: 01/27/18 08:18 Dose: 10 mg Calcium Acetate (Phoslo) 1,334 mg PO TID [facility] Last Admin: 01/27/18 12:06 Dose: 1,334 mg Clopidogrel Bisulfate (Plavix) 75 mg PO DAILY [facility] Last Admin: 01/27/18 08:17 Dose: 75 mg Collagenase (Santyl) 1 applic TOP DAILY [facility] Last Admin: 01/27/18 08:21 Dose: 1 applic Ergocalciferol (Drisdol 50,000 Intl Units Cap) 1 cap PO QWK [facility] Last Admin: 01/27/18 08:16 Dose: 1 cap Fenofibrate (Tricor) 145 mg PO DAILY [facility] Last Admin: 01/27/18 08:21 Dose: 145 mg Gabapentin (Neurontin) 600 mg PO BID [facility] Last Admin: 01/27/18 08:18 Dose: 600 mg Haloperidol Lactate (Haldol) 1 mg IVP Q4 PRN PRN Reason: Agitation Last Admin: 01/26/18 21:53 Dose: 1 mg Daptomycin 650 mg/ Sodium (Chloride) 100 mls @ 100 mls/hr IV Q48H [facility] PRN Reason: Protocol Stop: 01/29/18 12:31 Last Admin: 01/26/18 15:40 Dose: 100 mls/hr Lamotrigine (Lamictal) 50 mg PO BID [facility] Last Admin: 01/27/18 08:19 Dose: 50 mg Levothyroxine Sodium (Synthroid) 88 mcg PO DAILY@0630 [facility] Last Admin: 01/27/18 06:33 Dose: 88 mcg Magnesium Hydroxide (Milk Of Magnesia) 30 ml PO DAILY [facility] Last Admin: 01/27/18 08:27 Dose: 30 ml Metoprolol Tartrate (Lopressor) 50 mg PO BID [facility] Last Admin: 01/27/18 08:10 Dose: 50 mg Montelukast Sodium (Singulair) 10 mg PO DAILY [facility] Last Admin: 01/27/18 08:18 Dose: 10 mg Nystatin (Nystop Topical Powder) 1 applic TOP TID [facility] Last Admin: 01/27/18 12:05 Dose: 1 applic Oxycodone HCl (Oxycontin Extended Release Tab) 30 mg PO Q12 [facility] Stop: 01/27/18 21:01 Last Admin: 01/27/18 08:08 Dose: 30 mg Paroxetine HCl (Paxil) 40 mg PO DAILY [facility] Last Admin: 01/27/18 08:20 Dose: 40 mg Risperidone (Risperdal M-Tab) 0.5 mg PO Q8 PRN PRN Reason: Agitation Last Admin: 01/27/18 08:17 Dose: 0.5 mg Sennosides (Senokot Tab) 17.2 mg PO HS [facility] Last Admin: 01/26/18 21:13 Dose: 17.2 mg Sitagliptin Phosphate (Januvia) 100 mg PO DAILY [facility] Last Admin: 01/27/18 08:18 Dose: 100 mg Sodium Chloride ([place] Nasal [place]) 2 sprays IH Q4 PRN PRN Reason: Nasal congestion Last Admin: 01/27/18 08:09 Dose: 2 spr - Labs Labs: 01/27/18 04:37 01/27/18 04:37 - Constitutional Appears: Well, Non-toxic, No Acute Distress - Extremities Exam Additional comments: RLE focused physical exam: VASC: DP/PT pulses non-palpable secondary to edema. Temperature warm to warm from proximal to distal. Non-pitting edema noted to right ankle extending distally. DERM: Linear surgical incision noted to anteromedial ankle joint with sutures intact and midpoint left open with exposed tibia at 3 o'clock, remainder of open site noted to have a 80% fibrous and 20% granular base, minimal erythema periwound, serosanguinous drainage/synovial fluid able to be expressed; no malodor; no active bleeding. NEURO: Gross sensation diminished. ORTHO: Pain on palpation noted to right medial ankle joint extending distally into forefoot. Digital ROM present. Assessment and Plan - Assessment and Plan (Free Text) Assessment: 62M with surgical wound right ankle 15 days s/p right ankle I&D (DOS 01/12/18) Plan: Patient seen and evaluated Discussed plain with attending, Dr. Guy Afebrile, WBC 12.3 R ankle wound culture - (prelim) staph aureus Continue abx per ID - Daptomycin; plan to continue for 6 weeks Continue local wound care: Santyl, DSD Multipodus boot to be worn RLE at all times while in bed Pain control per medicine Recommend surgical wound debridement with woundVAC application once medically stabilized Podiatry will continue to follow
--- NOTE | 2018-01-27 14:19 | CP.PCM.PN ---
Subjective - Date & Time of Evaluation Date of Evaluation: 01/27/18 Time of Evaluation: 14:16 - Subjective Subjective: RENAL FOLLOW UP S: seen and examined, resting comfortably o: vs as below gen: nad sclera: anicteric op: clear neck No thyromegaly cv:+s1+s2 no rub abd: soft + bs no organomegaly lungs: cta ext: dressing RLE neuro: follows commands resiting psych: flat skin: dressing RLE labs reviewed imp: ARF/ Hyperphosphatemia/ anemia / bacteremia/ hypertension plan: ELLIE mildly improved likely multifactorial ATN. given elevated K and phos - will check cpk - dapto can sometimes cause rhabdo continue phoslo monitor h and h abx per ID bp well controlled today Objective - Vital Signs/Intake and Output Vital Signs (last 24 hours): Temp Pulse Resp BP Pulse Ox 97.5 F L 59 L 18 133/79 96 01/27/18 12:33 01/27/18 12:33 01/27/18 12:33 01/27/18 12:33 01/27/18 12:33 Intake and Output: 01/27/18 01/27/18 06:59 18:59 Intake Total 260 Output Total 600 Balance -340 - Medications Medications: Current Medications Acetaminophen (Tylenol 325mg Tab) 650 mg PO Q4 PRN PRN Reason: Fever >100.4 F Last Admin: 01/24/18 19:03 Dose: 650 mg Al Hydrox/Mg Hydrox/Simethicone (Maalox Plus 30 Ml) 30 ml PO Q4H [facility] Last Admin: 01/27/18 13:53 Dose: 30 ml Albuterol/Ipratropium (Duoneb 3 Mg/0.5 Mg (3 Ml) Ud) 3 ml INH RQ4 [facility] Last Admin: 01/27/18 11:30 Dose: Not Given Alprazolam (Xanax) 0.5 mg PO Q6 [facility] Last Admin: 01/27/18 10:19 Dose: 0.5 mg Aspirin (Ecotrin) 81 mg PO DAILY [facility] Last Admin: 01/27/18 08:17 Dose: 81 mg Buspirone HCl (Buspar) 10 mg PO BID [facility] Last Admin: 01/27/18 08:18 Dose: 10 mg Calcium Acetate (Phoslo) 1,334 mg PO TID [facility] Last Admin: 01/27/18 12:06 Dose: 1,334 mg Clopidogrel Bisulfate (Plavix) 75 mg PO DAILY [facility] Last Admin: 01/27/18 08:17 Dose: 75 mg Collagenase (Santyl) 1 applic TOP DAILY [facility] Last Admin: 01/27/18 08:21 Dose: 1 applic Ergocalciferol (Drisdol 50,000 Intl Units Cap) 1 cap PO QWK [facility] Last Admin: 01/27/18 08:16 Dose: 1 cap Fenofibrate (Tricor) 145 mg PO DAILY [facility] Last Admin: 01/27/18 08:21 Dose: 145 mg Gabapentin (Neurontin) 600 mg PO BID [facility] Last Admin: 01/27/18 08:18 Dose: 600 mg Haloperidol Lactate (Haldol) 1 mg IVP Q4 PRN PRN Reason: Agitation Last Admin: 01/26/18 21:53 Dose: 1 mg Daptomycin 650 mg/ Sodium (Chloride) 100 mls @ 100 mls/hr IV Q48H [facility] PRN Reason: Protocol Stop: 01/29/18 12:31 Last Admin: 01/26/18 15:40 Dose: 100 mls/hr Lamotrigine (Lamictal) 50 mg PO BID [facility] Last Admin: 01/27/18 08:19 Dose: 50 mg Levothyroxine Sodium (Synthroid) 88 mcg PO DAILY@0630 [facility] Last Admin: 01/27/18 06:33 Dose: 88 mcg Magnesium Hydroxide (Milk Of Magnesia) 30 ml PO DAILY [facility] Last Admin: 01/27/18 08:27 Dose: 30 ml Metoprolol Tartrate (Lopressor) 50 mg PO BID [facility] Last Admin: 01/27/18 08:10 Dose: 50 mg Montelukast Sodium (Singulair) 10 mg PO DAILY [facility] Last Admin: 01/27/18 08:18 Dose: 10 mg Nystatin (Nystop Topical Powder) 1 applic TOP TID [facility] Last Admin: 01/27/18 12:05 Dose: 1 applic Oxycodone HCl (Oxycontin Extended Release Tab) 30 mg PO Q12 [facility] Stop: 01/27/18 21:01 Last Admin: 01/27/18 08:08 Dose: 30 mg Paroxetine HCl (Paxil) 40 mg PO DAILY [facility] Last Admin: 01/27/18 08:20 Dose: 40 mg Risperidone (Risperdal M-Tab) 0.5 mg PO Q8 PRN PRN Reason: Agitation Last Admin: 01/27/18 08:17 Dose: 0.5 mg Sennosides (Senokot Tab) 17.2 mg PO HS [facility] Last Admin: 01/26/18 21:13 Dose: 17.2 mg Sitagliptin Phosphate (Januvia) 100 mg PO DAILY [facility] Last Admin: 01/27/18 08:18 Dose: 100 mg Sodium Chloride ([place] Nasal [place]) 2 sprays HI Q4 PRN PRN Reason: Nasal congestion Last Admin: 01/27/18 08:09 Dose: 2 spr - Labs Labs: 01/27/18 04:37 01/27/18 04:37
--- NOTE | 2018-01-27 16:48 | CARD ---
APPROVED REPORT EKG Measurement Heart [id number] <Conclusion> Sinus rhythm with occasional premature ventricular complexes Possible Left atrial enlargement Left axis deviation Abnormal ECG
[2018-01-28] MEDS: Risperidone M tab 0.5MG PO PRN (00:26)
[2018-01-28] MEDS: Alum-Mag Hydrox-Simethicone Susp (30 mL) PO SCH ×3 (03:40→06:07)
[2018-01-28] MEDS: Albuterol-Ipratrop 3 mg / 0.5 (3 ml) UD INH SCH ×5 (05:31→19:26)
[2018-01-28] MEDS: Levothyroxine 88 MCG TAB PO SCH (05:40)
[2018-01-28 05:54] LABS: BASO # 0.1 K/uL (0.0-0.2); BASO % 0.8 % (0.0-2.0); EOS # 0.1 K/uL (0.0-0.7); EOS % 0.7 % (0.0-4.0); HEMOGLOBIN 11.8 g/dL (12.0-18.0); LYMPH # 1.1 K/uL (1.0-4.3); LYMPH % 11.5 % (20.0-40.0); MEAN CELL VOLUME 73.2 fl (80.0-94.0); MEAN CORPUSCULAR HEMOGLOBIN 22.9 pg (27.0-31.0); MEAN CORPUSCULAR HGB CONC 31.3 g/dL (33.0-37.0); MEAN PLATELET VOLUME 7.2 fl (7.2-11.7); MONO # 0.9 K/uL (0.0-0.8); MONO % 9.4 % (0.0-10.0); NEUT # 7.8 K/uL (1.8-7.0); NEUT % 77.6 % (50.0-75.0); RBC 5.14 Mil/uL (4.40-5.90)
[2018-01-28 06:11] LABS: ALB/GLOB RATIO 0.8 (1.0-2.1); ALBUMIN 2.8 g/dL (3.5-5.0); CALCIUM 8.5 mg/dL (8.4-10.2)
--- NOTE | 2018-01-28 07:23 | CON ---
DATE: 01/26/2018 CHIEF COMPLAINT: Altered mental status. HISTORY OF PRESENT ILLNESS: A 62-year-old man with history of diabetes, hypertension, hyperlipidemia, hypothyroidism, , BPH, chronic back pain, depression, anxiety, was admitted for altered mental status and found to have acute renal failure, elevated LFTs, bacteremia due to MRSA, underlying CHF and was called for evaluation for his change in mental status. Currently, he follows simple commands, moving all extremities. His affect was labile. He which is most likely delirium, at times. CAT scan of the head is currently pending. IV fluid was started. He had elevated proBNP, he is on various antibiotics. His BUN is 79. His creatinine 2.5. Today's glucose 139. No focal or motor weakness is seen. PAST MEDICAL HISTORY: As above. ALLERGIES: SULFA MEDICATIONS. FAMILY HISTORY: Noncontributory. SOCIAL HISTORY: Former smoker, EtOH use. No illicit drug use at this time. REVIEW OF SYSTEMS: A 14-point review of systems negative except in the HPI. PHYSICAL EXAMINATION GENERAL: The patient is sitting up in bed, in no acute distress. VITAL SIGNS: Temperature 96, pulse rate 64, blood pressure 168/87, respiratory rate 20, and oxygen saturation 96% by room air. HEENT: Atraumatic and normocephalic. PERRLA. Extraocular muscles are intact. NECK: Supple. No JVD. No adenopathy noted. LUNGS: Decreased breath sounds bilaterally. No adventitious sounds. HEART: S1 and S2. Normal rate and rhythm. No murmurs, rubs, or gallops. ABDOMEN: Soft, nontender, and nondistended. Bowel sounds present. EXTREMITIES: No clubbing. No cyanosis. Peripheral pulses 2+ bilaterally. Trace edema. NEUROLOGIC: The patient is alert and oriented to person and place. Knows the president logistics vice president. Recall after 5 minutes is 0/3. Poor attention span and slow thought process. Flat affect. Cranial nerves II through XII are intact. Motor: Normal tone. Moves all extremities equally. No pronator drift seen. Sensory: Decreased light touch and pinprick up to the calves bilaterally. Decreased vibration at the toes. DTRs are 2+ throughout and 1 at the both knees and ankle. Coordination; [id number]-fs-olsm intact. No dysmetria noted. Gait is deferred for now. LABORATORY DATA: Sodium is 134, potassium 4.3, chloride 98, carbon dioxide 28, BUN of 79, creatinine 2.5, random glucose 95. ASSESSMENT AND PLAN: This is a 62-year-old man with past medical history of hypertension, coronary artery disease, status post PCI, hypocholesterolemia, type 2 diabetes mellitus, history of chronic back pain, depression, anxiety, admitted for altered mental status, found to be in acute congestive heart failure with acute renal failure and elevated LFTs, and bacteremia due to methicillin-resistant staphylococcus aureus, change in mental status. Currently his change in mental status most likely secondary to toxic metabolic encephalopathy, superimposed underlying delirium. RECOMMENDATIONS: At this time, recommend; 1. Follow up with psychiatry recommendations regards to his agitation and delirium precautions. 2. Monitor electrolytes and correct accordingly. 3. Continue current antibiotics for underlying MRSA sepsis. 4. Continue with aspirin 81 and Plavix 75 for stroke prevention. 5. Continue gabapentin 600 mg p.o. b.i.d. for chronic back pain, but if he gets too lethargic 400 p.o. b.i.d. 6. PT/OT evaluation. Followup Cardiology recommendation. No further Neurological recommendation at this time. CAT scan of the head. Vinay Yan MD
[2018-01-28] MEDS: Magnesium Hydroxide Susp 30 ml UD PO SCH (08:38)
[2018-01-28] MEDS: Santyl Collagenase OINTMENT TOP SCH (09:24)
[2018-01-28] MEDS ORDERED: Alum-Mag Hydrox-Simethicone Susp (30 mL) PO PRN (10:27)
--- NOTE | 2018-01-28 11:44 | CP.PCM.PN ---
Subjective - Date & Time of Evaluation Date of Evaluation: 01/28/18 Time of Evaluation: 11:44 - Subjective Subjective: pt doign well. r foot still swollen adn MRSA noted inc/s. cr now 3.4 k 4.7 case d/c w/ poncho armenta and mike. no intervention planned from these 2 specialists. noted ID and podiatry note for surgical intervention. will d/c w/ podiatry timeline no f/c, n/v/d. less confused Objective - Vital Signs/Intake and Output Vital Signs (last 24 hours): Temp Pulse Resp BP Pulse Ox 97.6 F 64 19 139/85 96 01/28/18 08:13 01/28/18 08:40 01/28/18 08:13 01/28/18 08:40 01/28/18 08:13 Intake and Output: 01/28/18 01/28/18 06:59 18:59 Intake Total 320 Output Total 500 Balance -180 - Medications Medications: Current Medications Acetaminophen (Tylenol 325mg Tab) 650 mg PO Q4 PRN PRN Reason: Fever >100.4 F Last Admin: 01/24/18 19:03 Dose: 650 mg Al Hydrox/Mg Hydrox/Simethicone (Maalox Plus 30 Ml) 30 ml PO Q6 PRN PRN Reason: Heartburn Albuterol/Ipratropium (Duoneb 3 Mg/0.5 Mg (3 Ml) Ud) 3 ml INH RQ4 [facility] Last Admin: 01/28/18 07:52 Dose: 3 ml Alprazolam (Xanax) 0.5 mg PO Q6 [facility] Last Admin: 01/28/18 04:28 Dose: 0.5 mg Aspirin (Ecotrin) 81 mg PO DAILY [facility] Last Admin: 01/28/18 08:41 Dose: 81 mg Buspirone HCl (Buspar) 10 mg PO BID [facility] Last Admin: 01/28/18 08:39 Dose: 10 mg Calcium Acetate (Phoslo) 1,334 mg PO TID [facility] Last Admin: 01/28/18 08:38 Dose: 1,334 mg Clopidogrel Bisulfate (Plavix) 75 mg PO DAILY [facility] Last Admin: 01/28/18 08:37 Dose: 75 mg Collagenase (Santyl) 1 applic TOP DAILY [facility] Last Admin: 01/27/18 08:21 Dose: 1 applic Ergocalciferol (Drisdol 50,000 Intl Units Cap) 1 cap PO QWK [facility] Last Admin: 01/27/18 08:16 Dose: 1 cap Fenofibrate (Tricor) 145 mg PO DAILY [facility] Last Admin: 01/28/18 08:40 Dose: 145 mg Gabapentin (Neurontin) 600 mg PO BID [facility] Last Admin: 01/28/18 08:38 Dose: 600 mg Haloperidol Lactate (Haldol) 1 mg IVP Q4 PRN PRN Reason: Agitation Last Admin: 01/26/18 21:53 Dose: 1 mg Daptomycin 650 mg/ Sodium (Chloride) 100 mls @ 100 mls/hr IV Q48H [facility] PRN Reason: Protocol Stop: 01/29/18 12:31 Last Admin: 01/26/18 15:40 Dose: 100 mls/hr Lamotrigine (Lamictal) 50 mg PO BID [facility] Last Admin: 01/28/18 08:37 Dose: 50 mg Levothyroxine Sodium (Synthroid) 88 mcg PO DAILY@0630 [facility] Last Admin: 01/28/18 05:40 Dose: 88 mcg Metoprolol Tartrate (Lopressor) 50 mg PO BID [facility] Last Admin: 01/28/18 08:40 Dose: 50 mg Montelukast Sodium (Singulair) 10 mg PO DAILY [facility] Last Admin: 01/28/18 08:40 Dose: 10 mg Nystatin (Nystop Topical Powder) 1 applic TOP TID [facility] Last Admin: 01/28/18 08:37 Dose: 1 applic Paroxetine HCl (Paxil) 40 mg PO DAILY [facility] Last Admin: 01/28/18 08:39 Dose: 40 mg Risperidone (Risperdal M-Tab) 0.5 mg PO Q8 PRN PRN Reason: Agitation Last Admin: 01/28/18 00:26 Dose: 0.5 mg Sennosides (Senokot Tab) 17.2 mg PO HS [facility] Last Admin: 01/27/18 21:53 Dose: Not Given Sitagliptin Phosphate (Januvia) 100 mg PO DAILY [facility] Last Admin: 01/28/18 08:37 Dose: 100 mg Sodium Chloride ([place] Nasal [place]) 2 sprays HI Q4 PRN PRN Reason: Nasal congestion Last Admin: 01/27/18 08:09 Dose: 2 spr - Labs Labs: 01/28/18 05:38 01/28/18 11:16 Assessment and Plan (1) Acute renal failure Status: Acute (2) Elevated LFTs Status: Acute (3) Bacteremia due to methicillin resistant Staphylococcus aureus Status: Acute (4) Chronic pain Status: Acute (5) DVT prophylaxis Status: Acute - Assessment and Plan (Free Text) Assessment: (1) Acute renal failure Assessment and Plan: nephro ivf monitor bun/cr-trending down urine protein noted Status: Acute (2) Elevated LFTs Assessment and Plan: gi ivf monitor lft normalized hep panel negative Status: Acute (3) Bacteremia due to methicillin resistant Staphylococcus aureus Assessment and Plan: cubicin podiatry consult as original source r foot/ankle Status: Acute (4) Chronic pain Assessment and Plan: cont home meds Status: Acute (5) DVT prophylaxis Assessment and Plan: scd and ae hose asa/plavix Status: Acute 6-chf w/ h/o cad-cont meds, cardio consult, echo,dc ivf, cont nasal o2, HOB 30 degrees-stable from cardio point of view as per dr armenta [id number], neuro. ct head. all notes appriciated. less so today, [id number] yesterday, recheck labs, nephro, monitor dialy will d/c case w/ dr carreon-podiatry
--- NOTE | 2018-01-28 11:49 | CP.PCM.PN ---
Subjective - Date & Time of Evaluation Date of Evaluation: 01/28/18 Time of Evaluation: 11:49 - Subjective Subjective: Podiatry Progress Note- Dr. Brooks HainesM seen and evaluated for right ankle surgical wound 16 days s/p I&D. No acute events overnight. NAD. Patient reports minimal pain to right ankle today. Dressing to RLE remains clean/dry/intact with no strikethrough noted. Multipodus boot present to RLE. No new pedal complaints. Denies N/V/F/D/C/SOB. Objective - Vital Signs/Intake and Output Vital Signs (last 24 hours): Temp Pulse Resp BP Pulse Ox 97.6 F 64 19 139/85 96 01/28/18 08:13 01/28/18 08:40 01/28/18 08:13 01/28/18 08:40 01/28/18 08:13 Intake and Output: 01/28/18 01/28/18 06:59 18:59 Intake Total 320 Output Total 500 Balance -180 - Medications Medications: Current Medications Acetaminophen (Tylenol 325mg Tab) 650 mg PO Q4 PRN PRN Reason: Fever >100.4 F Last Admin: 01/24/18 19:03 Dose: 650 mg Al Hydrox/Mg Hydrox/Simethicone (Maalox Plus 30 Ml) 30 ml PO Q6 PRN PRN Reason: Heartburn Albuterol/Ipratropium (Duoneb 3 Mg/0.5 Mg (3 Ml) Ud) 3 ml INH RQ4 [facility] Last Admin: 01/28/18 07:52 Dose: 3 ml Alprazolam (Xanax) 0.5 mg PO Q6 [facility] Last Admin: 01/28/18 04:28 Dose: 0.5 mg Aspirin (Ecotrin) 81 mg PO DAILY [facility] Last Admin: 01/28/18 08:41 Dose: 81 mg Buspirone HCl (Buspar) 10 mg PO BID [facility] Last Admin: 01/28/18 08:39 Dose: 10 mg Calcium Acetate (Phoslo) 1,334 mg PO TID [facility] Last Admin: 01/28/18 08:38 Dose: 1,334 mg Clopidogrel Bisulfate (Plavix) 75 mg PO DAILY [facility] Last Admin: 01/28/18 08:37 Dose: 75 mg Collagenase (Santyl) 1 applic TOP DAILY [facility] Last Admin: 01/27/18 08:21 Dose: 1 applic Ergocalciferol (Drisdol 50,000 Intl Units Cap) 1 cap PO QWK [facility] Last Admin: 01/27/18 08:16 Dose: 1 cap Fenofibrate (Tricor) 145 mg PO DAILY [facility] Last Admin: 01/28/18 08:40 Dose: 145 mg Gabapentin (Neurontin) 600 mg PO BID [facility] Last Admin: 01/28/18 08:38 Dose: 600 mg Haloperidol Lactate (Haldol) 1 mg IVP Q4 PRN PRN Reason: Agitation Last Admin: 01/26/18 21:53 Dose: 1 mg Daptomycin 650 mg/ Sodium (Chloride) 100 mls @ 100 mls/hr IV Q48H [facility] PRN Reason: Protocol Stop: 01/29/18 12:31 Last Admin: 01/26/18 15:40 Dose: 100 mls/hr Lamotrigine (Lamictal) 50 mg PO BID [facility] Last Admin: 01/28/18 08:37 Dose: 50 mg Levothyroxine Sodium (Synthroid) 88 mcg PO DAILY@0630 [facility] Last Admin: 01/28/18 05:40 Dose: 88 mcg Metoprolol Tartrate (Lopressor) 50 mg PO BID [facility] Last Admin: 01/28/18 08:40 Dose: 50 mg Montelukast Sodium (Singulair) 10 mg PO DAILY [facility] Last Admin: 01/28/18 08:40 Dose: 10 mg Nystatin (Nystop Topical Powder) 1 applic TOP TID [facility] Last Admin: 01/28/18 08:37 Dose: 1 applic Paroxetine HCl (Paxil) 40 mg PO DAILY [facility] Last Admin: 01/28/18 08:39 Dose: 40 mg Risperidone (Risperdal M-Tab) 0.5 mg PO Q8 PRN PRN Reason: Agitation Last Admin: 01/28/18 00:26 Dose: 0.5 mg Sennosides (Senokot Tab) 17.2 mg PO HS [facility] Last Admin: 01/27/18 21:53 Dose: Not Given Sitagliptin Phosphate (Januvia) 100 mg PO DAILY [facility] Last Admin: 01/28/18 08:37 Dose: 100 mg Sodium Chloride ([place] Nasal [place]) 2 sprays HI Q4 PRN PRN Reason: Nasal congestion Last Admin: 01/27/18 08:09 Dose: 2 spr - Labs Labs: 01/28/18 05:38 01/28/18 11:16 - Constitutional Appears: Well, Non-toxic, No Acute Distress - Extremities Exam Additional comments: RLE focused physical exam: VASC: DP/PT pulses non-palpable secondary to edema. Temperature warm to warm from proximal to distal. Non-pitting edema noted to right ankle extending distally. DERM: Linear surgical incision noted to anteromedial ankle joint with sutures intact and midpoint left open with exposed tibia at 3 o'clock, remainder of open site noted to have a 40% fibrous and 60% granular base, minimal erythema periwound, serosanguinous drainage present; no malodor; no active bleeding. NEURO: Gross sensation diminished. ORTHO: Pain on palpation noted to right medial ankle joint extending distally into forefoot. Digital ROM present. - Neurological Exam Neurological Exam: Alert, Awake, Oriented x3 - Psychiatric Exam Psychiatric exam: Anxious Assessment and Plan - Assessment and Plan (Free Text) Assessment: 62M with surgical wound right ankle 16 days s/p right ankle I&D (DOS 01/12/18) Plan: Patient seen and evaluated Discussed plain with attending, Dr. Guy Afebrile, WBC 10.0 R ankle wound culture - MRSA Continue abx per ID - Daptomycin; plan to continue for 6 weeks -ID recs appreciated: consider definitive surgical rx for right ankle OM - removal of hardware Continue local wound care: PATY Reaves Multipodus boot to be worn RLE at all times while in bed Pain control per medicine Recommend surgical wound debridement with removal of hardware pending bone scan results Podiatry will continue to follow
--- NOTE | 2018-01-28 11:56 | CP.PCM.PN ---
Subjective - Date & Time of Evaluation Date of Evaluation: 01/28/18 Time of Evaluation: 09:00 - Subjective Subjective: wound right foot still + for MRSA in view of complications would consider definitive surgical rx for right ankle OM- hardware needs to come out Objective - Vital Signs/Intake and Output Vital Signs (last 24 hours): Temp Pulse Resp BP Pulse Ox 97.6 F 64 19 139/85 96 01/28/18 08:13 01/28/18 08:40 01/28/18 08:13 01/28/18 08:40 01/28/18 08:13 Intake and Output: 01/28/18 01/28/18 06:59 18:59 Intake Total 320 Output Total 500 Balance -180 - Medications Medications: Current Medications Acetaminophen (Tylenol 325mg Tab) 650 mg PO Q4 PRN PRN Reason: Fever >100.4 F Last Admin: 01/24/18 19:03 Dose: 650 mg Al Hydrox/Mg Hydrox/Simethicone (Maalox Plus 30 Ml) 30 ml PO Q6 PRN PRN Reason: Heartburn Albuterol/Ipratropium (Duoneb 3 Mg/0.5 Mg (3 Ml) Ud) 3 ml INH RQ4 [facility] Last Admin: 01/28/18 11:54 Dose: 3 ml Alprazolam (Xanax) 0.5 mg PO Q6 [facility] Last Admin: 01/28/18 04:28 Dose: 0.5 mg Aspirin (Ecotrin) 81 mg PO DAILY [facility] Last Admin: 01/28/18 08:41 Dose: 81 mg Buspirone HCl (Buspar) 10 mg PO BID [facility] Last Admin: 01/28/18 08:39 Dose: 10 mg Calcium Acetate (Phoslo) 1,334 mg PO TID [facility] Last Admin: 01/28/18 08:38 Dose: 1,334 mg Clopidogrel Bisulfate (Plavix) 75 mg PO DAILY [facility] Last Admin: 01/28/18 08:37 Dose: 75 mg Collagenase (Santyl) 1 applic TOP DAILY [facility] Last Admin: 01/27/18 08:21 Dose: 1 applic Ergocalciferol (Drisdol 50,000 Intl Units Cap) 1 cap PO QWK [facility] Last Admin: 01/27/18 08:16 Dose: 1 cap Fenofibrate (Tricor) 145 mg PO DAILY [facility] Last Admin: 01/28/18 08:40 Dose: 145 mg Gabapentin (Neurontin) 600 mg PO BID [facility] Last Admin: 01/28/18 08:38 Dose: 600 mg Haloperidol Lactate (Haldol) 1 mg IVP Q4 PRN PRN Reason: Agitation Last Admin: 01/26/18 21:53 Dose: 1 mg Daptomycin 650 mg/ Sodium (Chloride) 100 mls @ 100 mls/hr IV Q48H [facility] PRN Reason: Protocol Stop: 01/29/18 12:31 Last Admin: 01/26/18 15:40 Dose: 100 mls/hr Lamotrigine (Lamictal) 50 mg PO BID [facility] Last Admin: 01/28/18 08:37 Dose: 50 mg Levothyroxine Sodium (Synthroid) 88 mcg PO DAILY@0630 [facility] Last Admin: 01/28/18 05:40 Dose: 88 mcg Metoprolol Tartrate (Lopressor) 50 mg PO BID [facility] Last Admin: 01/28/18 08:40 Dose: 50 mg Montelukast Sodium (Singulair) 10 mg PO DAILY [facility] Last Admin: 01/28/18 08:40 Dose: 10 mg Nystatin (Nystop Topical Powder) 1 applic TOP TID [facility] Last Admin: 01/28/18 08:37 Dose: 1 applic Paroxetine HCl (Paxil) 40 mg PO DAILY [facility] Last Admin: 01/28/18 08:39 Dose: 40 mg Risperidone (Risperdal M-Tab) 0.5 mg PO Q8 PRN PRN Reason: Agitation Last Admin: 01/28/18 00:26 Dose: 0.5 mg Sennosides (Senokot Tab) 17.2 mg PO [facility] Last Admin: 01/27/18 21:53 Dose: Not Given Sitagliptin Phosphate (Januvia) 100 mg PO DAILY [facility] Last Admin: 01/28/18 08:37 Dose: 100 mg Sodium Chloride ([place] Nasal [place]) 2 sprays HI Q4 PRN PRN Reason: Nasal congestion Last Admin: 01/27/18 08:09 Dose: 2 spr - Labs Labs: 01/28/18 05:38 01/28/18 11:16 - Constitutional Appears: Non-toxic, Chronically Ill - Head Exam Head Exam: NORMOCEPHALIC - Eye Exam Eye Exam: absent: Scleral icterus - ENT Exam ENT Exam: Mucous Membranes Dry - Neck Exam Neck Exam: absent: Lymphadenopathy - Respiratory Exam Respiratory Exam: Decreased Breath Sounds - Cardiovascular Exam Cardiovascular Exam: REGULAR RHYTHM - GI/Abdominal Exam GI & Abdominal Exam: Distended, Soft - Rectal Exam Rectal Exam: Deferred - Exam Exam: NORMAL INSPECTION - Extremities Exam Extremities Exam: Pedal Edema, Tenderness - Back Exam Back Exam: absent: CVA tenderness (L), CVA tenderness (R) - Neurological Exam Neurological Exam: Alert, Awake, CN II-XII Intact - Psychiatric Exam Psychiatric exam: Depressed - Skin Skin Exam: Dry Assessment and Plan (1) Osteomyelitis of ankle Status: Acute (2) Acute renal failure Status: Acute (3) Elevated LFTs Status: Acute (4) Bacteremia due to methicillin resistant Staphylococcus aureus Status: Acute - Assessment and Plan (Free Text) Assessment: wound right foot still + for MRSA in view of complications would consider definitive surgical rx for right ankle OM- hardware needs to come out
[2018-01-28] MEDS: oxyCODONE 10 mg ER Tab (oxyCONTIN) PO SCH ×2 (13:10→21:53)
[2018-01-29] MEDS: Albuterol-Ipratrop 3 mg / 0.5 (3 ml) UD INH SCH ×7 (00:35→23:23)
[2018-01-29] MEDS: Levothyroxine 88 MCG TAB PO SCH (05:30)
[2018-01-29 05:48] LABS: BASO # 0.1 K/uL (0.0-0.2); BASO % 0.6 % (0.0-2.0); EOS # 0.1 K/uL (0.0-0.7); EOS % 0.8 % (0.0-4.0); HEMOGLOBIN 11.5 g/dL (12.0-18.0); LYMPH # 1.2 K/uL (1.0-4.3); LYMPH % 11.7 % (20.0-40.0); MEAN CELL VOLUME 73.2 fl (80.0-94.0); MEAN CORPUSCULAR HEMOGLOBIN 23.5 pg (27.0-31.0); MEAN CORPUSCULAR HGB CONC 32.1 g/dL (33.0-37.0); MEAN PLATELET VOLUME 6.8 fl (7.2-11.7); MONO # 1.1 K/uL (0.0-0.8); NEUT # 7.9 K/uL (1.8-7.0); NEUT % 75.9 % (50.0-75.0); NRBC % 0.1 % (0.0-0.0); RBC 4.87 Mil/uL (4.40-5.90); WHITE BLOOD COUNT 10.4 K/uL (4.8-10.8)
[2018-01-29 06:01] LABS: ALB/GLOB RATIO 0.8 (1.0-2.1); ALBUMIN 2.8 g/dL (3.5-5.0); CALCIUM 9.1 mg/dL (8.4-10.2)
--- NOTE | 2018-01-29 06:44 | PQF GENQUE ---
This form is a permanent part of the medical record 01/29/18 Ciaran Rodriguez DNP, FAMILY NURSE PRACTITIONER, The medical record includes the following abbreviation: r/o. I am unable to code this abbreviation. Please document UTI ruled out or uti to still rule out. A physician clarification was placed to see it the UTI was ruled in or ruled out. Provider response: UTI r/o , will d/c rocephin. Clarification of your documentation is requested to better reflect the severity of illness and intensity of treatment of your patient. Indicators present PHYSICIAN'S RESPONSE Based on your medical judgment of the clinical indicators outlined above please clarify the following: [] Practitioner response UTI ruled out [] If unable to determine, please check the box, sign and date. Present On Admission (POA) Indicator: [] Present at the time of admission [] Not present at the time of admission [] Clinically Undetermined In responding to this query, please exercise your independent professional judgment. The fact that a question is asked does not imply that any particular answer is desired or expected. Thank you for your clarification on this documentation. If you have any questions please call:ext [phone] * Thank you, Eileen Cuellar RN [facility]
[2018-01-29] MEDS: Risperidone M tab 0.5MG PO PRN (06:54)
--- NOTE | 2018-01-29 08:11 | CP.PCM.PN ---
Subjective - Date & Time of Evaluation Date of Evaluation: 01/29/18 Time of Evaluation: 08:10 - Subjective Subjective: pt doing well, no f/c, n/v/d. no pain at present. no anxiety at present. no dyspnea t present. for r ankle ceretec scan today. case d/c w/ podiatry, cardio, nephro all bw noted. Objective - Vital Signs/Intake and Output Vital Signs (last 24 hours): Temp Pulse Resp BP Pulse Ox 97.6 F 57 L 18 135/82 98 01/29/18 04:50 01/29/18 04:50 01/29/18 04:50 01/29/18 04:50 01/29/18 04:50 Intake and Output: 01/29/18 01/29/18 06:59 18:59 Intake Total 1000 Output Total 1100 Balance -100 - Medications Medications: Current Medications Acetaminophen (Tylenol 325mg Tab) 650 mg PO Q4 PRN PRN Reason: Fever >100.4 F Last Admin: 01/24/18 19:03 Dose: 650 mg Al Hydrox/Mg Hydrox/Simethicone (Maalox Plus 30 Ml) 30 ml PO Q6 PRN PRN Reason: Heartburn Albuterol/Ipratropium (Duoneb 3 Mg/0.5 Mg (3 Ml) Ud) 3 ml INH RQ4 [facility] Last Admin: 01/29/18 07:38 Dose: 3 ml Alprazolam (Xanax) 0.5 mg PO Q6 [facility] Last Admin: 01/29/18 03:05 Dose: 0.5 mg Aspirin (Ecotrin) 81 mg PO DAILY [facility] Last Admin: 01/28/18 08:41 Dose: 81 mg Buspirone HCl (Buspar) 10 mg PO BID [facility] Last Admin: 01/28/18 17:40 Dose: 10 mg Calcium Acetate (Phoslo) 1,334 mg PO TID [facility] Last Admin: 01/28/18 17:40 Dose: 1,334 mg Clopidogrel Bisulfate (Plavix) 75 mg PO DAILY [facility] Last Admin: 01/28/18 08:37 Dose: 75 mg Collagenase (Santyl) 1 applic TOP DAILY [facility] Last Admin: 01/28/18 09:24 Dose: 1 applic Ergocalciferol (Drisdol 50,000 Intl Units Cap) 1 cap PO QWK [facility] Last Admin: 01/27/18 08:16 Dose: 1 cap Fenofibrate (Tricor) 145 mg PO DAILY [facility] Last Admin: 01/28/18 08:40 Dose: 145 mg Gabapentin (Neurontin) 600 mg PO BID [facility] Last Admin: 01/28/18 17:41 Dose: 600 mg Haloperidol Lactate (Haldol) 1 mg IVP Q4 PRN PRN Reason: Agitation Last Admin: 01/26/18 21:53 Dose: 1 mg Daptomycin 650 mg/ Sodium (Chloride) 100 mls @ 100 mls/hr IV Q48H [facility] PRN Reason: Protocol Stop: 01/29/18 12:31 Last Admin: 01/28/18 13:27 Dose: 100 mls/hr Lamotrigine (Lamictal) 50 mg PO BID [facility] Last Admin: 01/28/18 17:41 Dose: 50 mg Levothyroxine Sodium (Synthroid) 88 mcg PO DAILY@0630 [facility] Last Admin: 01/29/18 05:30 Dose: 88 mcg Metoprolol Tartrate (Lopressor) 50 mg PO BID [facility] Last Admin: 01/28/18 17:41 Dose: 50 mg Montelukast Sodium (Singulair) 10 mg PO DAILY [facility] Last Admin: 01/28/18 08:40 Dose: 10 mg Nystatin (Nystop Topical Powder) 1 applic TOP TID [facility] Last Admin: 01/28/18 17:40 Dose: 1 applic Oxycodone HCl (Oxycontin Extended Release Tab) 30 mg PO Q12 [facility] Stop: 01/31/18 12:31 Last Admin: 01/28/18 21:53 Dose: 30 mg Paroxetine HCl (Paxil) 40 mg PO DAILY [facility] Last Admin: 01/28/18 08:39 Dose: 40 mg Risperidone (Risperdal M-Tab) 0.5 mg PO Q8 PRN PRN Reason: Agitation Last Admin: 01/29/18 06:54 Dose: 0.5 mg Sennosides (Senokot Tab) 17.2 mg PO HS [facility] Last Admin: 01/28/18 21:54 Dose: Not Given Sitagliptin Phosphate (Januvia) 100 mg PO DAILY [facility] Last Admin: 01/28/18 08:37 Dose: 100 mg Sodium Chloride ([place] Nasal [place]) 2 sprays HI Q4 PRN PRN Reason: Nasal congestion Last Admin: 01/27/18 08:09 Dose: 2 spr - Labs Labs: 01/29/18 05:30 01/29/18 05:30 Assessment and Plan (1) Acute renal failure Status: Acute (2) Elevated LFTs Status: Acute (3) Bacteremia due to methicillin resistant Staphylococcus aureus Status: Acute (4) Chronic pain Status: Acute (5) DVT prophylaxis Status: Acute - Assessment and Plan (Free Text) Assessment: (1) Acute renal failure Assessment and Plan: nephro ivf monitor bun/cr-trending down urine protein noted no plans for dialysis at this time as per nephro Status: Acute (2) Elevated LFTs Assessment and Plan: gi ivf monitor lft normalized hep panel negative Status: Acute (3) Bacteremia due to methicillin resistant Staphylococcus aureus Assessment and Plan: cubicin podiatry consult as original source r foot/ankle Status: Acute (4) Chronic pain Assessment and Plan: cont home meds Status: Acute (5) DVT prophylaxis Assessment and Plan: scd and ae hose asa/plavix Status: Acute 6-chf w/ h/o cad-cont meds, cardio consult, echo,dc ivf, cont nasal o2, HOB 30 degrees-stable from cardio point of view as per dr armenta 0-[id number]-[id number], neuro. ct head. all notes appriciated. less so today, 5-lgbutwyhaskc-nyaivvtmmr yesterday, recheck labs, nephro, monitor dialy 9-r ankle hardware infection-ceretec scan, cont pod/ID f/u, cubicin will d/c case w/ dr carreon-podiatry
[2018-01-29] MEDS: oxyCODONE 10 mg ER Tab (oxyCONTIN) PO SCH ×2 (09:38→22:19)
[2018-01-29] MEDS: Santyl Collagenase OINTMENT TOP SCH (09:42)
--- NOTE | 2018-01-29 11:09 | CP.PCM.PN ---
Subjective - Date & Time of Evaluation Date of Evaluation: 01/29/18 Time of Evaluation: 11:10 - Subjective Subjective: Patient M bed awake and conscious Patient reported that is eating good Vital sign noted Objective - Vital Signs/Intake and Output Vital Signs (last 24 hours): Temp Pulse Resp BP Pulse Ox 97.9 F 62 20 144/85 99 01/29/18 08:23 01/29/18 09:40 01/29/18 08:23 01/29/18 09:40 01/29/18 08:23 Intake and Output: 01/29/18 01/29/18 06:59 18:59 Intake Total 1000 Output Total 1100 Balance -100 - Medications Medications: Current Medications Acetaminophen (Tylenol 325mg Tab) 650 mg PO Q4 PRN PRN Reason: Fever >100.4 F Last Admin: 01/24/18 19:03 Dose: 650 mg Al Hydrox/Mg Hydrox/Simethicone (Maalox Plus 30 Ml) 30 ml PO Q6 PRN PRN Reason: Heartburn Albuterol/Ipratropium (Duoneb 3 Mg/0.5 Mg (3 Ml) Ud) 3 ml INH RQ4 [facility] Last Admin: 01/29/18 07:38 Dose: 3 ml Alprazolam (Xanax) 0.5 mg PO Q6 [facility] Last Admin: 01/29/18 09:37 Dose: 0.5 mg Aspirin (Ecotrin) 81 mg PO DAILY [facility] Last Admin: 01/29/18 09:41 Dose: 81 mg Buspirone HCl (Buspar) 10 mg PO BID [facility] Last Admin: 01/29/18 09:39 Dose: 10 mg Calcium Acetate (Phoslo) 1,334 mg PO TID [facility] Last Admin: 01/29/18 09:40 Dose: 1,334 mg Clopidogrel Bisulfate (Plavix) 75 mg PO DAILY [facility] Last Admin: 01/29/18 09:40 Dose: 75 mg Collagenase (Santyl) 1 applic TOP DAILY [facility] Last Admin: 01/29/18 09:42 Dose: Not Given Ergocalciferol (Drisdol 50,000 Intl Units Cap) 1 cap PO QWK [facility] Last Admin: 01/27/18 08:16 Dose: 1 cap Fenofibrate (Tricor) 145 mg PO DAILY [facility] Last Admin: 01/29/18 09:42 Dose: 145 mg Gabapentin (Neurontin) 600 mg PO BID [facility] Last Admin: 01/29/18 09:41 Dose: 600 mg Haloperidol Lactate (Haldol) 1 mg IVP Q4 PRN PRN Reason: Agitation Last Admin: 01/26/18 21:53 Dose: 1 mg Daptomycin 650 mg/ Sodium (Chloride) 100 mls @ 100 mls/hr IV Q48H [facility] PRN Reason: Protocol Stop: 01/29/18 12:31 Last Admin: 01/28/18 13:27 Dose: 100 mls/hr Lamotrigine (Lamictal) 50 mg PO BID [facility] Last Admin: 01/29/18 09:41 Dose: 50 mg Levothyroxine Sodium (Synthroid) 88 mcg PO DAILY@0630 [facility] Last Admin: 01/29/18 05:30 Dose: 88 mcg Metoprolol Tartrate (Lopressor) 50 mg PO BID [facility] Last Admin: 01/29/18 09:40 Dose: 50 mg Montelukast Sodium (Singulair) 10 mg PO DAILY [facility] Last Admin: 01/29/18 09:42 Dose: 10 mg Nystatin (Nystop Topical Powder) 1 applic TOP TID [facility] Last Admin: 01/29/18 09:39 Dose: 1 applic Oxycodone HCl (Oxycontin Extended Release Tab) 30 mg PO Q12 [facility] Stop: 01/31/18 12:31 Last Admin: 01/29/18 09:38 Dose: 30 mg Paroxetine HCl (Paxil) 40 mg PO DAILY [facility] Last Admin: 01/28/18 08:39 Dose: 40 mg Risperidone (Risperdal M-Tab) 0.5 mg PO Q8 PRN PRN Reason: Agitation Last Admin: 01/29/18 06:54 Dose: 0.5 mg Sennosides (Senokot Tab) 17.2 mg PO HS [facility] Last Admin: 01/28/18 21:54 Dose: Not Given Sitagliptin Phosphate (Januvia) 100 mg PO DAILY [facility] Last Admin: 01/29/18 09:42 Dose: 100 mg Sodium Chloride ([place] Nasal [place]) 2 sprays HI Q4 PRN PRN Reason: Nasal congestion Last Admin: 01/27/18 08:09 Dose: 2 spr - Labs Labs: 01/29/18 05:30 01/29/18 05:30 - Constitutional Appears: No Acute Distress - ENT Exam ENT Exam: Mucous Membranes Moist - Neck Exam Neck Exam: absent: Lymphadenopathy - Cardiovascular Exam Cardiovascular Exam: REGULAR RHYTHM. absent: JVD, Rubs - GI/Abdominal Exam GI & Abdominal Exam: Soft, Normal Bowel Sounds - Extremities Exam Extremities Exam: absent: Calf Tenderness - Back Exam Back Exam: absent: CVA tenderness (L), CVA tenderness (R) - Neurological Exam Neurological Exam: Alert - Psychiatric Exam Psychiatric exam: Normal Affect - Skin Skin Exam: absent: Cyanosis Assessment and Plan (1) Acute renal failure Assessment & Plan: Acute kidney injury/acute renal failure Improving kidney function serum creatinine coming down. Serum potassium corrected Serum sodium coming down to 133 developing hyponatremia dilutional suggest to D/ C IV fluid vancomycin level 31+. Vancomycin discontinued kidney function improving serum creatinine came down 3.1 Lisinopril and ibuprofen discontinued right ankle infection liver function test corrected hyperphosphatemia serum phosphorus 8 Continue binder we will repeat serum phosphorus Status: Acute (2) Elevated LFTs Status: Acute (3) Cellulitis Status: Acute
--- NOTE | 2018-01-29 11:22 | CP.PCM.PN ---
Subjective - Date & Time of Evaluation Date of Evaluation: 01/29/18 Time of Evaluation: 07:00 - Subjective Subjective: Podiatry Progress Note- Dr. Guy 62 year old male seen and evaluated for right ankle surgical wound 17 days s/p I &D of right ankle. Patient is seen resting comfortably in bed and in NAD. Denies acute events overnight. Reports that he slept well last night. Patient reports same pain to the right ankle. Dressing to RLE remains clean/dry/intact with no strikethrough noted. Multipodus boot present to RLE. No new pedal complaints. Denies N/V/F/D/C/SOB. Objective - Vital Signs/Intake and Output Vital Signs (last 24 hours): Temp Pulse Resp BP Pulse Ox 97.9 F 62 20 144/85 99 01/29/18 08:23 01/29/18 09:40 01/29/18 08:23 01/29/18 09:40 01/29/18 08:23 Intake and Output: 01/29/18 01/29/18 06:59 18:59 Intake Total 1000 Output Total 1100 Balance -100 - Medications Medications: Current Medications Acetaminophen (Tylenol 325mg Tab) 650 mg PO Q4 PRN PRN Reason: Fever >100.4 F Last Admin: 01/24/18 19:03 Dose: 650 mg Al Hydrox/Mg Hydrox/Simethicone (Maalox Plus 30 Ml) 30 ml PO Q6 PRN PRN Reason: Heartburn Albuterol/Ipratropium (Duoneb 3 Mg/0.5 Mg (3 Ml) Ud) 3 ml INH RQ4 [facility] Last Admin: 01/29/18 07:38 Dose: 3 ml Alprazolam (Xanax) 0.5 mg PO Q6 [facility] Last Admin: 01/29/18 09:37 Dose: 0.5 mg Aspirin (Ecotrin) 81 mg PO DAILY [facility] Last Admin: 01/29/18 09:41 Dose: 81 mg Buspirone HCl (Buspar) 10 mg PO BID [facility] Last Admin: 01/29/18 09:39 Dose: 10 mg Calcium Acetate (Phoslo) 1,334 mg PO TID [facility] Last Admin: 01/29/18 09:40 Dose: 1,334 mg Clopidogrel Bisulfate (Plavix) 75 mg PO DAILY [facility] Last Admin: 01/29/18 09:40 Dose: 75 mg Collagenase (Santyl) 1 applic TOP DAILY [facility] Last Admin: 01/29/18 09:42 Dose: Not Given Ergocalciferol (Drisdol 50,000 Intl Units Cap) 1 cap PO QWK [facility] Last Admin: 01/27/18 08:16 Dose: 1 cap Fenofibrate (Tricor) 145 mg PO DAILY [facility] Last Admin: 01/29/18 09:42 Dose: 145 mg Gabapentin (Neurontin) 600 mg PO BID [facility] Last Admin: 01/29/18 09:41 Dose: 600 mg Haloperidol Lactate (Haldol) 1 mg IVP Q4 PRN PRN Reason: Agitation Last Admin: 01/26/18 21:53 Dose: 1 mg Daptomycin 650 mg/ Sodium (Chloride) 100 mls @ 100 mls/hr IV Q48H [facility] PRN Reason: Protocol Stop: 01/29/18 12:31 Last Admin: 01/28/18 13:27 Dose: 100 mls/hr Lamotrigine (Lamictal) 50 mg PO BID [facility] Last Admin: 01/29/18 09:41 Dose: 50 mg Levothyroxine Sodium (Synthroid) 88 mcg PO DAILY@0630 [facility] Last Admin: 01/29/18 05:30 Dose: 88 mcg Metoprolol Tartrate (Lopressor) 50 mg PO BID [facility] Last Admin: 01/29/18 09:40 Dose: 50 mg Montelukast Sodium (Singulair) 10 mg PO DAILY [facility] Last Admin: 01/29/18 09:42 Dose: 10 mg Nystatin (Nystop Topical Powder) 1 applic TOP TID [facility] Last Admin: 01/29/18 09:39 Dose: 1 applic Oxycodone HCl (Oxycontin Extended Release Tab) 30 mg PO Q12 [facility] Stop: 01/31/18 12:31 Last Admin: 01/29/18 09:38 Dose: 30 mg Paroxetine HCl (Paxil) 40 mg PO DAILY [facility] Last Admin: 01/28/18 08:39 Dose: 40 mg Risperidone (Risperdal M-Tab) 0.5 mg PO Q8 PRN PRN Reason: Agitation Last Admin: 01/29/18 06:54 Dose: 0.5 mg Sennosides (Senokot Tab) 17.2 mg PO HS [facility] Last Admin: 01/28/18 21:54 Dose: Not Given Sitagliptin Phosphate (Januvia) 100 mg PO DAILY [facility] Last Admin: 01/29/18 09:42 Dose: 100 mg Sodium Chloride ([place] Nasal [place]) 2 sprays HI Q4 PRN PRN Reason: Nasal congestion Last Admin: 01/27/18 08:09 Dose: 2 spr - Labs Labs: 01/29/18 05:30 01/29/18 05:30 - Constitutional Appears: Well, Non-toxic, No Acute Distress - Extremities Exam Extremities Exam: absent: Calf Tenderness Additional comments: RLE focused physical exam: VASC: DP/PT pulses non-palpable secondary to edema. Temperature warm to warm from proximal to distal. Non-pitting edema noted to right ankle extending distally. DERM: Linear surgical incision noted to anteromedial ankle joint with sutures intact and midpoint left open with exposed tibia at 3 o'clock, remainder of open site noted to have a 40% fibrous and 60% granular base, minimal erythema periwound, serosanguinous drainage present; no malodor; no active bleeding. NEURO: Gross sensation diminished. ORTHO: Pain on palpation noted to right medial ankle joint extending distally into forefoot. Digital ROM present. - Neurological Exam Neurological Exam: Alert, Awake, Oriented x3 - Psychiatric Exam Psychiatric exam: Normal Affect, Normal Mood Assessment and Plan - Assessment and Plan (Free Text) Assessment: 62M with surgical wound right ankle 17 days s/p right ankle I&D (DOS 01/12/18) Plan: : Patient seen and evaluated Discussed plain with attending, Dr. uGy Afebrile, WBC 10.4 R ankle wound culture - MRSA Continue abx per ID - Daptomycin; plan to continue for 6 weeks -ID recs appreciated: consider definitive surgical rx for right ankle OM - removal of hardware Continue local wound care: Santyl, DSD Multipodus boot to be worn RLE at all times while in bed Patient NWB to the right ankle with ambulatory aid (crutches/walker) Pain control per medicine Recommend surgical wound debridement with removal of hardware pending bone scan results Podiatry will continue to follow
[2018-01-30] MEDS: Risperidone M tab 0.5MG PO PRN (01:41)
[2018-01-30] MEDS: Albuterol-Ipratrop 3 mg / 0.5 (3 ml) UD INH SCH ×6 (04:58→23:21)
[2018-01-30 05:45] LABS: BASO # 0.1 K/uL (0.0-0.2); BASO % 0.7 % (0.0-2.0); EOS # 0.1 K/uL (0.0-0.7); HEMOGLOBIN 10.7 g/dL (12.0-18.0); LYMPH # 1.5 K/uL (1.0-4.3); LYMPH % 14.8 % (20.0-40.0); MEAN CORPUSCULAR HEMOGLOBIN 23.6 pg (27.0-31.0); MEAN CORPUSCULAR HGB CONC 32.4 g/dL (33.0-37.0); MEAN PLATELET VOLUME 6.9 fl (7.2-11.7); MONO # 1.1 K/uL (0.0-0.8); MONO % 11.4 % (0.0-10.0); NEUT # 7.1 K/uL (1.8-7.0); NEUT % 72.1 % (50.0-75.0); NRBC % 0.1 % (0.0-0.0); RBC 4.51 Mil/uL (4.40-5.90); RED CELL DISTRIBUTION WIDTH 22.6 % (11.5-14.5); WHITE BLOOD COUNT 9.9 K/uL (4.8-10.8)
[2018-01-30] MEDS: Levothyroxine 88 MCG TAB PO SCH (06:01)
[2018-01-30 06:13] LABS: ALB/GLOB RATIO 0.8 (1.0-2.1); ALBUMIN 2.7 g/dL (3.5-5.0); CALCIUM 9.2 mg/dL (8.4-10.2)
--- NOTE | 2018-01-30 08:06 | CP.PCM.PN ---
Subjective - Date & Time of Evaluation Date of Evaluation: 01/30/18 Time of Evaluation: 08:04 - Subjective Subjective: pt doing well.no complaints. no further bleeding from penis-likely trauma for pulling catheter-since removed. pendign ceretec scan. all consult notes appriciated. Objective - Vital Signs/Intake and Output Vital Signs (last 24 hours): Temp Pulse Resp BP Pulse Ox 97.3 F L 61 18 130/82 95 01/30/18 05:02 01/30/18 05:02 01/30/18 05:02 01/30/18 05:02 01/30/18 05:02 Intake and Output: 01/30/18 01/30/18 06:59 18:59 Intake Total 1400 Output Total 800 Balance 600 - Medications Medications: Current Medications Acetaminophen (Tylenol 325mg Tab) 650 mg PO Q4 PRN PRN Reason: Fever >100.4 F Last Admin: 01/24/18 19:03 Dose: 650 mg Al Hydrox/Mg Hydrox/Simethicone (Maalox Plus 30 Ml) 30 ml PO Q6 PRN PRN Reason: Heartburn Albuterol/Ipratropium (Duoneb 3 Mg/0.5 Mg (3 Ml) Ud) 3 ml INH RQ4 [facility] Last Admin: 01/30/18 07:38 Dose: 3 ml Alprazolam (Xanax) 0.5 mg PO Q6 [facility] Last Admin: 01/30/18 05:58 Dose: 0.5 mg Aspirin (Ecotrin) 81 mg PO DAILY [facility] Last Admin: 01/29/18 09:41 Dose: 81 mg Buspirone HCl (Buspar) 10 mg PO BID [facility] Last Admin: 01/29/18 17:44 Dose: 10 mg Calcium Acetate (Phoslo) 1,334 mg PO TID [facility] Last Admin: 01/29/18 17:44 Dose: 1,334 mg Clopidogrel Bisulfate (Plavix) 75 mg PO DAILY [facility] Last Admin: 01/29/18 09:40 Dose: 75 mg Collagenase (Santyl) 1 applic TOP DAILY [facility] Last Admin: 01/29/18 09:42 Dose: Not Given Ergocalciferol (Drisdol 50,000 Intl Units Cap) 1 cap PO QWK [facility] Last Admin: 01/27/18 08:16 Dose: 1 cap Fenofibrate (Tricor) 145 mg PO DAILY [facility] Last Admin: 01/29/18 09:42 Dose: 145 mg Gabapentin (Neurontin) 600 mg PO BID [facility] Last Admin: 01/29/18 17:44 Dose: 600 mg Haloperidol Lactate (Haldol) 1 mg IVP Q4 PRN PRN Reason: Agitation Last Admin: 01/26/18 21:53 Dose: 1 mg Daptomycin 650 mg/ Sodium (Chloride) 100 mls @ 100 mls/hr IV Q48H [facility] PRN Reason: Protocol Stop: 02/03/18 15:46 Last Admin: 01/29/18 16:41 Dose: 100 mls/hr Lamotrigine (Lamictal) 50 mg PO BID [facility] Last Admin: 01/29/18 17:45 Dose: 50 mg Levothyroxine Sodium (Synthroid) 88 mcg PO DAILY@0630 [facility] Last Admin: 01/30/18 06:01 Dose: 88 mcg Metoprolol Tartrate (Lopressor) 50 mg PO BID [facility] Last Admin: 01/29/18 17:42 Dose: 50 mg Montelukast Sodium (Singulair) 10 mg PO DAILY [facility] Last Admin: 01/29/18 09:42 Dose: 10 mg Nystatin (Nystop Topical Powder) 1 applic TOP TID [facility] Last Admin: 01/29/18 18:44 Dose: 1 applic Oxycodone HCl (Oxycontin Extended Release Tab) 30 mg PO Q12 [facility] Stop: 01/31/18 12:31 Last Admin: 01/29/18 22:19 Dose: 30 mg Paroxetine HCl (Paxil) 40 mg PO DAILY [facility] Last Admin: 01/29/18 09:20 Dose: 40 mg Risperidone (Risperdal M-Tab) 0.5 mg PO Q8 PRN PRN Reason: Agitation Last Admin: 01/30/18 01:41 Dose: 0.5 mg Sennosides (Senokot Tab) 17.2 mg PO HS [facility] Last Admin: 01/29/18 22:20 Dose: 17.2 mg Sitagliptin Phosphate (Januvia) 100 mg PO DAILY [facility] Last Admin: 01/29/18 09:42 Dose: 100 mg Sodium Chloride ([place] Nasal [place]) 2 sprays HI Q4 PRN PRN Reason: Nasal congestion Last Admin: 01/27/18 08:09 Dose: 2 spr - Labs Labs: 01/30/18 05:15 01/30/18 05:15 - Constitutional Appears: Well, Non-toxic, No Acute Distress, Chronically Ill - Head Exam Head Exam: ATRAUMATIC, NORMAL INSPECTION, NORMOCEPHALIC - Eye Exam Eye Exam: EOMI, Normal appearance, PERRL Pupil Exam: NORMAL ACCOMODATION, PERRL - ENT Exam ENT Exam: Mucous Membranes Moist, Normal Exam - Neck Exam Neck Exam: Full ROM, Normal Inspection. absent: Lymphadenopathy - Respiratory Exam Respiratory Exam: Clear to Ausculation Bilateral, NORMAL BREATHING PATTERN - Cardiovascular Exam Cardiovascular Exam: REGULAR RHYTHM, RRR, +S1, +S2. absent: Murmur - GI/Abdominal Exam GI & Abdominal Exam: Soft, Normal Bowel Sounds. absent: Tenderness - Extremities Exam Extremities Exam: Full ROM, Normal Capillary Refill, Normal Inspection. absent : Joint Swelling, Pedal Edema - Back Exam Back Exam: NORMAL INSPECTION - Neurological Exam Neurological Exam: Alert, Awake, CN II-XII Intact, Normal Gait, Oriented x3 - Psychiatric Exam Psychiatric exam: Normal Affect, Normal Mood - Skin Skin Exam: Dry, Intact, Normal Color, Warm Assessment and Plan (1) Acute renal failure Status: Acute (2) Elevated LFTs Status: Acute (3) Bacteremia due to methicillin resistant Staphylococcus aureus Status: Acute (4) Chronic pain Status: Acute (5) DVT prophylaxis Status: Acute - Assessment and Plan (Free Text) Assessment: (1) Acute renal failure Assessment and Plan: nephro ivf monitor bun/cr-trending down urine protein noted no plans for dialysis at this time as per nephro Status: Acute (2) Elevated LFTs Assessment and Plan: gi ivf monitor lft normalized hep panel negative Status: Acute (3) Bacteremia due to methicillin resistant Staphylococcus aureus Assessment and Plan: cubicin podiatry consult as original source r foot/ankle ceretec scan Status: Acute (4) Chronic pain Assessment and Plan: cont home meds Status: Acute (5) DVT prophylaxis Assessment and Plan: scd and ae hose asa/plavix Status: Acute 6-chf w/ h/o cad-cont meds, cardio consult, echo,dc ivf, cont nasal o2, HOB 30 degrees-stable from cardio point of view as per dr armenta, no further cp, dyspnea 9-mxidmartq-cmhjf, neuro. ct head. all notes appriciated. less so today, appears back to baseline 8-hyperkalemia- recheck labs, nephro, monitor dialy, normal today 9-r ankle hardware infection-ceretec scan, cont pod/ID f/u, cubicin, ?? need to change anbx for juan
--- NOTE | 2018-01-30 10:42 | CP.PCM.PN ---
Subjective - Date & Time of Evaluation Date of Evaluation: 01/30/18 Time of Evaluation: 10:40 - Subjective Subjective: Patient awake in bed not in acute distress Vital sign noted No nausea or vomiting Objective - Vital Signs/Intake and Output Vital Signs (last 24 hours): Temp Pulse Resp BP Pulse Ox 97.4 F L 60 20 111/81 98 01/30/18 08:13 01/30/18 09:02 01/30/18 08:13 01/30/18 09:02 01/30/18 08:13 Intake and Output: 01/30/18 01/30/18 06:59 18:59 Intake Total 1400 Output Total 800 Balance 600 - Medications Medications: Current Medications Acetaminophen (Tylenol 325mg Tab) 650 mg PO Q4 PRN PRN Reason: Fever >100.4 F Last Admin: 01/24/18 19:03 Dose: 650 mg Al Hydrox/Mg Hydrox/Simethicone (Maalox Plus 30 Ml) 30 ml PO Q6 PRN PRN Reason: Heartburn Albuterol/Ipratropium (Duoneb 3 Mg/0.5 Mg (3 Ml) Ud) 3 ml INH RQ4 [facility] Last Admin: 01/30/18 07:38 Dose: 3 ml Alprazolam (Xanax) 0.5 mg PO Q6 [facility] Last Admin: 01/30/18 09:02 Dose: 0.5 mg Aspirin (Ecotrin) 81 mg PO DAILY [facility] Last Admin: 01/30/18 09:01 Dose: 81 mg Buspirone HCl (Buspar) 10 mg PO BID [facility] Last Admin: 01/30/18 09:01 Dose: 10 mg Calcium Acetate (Phoslo) 1,334 mg PO TID [facility] Last Admin: 01/30/18 09:02 Dose: 1,334 mg Clopidogrel Bisulfate (Plavix) 75 mg PO DAILY [facility] Last Admin: 01/30/18 09:01 Dose: 75 mg Collagenase (Santyl) 1 applic TOP DAILY [facility] Last Admin: 01/29/18 09:42 Dose: Not Given Ergocalciferol (Drisdol 50,000 Intl Units Cap) 1 cap PO QWK [facility] Last Admin: 01/27/18 08:16 Dose: 1 cap Fenofibrate (Tricor) 145 mg PO DAILY [facility] Last Admin: 01/30/18 09:02 Dose: 145 mg Gabapentin (Neurontin) 600 mg PO BID [facility] Last Admin: 01/30/18 09:01 Dose: 600 mg Haloperidol Lactate (Haldol) 1 mg IVP Q4 PRN PRN Reason: Agitation Last Admin: 01/26/18 21:53 Dose: 1 mg Daptomycin 650 mg/ Sodium (Chloride) 100 mls @ 100 mls/hr IV Q48H [facility] PRN Reason: Protocol Stop: 02/03/18 15:46 Last Admin: 01/29/18 16:41 Dose: 100 mls/hr Lamotrigine (Lamictal) 50 mg PO BID [facility] Last Admin: 01/30/18 09:01 Dose: 50 mg Levothyroxine Sodium (Synthroid) 88 mcg PO DAILY@0630 [facility] Last Admin: 01/30/18 06:01 Dose: 88 mcg Metoprolol Tartrate (Lopressor) 50 mg PO BID [facility] Last Admin: 01/30/18 09:02 Dose: 50 mg Montelukast Sodium (Singulair) 10 mg PO DAILY [facility] Last Admin: 01/30/18 09:02 Dose: 10 mg Nystatin (Nystop Topical Powder) 1 applic TOP TID [facility] Last Admin: 01/30/18 09:03 Dose: 1 applic Oxycodone HCl (Oxycontin Extended Release Tab) 30 mg PO Q12 [facility] Stop: 01/31/18 12:31 Last Admin: 01/29/18 22:19 Dose: 30 mg Paroxetine HCl (Paxil) 40 mg PO DAILY [facility] Last Admin: 01/30/18 09:02 Dose: 40 mg Risperidone (Risperdal M-Tab) 0.5 mg PO Q8 PRN PRN Reason: Agitation Last Admin: 01/30/18 01:41 Dose: 0.5 mg Sennosides (Senokot Tab) 17.2 mg PO HS [facility] Last Admin: 01/29/18 22:20 Dose: 17.2 mg Sitagliptin Phosphate (Januvia) 100 mg PO DAILY [facility] Last Admin: 01/30/18 09:02 Dose: 100 mg Sodium Chloride ([place] Nasal [place]) 2 sprays HI Q4 PRN PRN Reason: Nasal congestion Last Admin: 01/27/18 08:09 Dose: 2 spr - Labs Labs: 01/30/18 05:15 01/30/18 05:15 - Constitutional Appears: No Acute Distress - ENT Exam ENT Exam: Mucous Membranes Moist - Neck Exam Neck Exam: absent: Lymphadenopathy - Respiratory Exam Respiratory Exam: NORMAL BREATHING PATTERN. absent: Chest Wall Tenderness - Cardiovascular Exam Cardiovascular Exam: absent: JVD, Rubs - GI/Abdominal Exam GI & Abdominal Exam: Soft, Normal Bowel Sounds - Extremities Exam Extremities Exam: absent: Calf Tenderness - Back Exam Back Exam: absent: CVA tenderness (L), CVA tenderness (R) - Neurological Exam Neurological Exam: Alert - Psychiatric Exam Psychiatric exam: Normal Affect - Skin Skin Exam: absent: Cyanosis Assessment and Plan (1) Acute renal failure Assessment & Plan: Acute kidney injury Kidney function stable with serum creatinine 3.1 not improving any further in the past 2 days. Patient developed been hyponatremia serum sodium 130 I suggest fluid restriction around her thousand cc in 24 hours because it appeared to be dilutional hyponatremia. Adjust antibiotics and medication as per renal dose Status: Acute (2) Elevated LFTs Status: Acute (3) Cellulitis Status: Acute
--- NOTE | 2018-01-30 11:11 | CP.PCM.PN ---
Subjective - Date & Time of Evaluation Date of Evaluation: 01/30/18 Time of Evaluation: 08:00 - Subjective Subjective: Podiatry Progress Note- Dr. Guy 62 year old male seen and evaluated for right ankle surgical wound 18 days s/p I &D of right ankle. Patient is seen resting comfortably in bed and in NAD. Denies acute events overnight. Patient reports he slept okay last night. Patient reports same pain to the right ankle. Dressing to RLE remains clean/dry/ intact with minimal strikethrough noted. Multipodus boot present to RLE. No new pedal complaints. Denies N/V/F/D/C/SOB. Objective - Vital Signs/Intake and Output Vital Signs (last 24 hours): Temp Pulse Resp BP Pulse Ox 97.4 F L 60 20 111/81 98 01/30/18 08:13 01/30/18 09:02 01/30/18 08:13 01/30/18 09:02 01/30/18 08:13 Intake and Output: 01/30/18 01/30/18 06:59 18:59 Intake Total 1400 Output Total 800 Balance 600 - Medications Medications: Current Medications Acetaminophen (Tylenol 325mg Tab) 650 mg PO Q4 PRN PRN Reason: Fever >100.4 F Last Admin: 01/24/18 19:03 Dose: 650 mg Al Hydrox/Mg Hydrox/Simethicone (Maalox Plus 30 Ml) 30 ml PO Q6 PRN PRN Reason: Heartburn Albuterol/Ipratropium (Duoneb 3 Mg/0.5 Mg (3 Ml) Ud) 3 ml INH RQ4 [facility] Last Admin: 01/30/18 07:38 Dose: 3 ml Alprazolam (Xanax) 0.5 mg PO Q6 [facility] Last Admin: 01/30/18 09:02 Dose: 0.5 mg Aspirin (Ecotrin) 81 mg PO DAILY [facility] Last Admin: 01/30/18 09:01 Dose: 81 mg Buspirone HCl (Buspar) 10 mg PO BID [facility] Last Admin: 01/30/18 09:01 Dose: 10 mg Calcium Acetate (Phoslo) 1,334 mg PO TID [facility] Last Admin: 01/30/18 09:02 Dose: 1,334 mg Clopidogrel Bisulfate (Plavix) 75 mg PO DAILY [facility] Last Admin: 01/30/18 09:01 Dose: 75 mg Collagenase (Santyl) 1 applic TOP DAILY [facility] Last Admin: 01/29/18 09:42 Dose: Not Given Ergocalciferol (Drisdol 50,000 Intl Units Cap) 1 cap PO QWK [facility] Last Admin: 01/27/18 08:16 Dose: 1 cap Fenofibrate (Tricor) 145 mg PO DAILY [facility] Last Admin: 01/30/18 09:02 Dose: 145 mg Gabapentin (Neurontin) 600 mg PO BID [facility] Last Admin: 01/30/18 09:01 Dose: 600 mg Haloperidol Lactate (Haldol) 1 mg IVP Q4 PRN PRN Reason: Agitation Last Admin: 01/26/18 21:53 Dose: 1 mg Daptomycin 650 mg/ Sodium (Chloride) 100 mls @ 100 mls/hr IV Q48H [facility] PRN Reason: Protocol Stop: 02/03/18 15:46 Last Admin: 01/29/18 16:41 Dose: 100 mls/hr Lamotrigine (Lamictal) 50 mg PO BID [facility] Last Admin: 01/30/18 09:01 Dose: 50 mg Levothyroxine Sodium (Synthroid) 88 mcg PO DAILY@0630 [facility] Last Admin: 01/30/18 06:01 Dose: 88 mcg Metoprolol Tartrate (Lopressor) 50 mg PO BID [facility] Last Admin: 01/30/18 09:02 Dose: 50 mg Montelukast Sodium (Singulair) 10 mg PO DAILY [facility] Last Admin: 01/30/18 09:02 Dose: 10 mg Nystatin (Nystop Topical Powder) 1 applic TOP TID [facility] Last Admin: 01/30/18 09:03 Dose: 1 applic Oxycodone HCl (Oxycontin Extended Release Tab) 30 mg PO Q12 [facility] Stop: 01/31/18 12:31 Last Admin: 01/29/18 22:19 Dose: 30 mg Paroxetine HCl (Paxil) 40 mg PO DAILY [facility] Last Admin: 01/30/18 09:02 Dose: 40 mg Risperidone (Risperdal M-Tab) 0.5 mg PO Q8 PRN PRN Reason: Agitation Last Admin: 01/30/18 01:41 Dose: 0.5 mg Sennosides (Senokot Tab) 17.2 mg PO HS [facility] Last Admin: 01/29/18 22:20 Dose: 17.2 mg Sitagliptin Phosphate (Januvia) 100 mg PO DAILY [facility] Last Admin: 01/30/18 09:02 Dose: 100 mg Sodium Chloride ([place] Nasal [place]) 2 sprays HI Q4 PRN PRN Reason: Nasal congestion Last Admin: 01/27/18 08:09 Dose: 2 spr - Labs Labs: 01/30/18 05:15 01/30/18 05:15 - Constitutional Appears: Well, Non-toxic, No Acute Distress - Extremities Exam Extremities Exam: absent: Calf Tenderness Additional comments: RLE focused physical exam: VASC: DP/PT pulses non-palpable secondary to edema. Temperature warm to warm from proximal to distal. Non-pitting edema noted to right ankle extending distally. DERM: Linear surgical incision noted to anteromedial ankle joint with sutures intact and midpoint left open with exposed tibia at 3 o'clock, remainder of open site noted to have a 30% fibrous and 70% granular base, increase in granular tissue noted to surgical wound, depth is granulating in, minimal erythema periwound, serosanguinous drainage present; no malodor; no active bleeding, no purulence, no streaking NEURO: Gross sensation diminished. ORTHO: Pain on palpation noted to right medial ankle joint extending distally into forefoot. Digital ROM present. - Neurological Exam Neurological Exam: Alert, Awake, Oriented x3 - Psychiatric Exam Psychiatric exam: Normal Affect, Normal Mood Assessment and Plan - Assessment and Plan (Free Text) Assessment: 62M with surgical wound right ankle 18 days s/p right ankle I&D (DOS 01/12/18) Plan: Patient seen and evaluated Discussed plain with attending, Dr. Brooks Griffin, WBC 9.9 on 01/30/18 R ankle wound culture - MRSA Continue abx per ID - Daptomycin; plan to continue for 6 weeks -ID recs appreciated: consider definitive surgical rx for right ankle OM - removal of hardware Continue local wound care: PATY [place] Multipodus boot to be worn RLE at all times while in bed Patient NWB to the right ankle with ambulatory aid (crutches/walker) Pain control per medicine Recommend surgical wound debridement with removal of hardware pending bone scan results Podiatry will continue to follow
[2018-01-30] MEDS: oxyCODONE 10 mg ER Tab (oxyCONTIN) PO SCH ×2 (12:37→21:52)
[2018-01-30] MEDS: Santyl Collagenase OINTMENT TOP SCH (12:38)
[2018-01-31] MEDS: Risperidone M tab 0.5MG PO PRN ×2 (01:28→16:22)
[2018-01-31] MEDS: Albuterol-Ipratrop 3 mg / 0.5 (3 ml) UD INH SCH ×6 (05:01→23:34)
[2018-01-31 06:28] LABS: BASO % 0.4 % (0.0-2.0); EOS % 0.2 % (0.0-4.0); HEMOGLOBIN 10.9 g/dL (12.0-18.0); LYMPH # 1.1 K/uL (1.0-4.3); LYMPH % 11.6 % (20.0-40.0); MEAN CELL VOLUME 73.3 fl (80.0-94.0); MEAN CORPUSCULAR HEMOGLOBIN 23.5 pg (27.0-31.0); MEAN CORPUSCULAR HGB CONC 32.1 g/dL (33.0-37.0); MEAN PLATELET VOLUME 7.4 fl (7.2-11.7); MONO # 0.9 K/uL (0.0-0.8); MONO % 9.1 % (0.0-10.0); NEUT # 7.5 K/uL (1.8-7.0); NEUT % 78.7 % (50.0-75.0); RBC 4.65 Mil/uL (4.40-5.90); RED CELL DISTRIBUTION WIDTH 22.7 % (11.5-14.5); WHITE BLOOD COUNT 9.5 K/uL (4.8-10.8)
[2018-01-31 07:38] LABS: ALB/GLOB RATIO 0.9 (1.0-2.1); ALBUMIN 2.8 g/dL (3.5-5.0); CALCIUM 9.6 mg/dL (8.4-10.2)
[2018-01-31] MEDS ORDERED: Sod Polystyrene Sulf 15 gm/60 ml Susp PO ONE ×2 (08:07→17:55)
--- NOTE | 2018-01-31 08:10 | CP.PCM.PN ---
Subjective - Date & Time of Evaluation Date of Evaluation: 01/31/18 Time of Evaluation: 08:07 - Subjective Subjective: pt doing well. no complaints/distress. no dyspnea/cp. no f/c, n/v/d. all bw noted. k 5.5 today unable to complete certec scan r/t anxiety. Objective - Vital Signs/Intake and Output Vital Signs (last 24 hours): Temp Pulse Resp BP Pulse Ox 97.4 F L 60 18 148/88 100 01/31/18 07:59 01/31/18 07:59 01/31/18 07:59 01/31/18 07:59 01/31/18 07:59 - Medications Medications: Current Medications Acetaminophen (Tylenol 325mg Tab) 650 mg PO Q4 PRN PRN Reason: Fever >100.4 F Last Admin: 01/24/18 19:03 Dose: 650 mg Al Hydrox/Mg Hydrox/Simethicone (Maalox Plus 30 Ml) 30 ml PO Q6 PRN PRN Reason: Heartburn Albuterol/Ipratropium (Duoneb 3 Mg/0.5 Mg (3 Ml) Ud) 3 ml INH RQ4 [facility] Last Admin: 01/31/18 08:02 Dose: 3 ml Alprazolam (Xanax) 0.5 mg PO Q6 [facility] Last Admin: 01/30/18 21:52 Dose: 0.5 mg Aspirin (Ecotrin) 81 mg PO DAILY [facility] Last Admin: 01/30/18 09:01 Dose: 81 mg Buspirone HCl (Buspar) 10 mg PO BID [facility] Last Admin: 01/30/18 16:14 Dose: 10 mg Calcium Acetate (Phoslo) 1,334 mg PO TID [facility] Last Admin: 01/30/18 16:17 Dose: 1,334 mg Clopidogrel Bisulfate (Plavix) 75 mg PO DAILY [facility] Last Admin: 01/30/18 09:01 Dose: 75 mg Collagenase (Santyl) 1 applic TOP DAILY [facility] Last Admin: 01/30/18 12:38 Dose: 1 applic Ergocalciferol (Drisdol 50,000 Intl Units Cap) 1 cap PO QWK [facility] Last Admin: 01/27/18 08:16 Dose: 1 cap Fenofibrate (Tricor) 145 mg PO DAILY [facility] Last Admin: 01/30/18 09:02 Dose: 145 mg Gabapentin (Neurontin) 600 mg PO BID [facility] Last Admin: 01/30/18 16:16 Dose: 600 mg Haloperidol Lactate (Haldol) 1 mg IVP Q4 PRN PRN Reason: Agitation Last Admin: 01/31/18 00:25 Dose: 1 mg Daptomycin 650 mg/ Sodium (Chloride) 100 mls @ 100 mls/hr IV Q48H [facility] PRN Reason: Protocol Stop: 02/03/18 15:46 Last Admin: 01/29/18 16:41 Dose: 100 mls/hr Lamotrigine (Lamictal) 50 mg PO BID [facility] Last Admin: 01/30/18 17:12 Dose: 50 mg Levothyroxine Sodium (Synthroid) 88 mcg PO DAILY@0630 [facility] Last Admin: 01/30/18 06:01 Dose: 88 mcg Lorazepam (Ativan) 1 mg IVP ONCE ONE Stop: 01/31/18 09:01 Metoprolol Tartrate (Lopressor) 50 mg PO BID [facility] Last Admin: 01/30/18 16:16 Dose: 50 mg Montelukast Sodium (Singulair) 10 mg PO DAILY [facility] Last Admin: 01/30/18 09:02 Dose: 10 mg Nystatin (Nystop Topical Powder) 1 applic TOP TID [facility] Last Admin: 01/30/18 16:16 Dose: 1 applic Oxycodone HCl (Oxycontin Extended Release Tab) 30 mg PO Q12 [facility] Stop: 01/31/18 12:31 Last Admin: 01/30/18 21:52 Dose: 30 mg Paroxetine HCl (Paxil) 40 mg PO DAILY [facility] Last Admin: 01/30/18 09:02 Dose: 40 mg Risperidone (Risperdal M-Tab) 0.5 mg PO Q8 PRN PRN Reason: Agitation Last Admin: 01/31/18 01:28 Dose: 0.5 mg Sennosides (Senokot Tab) 17.2 mg PO HS [facility] Last Admin: 01/30/18 22:03 Dose: 17.2 mg Sitagliptin Phosphate (Januvia) 100 mg PO DAILY [facility] Last Admin: 01/30/18 09:02 Dose: 100 mg Sodium Chloride ([place] Nasal [place]) 2 sprays HI Q4 PRN PRN Reason: Nasal congestion Last Admin: 01/27/18 08:09 Dose: 2 spr Sodium Polystyrene Sulfonate (Kayexalate Susp) 30 gm PO ONCE ONE Stop: 01/31/18 08:08 - Labs Labs: 01/31/18 05:45 01/31/18 05:45 - Constitutional Appears: Well, Non-toxic, No Acute Distress, Chronically Ill - Head Exam Head Exam: ATRAUMATIC, NORMAL INSPECTION, NORMOCEPHALIC - Eye Exam Eye Exam: EOMI, Normal appearance, PERRL Pupil Exam: NORMAL ACCOMODATION, PERRL - ENT Exam ENT Exam: Mucous Membranes Moist, Normal Exam - Neck Exam Neck Exam: Full ROM, Normal Inspection. absent: Lymphadenopathy - Respiratory Exam Respiratory Exam: Clear to Ausculation Bilateral, NORMAL BREATHING PATTERN - Cardiovascular Exam Cardiovascular Exam: REGULAR RHYTHM, RRR, +S1, +S2. absent: Murmur - GI/Abdominal Exam GI & Abdominal Exam: Soft, Normal Bowel Sounds. absent: Tenderness - Extremities Exam Extremities Exam: Full ROM, Normal Capillary Refill, Normal Inspection. absent : Joint Swelling, Pedal Edema - Back Exam Back Exam: NORMAL INSPECTION - Neurological Exam Neurological Exam: Abnormal Gait, Alert, Awake, CN II-XII Intact, Oriented x3 - Psychiatric Exam Psychiatric exam: Normal Affect, Normal Mood - Skin Skin Exam: Dry, Intact, Normal Color, Warm Assessment and Plan (1) Acute renal failure Status: Acute (2) Elevated LFTs Status: Acute (3) Bacteremia due to methicillin resistant Staphylococcus aureus Status: Acute (4) Chronic pain Status: Acute (5) DVT prophylaxis Status: Acute - Assessment and Plan (Free Text) Assessment: (1) Acute renal failure Assessment and Plan: nephro ivf monitor bun/cr-trending down urine protein noted no plans for dialysis at this time as per nephro k eleated-kayexalate today Status: Acute (2) Elevated LFTs Assessment and Plan: gi ivf monitor lft normalized hep panel negative Status: Acute (3) Bacteremia due to methicillin resistant Staphylococcus aureus Assessment and Plan: cubicin podiatry consult as original source r foot/ankle ceretec scan Status: Acute (4) Chronic pain Assessment and Plan: cont home meds Status: Acute (5) DVT prophylaxis Assessment and Plan: scd and ae hose asa/plavix Status: Acute 6-chf w/ h/o cad-cont meds, cardio consult, echo,dc ivf, cont nasal o2, HOB 30 degrees-stable from cardio point of view as per dr armenta, no further cp, dyspnea [id number], neuro. ct head. all notes appriciated. less so today, appears back to baseline 8-hyperkalemia- neprho, kayexalate, monitor k 9-r ankle hardware infection-ceretec scan, cont pod/ID f/u, cubicin, ?? need to change anbx for juan. will give prn ativan for anxiety r/t procedure
[2018-01-31] MEDS: oxyCODONE 10 mg ER Tab (oxyCONTIN) PO SCH (09:24)
[2018-01-31] MEDS: Santyl Collagenase OINTMENT TOP SCH (09:25)
--- NOTE | 2018-01-31 10:01 | CP.PCM.PN ---
Subjective - Date & Time of Evaluation Date of Evaluation: 01/31/18 Time of Evaluation: 10:02 - Subjective Subjective: Podiatry Progress Note- Dr. Guy 62 year old male seen and evaluated for right ankle surgical wound 19 days s/p I &D of right ankle. Patient is seen in [facility]. Denies acute events overnight. Patient reports that he wants to go home. Patient reports same pain to the right ankle. Dressing to RLE remains clean/dry/intact with no strikethrough noted. Multipodus boot present to RLE. No new pedal complaints. Denies N/V/F/D/C /SOB. Objective - Vital Signs/Intake and Output Vital Signs (last 24 hours): Temp Pulse Resp BP Pulse Ox 97.4 F L 60 18 148/88 100 01/31/18 07:59 01/31/18 09:16 01/31/18 07:59 01/31/18 09:16 01/31/18 07:59 - Medications Medications: Current Medications Acetaminophen (Tylenol 325mg Tab) 650 mg PO Q4 PRN PRN Reason: Fever >100.4 F Last Admin: 01/24/18 19:03 Dose: 650 mg Al Hydrox/Mg Hydrox/Simethicone (Maalox Plus 30 Ml) 30 ml PO Q6 PRN PRN Reason: Heartburn Albuterol/Ipratropium (Duoneb 3 Mg/0.5 Mg (3 Ml) Ud) 3 ml INH RQ4 [facility] Last Admin: 01/31/18 08:02 Dose: 3 ml Alprazolam (Xanax) 0.5 mg PO Q6 [facility] Last Admin: 01/31/18 09:25 Dose: 0.5 mg Aspirin (Ecotrin) 81 mg PO DAILY [facility] Last Admin: 01/31/18 09:14 Dose: 81 mg Buspirone HCl (Buspar) 10 mg PO BID [facility] Last Admin: 01/31/18 09:14 Dose: 10 mg Calcium Acetate (Phoslo) 1,334 mg PO TID [facility] Last Admin: 01/31/18 09:18 Dose: 1,334 mg Clopidogrel Bisulfate (Plavix) 75 mg PO DAILY [facility] Last Admin: 01/31/18 09:19 Dose: 75 mg Collagenase (Santyl) 1 applic TOP DAILY [facility] Last Admin: 06/06/18 09:25 Dose: 1 applic Ergocalciferol (Drisdol 50,000 Intl Units Cap) 1 cap PO QWK [facility] Last Admin: 01/27/18 08:16 Dose: 1 cap Fenofibrate (Tricor) 145 mg PO DAILY [facility] Last Admin: 01/31/18 09:19 Dose: 145 mg Gabapentin (Neurontin) 600 mg PO BID [facility] Last Admin: 01/31/18 09:17 Dose: 600 mg Haloperidol Lactate (Haldol) 1 mg IVP Q4 PRN PRN Reason: Agitation Last Admin: 01/31/18 00:25 Dose: 1 mg Daptomycin 650 mg/ Sodium (Chloride) 100 mls @ 100 mls/hr IV Q48H [facility] PRN Reason: Protocol Stop: 02/03/18 15:46 Last Admin: 01/29/18 16:41 Dose: 100 mls/hr Lamotrigine (Lamictal) 50 mg PO BID [facility] Last Admin: 01/31/18 09:15 Dose: 50 mg Levothyroxine Sodium (Synthroid) 88 mcg PO DAILY@0630 [facility] Last Admin: 01/30/18 06:01 Dose: 88 mcg Metoprolol Tartrate (Lopressor) 50 mg PO BID [facility] Last Admin: 01/31/18 09:16 Dose: 50 mg Montelukast Sodium (Singulair) 10 mg PO DAILY [facility] Last Admin: 01/31/18 09:19 Dose: 10 mg Nystatin (Nystop Topical Powder) 1 applic TOP TID [facility] Last Admin: 01/31/18 09:17 Dose: 1 applic Oxycodone HCl (Oxycontin Extended Release Tab) 30 mg PO Q12 [facility] Stop: 01/31/18 12:31 Last Admin: 01/31/18 09:24 Dose: 30 mg Paroxetine HCl (Paxil) 40 mg PO DAILY [facility] Last Admin: 01/31/18 09:18 Dose: 40 mg Risperidone (Risperdal M-Tab) 0.5 mg PO Q8 PRN PRN Reason: Agitation Last Admin: 01/31/18 01:28 Dose: 0.5 mg Sennosides (Senokot Tab) 17.2 mg PO HS [facility] Last Admin: 01/30/18 22:03 Dose: 17.2 mg Sitagliptin Phosphate (Januvia) 100 mg PO DAILY [facility] Last Admin: 01/31/18 09:14 Dose: 100 mg Sodium Chloride ([place] Nasal [place]) 2 sprays HI Q4 PRN PRN Reason: Nasal congestion Last Admin: 01/27/18 08:09 Dose: 2 spr - Labs Labs: 01/31/18 05:45 01/31/18 05:45 - Constitutional Appears: Well, Non-toxic, No Acute Distress - Extremities Exam Extremities Exam: absent: Calf Tenderness Additional comments: RLE focused physical exam: VASC: DP/PT pulses non-palpable secondary to edema. Temperature warm to warm from proximal to distal. Non-pitting edema noted to right ankle extending distally. DERM: Linear surgical incision noted to anteromedial ankle joint with sutures intact with no dehiscence to the sutured sites and midpoint left open with exposed tibia at 3 o'clock, remainder of open site noted to have a 30% fibrous and 70% granular base, increase in granular tissue noted to surgical wound, depth is granulating in, minimal erythema periwound, serosanguinous drainage present; no malodor; no active bleeding, no purulence, no streaking NEURO: Gross sensation diminished. ORTHO: Pain on palpation noted to right medial ankle joint extending distally into forefoot. Digital ROM present. - Neurological Exam Neurological Exam: Alert, Awake - Psychiatric Exam Psychiatric exam: Agitated Assessment and Plan - Assessment and Plan (Free Text) Assessment: 62M with surgical wound right ankle 19 days s/p right ankle I&D (DOS 01/12/18) Plan: Patient seen and evaluated Discussed plain with attending, Dr. Guy Afebrile, WBC 9.5 on 01/31/18 R ankle wound culture - MRSA Continue abx per ID - Daptomycin; plan to continue for 6 weeks -ID recs appreciated: consider definitive surgical rx for right ankle OM - removal of hardware Continue local wound care: Santyl, DSD Multipodus boot to be worn RLE at all times while in bed Patient NWB to the right ankle with ambulatory aid (crutches/walker) Pain control per medicine Recommend surgical wound debridement with removal of hardware pending bone scan results Bone scan was not taken yesterday, patient was anxious and uncooperative Will attempt take bone scan today Podiatry will continue to follow
--- NOTE | 2018-01-31 11:31 | CP.PCM.PN ---
Subjective - Date & Time of Evaluation Date of Evaluation: 01/31/18 Time of Evaluation: 11:25 - Subjective Subjective: Patient and bed awake and conscious Vision is communicating very well today Patient is oriented Objective - Vital Signs/Intake and Output Vital Signs (last 24 hours): Temp Pulse Resp BP Pulse Ox 97.4 F L 60 18 148/88 100 01/31/18 07:59 01/31/18 09:16 01/31/18 07:59 01/31/18 09:16 01/31/18 07:59 - Medications Medications: Current Medications Acetaminophen (Tylenol 325mg Tab) 650 mg PO Q4 PRN PRN Reason: Fever >100.4 F Last Admin: 01/24/18 19:03 Dose: 650 mg Al Hydrox/Mg Hydrox/Simethicone (Maalox Plus 30 Ml) 30 ml PO Q6 PRN PRN Reason: Heartburn Albuterol/Ipratropium (Duoneb 3 Mg/0.5 Mg (3 Ml) Ud) 3 ml INH RQ4 [facility] Last Admin: 01/31/18 08:02 Dose: 3 ml Alprazolam (Xanax) 0.5 mg PO Q6 [facility] Last Admin: 01/31/18 09:25 Dose: 0.5 mg Aspirin (Ecotrin) 81 mg PO DAILY [facility] Last Admin: 01/31/18 09:14 Dose: 81 mg Buspirone HCl (Buspar) 10 mg PO BID [facility] Last Admin: 01/31/18 09:14 Dose: 10 mg Calcium Acetate (Phoslo) 1,334 mg PO TID [facility] Last Admin: 01/31/18 09:18 Dose: 1,334 mg Clopidogrel Bisulfate (Plavix) 75 mg PO DAILY [facility] Last Admin: 01/31/18 09:19 Dose: 75 mg Collagenase (Santyl) 1 applic TOP DAILY [facility] Last Admin: 01/31/18 09:25 Dose: 1 applic Ergocalciferol (Drisdol 50,000 Intl Units Cap) 1 cap PO QWK [facility] Last Admin: 01/27/18 08:16 Dose: 1 cap Fenofibrate (Tricor) 145 mg PO DAILY [facility] Last Admin: 01/31/18 09:19 Dose: 145 mg Gabapentin (Neurontin) 600 mg PO BID [facility] Last Admin: 01/31/18 09:17 Dose: 600 mg Haloperidol Lactate (Haldol) 1 mg IVP Q4 PRN PRN Reason: Agitation Last Admin: 01/31/18 00:25 Dose: 1 mg Daptomycin 650 mg/ Sodium (Chloride) 100 mls @ 100 mls/hr IV Q48H [facility] PRN Reason: Protocol Stop: 02/03/18 15:46 Last Admin: 01/29/18 16:41 Dose: 100 mls/hr Lamotrigine (Lamictal) 50 mg PO BID [facility] Last Admin: 01/31/18 09:15 Dose: 50 mg Levothyroxine Sodium (Synthroid) 88 mcg PO DAILY@0630 [facility] Last Admin: 01/30/18 06:01 Dose: 88 mcg Metoprolol Tartrate (Lopressor) 50 mg PO BID [facility] Last Admin: 01/31/18 09:16 Dose: 50 mg Montelukast Sodium (Singulair) 10 mg PO DAILY [facility] Last Admin: 01/31/18 09:19 Dose: 10 mg Nystatin (Nystop Topical Powder) 1 applic TOP TID [facility] Last Admin: 01/31/18 09:17 Dose: 1 applic Oxycodone HCl (Oxycontin Extended Release Tab) 30 mg PO Q12 [facility] Stop: 01/31/18 12:31 Last Admin: 01/31/18 09:24 Dose: 30 mg Paroxetine HCl (Paxil) 40 mg PO DAILY [facility] Last Admin: 01/31/18 09:18 Dose: 40 mg Risperidone (Risperdal M-Tab) 0.5 mg PO Q8 PRN PRN Reason: Agitation Last Admin: 01/31/18 01:28 Dose: 0.5 mg Sennosides (Senokot Tab) 17.2 mg PO HS [facility] Last Admin: 01/30/18 22:03 Dose: 17.2 mg Sitagliptin Phosphate (Januvia) 100 mg PO DAILY [facility] Last Admin: 01/31/18 09:14 Dose: 100 mg Sodium Chloride ([place] Nasal [place]) 2 sprays HI Q4 PRN PRN Reason: Nasal congestion Last Admin: 01/27/18 08:09 Dose: 2 spr - Labs Labs: 01/31/18 05:45 01/31/18 05:45 - Constitutional Appears: No Acute Distress - ENT Exam ENT Exam: Mucous Membranes Moist - Respiratory Exam Respiratory Exam: absent: Chest Wall Tenderness - Cardiovascular Exam Cardiovascular Exam: REGULAR RHYTHM - GI/Abdominal Exam GI & Abdominal Exam: Soft, Normal Bowel Sounds - Extremities Exam Extremities Exam: absent: Calf Tenderness - Back Exam Back Exam: absent: CVA tenderness (L), CVA tenderness (R) - Neurological Exam Neurological Exam: Alert - Psychiatric Exam Psychiatric exam: Normal Affect - Skin Skin Exam: absent: Cyanosis Assessment and Plan (1) Acute renal failure Assessment & Plan: Acute kidney injury Serum creatinine still holding around 3.1 which is no more improvement in the past couple of days. Continue monitoring #2 hyperkalemia patient giving Kayexalate. #3 hyponatremia related to dilutional . Patient need fluid restriction about 1000 mL per 24 hours. #4 adjust medication with the infectious disease as per renal dose. Status: Acute (2) Elevated LFTs Status: Acute (3) Cellulitis Status: Acute
--- NOTE | 2018-01-31 12:52 | CP.PCM.PN ---
Subjective - Date & Time of Evaluation Date of Evaluation: 01/31/18 Time of Evaluation: 10:00 - Subjective Subjective: renal failure improved iv rx in progress cont same podiatry eval Objective - Vital Signs/Intake and Output Vital Signs (last 24 hours): Temp Pulse Resp BP Pulse Ox 98.0 F 66 20 152/86 H 99 01/31/18 12:43 01/31/18 12:43 01/31/18 12:43 01/31/18 12:43 01/31/18 12:43 - Medications Medications: Current Medications Acetaminophen (Tylenol 325mg Tab) 650 mg PO Q4 PRN PRN Reason: Fever >100.4 F Last Admin: 01/24/18 19:03 Dose: 650 mg Al Hydrox/Mg Hydrox/Simethicone (Maalox Plus 30 Ml) 30 ml PO Q6 PRN PRN Reason: Heartburn Albuterol/Ipratropium (Duoneb 3 Mg/0.5 Mg (3 Ml) Ud) 3 ml INH RQ4 [facility] Last Admin: 01/31/18 11:50 Dose: 3 ml Alprazolam (Xanax) 0.5 mg PO Q6 [facility] Last Admin: 01/31/18 09:25 Dose: 0.5 mg Aspirin (Ecotrin) 81 mg PO DAILY [facility] Last Admin: 01/31/18 09:14 Dose: 81 mg Buspirone HCl (Buspar) 10 mg PO BID [facility] Last Admin: 01/31/18 09:14 Dose: 10 mg Calcium Acetate (Phoslo) 1,334 mg PO TID [facility] Last Admin: 01/31/18 09:18 Dose: 1,334 mg Clopidogrel Bisulfate (Plavix) 75 mg PO DAILY [facility] Last Admin: 01/31/18 09:19 Dose: 75 mg Collagenase (Santyl) 1 applic TOP DAILY [facility] Last Admin: 01/31/18 09:25 Dose: 1 applic Ergocalciferol (Drisdol 50,000 Intl Units Cap) 1 cap PO QWK [facility] Last Admin: 01/27/18 08:16 Dose: 1 cap Fenofibrate (Tricor) 145 mg PO DAILY [facility] Last Admin: 01/31/18 09:19 Dose: 145 mg Gabapentin (Neurontin) 600 mg PO BID [facility] Last Admin: 01/31/18 09:17 Dose: 600 mg Haloperidol Lactate (Haldol) 1 mg IVP Q4 PRN PRN Reason: Agitation Last Admin: 01/31/18 00:25 Dose: 1 mg Daptomycin 650 mg/ Sodium (Chloride) 100 mls @ 100 mls/hr IV Q48H [facility] PRN Reason: Protocol Stop: 02/03/18 15:46 Last Admin: 01/29/18 16:41 Dose: 100 mls/hr Lamotrigine (Lamictal) 50 mg PO BID [facility] Last Admin: 01/31/18 09:15 Dose: 50 mg Levothyroxine Sodium (Synthroid) 88 mcg PO DAILY@0630 [facility] Last Admin: 01/30/18 06:01 Dose: 88 mcg Metoprolol Tartrate (Lopressor) 50 mg PO BID [facility] Last Admin: 01/31/18 09:16 Dose: 50 mg Montelukast Sodium (Singulair) 10 mg PO DAILY [facility] Last Admin: 01/31/18 09:19 Dose: 10 mg Nystatin (Nystop Topical Powder) 1 applic TOP TID [facility] Last Admin: 01/31/18 09:17 Dose: 1 applic Paroxetine HCl (Paxil) 40 mg PO DAILY [facility] Last Admin: 01/31/18 09:18 Dose: 40 mg Risperidone (Risperdal M-Tab) 0.5 mg PO Q8 PRN PRN Reason: Agitation Last Admin: 01/31/18 01:28 Dose: 0.5 mg Sennosides (Senokot Tab) 17.2 mg PO HS [facility] Last Admin: 01/30/18 22:03 Dose: 17.2 mg Sitagliptin Phosphate (Januvia) 100 mg PO DAILY [facility] Last Admin: 01/31/18 09:14 Dose: 100 mg Sodium Chloride ([place] Nasal [place]) 2 sprays HI Q4 PRN PRN Reason: Nasal congestion Last Admin: 01/27/18 08:09 Dose: 2 spr - Labs Labs: 01/31/18 05:45 01/31/18 05:45 - Constitutional Appears: Non-toxic, Chronically Ill - Head Exam Head Exam: NORMOCEPHALIC - Eye Exam Eye Exam: PERRL - ENT Exam ENT Exam: Mucous Membranes Dry - Neck Exam Neck Exam: absent: Lymphadenopathy - Respiratory Exam Respiratory Exam: Decreased Breath Sounds - Cardiovascular Exam Cardiovascular Exam: REGULAR RHYTHM - GI/Abdominal Exam GI & Abdominal Exam: Distended - Rectal Exam Rectal Exam: Deferred - Exam Exam: NORMAL INSPECTION - Extremities Exam Extremities Exam: absent: Pedal Edema - Back Exam Back Exam: absent: CVA tenderness (L), CVA tenderness (R) - Neurological Exam Neurological Exam: Alert, Awake, Normal Gait, Oriented x3 - Psychiatric Exam Psychiatric exam: Normal Mood - Skin Skin Exam: Dry Assessment and Plan (1) Osteomyelitis of ankle Status: Acute (2) Acute renal failure Status: Acute (3) Elevated LFTs Status: Acute (4) Bacteremia due to methicillin resistant Staphylococcus aureus Status: Acute - Assessment and Plan (Free Text) Assessment: cont iv rx needs or removal hardware
[2018-01-31 16:36] LABS: CALCIUM 9.6 mg/dL (8.4-10.2)
[2018-01-31] MEDS: Levothyroxine 88 MCG TAB PO SCH (22:25)
[2018-02-01] MEDS: Albuterol-Ipratrop 3 mg / 0.5 (3 ml) UD INH SCH ×5 (03:15→19:38)
[2018-02-01 06:43] LABS: BASO # 0.1 K/uL (0.0-0.2); BASO % 0.4 % (0.0-2.0); EOS % 0.3 % (0.0-4.0); HEMOGLOBIN 11.6 g/dL (12.0-18.0); LYMPH # 1.1 K/uL (1.0-4.3); LYMPH % 7.5 % (20.0-40.0); MEAN CELL VOLUME 74.2 fl (80.0-94.0); MEAN CORPUSCULAR HGB CONC 31.1 g/dL (33.0-37.0); MEAN PLATELET VOLUME 7.6 fl (7.2-11.7); MONO # 1.3 K/uL (0.0-0.8); MONO % 8.4 % (0.0-10.0); NEUT # 12.7 K/uL (1.8-7.0); NEUT % 83.4 % (50.0-75.0); NRBC % 0.1 % (0.0-0.0); PLATELET COUNT 201 K/uL (130-400); RBC 5.04 Mil/uL (4.40-5.90); RED CELL DISTRIBUTION WIDTH 23.2 % (11.5-14.5); WHITE BLOOD COUNT 15.2 K/uL (4.8-10.8)
[2018-02-01] MEDS: Levothyroxine 88 MCG TAB PO SCH (06:58)
[2018-02-01 07:17] LABS: ALB/GLOB RATIO 0.9 (1.0-2.1); CALCIUM 9.1 mg/dL (8.4-10.2)
--- NOTE | 2018-02-01 08:14 | CP.PCM.PN ---
Subjective - Date & Time of Evaluation Date of Evaluation: 02/01/18 Time of Evaluation: 08:12 - Subjective Subjective: pt c/o congestion and pain. chronic pain meds have fallen off med rec, will reorder. no cp, sob. no f/c, n/v/d. pt unable to tolerate ceretec scan. per ID only anbx is cubicin. Objective - Vital Signs/Intake and Output Vital Signs (last 24 hours): Temp Pulse Resp BP Pulse Ox 97.4 F L 66 20 162/105 H 98 02/01/18 05:00 02/01/18 05:00 02/01/18 05:00 02/01/18 05:00 02/01/18 05:00 - Medications Medications: Current Medications Acetaminophen (Tylenol 325mg Tab) 650 mg PO Q4 PRN PRN Reason: Fever >100.4 F Last Admin: 01/24/18 19:03 Dose: 650 mg Al Hydrox/Mg Hydrox/Simethicone (Maalox Plus 30 Ml) 30 ml PO Q6 PRN PRN Reason: Heartburn Albuterol/Ipratropium (Duoneb 3 Mg/0.5 Mg (3 Ml) Ud) 3 ml INH RQ4 [facility] Last Admin: 02/01/18 03:15 Dose: 3 ml Alprazolam (Xanax) 0.5 mg PO Q6 [facility] Last Admin: 02/01/18 03:36 Dose: 0.5 mg Aspirin (Ecotrin) 81 mg PO DAILY [facility] Last Admin: 01/31/18 09:14 Dose: 81 mg Buspirone HCl (Buspar) 10 mg PO BID [facility] Last Admin: 01/31/18 09:14 Dose: 10 mg Calcium Acetate (Phoslo) 1,334 mg PO TID [facility] Last Admin: 01/31/18 16:20 Dose: 1,334 mg Clopidogrel Bisulfate (Plavix) 75 mg PO DAILY [facility] Last Admin: 01/31/18 09:19 Dose: 75 mg Collagenase (Santyl) 1 applic TOP DAILY [facility] Last Admin: 01/31/18 09:25 Dose: 1 applic Ergocalciferol (Drisdol 50,000 Intl Units Cap) 1 cap PO QWK [facility] Last Admin: 01/27/18 08:16 Dose: 1 cap Fenofibrate (Tricor) 145 mg PO DAILY [facility] Last Admin: 01/31/18 09:19 Dose: 145 mg Gabapentin (Neurontin) 600 mg PO BID [facility] Last Admin: 01/31/18 09:17 Dose: 600 mg Haloperidol Lactate (Haldol) 1 mg IVP Q4 PRN PRN Reason: Agitation Last Admin: 02/01/18 01:09 Dose: 1 mg Daptomycin 650 mg/ Sodium (Chloride) 100 mls @ 100 mls/hr IV Q48H [facility] PRN Reason: Protocol Stop: 02/03/18 15:46 Last Admin: 01/31/18 16:22 Dose: 100 mls/hr Lamotrigine (Lamictal) 50 mg PO BID [facility] Last Admin: 01/31/18 16:22 Dose: 50 mg Levothyroxine Sodium (Synthroid) 88 mcg PO DAILY@0630 [facility] Last Admin: 02/01/18 06:58 Dose: 88 mcg Metoprolol Tartrate (Lopressor) 50 mg PO BID [facility] Last Admin: 01/31/18 16:20 Dose: 50 mg Montelukast Sodium (Singulair) 10 mg PO DAILY [facility] Last Admin: 01/31/18 09:19 Dose: 10 mg Nystatin (Nystop Topical Powder) 1 applic TOP TID [facility] Last Admin: 01/31/18 13:05 Dose: 1 applic Paroxetine HCl (Paxil) 40 mg PO DAILY [facility] Last Admin: 01/31/18 09:18 Dose: 40 mg Risperidone (Risperdal M-Tab) 0.5 mg PO Q8 PRN PRN Reason: Agitation Last Admin: 01/31/18 16:22 Dose: 0.5 mg Sennosides (Senokot Tab) 17.2 mg PO HS [facility] Last Admin: 01/31/18 22:25 Dose: 17.2 mg Sitagliptin Phosphate (Januvia) 100 mg PO DAILY [facility] Last Admin: 01/31/18 09:14 Dose: 100 mg Sodium Chloride ([place] Nasal [place]) 2 sprays HI Q4 PRN PRN Reason: Nasal congestion Last Admin: 01/27/18 08:09 Dose: 2 spr - Labs Labs: 02/01/18 06:45 02/01/18 06:45 - Constitutional Appears: Non-toxic, No Acute Distress, Chronically Ill - Head Exam Head Exam: ATRAUMATIC, NORMAL INSPECTION, NORMOCEPHALIC - Eye Exam Eye Exam: EOMI, Normal appearance, PERRL Pupil Exam: NORMAL ACCOMODATION, PERRL - ENT Exam ENT Exam: Mucous Membranes Moist, Normal Exam - Neck Exam Neck Exam: Full ROM, Normal Inspection. absent: Lymphadenopathy - Respiratory Exam Respiratory Exam: NORMAL BREATHING PATTERN Additional comments: congestion in all felder - Cardiovascular Exam Cardiovascular Exam: REGULAR RHYTHM, RRR, +S1, +S2. absent: Murmur - GI/Abdominal Exam GI & Abdominal Exam: Soft, Normal Bowel Sounds. absent: Tenderness - Extremities Exam Extremities Exam: Full ROM, Normal Capillary Refill, Normal Inspection. absent : Joint Swelling, Pedal Edema - Back Exam Back Exam: NORMAL INSPECTION - Neurological Exam Neurological Exam: Abnormal Gait, Alert, Awake, CN II-XII Intact, Oriented x3 - Psychiatric Exam Psychiatric exam: Normal Affect, Normal Mood - Skin Skin Exam: Dry, Intact, Normal Color, Warm Assessment and Plan (1) Acute renal failure Status: Acute (2) Elevated LFTs Status: Acute (3) Bacteremia due to methicillin resistant Staphylococcus aureus Status: Acute (4) Chronic pain Status: Acute (5) DVT prophylaxis Status: Acute - Assessment and Plan (Free Text) Assessment: (1) Acute renal failure Assessment and Plan: nephro ivf monitor bun/cr-trending down urine protein noted k eleated-kayexalate yesterday. nephro to follow Status: Acute (2) Elevated LFTs Assessment and Plan: gi ivf monitor lft normalized hep panel negative Status: Acute (3) Bacteremia due to methicillin resistant Staphylococcus aureus Assessment and Plan: cubicin podiatry consult as original source r foot/ankle ceretec scan-pt refusing Status: Acute (4) Chronic pain Assessment and Plan: cont home meds Status: Acute (5) DVT prophylaxis Assessment and Plan: scd and ae hose asa/plavix Status: Acute 6-chf w/ h/o cad-cont meds, cardio consult, echo,dc ivf, cont nasal o2, HOB 30 degrees-cxr today, reeval by cardio today 6-oisddxdcr-fywrg, neuro. ct head. all notes appriciated. less so today, appears back to baseline 8-hyperkalemia- neprho, kayexalate, monitor k 9-r ankle hardware infection-ceretec scan, cont pod/ID f/u, cubicin, ?? need to change anbx for juan. will give prn ativan for anxiety r/t procedure-pt still refusing ceretec. 67-[id number], cont current meds, cardio
--- NOTE | 2018-02-01 08:38 | CP.PCM.PN ---
Subjective - Date & Time of Evaluation Date of Evaluation: 02/01/18 Time of Evaluation: 08:38 - Subjective Subjective: Patient feeling much better Issue and is awake and conscious Repeat vancomycin level 5 Objective - Vital Signs/Intake and Output Vital Signs (last 24 hours): Temp Pulse Resp BP Pulse Ox 97.4 F L 66 18 160/96 H 96 02/01/18 08:15 02/01/18 08:15 02/01/18 08:15 02/01/18 08:15 02/01/18 08:15 - Medications Medications: Current Medications Acetaminophen (Tylenol 325mg Tab) 650 mg PO Q4 PRN PRN Reason: Fever >100.4 F Last Admin: 01/24/18 19:03 Dose: 650 mg Al Hydrox/Mg Hydrox/Simethicone (Maalox Plus 30 Ml) 30 ml PO Q6 PRN PRN Reason: Heartburn Albuterol/Ipratropium (Duoneb 3 Mg/0.5 Mg (3 Ml) Ud) 3 ml INH RQ4 [facility] Last Admin: 02/01/18 08:16 Dose: Not Given Alprazolam (Xanax) 0.5 mg PO Q6 [facility] Last Admin: 02/01/18 03:36 Dose: 0.5 mg Aspirin (Ecotrin) 81 mg PO DAILY [facility] Last Admin: 01/31/18 09:14 Dose: 81 mg Buspirone HCl (Buspar) 10 mg PO BID [facility] Last Admin: 01/31/18 09:14 Dose: 10 mg Calcium Acetate (Phoslo) 1,334 mg PO TID [facility] Last Admin: 01/31/18 16:20 Dose: 1,334 mg Clopidogrel Bisulfate (Plavix) 75 mg PO DAILY [facility] Last Admin: 01/31/18 09:19 Dose: 75 mg Collagenase (Santyl) 1 applic TOP DAILY [facility] Last Admin: 01/31/18 09:25 Dose: 1 applic Ergocalciferol (Drisdol 50,000 Intl Units Cap) 1 cap PO QWK [facility] Last Admin: 01/27/18 08:16 Dose: 1 cap Fenofibrate (Tricor) 145 mg PO DAILY [facility] Last Admin: 01/31/18 09:19 Dose: 145 mg Gabapentin (Neurontin) 600 mg PO BID [facility] Last Admin: 01/31/18 09:17 Dose: 600 mg Haloperidol Lactate (Haldol) 1 mg IVP Q4 PRN PRN Reason: Agitation Last Admin: 02/01/18 01:09 Dose: 1 mg Daptomycin 650 mg/ Sodium (Chloride) 100 mls @ 100 mls/hr IV Q48H [facility] PRN Reason: Protocol Stop: 02/03/18 15:46 Last Admin: 01/31/18 16:22 Dose: 100 mls/hr Lamotrigine (Lamictal) 50 mg PO BID [facility] Last Admin: 01/31/18 16:22 Dose: 50 mg Levothyroxine Sodium (Synthroid) 88 mcg PO DAILY@0630 [facility] Last Admin: 02/01/18 06:58 Dose: 88 mcg Metoprolol Tartrate (Lopressor) 50 mg PO BID [facility] Last Admin: 01/31/18 16:20 Dose: 50 mg Montelukast Sodium (Singulair) 10 mg PO DAILY [facility] Last Admin: 01/31/18 09:19 Dose: 10 mg Nystatin (Nystop Topical Powder) 1 applic TOP TID [facility] Last Admin: 01/31/18 13:05 Dose: 1 applic Paroxetine HCl (Paxil) 40 mg PO DAILY [facility] Last Admin: 01/31/18 09:18 Dose: 40 mg Risperidone (Risperdal M-Tab) 0.5 mg PO Q8 PRN PRN Reason: Agitation Last Admin: 01/31/18 16:22 Dose: 0.5 mg Sennosides (Senokot Tab) 17.2 mg PO HS [facility] Last Admin: 01/31/18 22:25 Dose: 17.2 mg Sitagliptin Phosphate (Januvia) 100 mg PO DAILY [facility] Last Admin: 01/31/18 09:14 Dose: 100 mg Sodium Chloride ([place] Nasal [place]) 2 sprays HI Q4 PRN PRN Reason: Nasal congestion Last Admin: 01/27/18 08:09 Dose: 2 spr - Labs Labs: 02/01/18 06:45 02/01/18 06:45 - Constitutional Appears: No Acute Distress - ENT Exam ENT Exam: Mucous Membranes Moist - Neck Exam Neck Exam: absent: Lymphadenopathy - Respiratory Exam Respiratory Exam: absent: Chest Wall Tenderness - Cardiovascular Exam Cardiovascular Exam: REGULAR RHYTHM. absent: Gallop, Rubs - GI/Abdominal Exam GI & Abdominal Exam: Soft, Normal Bowel Sounds - Extremities Exam Extremities Exam: absent: Calf Tenderness - Back Exam Back Exam: absent: CVA tenderness (L), CVA tenderness (R) - Neurological Exam Neurological Exam: Alert - Psychiatric Exam Psychiatric exam: Normal Affect - Skin Skin Exam: absent: Cyanosis Assessment and Plan (1) Acute renal failure Assessment & Plan: Acute kidney injury Serum creatinine dropping down and continued to improve the acute kidney injury. . Continue monitoring #2 hyperkalemia patient giving Kayexalate. #3 hyponatremia related to dilutional . Patient need fluid restriction about 1000 mL per 24 hours. #4 adjust medication with the infectious disease as per renal dose. Status: Acute (2) Elevated LFTs Status: Acute (3) Cellulitis Status: Acute
[2018-02-01] MEDS ORDERED: oxyCODONE 5 mg Immediate Release Tab PO PRN (08:47)
[2018-02-01] MEDS ORDERED: Sod Polystyrene Sulf 15 gm/60 ml Susp PO ONE (09:00)
[2018-02-01] MEDS: oxyCODONE 10 mg Immediate Release Tab PO SCH ×3 (09:22→22:24)
[2018-02-01] MEDS: Santyl Collagenase OINTMENT TOP SCH (09:27)
[2018-02-01 10:15] LABS: LYMPHOCYTE 8 % (20-50); MONOCYTE 8 % (0-10); NEUTROPHIL 84 % (42-75); PLATELET ESTIMATE NORMAL (NORMAL); TOTAL CELLS COUNTED 100
[2018-02-01 10:16] LABS: ANISOCYTOSIS MODERATE; HYPOCHROMIC SLIGHT; OVALOCYTES SLIGHT; TEARDROP CELLS SLIGHT
--- NOTE | 2018-02-01 10:51 | CP.PCM.PN ---
Subjective - Date & Time of Evaluation Date of Evaluation: 02/01/18 Time of Evaluation: 08:00 - Subjective Subjective: Podiatry Progress Note- Dr. Guy 62 year old male seen and evaluated for right ankle surgical wound 20 days s/p I &D of right ankle. Patient is seen in [facility]. Denies acute events overnight. Patient reports that he has a lot of things going on his life right now and does not want to take any imaging. Appears agitated. Patient reports same pain to the right ankle. Dressing to RLE remains clean/dry/intact with no strikethrough noted. Multipodus boot present to RLE. No new pedal complaints. Denies N/V/F/D/C. Reports feeling shortness of breath; reports the same shortness of breath Objective - Vital Signs/Intake and Output Vital Signs (last 24 hours): Temp Pulse Resp BP Pulse Ox 97.4 F L 88 18 160/96 H 96 02/01/18 08:15 02/01/18 09:25 02/01/18 08:15 02/01/18 09:25 02/01/18 08:15 - Medications Medications: Current Medications Acetaminophen (Tylenol 325mg Tab) 650 mg PO Q4 PRN PRN Reason: Fever >100.4 F Last Admin: 01/24/18 19:03 Dose: 650 mg Al Hydrox/Mg Hydrox/Simethicone (Maalox Plus 30 Ml) 30 ml PO Q6 PRN PRN Reason: Heartburn Albuterol/Ipratropium (Duoneb 3 Mg/0.5 Mg (3 Ml) Ud) 3 ml INH RQ4 [facility] Last Admin: 02/01/18 08:16 Dose: Not Given Alprazolam (Xanax) 0.5 mg PO Q6 [facility] Last Admin: 02/01/18 09:21 Dose: 0.5 mg Aspirin (Ecotrin) 81 mg PO DAILY [facility] Last Admin: 02/01/18 09:25 Dose: 81 mg Buspirone HCl (Buspar) 10 mg PO BID [facility] Last Admin: 02/01/18 09:25 Dose: 10 mg Calcium Acetate (Phoslo) 1,334 mg PO TID [facility] Last Admin: 02/01/18 09:26 Dose: 1,334 mg Clopidogrel Bisulfate (Plavix) 75 mg PO DAILY [facility] Last Admin: 02/01/18 09:26 Dose: 75 mg Collagenase (Santyl) 1 applic TOP DAILY [facility] Last Admin: 02/01/18 09:27 Dose: 1 applic Ergocalciferol (Drisdol 50,000 Intl Units Cap) 1 cap PO QWK [facility] Last Admin: 01/27/18 08:16 Dose: 1 cap Fenofibrate (Tricor) 145 mg PO DAILY [facility] Last Admin: 02/01/18 09:24 Dose: 145 mg Gabapentin (Neurontin) 600 mg PO BID [facility] Last Admin: 02/01/18 09:25 Dose: 600 mg Haloperidol Lactate (Haldol) 1 mg IVP Q4 PRN PRN Reason: Agitation Last Admin: 02/01/18 01:09 Dose: 1 mg Daptomycin 650 mg/ Sodium (Chloride) 100 mls @ 100 mls/hr IV Q48H [facility] PRN Reason: Protocol Stop: 02/03/18 15:46 Last Admin: 01/31/18 16:22 Dose: 100 mls/hr Lamotrigine (Lamictal) 50 mg PO BID [facility] Last Admin: 02/01/18 09:26 Dose: 50 mg Levothyroxine Sodium (Synthroid) 88 mcg PO DAILY@0630 [facility] Last Admin: 02/01/18 06:58 Dose: 88 mcg Metoprolol Tartrate (Lopressor) 50 mg PO BID [facility] Last Admin: 02/01/18 09:25 Dose: 50 mg Montelukast Sodium (Singulair) 10 mg PO DAILY [facility] Last Admin: 02/01/18 09:26 Dose: 10 mg Nystatin (Nystop Topical Powder) 1 applic TOP TID [facility] Last Admin: 02/01/18 09:24 Dose: 1 applic Oxycodone HCl (Oxycodone Immediate Release Tab) 30 mg PO Q6 [facility] Stop: 02/04/18 10:01 Last Admin: 02/01/18 09:22 Dose: 30 mg Oxycodone HCl (Oxycodone Immediate Release Tab) 5 mg PO Q6 PRN PRN Reason: Pain, severe (8-10) Paroxetine HCl (Paxil) 40 mg PO DAILY [facility] Last Admin: 02/01/18 09:26 Dose: 40 mg Risperidone (Risperdal M-Tab) 0.5 mg PO Q8 PRN PRN Reason: Agitation Last Admin: 01/31/18 16:22 Dose: 0.5 mg Sennosides (Senokot Tab) 17.2 mg PO HS [facility] Last Admin: 01/31/18 22:25 Dose: 17.2 mg Sitagliptin Phosphate (Januvia) 100 mg PO DAILY [facility] Last Admin: 02/01/18 09:27 Dose: 100 mg Sodium Chloride ([place] Nasal [place]) 2 sprays HI Q4 PRN PRN Reason: Nasal congestion Last Admin: 01/27/18 08:09 Dose: 2 spr - Labs Labs: 02/01/18 06:45 02/01/18 06:45 - Extremities Exam Extremities Exam: absent: Calf Tenderness Additional comments: RLE focused physical exam: VASC: DP/PT pulses non-palpable secondary to edema. Temperature warm to warm from proximal to distal. Non-pitting edema noted to right ankle extending distally. DERM: Linear surgical incision noted to anteromedial ankle joint with sutures intact with no dehiscence to the sutured sites and midpoint left open with exposed tibia at 3 o'clock, remainder of open site noted to have a 30% fibrous and 70% granular base, increase in granular tissue noted to surgical wound, depth is granulating in, minimal erythema periwound, serosanguinous drainage present; no malodor; no active bleeding, no purulence, no streaking NEURO: Gross sensation diminished. ORTHO: Pain on palpation noted to right medial ankle joint extending distally into forefoot. Digital ROM present. Assessment and Plan - Assessment and Plan (Free Text) Assessment: 62M with surgical wound right ankle 20 days s/p right ankle I&D (DOS 01/12/18) Plan: Patient seen and evaluated Discussed plan with attending, Dr. Brooks Griffin, WBC 15.2 on 02/01/18 -Right lower extremity wound appears stable with no changes, no increase purulence or drainage noted -? Other source for elevated WBC R ankle wound culture - MRSA Continue abx per ID - Daptomycin; plan to continue for 6 weeks -ID recs appreciated: consider definitive surgical rx for right ankle OM - removal of hardware Continue local wound care: PATY Reaves Multipodus boot to be worn RLE at all times while in bed Patient NWB to the right ankle with ambulatory aid (crutches/walker) Dispense surgical shoe Pain control per medicine Recommend surgical wound debridement with removal of hardware pending bone scan results Podiatry will continue to follow
--- NOTE | 2018-02-01 12:09 | RAD ---
HISTORY: Shortness of breath and leukocytosis COMPARISON: 01/24/2018. FINDINGS: LUNGS: The lungs are well inflated. There is interval improved aeration in the lungs with residual mild pulmonary venous congestion. There is persistent airspace disease in the right lower lobe. PLEURA: Small pleural effusions, no pneumothorax apparent. CARDIOVASCULAR: Persistent moderate cardiomegaly and prominent central vasculature. OSSEOUS STRUCTURES: No significant abnormalities. VISUALIZED UPPER ABDOMEN: Normal. OTHER FINDINGS: None. IMPRESSION: Improving pulmonary venous congestion. Persistent cardiomegaly and small pleural effusions. Airspace disease in the right lower lobe may represent pulmonary edema however superimposed pneumonia cannot be excluded. Follow-up PA and lateral radiographs are recommended.
--- NOTE | 2018-02-01 18:55 | CP.PCM.PN ---
Subjective - Date & Time of Evaluation Date of Evaluation: 02/01/18 Time of Evaluation: 18:50 - Subjective Subjective: patient has no current chest pain had dyspnea earlier. Objective - Vital Signs/Intake and Output Vital Signs (last 24 hours): Temp Pulse Resp BP Pulse Ox 97.4 F L 68 20 105/68 97 02/01/18 15:39 02/01/18 16:41 02/01/18 15:39 02/01/18 16:41 02/01/18 15:39 Intake and Output: 02/01/18 02/01/18 06:59 18:59 Intake Total 700 Balance 700 - Medications Medications: Current Medications Acetaminophen (Tylenol 325mg Tab) 650 mg PO Q4 PRN PRN Reason: Fever >100.4 F Last Admin: 01/24/18 19:03 Dose: 650 mg Al Hydrox/Mg Hydrox/Simethicone (Maalox Plus 30 Ml) 30 ml PO Q6 PRN PRN Reason: Heartburn Albuterol/Ipratropium (Duoneb 3 Mg/0.5 Mg (3 Ml) Ud) 3 ml INH RQ4 [facility] Last Admin: 02/01/18 16:12 Dose: 3 ml Alprazolam (Xanax) 0.5 mg PO Q6 [facility] Last Admin: 02/01/18 17:53 Dose: 0.5 mg Aspirin (Ecotrin) 81 mg PO DAILY [facility] Last Admin: 02/01/18 09:25 Dose: 81 mg Buspirone HCl (Buspar) 10 mg PO BID [facility] Last Admin: 02/01/18 16:41 Dose: 10 mg Calcium Acetate (Phoslo) 1,334 mg PO TID [facility] Last Admin: 02/01/18 16:39 Dose: 1,334 mg Clopidogrel Bisulfate (Plavix) 75 mg PO DAILY [facility] Last Admin: 02/01/18 09:26 Dose: 75 mg Collagenase (Santyl) 1 applic TOP DAILY [facility] Last Admin: 02/01/18 09:27 Dose: 1 applic Ergocalciferol (Drisdol 50,000 Intl Units Cap) 1 cap PO QWK [facility] Last Admin: 01/27/18 08:16 Dose: 1 cap Fenofibrate (Tricor) 145 mg PO DAILY [facility] Last Admin: 02/01/18 09:24 Dose: 145 mg Gabapentin (Neurontin) 600 mg PO BID [facility] Last Admin: 02/01/18 16:41 Dose: 600 mg Haloperidol Lactate (Haldol) 1 mg IVP Q4 PRN PRN Reason: Agitation Last Admin: 02/01/18 01:09 Dose: 1 mg Daptomycin 650 mg/ Sodium (Chloride) 100 mls @ 100 mls/hr IV Q48H [facility] PRN Reason: Protocol Stop: 02/03/18 15:46 Last Admin: 01/31/18 16:22 Dose: 100 mls/hr Lamotrigine (Lamictal) 50 mg PO BID [facility] Last Admin: 02/01/18 16:39 Dose: 50 mg Levothyroxine Sodium (Synthroid) 88 mcg PO DAILY@0630 [facility] Last Admin: 02/01/18 06:58 Dose: 88 mcg Metoprolol Tartrate (Lopressor) 50 mg PO BID [facility] Last Admin: 02/01/18 16:41 Dose: 50 mg Montelukast Sodium (Singulair) 10 mg PO DAILY [facility] Last Admin: 02/01/18 09:26 Dose: 10 mg Nystatin (Nystop Topical Powder) 1 applic TOP TID [facility] Last Admin: 02/01/18 16:40 Dose: 1 applic Oxycodone HCl (Oxycodone Immediate Release Tab) 30 mg PO Q6 [facility] Stop: 02/04/18 10:01 Last Admin: 02/01/18 16:43 Dose: 30 mg Oxycodone HCl (Oxycodone Immediate Release Tab) 5 mg PO Q6 PRN PRN Reason: Pain, severe (8-10) Paroxetine HCl (Paxil) 40 mg PO DAILY [facility] Last Admin: 02/01/18 09:26 Dose: 40 mg Risperidone (Risperdal Tab) 0.5 mg PO Q8 PRN PRN Reason: Agitation Sennosides (Senokot Tab) 17.2 mg PO HS [facility] Last Admin: 01/31/18 22:25 Dose: 17.2 mg Sitagliptin Phosphate (Januvia) 100 mg PO DAILY [facility] Last Admin: 02/01/18 09:27 Dose: 100 mg Sodium Chloride ([place] Nasal [place]) 2 sprays HI Q4 PRN PRN Reason: Nasal congestion Last Admin: 01/27/18 08:09 Dose: 2 spr - Labs Labs: 02/01/18 06:45 02/01/18 06:45 - Constitutional Appears: Non-toxic - Head Exam Head Exam: NORMAL INSPECTION - Eye Exam Eye Exam: Normal appearance - ENT Exam ENT Exam: Mucous Membranes Moist - Neck Exam Neck Exam: Full ROM - Respiratory Exam Respiratory Exam: Decreased Breath Sounds - Cardiovascular Exam Cardiovascular Exam: REGULAR RHYTHM - GI/Abdominal Exam GI & Abdominal Exam: Normal Bowel Sounds - Rectal Exam Rectal Exam: Deferred - Extremities Exam Extremities Exam: Pedal Edema - Back Exam Back Exam: NORMAL INSPECTION - Neurological Exam Neurological Exam: Alert - Psychiatric Exam Psychiatric exam: Normal Affect - Skin Skin Exam: Normal Color Assessment and Plan (1) CHF (congestive heart failure) Assessment & Plan: diatolic dsyfunction. will continue currnt medical tehrapy Status: Acute (2) HTN (hypertension) Status: Acute (3) CAD (coronary artery disease) Assessment & Plan: on antiplatelet therapy Status: Acute
[2018-02-02] MEDS: Albuterol-Ipratrop 3 mg / 0.5 (3 ml) UD INH SCH ×4 (00:32→11:14)
[2018-02-02] MEDS: oxyCODONE 10 mg Immediate Release Tab PO SCH ×2 (04:10→09:36)
[2018-02-02] MEDS: Levothyroxine 88 MCG TAB PO SCH (06:41)
[2018-02-02 07:09] LABS: BASO # 0.1 K/uL (0.0-0.2); BASO % 0.5 % (0.0-2.0); EOS # 0.1 K/uL (0.0-0.7); EOS % 0.9 % (0.0-4.0); HEMOGLOBIN 12.2 g/dL (12.0-18.0); LYMPH # 1.7 K/uL (1.0-4.3); LYMPH % 17.1 % (20.0-40.0); MEAN CELL VOLUME 74.3 fl (80.0-94.0); MEAN CORPUSCULAR HEMOGLOBIN 23.6 pg (27.0-31.0); MEAN CORPUSCULAR HGB CONC 31.8 g/dL (33.0-37.0); MEAN PLATELET VOLUME 7.6 fl (7.2-11.7); MONO # 1.1 K/uL (0.0-0.8); MONO % 11.3 % (0.0-10.0); NEUT # 7.1 K/uL (1.8-7.0); NEUT % 70.2 % (50.0-75.0); RBC 5.17 Mil/uL (4.40-5.90); RED CELL DISTRIBUTION WIDTH 23.4 % (11.5-14.5); WHITE BLOOD COUNT 10.2 K/uL (4.8-10.8)
[2018-02-02 07:43] LABS: ALB/GLOB RATIO 0.9 (1.0-2.1); ALBUMIN 2.9 g/dL (3.5-5.0); CALCIUM 8.8 mg/dL (8.4-10.2)
[2018-02-02 08:19] VITALS: BP 155/99; PULSE 57; RESP 20; TEMP 98.6; O2SAT 99
--- NOTE | 2018-02-02 08:20 | CP.PCM.PN ---
Subjective - Date & Time of Evaluation Date of Evaluation: 02/02/18 Time of Evaluation: 08:00 - Subjective Subjective: Podiatry Progress Note- Dr. Guy 62 year old male seen and evaluated for right ankle surgical wound 21 days s/p I &D of right ankle. Patient is seen in [facility]. Denies acute events overnight. Patient appears to be in a good mood in the morning. Patient reports same pain to the right ankle. Dressing to RLE remains clean/dry/intact with no strikethrough noted. Multipodus boot present to RLE. No new pedal complaints. Denies N/V/F/D/C/CP. Objective - Vital Signs/Intake and Output Vital Signs (last 24 hours): Temp Pulse Resp BP Pulse Ox 98.6 F 57 L 20 155/99 H 99 02/02/18 08:18 02/02/18 08:18 02/02/18 08:18 02/02/18 08:18 02/02/18 08:18 Intake and Output: 02/02/18 02/02/18 06:59 18:59 Intake Total 240 Balance 240 - Medications Medications: Current Medications Acetaminophen (Tylenol 325mg Tab) 650 mg PO Q4 PRN PRN Reason: Fever >100.4 F Last Admin: 01/24/18 19:03 Dose: 650 mg Al Hydrox/Mg Hydrox/Simethicone (Maalox Plus 30 Ml) 30 ml PO Q6 PRN PRN Reason: Heartburn Albuterol/Ipratropium (Duoneb 3 Mg/0.5 Mg (3 Ml) Ud) 3 ml INH RQ4 [facility] Last Admin: 02/02/18 08:08 Dose: 3 ml Alprazolam (Xanax) 0.5 mg PO Q6 [facility] Last Admin: 02/02/18 04:11 Dose: 0.5 mg Aspirin (Ecotrin) 81 mg PO DAILY [facility] Last Admin: 02/01/18 09:25 Dose: 81 mg Buspirone HCl (Buspar) 10 mg PO BID [facility] Last Admin: 02/01/18 16:41 Dose: 10 mg Calcium Acetate (Phoslo) 1,334 mg PO TID [facility] Last Admin: 02/01/18 16:39 Dose: 1,334 mg Clopidogrel Bisulfate (Plavix) 75 mg PO DAILY [facility] Last Admin: 02/01/18 09:26 Dose: 75 mg Collagenase (Santyl) 1 applic TOP DAILY [facility] Last Admin: 02/01/18 09:27 Dose: 1 applic Ergocalciferol (Drisdol 50,000 Intl Units Cap) 1 cap PO QWK [facility] Last Admin: 01/27/18 08:16 Dose: 1 cap Fenofibrate (Tricor) 145 mg PO DAILY [facility] Last Admin: 02/01/18 09:24 Dose: 145 mg Gabapentin (Neurontin) 600 mg PO BID [facility] Last Admin: 02/01/18 16:41 Dose: 600 mg Haloperidol Lactate (Haldol) 1 mg IVP Q4 PRN PRN Reason: Agitation Last Admin: 02/01/18 01:09 Dose: 1 mg Daptomycin 650 mg/ Sodium (Chloride) 100 mls @ 100 mls/hr IV Q48H [facility] PRN Reason: Protocol Stop: 02/03/18 15:46 Last Admin: 01/31/18 16:22 Dose: 100 mls/hr Lamotrigine (Lamictal) 50 mg PO BID [facility] Last Admin: 02/01/18 16:39 Dose: 50 mg Levothyroxine Sodium (Synthroid) 88 mcg PO DAILY@0630 [facility] Last Admin: 02/02/18 06:41 Dose: 88 mcg Metoprolol Tartrate (Lopressor) 50 mg PO BID [facility] Last Admin: 02/01/18 16:41 Dose: 50 mg Montelukast Sodium (Singulair) 10 mg PO DAILY [facility] Last Admin: 02/01/18 09:26 Dose: 10 mg Nystatin (Nystop Topical Powder) 1 applic TOP TID [facility] Last Admin: 02/01/18 16:40 Dose: 1 applic Oxycodone HCl (Oxycodone Immediate Release Tab) 30 mg PO Q6 [facility] Stop: 02/04/18 10:01 Last Admin: 02/02/18 04:10 Dose: 30 mg Oxycodone HCl (Oxycodone Immediate Release Tab) 5 mg PO Q6 PRN PRN Reason: Pain, severe (8-10) Paroxetine HCl (Paxil) 40 mg PO DAILY [facility] Last Admin: 02/01/18 09:26 Dose: 40 mg Risperidone (Risperdal Tab) 0.5 mg PO Q8 PRN PRN Reason: Agitation Sennosides (Senokot Tab) 17.2 mg PO HS [facility] Last Admin: 02/01/18 22:25 Dose: 17.2 mg Sitagliptin Phosphate (Januvia) 100 mg PO DAILY [facility] Last Admin: 02/01/18 09:27 Dose: 100 mg Sodium Chloride ([place] Nasal [place]) 2 sprays HI Q4 PRN PRN Reason: Nasal congestion Last Admin: 01/27/18 08:09 Dose: 2 spr - Labs Labs: 02/02/18 06:20 02/02/18 06:20 - Constitutional Appears: Well, Non-toxic, No Acute Distress - Extremities Exam Extremities Exam: absent: Calf Tenderness Additional comments: RLE focused physical exam: VASC: DP/PT pulses non-palpable secondary to edema. Temperature warm to warm from proximal to distal. Non-pitting edema noted to right ankle extending distally. DERM: Linear surgical incision noted to anteromedial ankle joint with sutures intact with no dehiscence to the sutured sites and midpoint left open with exposed tibia at 3 o'clock, remainder of open site noted to have a 20% fibrous and 80% granular base, increase in granular tissue noted to surgical wound, depth is granulating in, minimal erythema periwound, serosanguinous drainage present; no malodor; no active bleeding, no purulence, no streaking NEURO: Gross sensation diminished. ORTHO: Pain on palpation noted to right medial ankle joint extending distally into forefoot. Digital ROM present. - Neurological Exam Neurological Exam: Alert, Awake, Oriented x3 - Psychiatric Exam Psychiatric exam: Normal Affect, Normal Mood Assessment and Plan - Assessment and Plan (Free Text) Assessment: 62M with surgical wound right ankle 21 days s/p right ankle I&D (DOS 01/12/18) Plan: Patient seen and evaluated Discussed plan with attending, Dr. Brooks Ramírezebron, WBC 10.2 on 02/02/18 R ankle wound culture - MRSA Continue abx per ID - Daptomycin; plan to continue for 6 weeks -ID recs appreciated: consider definitive surgical rx for right ankle OM - removal of hardware Continue local wound care: PATY Reaves Multipodus boot to be worn RLE at all times while in bed Patient NWB to the right ankle with ambulatory aid (crutches/walker) Dispense surgical shoe Pain control per medicine Patient to follow up with outpatient oil pumper Dr. Gan for possible removal of hardware in right ankle Upon discharge, patient to get ulceration cleansed daily with saline solution with application of santyl or further recommendations per Dr. Gan once followup
[2018-02-02] MEDS: Ergocalciferol 50,000 Intl Units Cap PO SCH (09:40)
[2018-02-02] MEDS: Santyl Collagenase OINTMENT TOP SCH (09:41)
--- NOTE | 2018-02-02 09:55 | CP.PCM.DIS ---
Provider - Provider Date of Admission: 01/23/18 23:52 Attending physician: Eber Sow MD Time Spent in preparation of Discharge (in minutes): 30 Diagnosis - Discharge Diagnosis (1) Acute renal failure Status: Acute (2) Elevated LFTs Status: Acute (3) Bacteremia due to methicillin resistant Staphylococcus aureus Status: Acute (4) Chronic pain Status: Acute (5) DVT prophylaxis Status: Acute Hospital Course - Lab Results Lab Results: Micro Results 01/24/18 00:18 Blood Blood Culture - Final NO GROWTH AFTER 5 DAYS 01/24/18 00:18 Blood Gram Stain - Final TEST NOT PERFORMED 01/24/18 00:41 Blood Blood Culture - Final NO GROWTH AFTER 5 DAYS 01/24/18 00:41 Blood Gram Stain - Final TEST NOT PERFORMED 01/25/18 12:45 Foot - Right Gram Stain - Final 01/25/18 12:45 Foot - Right Wound Culture - Final Methicillin Resistant S Aureus 01/24/18 00:41 Urine Urine Culture - Final No Growth (<1,000 CFU/ML) Most Recent Lab Values WBC 10.2 K/uL (4.8-10.8) 02/02/18 06:20 RBC 5.17 Mil/uL (4.40-5.90) 02/02/18 06:20 Hgb 12.2 g/dL (12.0-18.0) 02/02/18 06:20 Hct 38.4 % (35.0-51.0) 02/02/18 06:20 MCV 74.3 fl (80.0-94.0) L 02/02/18 06:20 MCH 23.6 pg (27.0-31.0) L 02/02/18 06:20 MCHC 31.8 g/dL (33.0-37.0) L 02/02/18 06:20 RDW 23.4 % (11.5-14.5) H 02/02/18 06:20 Plt Count 212 K/uL (130-400) 02/02/18 06:20 MPV 7.6 fl (7.2-11.7) 02/02/18 06:20 Neut % (Auto) 70.2 % (50.0-75.0) 02/02/18 06:20 Lymph % (Auto) 17.1 % (20.0-40.0) L 02/02/18 06:20 [place] % (Auto) 11.3 % (0.0-10.0) H 02/02/18 06:20 Eos % (Auto) 0.9 % (0.0-4.0) 02/02/18 06:20 Baso % (Auto) 0.5 % (0.0-2.0) 02/02/18 06:20 Neut # (Auto) 7.1 K/uL (1.8-7.0) H 02/02/18 06:20 Lymph # (Auto) 1.7 K/uL (1.0-4.3) 02/02/18 06:20 [place] # (Auto) 1.1 K/uL (0.0-0.8) H 02/02/18 06:20 Eos # (Auto) 0.1 K/uL (0.0-0.7) 02/02/18 06:20 Baso # (Auto) 0.1 K/uL (0.0-0.2) 02/02/18 06:20 Neutrophils % (Manual) 84 % (42-75) H 02/01/18 06:45 Lymphocytes % (Manual) 8 % (20-50) L 02/01/18 06:45 Reactive Lymphs % 5 % (0-0) H 01/23/18 20:14 Monocytes % (Manual) 8 % (0-10) 02/01/18 06:45 Eosinophils % (Manual) 1 % (0-7) 01/23/18 20:14 Platelet Estimate Normal (NORMAL) 02/01/18 06:45 Hypochromasia (manual) Slight 02/01/18 06:45 Poikilocytosis (manual Moderate 01/23/18 20:14 Anisocytosis (manual) Moderate 02/01/18 06:45 Microcytosis (manual) Slight 01/23/18 20:14 Tear Drop Cells Slight 02/01/18 06:45 Ovalocytes Slight 02/01/18 06:45 pCO2 43 mm/Hg (35-45) 01/26/18 13:37 pO2 69 mm/Hg (80-100) L 01/26/18 13:37 HCO3 25.4 mmol/L (21-28) 01/26/18 13:37 ABG pH 7.39 (7.35-7.45) 01/26/18 13:37 ABG Total CO2 27.3 mmol/L (22-28) 01/26/18 13:37 ABG O2 Saturation 94.9 % (95-98) L 01/26/18 13:37 ABG O2 Content 15.4 ML/dL (15-23) 01/26/18 13:37 ABG Base Excess 0.8 mmol/L (-2.0-3.0) 01/26/18 13:37 ABG Hemoglobin 12.0 g/dL (11.7-17.4) 01/26/18 13:37 ABG Carboxyhemoglobin 2.6 % (0.5-1.5) H 01/26/18 13:37 POC ABG HHb (Measured) 4.9 % (0.0-5.0) 01/26/18 13:37 ABG Methemoglobin 1.3 % (0.0-3.0) 01/26/18 13:37 ABG O2 Capacity 16.2 mL/dL (16-24) 01/26/18 13:37 [place]cos Test Yes 01/26/18 13:37 A-a O2 Difference 105.0 mm/Hg 01/26/18 13:37 Hgb O2 Saturation 91.2 % (95.0-98.0) L 01/26/18 13:37 Liter Flow 3 01/26/18 13:37 Vent Mode Nc 01/26/18 13:37 FiO2 32.0 % 01/26/18 13:37 Sodium 134 mmol/l (132-148) 02/02/18 06:20 Potassium 4.8 MMOL/L (3.6-5.0) 02/02/18 06:20 Chloride 93 mmol/L (98-107) L 02/02/18 06:20 Carbon Dioxide 32 mmol/L (22-30) H 02/02/18 06:20 Anion Gap 14 (10-20) 02/02/18 06:20 BUN 73 mg/dl (9-20) H 02/02/18 06:20 Creatinine 2.7 mg/dl (0.8-1.5) H 02/02/18 06:20 Est GFR ( Amer) 29 02/02/18 06:20 Est GFR (Non-Af Amer) 24 02/02/18 06:20 POC Glucose (mg/dL) 133 mg/dL (65-110) H 02/01/18 21:38 Random Glucose 109 mg/dL (75-110) 02/02/18 06:20 Calcium 8.8 mg/dL (8.4-10.2) 02/02/18 06:20 Phosphorus 8.4 mg/dl (2.5-4.5) H 01/24/18 11:50 Total Bilirubin 0.8 mg/dl (0.2-1.3) 02/02/18 06:20 AST 39 U/L (17-59) 02/02/18 06:20 ALT 44 U/L (21-72) 02/02/18 06:20 Alkaline Phosphatase 60 U/L (38-126) 02/02/18 06:20 Total Creatine Kinase 75 U/L (55-170) 02/01/18 06:45 Troponin I 0.0520 ng/mL (0.00-0.120) 01/26/18 21:24 NT-Pro-B Natriuret Pep 92834 pg/ml (0-900) H 01/27/18 04:37 Total Protein 6.2 G/DL (6.3-8.2) L 02/02/18 06:20 Albumin 2.9 g/dL (3.5-5.0) L 02/02/18 06:20 Globulin 3.3 gm/dL (2.2-3.9) 02/02/18 06:20 Albumin/Globulin Ratio 0.9 (1.0-2.1) L 02/02/18 06:20 Procalcitonin 0.23 NG/ML (0.19-0.49) 01/24/18 11:29 PTH Intact Whole Molec 20 pg/mL (14-64) 01/24/18 11:50 Urine Color Yellow (YELLOW) 01/23/18 23:58 Urine Clarity Cloudy (Clear) 01/23/18 23:58 Urine pH 5.0 (5.0-8.0) 01/23/18 23:58 Ur Specific [place] 1.015 (1.003-1.030) 01/23/18 23:58 Urine Protein 100 mg/dL (NEGATIVE) 01/23/18 23:58 Urine Glucose (UA) 50 mg/dL (Normal) 01/23/18 23:58 Urine Ketones Negative mg/dL (NEGATIVE) 01/23/18 23:58 Urine Blood Moderate (NEGATIVE) 01/23/18 23:58 Urine Nitrate Negative (NEGATIVE) 01/23/18 23:58 Urine Bilirubin Negative (NEGATIVE) 01/23/18 23:58 Urine Urobilinogen 0.2-1.0 mg/dL (0.2-1.0) 01/23/18 23:58 Ur Leukocyte Esterase Large Evelin/uL (Negative) 01/23/18 23:58 Urine RBC (Auto) 12 /hpf (0-3) H 01/23/18 23:58 Urine Microscopic WBC 48 /hpf (0-5) H 01/23/18 23:58 Ur Squamous Epith Cells < 1 /hpf (0-5) 01/23/18 23:58 Urine Bacteria Rare (<OCC) 01/23/18 23:58 Hyaline Casts 3-5 /hpf (0-2) H 01/23/18 23:58 Ur Random Creatinine 127.1 mg/dL 01/24/18 18:56 U Random Total Protein 259.0 mg/dL (0.0-12.0) H 01/24/18 18:56 Random Vancomycin 5.5 ug/mL 01/31/18 16:17 Hepatitis A IgM Ab Negative (NEGATIVE) 01/25/18 09:45 Hep Bs Antigen Negative (NEGATIVE) 01/25/18 09:45 Hep B Core IgM Ab Negative (NEGATIVE) 01/25/18 09:45 Hepatitis C Antibody Negative (NEGATIVE) 01/25/18 09:45 - Hospital Course Hospital Course: cardio, nephro, ID, podiatry iv anbx-cubicin bun/cr monitored. kaxealate for hyperkalemia Discharge Exam - Head Exam Head Exam: NORMAL INSPECTION Discharge Plan - Discharge Medications Prescriptions: Alprazolam [Xanax] 0.5 mg PO Q6 PRN #10 tab PRN Reason: Anxiety DAPTOmycin [Cubicin] 650 mg IV QOTHERDAY #21 vial - Follow Up Plan Condition: FAIR Disposition: [facility] Additional Instructions: dc to [facility] for nila nbx, f/u bw and id/podaitry outpt med spe rmed rec, iv anbx x 6 wks. need to see podiatry dr taisha lawler within 1-2 wks. any further admission to [facility] where dr lazo goes pt doign well. bw noted. significant other-reyes aware of all
--- NOTE | 2018-02-02 12:50 | CP.PCM.PN ---
Subjective - Date & Time of Evaluation Date of Evaluation: 02/02/18 Time of Evaluation: 07:00 - Subjective Subjective: GOING TO LTAC NO FEVER PLAN IS TO CONTT IV RX AND HAVE PODIATRY/ORTHO EVAL FOR REMOVAL HARDWAR AND IMPLANTATION OF BEADS MAY NEED AMPUTATION IF THIS FAILS Objective - Vital Signs/Intake and Output Vital Signs (last 24 hours): Temp Pulse Resp BP Pulse Ox 98.6 F 57 L 20 155/99 H 99 02/02/18 08:18 02/02/18 09:37 02/02/18 08:18 02/02/18 09:37 02/02/18 08:18 Intake and Output: 02/02/18 02/02/18 06:59 18:59 Intake Total 240 Balance 240 - Medications Medications: Current Medications Acetaminophen (Tylenol 325mg Tab) 650 mg PO Q4 PRN PRN Reason: Fever >100.4 F Last Admin: 01/24/18 19:03 Dose: 650 mg Al Hydrox/Mg Hydrox/Simethicone (Maalox Plus 30 Ml) 30 ml PO Q6 PRN PRN Reason: Heartburn Albuterol/Ipratropium (Duoneb 3 Mg/0.5 Mg (3 Ml) Ud) 3 ml INH RQ4 [facility] Last Admin: 02/02/18 11:14 Dose: Not Given Alprazolam (Xanax) 0.5 mg PO Q6 [facility] Last Admin: 02/02/18 09:36 Dose: 0.5 mg Aspirin (Ecotrin) 81 mg PO DAILY [facility] Last Admin: 02/02/18 09:38 Dose: 81 mg Buspirone HCl (Buspar) 10 mg PO BID [facility] Last Admin: 02/02/18 09:38 Dose: 10 mg Calcium Acetate (Phoslo) 1,334 mg PO TID [facility] Last Admin: 02/02/18 09:36 Dose: 1,334 mg Clopidogrel Bisulfate (Plavix) 75 mg PO DAILY [facility] Last Admin: 02/02/18 09:38 Dose: 75 mg Collagenase (Santyl) 1 applic TOP DAILY [facility] Last Admin: 02/02/18 09:41 Dose: 1 applic Ergocalciferol (Drisdol 50,000 Intl Units Cap) 1 cap PO QWK [facility] Last Admin: 02/02/18 09:40 Dose: 1 cap Fenofibrate (Tricor) 145 mg PO DAILY [facility] Last Admin: 02/02/18 09:36 Dose: 145 mg Gabapentin (Neurontin) 600 mg PO BID [facility] Last Admin: 02/02/18 09:38 Dose: 600 mg Haloperidol Lactate (Haldol) 1 mg IVP Q4 PRN PRN Reason: Agitation Last Admin: 02/01/18 01:09 Dose: 1 mg Daptomycin 650 mg/ Sodium (Chloride) 100 mls @ 100 mls/hr IV Q48H [facility] PRN Reason: Protocol Stop: 02/03/18 15:46 Last Admin: 01/31/18 16:22 Dose: 100 mls/hr Lamotrigine (Lamictal) 50 mg PO BID [facility] Last Admin: 02/02/18 09:39 Dose: 50 mg Levothyroxine Sodium (Synthroid) 88 mcg PO DAILY@0630 [facility] Last Admin: 02/02/18 06:41 Dose: 88 mcg Metoprolol Tartrate (Lopressor) 50 mg PO BID [facility] Last Admin: 02/02/18 09:37 Dose: Not Given Montelukast Sodium (Singulair) 10 mg PO DAILY [facility] Last Admin: 02/02/18 09:42 Dose: 10 mg Nystatin (Nystop Topical Powder) 1 applic TOP TID [facility] Last Admin: 02/02/18 09:40 Dose: 1 applic Oxycodone HCl (Oxycodone Immediate Release Tab) 30 mg PO Q6 [facility] Stop: 02/04/18 10:01 Last Admin: 02/02/18 09:36 Dose: 30 mg Oxycodone HCl (Oxycodone Immediate Release Tab) 5 mg PO Q6 PRN PRN Reason: Pain, severe (8-10) Paroxetine HCl (Paxil) 40 mg PO DAILY [facility] Last Admin: 02/02/18 09:39 Dose: 40 mg Risperidone (Risperdal Tab) 0.5 mg PO Q8 PRN PRN Reason: Agitation Sennosides (Senokot Tab) 17.2 mg PO HS [facility] Last Admin: 02/01/18 22:25 Dose: 17.2 mg Sitagliptin Phosphate (Januvia) 100 mg PO DAILY [facility] Last Admin: 02/02/18 09:40 Dose: 100 mg Sodium Chloride ([place] Nasal [place]) 2 sprays HI Q4 PRN PRN Reason: Nasal congestion Last Admin: 01/27/18 08:09 Dose: 2 spr - Labs Labs: 02/02/18 06:20 02/02/18 06:20 - Constitutional Appears: Non-toxic, Chronically Ill - Head Exam Head Exam: NORMOCEPHALIC - Eye Exam Eye Exam: PERRL - ENT Exam ENT Exam: Mucous Membranes Dry - Neck Exam Neck Exam: absent: Lymphadenopathy - Respiratory Exam Respiratory Exam: Decreased Breath Sounds - Cardiovascular Exam Cardiovascular Exam: REGULAR RHYTHM - GI/Abdominal Exam GI & Abdominal Exam: Distended, Soft - Rectal Exam Rectal Exam: Deferred - Exam Exam: NORMAL INSPECTION - Extremities Exam Extremities Exam: Pedal Edema - Back Exam Back Exam: absent: CVA tenderness (L), CVA tenderness (R) - Neurological Exam Neurological Exam: Alert, Awake, Oriented x3 - Psychiatric Exam Psychiatric exam: Depressed Assessment and Plan (1) Osteomyelitis of ankle Status: Acute (2) Acute renal failure Status: Acute (3) Elevated LFTs Status: Acute (4) Bacteremia due to methicillin resistant Staphylococcus aureus Status: Acute - Assessment and Plan (Free Text) Assessment: D/C TO LTAC SURGICAL/ ORTHO EVAL FOR DEFINITIVE SURGERY RIGHT ANKLE CONT IV CUBICIN 8 WEEKS ++
== END 2018-02-02 11:40 | DRG 682 ==
LOC: H.ER 20:57 → H.ERHOLD 23:52 → H.TEL 01-24 02:20
PROVIDERS: ADMIT Family Medicine; ATTEND Family Medicine
DX: N17.0 Acute kidney failure with tubular necrosis (principal); G92 Toxic encephalopathy; I50.33 Acute on chronic diastolic (congestive) heart failure; R78.81 Bacteremia; M86.9 Osteomyelitis, unspecified; I13.0 Hypertensive heart and chronic kidney disease with heart failure and stage 1 through stage 4 chronic kidney disease, or unspecified chronic kidney disease; E87.1 Hypo-osmolality and hyponatremia; T84.69XA Infection and inflammatory reaction due to internal fixation device of other site, initial encounter; L03.90 Cellulitis, unspecified; N40.0 Benign prostatic hyperplasia without lower urinary tract symptoms; Z95.5 Presence of coronary angioplasty implant and graft; I25.10 Atherosclerotic heart disease of native coronary artery without angina pectoris; B95.62 Methicillin resistant Staphylococcus aureus infection as the cause of diseases classified elsewhere; E11.22 Type 2 diabetes mellitus with diabetic chronic kidney disease; E11.69 Type 2 diabetes mellitus with other specified complication; Z88.2 Allergy status to sulfonamides; J43.9 Emphysema, unspecified; R94.5 Abnormal results of liver function studies; G89.29 Other chronic pain; E78.5 Hyperlipidemia, unspecified; F41.9 Anxiety disorder, unspecified; R41.0 Disorientation, unspecified; F32.9 Major depressive disorder, single episode, unspecified; E78.00 Pure hypercholesterolemia, unspecified; E03.9 Hypothyroidism, unspecified; E87.5 Hyperkalemia; N18.9 Chronic kidney disease, unspecified; T36.8X5A Adverse effect of other systemic antibiotics, initial encounter; E83.39 Other disorders of phosphorus metabolism; D64.9 Anemia, unspecified

== ENCOUNTER 2018-04-26 11:34 | Emergency (ER) | payer MEDICARE, MEDICAID ==
[2018-04-26 11:41] VITALS: BMI 29.8
--- NOTE | 2018-04-26 12:08 | ED PDOC ---
HPI:Nausea, Vomiting, Diarrhea Time Seen by Provider: 04/26/18 12:02 Chief Complaint (Nursing): Abdominal Pain Chief Complaint (Provider): nausea History Per: Patient History/Exam Limitations: no limitations Onset/Duration Of Symptoms: Days Current Symptoms Are (Timing): Still Present Associated Symptoms: Nausea. denies: Vomiting, Diarrhea, Chest Pain Additional Complaint(s): Arnoldo Serna is a 63 year old male, with a past medical history of HTN, CAD and diabetes, who presents to the emergency department complaining of nausea from post nasal drip. Patient is s/p CABG and has been doing well other than nausea. He denies any vomiting, diarrhea, abdominal pain, chest pain or other medical complaints. PMD: None provided. Past Medical History Reviewed: Historical Data, Nursing Documentation, Vital Signs Vital Signs: Last Vital Signs Temp 97.1 F L 04/26/18 11:39 Pulse 70 04/26/18 11:39 Resp 24 04/26/18 11:39 BP 150/79 04/26/18 11:39 Pulse Ox 94 L 04/26/18 11:39 - Medical History PMH: Back Problems, Benign Prostatic Hyperplasia, CAD, Depression, Diabetes, Emphysema, Fractures, HTN, Hypercholesterolemia, Hypothyroidism, Seizures Denies: Anxiety, Asthma, COPD, HIV, Chronic Kidney Disease - Surgical History Surgical History: Back Surgery (with fusion), CABG, Coronary Stent - Family History Family History: States: Unknown Family Hx - Home Medications Home Medications: Ambulatory Orders Medication Instructions Recorded Aspirin [Ecotrin] 81 mg PO DAILY 01/04/18 Ergocalciferol (Vitamin D2) 50,000 units PO QWK 01/04/18 [Vitamin D2] Gabapentin [Neurontin] 600 mg PO BID 01/04/18 Levothyroxine [Synthroid] 88 mcg PO DAILY 01/04/18 Lisinopril [Zestril] 20 mg PO DAILY 01/04/18 Metoprolol Tartrate [Lopressor] 25 mg PO BID 01/04/18 Montelukast [Singulair] 10 mg PO DAILY 01/04/18 SITagliptin [Januvia] 100 mg PO DAILY 01/04/18 lamoTRIgine [Lamictal] 50 mg PO BID 01/04/18 Acetaminophen [Tylenol 325mg tab] 650 mg PO Q4 PRN tab 01/15/18 Albuterol/Ipratropium [Duoneb 3 3 ml INH RQ4 PRN neb 01/15/18 mg/0.5 mg (3 ml) UD] Clopidogrel [Plavix] 75 mg PO DAILY tab 01/15/18 Ibuprofen [Motrin Tab] 600 mg PO BID tab 01/15/18 Aluminum Hydroxide/Magnesium 30 ml PO Q4H 01/24/18 [Maalox Plus 30 ml] Magnesium Hydroxide [Milk of 30 ml PO DAILY 01/24/18 Magnesia] Sennosides [Senokot] 17.6 mg PO HS 01/24/18 Alprazolam [Xanax] 0.5 mg PO Q6 PRN #10 tab 02/02/18 Calcium Acetate [Phoslo] 1,334 mg PO TID tab 02/02/18 Collagenase [Santyl] 1 applic TOP DAILY tube 02/02/18 DAPTOmycin [Cubicin] 650 mg IV QOTHERDAY #21 vial 02/02/18 Fenofibrate [Tricor] 145 mg PO DAILY tab 02/02/18 Haloperidol Lactate [Haldol] 1 mg IVP Q4 PRN vial 02/02/18 Nystatin [Nystop Topical Powder] 1 applic TOP TID bottle 02/02/18 PARoxetine [Paxil] 40 mg PO DAILY tab 02/02/18 Sodium Chloride Nasal [place] [[place] 2 sprays HI Q4 PRN bottle 02/02/18 Nasal [place]] busPIRone [Buspar] 10 mg PO BID tab 02/02/18 oxyCODONE [oxyCODONE Immediate 5 mg PO Q6 PRN tab 02/02/18 Release Tab] oxyCODONE [oxyCODONE Immediate 30 mg PO Q6 tab 02/02/18 Release Tab] risperiDONE [RisperDAL Tab] 0.5 mg PO Q8 PRN tab 02/02/18 Ondansetron [Zofran] 4 mg PO Q8H #10 tab 04/26/18 - Allergies Allergies/Adverse Reactions: Allergies Allergy/AdvReac Type Severity Reaction Status Date / Time Sulfa (Sulfonamide Allergy RASH Verified 02/14/16 09:33 Antibiotics) Review of Systems ROS Statement: Except As Marked, All Systems Reviewed And Found Negative Cardiovascular: Negative for: Chest Pain Gastrointestinal: Positive for: Nausea. Negative for: Vomiting, Abdominal Pain , Diarrhea Physical Exam - Reviewed Nursing Documentation Reviewed: Yes Vital Signs Reviewed: Yes - Physical Exam Appears: Positive for: No Acute Distress Head Exam: Positive for: ATRAUMATIC, NORMAL INSPECTION, NORMOCEPHALIC Skin: Positive for: Normal Color, Warm, Dry Eye Exam: Positive for: Normal appearance, EOMI, PERRL Neck: Positive for: Painless ROM Cardiovascular/Chest: Positive for: Regular Rate, Rhythm. Negative for: Murmur Respiratory: Positive for: Normal Breath Sounds. Negative for: Respiratory Distress Gastrointestinal/Abdominal: Positive for: Normal Exam, Soft. Negative for: Tenderness Extremity: Positive for: Normal ROM (full ROM). Negative for: Deformity, Swelling Neurologic/Psych: Positive for: Alert, Oriented. Negative for: Motor/Sensory Deficits - Laboratory Results Result Diagrams: 04/26/18 12:10 04/26/18 12:10 - ECG O2 Sat by Pulse Oximetry: 94 (RA) Pulse Ox Interpretation: Abnormal Medical Decision Making Medical Decision Making: Time: 12:02 Initial Impression: Nausea Initial Plan: --CMP --CBC w/ differential --Zofran Inj 4 mg IVP --Reevaluation ----- Scribe Attestation: Documented by Stephen Tamayo, acting as a scribe for Ahmet Kaur MD. Provider Scribe Attestation: All medical record entries made by the Scribe were at my direction and personally dictated by me. I have reviewed the chart and agree that the record accurately reflects my personal performance of the history, physical exam, medical decision making, and the department course for this patient. I have also personally directed, reviewed, and agree with the discharge instructions and disposition. Disposition - Clinical Impression Clinical Impression: Nausea - Patient ED Disposition Is Patient to be Admitted: No Counseled Patient/Family Regarding: Studies Performed, Diagnosis, Need For Followup, Rx Given - Disposition Disposition: Routine/Home Disposition Time: 12:56 Condition: FAIR Prescriptions: Ondansetron [Zofran] 4 mg PO Q8H #10 tab Instructions: Nausea and Vomiting, Adult Forms: [facility] (H[place]ian)
[2018-04-26 12:32] LABS: ALBUMIN 3.5 g/dL (3.5-5.0); ALT/SGPT 17 U/L (21-72); AST/SGOT 33 U/L (17-59); BLOOD UREA NITROGEN 17 mg/dl (9-20); CALCIUM 8.9 mg/dL (8.4-10.2); GFR NON-AFRICAN AMERICAN > 60
[2018-04-26 12:50] LABS: BASO # 0.1 K/uL (0.0-0.2); BASO % 0.6 % (0.0-2.0); EOS % 0.2 % (0.0-4.0); HEMOGLOBIN 12.1 g/dL (12.0-18.0); LYMPH # 1.2 K/uL (1.0-4.3); LYMPH % 11.2 % (20.0-40.0); MEAN CELL VOLUME 85.8 fl (80.0-94.0); MEAN CORPUSCULAR HEMOGLOBIN 28.9 pg (27.0-31.0); MEAN CORPUSCULAR HGB CONC 33.7 g/dL (33.0-37.0); MEAN PLATELET VOLUME 6.9 fl (7.2-11.7); MONO # 0.8 K/uL (0.0-0.8); MONO % 7.2 % (0.0-10.0); NEUT # 8.4 K/uL (1.8-7.0); NEUT % 80.8 % (50.0-75.0); RBC 4.2 Mil/uL (4.40-5.90); RED CELL DISTRIBUTION WIDTH 17.6 % (11.5-14.5); WHITE BLOOD COUNT 10.5 K/uL (4.8-10.8)
[2018-04-26 13:25] VITALS: BP 150/89; PULSE 74; RESP 20; TEMP 97.5; O2SAT 95
== END 2018-04-26 13:23 | disposition home or self-care (01) ==
LOC: H.ER 11:34
DX: R11.0 Nausea (principal); R10.9 Unspecified abdominal pain; E03.9 Hypothyroidism, unspecified; E11.9 Type 2 diabetes mellitus without complications; E78.00 Pure hypercholesterolemia, unspecified; I10 Essential (primary) hypertension; Z95.1 Presence of aortocoronary bypass graft; Z95.5 Presence of coronary angioplasty implant and graft